=== PATIENT | female | born 1940 | race Caucasian/White ===

== ENCOUNTER 2017-02-07 03:47 | Inpatient (IN) ==
[2017-02-07] MEDS ORDERED: 0.9 % Sodium Chloride 500 ML IVC ONE ×2 (04:02→05:10)
--- NOTE | 2017-02-07 04:08 | Emergency Department Note ---
Disposition Clinical Impression: Paroxysmal atrial fibrillation with rapid ventricular response Disposition: Admitted As Inpatient Condition: Good Time of Disposition: 07:01 Arrhythmia/Palpitations HPI - General Chief Complaint: ED Arrhythmia/Palpitations Stated Complaint: Afib Time Seen by Provider: 02/07/17 03:52 Source: patient Mode of arrival: private vehicle Limitations: no limitations Nursing Notes Reviewed: Yes Vital Signs Reviewed: Yes - History of Present Illness HPI Narrative: 76-year-old female history of paroxysmal atrial fibrillation presents to the ED for rapid heart rate and atrial fibrillation. She is normally in normal sinus rhythm. States around 1230 she rolled in bed and she immediately felt her heart racing and she knew she was in atrial fibrillation. 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 She denies any shortness of breath or chest pain. She follows with Dr. Fay her administrative aide and had a recent ablation December 2015. She does take Pradaxa for anticoagulation. She used to be on beta paste as well. She denies any recent illness, fever, cough, nausea, vomiting or abdominal pain. She denies a history of congestive heart failure. Reports last time she had atrial fibrillation she was slightly hypotensive but they still gave her Cardizem and she was able to tolerate this well. Currently her blood pressure is 101/74. Give her a small fluid bolus of 500 mL normal saline and starter on a Cardizem 5 mL per hour drip without bolus. Patients in agreement with this plan. Pt Subjective Complaint: rapid heart beat, atrial fibrillation - Related Data Home Medications Medication Instructions Recorded Confirmed Dabigatran [Pradaxa] 75 mg PO BID 02/07/17 02/07/17 Metoprolol [Lopressor] 50 mg PO BID 02/07/17 02/07/17 Previous Rx's Medication Instructions Recorded Esomeprazole Magnesium [Nexium] 40 mg PO DAILY #0 06/17/15 Allergies Allergy/AdvReac Type Severity Reaction Status Date / Time No Known Allergies Allergy Verified 02/07/17 07:30 All systems ED: reviewed and negative except as stated. Review of Systems: As Per HPI Constitutional: Denies: fever, chills ENT ED: Denies: congestion, dysphagia Cardiovascular: Reports: palpitations. Denies: chest pain, dyspnea on exertion Respiratory: Denies: cough, dyspnea Gastrointestinal: Denies: abdominal pain, nausea, vomiting Genitourinary: Denies: urgency, dysuria Musculoskeletal: Reports: back pain. Denies: neck pain, arthralgia Integumentary: Denies: rash, abrasion Neurological: Denies: headache, weakness Psychiatric: Denies: anxiety, depression Past Medical History - Past Medical History Attestation: Yes The following information was validated with the patient. Source: patient Medical history: Reports: atrial fibrillation, GERD Surgical history: Reports: other ([facility] 2006--minimal CAD; mid LAD myocardial bridging. ) Psychiatric history: Reports: no psych history - Social History Smoking Status: Never smoker Smokeless Tobacco Status: No Alcohol use: Reports: none Drug use: Reports: none Physical Exam - General Limitations: no limitations General appearance: alert, in no apparent distress - Head Head exam: atraumatic, normocephalic, normal inspection - Eye Eye exam: Present: normal appearance, PERRL, EOMI - ENT ENT exam: normal exam, normal oropharynx, mucous membranes moist - Neck Neck exam: Present: normal inspection, full ROM, trachea midline. Absent: tenderness - Chest Chest inspection: Present: normal inspection, symmetric chest wall rise. Absent : tenderness - Respiratory Respiratory exam: Present: normal lung sounds bilaterally. Absent: respiratory distress, wheezes - Cardiovascular Cardiovascular exam: Present: tachycardia, irregular rhythm, normal heart sounds. Absent: systolic murmur, diastolic murmur - Abdominal Exam Abdominal exam: Present: soft, Non-Tender, normal bowel sounds. Absent: tenderness, distention, guarding, rebound, rigidity - Extremities Exam Extremities exam: Present: normal inspection, full ROM, normal capillary refill. Absent: tenderness, pedal edema, calf tenderness - Neurological Exam Neurological exam: Present: alert, oriented X3 - Skin Skin exam: Present: warm, dry, intact, normal color Course Course Narrative: [id number] female history of atrial fibrillation presents for atrial fibrillation with rapid ventricular response. She is normally in normal sinus rhythm after ablation over a year ago. She can tell the exact time she converted to atrial fibrillation at 1230a when she rolled in bed. EKG shows atrial fibrillation RVR 151 beats per minute. Her heart rate varies from 150 is as high as 200. She is awake alert and oriented. Mildly anxious otherwise in no acute distress. Heart irregularly irregular. Her initial blood pressure 101/74. States in the past she was able tolerate Cardizem without a bolus with no issues. Start her with 5mg per hour Cardizem as well as a 500 normal saline bolus. - Reevaluation(s) Reevaluation #1: Patient's artery is steadily at the 140's. States her blood pressure continues to drop as low as systolic 90. We have given or additional 500 mL normal saline bolus and has come back up to systolic 100-110s. She continues to be stable but does reports some feelings of lightheadedness. Offered the option of cardioversion and the patient is adamantly against it. She would prefer not to be cardioverted unless necessary. States last time she was in atrial fibrillation was 2 years ago and it took several hours until she converted. This was prior to her ablation. Will continue to slowly infuse Cardizem to appropriate rate control or pharmacological conversion. Review of the labs are unremarkable. Time: 05:54 - Consultations Consultation #1: Spoke with on-call admitting hospitalist, Dr. Clark, who came down to evaluate the patient personal and receive signout. Agrees that she will require admission for her paroxysmal atrial fibrillation c RVR. Again we offered cardioversion but patient prefers slow titration and rate control. Currently HR ranges 110-130s. She has remained stable the entire stay here in the emergency department and is stable for admission to the hospital floor for further management. No further orders at this time. Time: 07:14 Vital Signs Temperature 98.1 F 02/07/17 03:51 Pulse Rate 167 02/07/17 03:51 Respiratory Rate 20 02/07/17 03:51 Blood Pressure 86/60 02/07/17 03:51 O2 Sat by Pulse Oximetry 95 02/07/17 03:51 Temperature 98.7 F 02/07/17 14:58 Pulse Rate 72 02/07/17 14:58 Respiratory Rate 12 02/07/17 14:58 Blood Pressure 127/72 02/07/17 14:58 O2 Sat by Pulse Oximetry 93 02/07/17 14:58 Oxygen Delivery Oxygen Delivery Nasal Cannula Arrhythmia/Palpitations - Medical Records Medical records reviewed: Yes I reviewed the patient's medical records. - Lab Data Lab results reviewed: Yes I reviewed the patient's lab results. Result diagrams: 02/07/17 04:04 02/07/17 04:04 Lab Results 02/07/17 02/07/17 02/07/17 Range/Units 04:04 04:04 04:04 WBC 10.0 (4.3-11.1) K/mcL RBC 5.00 H (3.82-4.97) M/mcL Hgb 14.2 (11.5-15.4) g/dL Hct 43.3 (35.3-44.9) % MCV 86.6 (83.0-100.0) fL MCH 28.4 (28.0-33.3) pg MCHC 32.8 (31.6-35.5) g/dL RDW 13.2 (11.5-14.5) % Plt Count 250 (140-400) K/mcL MPV 9.9 (9.4-12.4) fL Immature Gran % 0.3 (0-4) % Seg Neutrophils % 71.7 % Lymphocytes % 21.7 % Monocytes % 5.1 % Eosinophils % 0.6 % Basophils % 0.6 % Neutrophils # 7.2 (1.6-8.9) K/mcL Lymphocytes # 2.2 (0.6-4.6) K/mcL Monocytes # 0.5 (0.0-1.3) K/mcL Eosinophils # 0.1 (0.0-0.6) K/mcL Basophils # 0.1 (0.0-0.2) K/mcL PT 13.6 H (9.4-12.1) Seconds INR 1.3 APTT 48.9 H (26.0-36.0) Seconds Sodium 135 L (136-145) mEq/L Potassium 4.7 H (3.5-4.5) mEq/L Chloride 104 (98-109) mEq/L Carbon Dioxide 19 (19-29) mEq/L BUN 17 (7-20) mg/dL Creatinine 0.85 (0.57-1.11) mg/dL Est GFR ( Amer) > 60 (> 60) Est GFR (Non-Af Amer) > 60 (> 60) BUN/Creatinine Ratio 20 (6-26) Glucose 200 H (70-99) mg/dL Calculated Osmolality 287 (280-300) Calcium 9.0 (8.6-10.8) mg/dL Troponin I (0-0.03) ng/mL TSH 3.384 (0.350-4.840) mcIU/mL 02/07/17 Range/Units 08:11 WBC (4.3-11.1) K/mcL RBC (3.82-4.97) M/mcL Hgb (11.5-15.4) g/dL Hct (35.3-44.9) % MCV (83.0-100.0) fL MCH (28.0-33.3) pg MCHC (31.6-35.5) g/dL RDW (11.5-14.5) % Plt Count (140-400) K/mcL MPV (9.4-12.4) fL Immature Gran % (0-4) % Seg Neutrophils % % Lymphocytes % % Monocytes % % Eosinophils % % Basophils % % Neutrophils # (1.6-8.9) K/mcL Lymphocytes # (0.6-4.6) K/mcL Monocytes # (0.0-1.3) K/mcL Eosinophils # (0.0-0.6) K/mcL Basophils # (0.0-0.2) K/mcL PT (9.4-12.1) Seconds INR APTT (26.0-36.0) Seconds Sodium (136-145) mEq/L Potassium (3.5-4.5) mEq/L Chloride (98-109) mEq/L Carbon Dioxide (19-29) mEq/L BUN (7-20) mg/dL Creatinine (0.57-1.11) mg/dL Est GFR ( Amer) (> 60) Est GFR (Non-Af Amer) (> 60) BUN/Creatinine Ratio (6-26) Glucose (70-99) mg/dL Calculated Osmolality (280-300) Calcium (8.6-10.8) mg/dL Troponin I 0.02 (0-0.03) ng/mL TSH (0.350-4.840) mcIU/mL - Radiology Data Radiology results reviewed: Yes I reviewed the patient's radiology results. Chest X-Ray 02/07/17 04:02 IMPRESSION: 1. No acute cardiopulmonary disease. D/ / Jassi Owusu MD / Jassi Owusu MD Interpreting Provider: Jassi Owusu MD - EKG Data EKG attestation: Yes I reviewed and interpreted this EKG. EKG results narrative: EKG performed 0351 atrial fibrillation with rapid ventricular response 1 51 bpm QRS 100, no ST elevations or depression, no T wave inversion. This is compared to old EKG performed 06/17/2015 shows normal sinus rhythm 69 bpm area no acute ischemic changes. Critical Care Time Critical Care Time: Yes Total Critical Care Time: 45 Attestation: Critical care performed: Time is exclusive of separately billable procedures. Time includes: direct patient care, patient reassessment, coordination of patient care, interpretation of data (laboratory data, radiology data, and respiratory data), review of patient's medical records, medical consultation and documentation of patient care. Procedures included in critical care time: Procedures excluded from critical care time: Attestation Statement - Attestation Attestation: I, Floyd Sotelo MD, personally evaluated this patient and discussed their management with the resident physician. I reviewed the resident's note and agree with the documented findings, medical decision making, and plan of care. 76-year-old female presents to the emergency department with a complaint of atrial fibrillation. Patient has a prior history of paroxysmal atrial fibrillation. She has had an ablation in the past. She states that she rolled over in bed at 12:30 AM and felt her heart go into atrial fibrillation. She denies any chest pain but states that she has a vague sensation in her chest that she always has when she is in atrial fibrillation and she knows immediately when the atrial fibrillation converts back to a sinus rhythm because that sensation in her chest goes away. No shortness of breath. No diaphoresis. She has felt mildly dizzy and lightheaded a few times. Patient reports that the last time she had an episode of atrial fibrillation her blood pressure was low so they had to keep her on a Cardizem drip at 5 mg per hour and could not give her a bolus. She states it took about 18 hours for her to convert back to a sinus rhythm. Patient states she does not want to be cardioverted unless she becomes significantly unstable. Her systolic blood pressure is been running mostly in the 90s. On examination patient is a well-developed well-nourished well-appearing elderly female in no acute distress. She is alert and oriented 3. There is no cyanosis or diaphoresis. Breath sounds are clear and equal bilaterally. Heart is tachycardic and irregularly irregular. Abdomen soft and nontender with normal bowel sounds. EKG shows atrial fibrillation with RVR. Chest x-ray negative. Labs reviewed. Patient placed on a Cardizem infusion at 5. She did receive a 500 mg bolus of normal saline which was then repeated. She did have slight improvement in her heart rate as when she arrived she was running anywhere from 160-190 and now on the cart exam she is running mostly in the 140s. Admission accepted by the hospitalist, Dr. Clark.
[2017-02-07 04:12] LABS: Basophils # 0.1 K/mcL (0.0-0.2); Basophils % 0.6 %; Eosinophils # 0.1 K/mcL (0.0-0.6); Eosinophils % 0.6 %; Hematocrit 43.3 % (35.3-44.9); Hemoglobin 14.2 g/dL (11.5-15.4); Immature Granulocytes % 0.3 % (0-4); Lymphocytes # 2.2 K/mcL (0.6-4.6); Lymphocytes % 21.7 %; Mean Corpuscular HGB Conc 32.8 g/dL (31.6-35.5); Mean Corpuscular Hemoglobin 28.4 pg (28.0-33.3); Mean Corpuscular Volume 86.6 fL (83.0-100.0); Mean Platelet Volume 9.9 fL (9.4-12.4); Monocytes # 0.5 K/mcL (0.0-1.3); Monocytes % 5.1 %; Neutrophils # 7.2 K/mcL (1.6-8.9); Platelet Count 250 K/mcL (140-400); Red Cell Distribution Width 13.2 % (11.5-14.5); Segmented Neutrophils % 71.7 %
[2017-02-07] MEDS ORDERED: dilTIAZem HCl 100 MG in D5% in Water 50 ML IVC SCH ×2 (04:15→09:19)
[2017-02-07 04:19] LABS: INR 1.3; Prothrombin Time 13.6 Seconds (9.4-12.1)
[2017-02-07 04:21] LABS: Activated Partial Thrombo Time 48.9 Seconds (26.0-36.0)
[2017-02-07 04:25] LABS: BUN/Creatinine Ratio 20 (6-26); Blood Urea Nitrogen 17 mg/dL (7-20); Carbon Dioxide 19 mEq/L (19-29); Chloride 104 mEq/L (98-109); Glucose 200 mg/dL (70-99); Osmolality,Calculated 287 (280-300); Sodium 135 mEq/L (136-145); eGFR For African Americans > 60 (> 60); eGFR For Non-African Americans > 60 (> 60)
[2017-02-07 04:27] LABS: Potassium 4.7 mEq/L (3.5-4.5)
[2017-02-07 04:45] LABS: Thyroid Stimulating Hormone 3.384 mcIU/mL (0.350-4.840)
[2017-02-07] MEDS ORDERED: 0.9 % Sodium Chloride 500 ML ONE (04:47)
--- NOTE | 2017-02-07 07:43 | Internal Med History&Physical ---
Date of Encounter: 02/07/17 Time of Encounter: 07:36 Assessment and Plan (1) Paroxysmal atrial fibrillation with rapid ventricular response Current visit: Yes Status: Acute 76/female Known to have atrial fibrillation. Ablation for atrial fibrillation in 2016. CHADS-VASc score is 4 [address] Fay from [facility]. Last echocardiogram: 05/2015: EF: 60%, asymmetric hypertrophy of a basal septum, no significant valvular dysfunction. Anticoagulation: Dabigatran Emi carl: Metoprolol 50 mg twice a day Present ventricular rate between 110 to 126/m Plan: -Admitted as inpatient: Need intravenous Cardizem for rate control. -Intravenous Cardizem to keep heart rate between 90 and 100 bpm. -Resume home medication. -Echocardiogram. -Cycle troponin. -Telemetry monitoring. -Cardiac diet. -If the heart rate is not controlled with this medication and if there is abnormality in the echocardiogram, we will get a cardiology evaluation. I examined this patient in the emergency room #9. Along with me emergency room resident Dr. Álvarez was present. Patient's family was at bedside. I have discussed above plan with the patient and her family. (2) Palpitations Current visit: No Status: Acute See above (3) Elevated blood sugar Current visit: Yes Status: Acute Noted that patient has a random blood sugar of 200. No previous history of diabetes. We will get hemoglobin A1c. (4) GERD (gastroesophageal reflux disease) Current visit: No Status: Chronic Resume home medication. Qualifiers: Esophagitis presence: without esophagitis Qualified Code(s): K21.9 - Gastro -esophageal reflux disease without esophagitis (5) DVT prophylaxis Current visit: Yes Status: Acute Dabigatran. Medical decision making: This patient has a moderate to severe risk of worsening in spite of being on appropriate medication to the underlying complex comorbid issues. Internal Medicine - H&P: HPI Chief complaint: Palpitations Admitted From: Emergency Dept Plans for Post Hospital Care: Home History of present illness: PCP: Nurse saray Booth. Usability Architect: Dr. Fay from [facility]. 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 This episode was lasted for more than 45 minutes. Patient feels little better after that but again she started having palpitations. In view of this ongoing palpitations she decided to come to the emergency room for further evaluation. Patient denies chest pain, shortness of breath, abdominal pain, nausea, vomiting, dizziness or diarrhea. Workup in the emergency room: Patient was evaluated in the emergency room. Basic labs were drawn. EKG was suggestive of atrial fibrillation with rapid ventricular rate. Patient was given option of electrical cardioversion. Patient refuses further electrical cardioversion and prefer hospitalization. She was started on Cardizem drip. Reason for hospitalization: Atrial fibrillation with a rapid ventricular rate. CHADS-VASc score is 4. Patient needs intravenous Cardizem to control her heart rate to begin with along with close monitoring. Family history: Nonsignificant Past Med Surg Social Fam HX - Past Medical History Medical history: atrial fibrillation, GERD Psychiatric history: no psych history - Past Surgical History Surgical History: other ([facility] 2005--minimal CAD; mid LAD myocardial bridging. ) - Social History Smoking Status: Never smoker Smokeless Tobacco Status: No Alcohol use: none Drug use: none - Family History Mother Living Status: Hx Family Cardiac Disorders: No Hx Family Respiratory Disorders: No Hx Family Cancer: No Internal Medicine - H&P: Meds Esomeprazole Magnesium [Nexium] 40 mg PO DAILY #0 06/17/15 [Rx] Dabigatran [Pradaxa] 75 mg PO BID 02/07/17 [History] Metoprolol [Lopressor] 50 mg PO BID 02/07/17 [History] 3 Allergy/AdvReac Type Severity Reaction Status Date / Time No Known Allergies Allergy Verified 02/07/17 07:30 All Systems PM: A 10-system review of systems was performed and is negative for pertinent findings except as documented above in the HPI. - Constitutional Constitutional: no chills, no fever(s), no night sweats - EENT Eyes: no change in vision, no discharge, no pain, no photophobia Ears: no ear discharge, no ear pain, no tinnitus Nose, mouth and throat: no dysphagia, no nasal discharge, no neck pain, no sore throat - Cardiovascular Cardiovascular ROS IM: dyspnea, lightheadedness, palpitations, no chest pain, no diaphoresis, no syncope - Respiratory Respiratory: no cough, no dyspnea, no wheezing, no excessive phlegm production - Gastrointestinal Gastrointestinal: no abdominal pain, no diarrhea, no hematemesis, no hematochezia, no melena, no nausea, no vomiting - Genitourinary Genitourinary: no change in urinary stream, no dysuria, no flank pain, no hematuria - Musculoskeletal Musculoskeletal ROS IM: no numbness, no tingling - Integumentary Integumentary IM: no rash, no unusual bruising - Neurological Neurological ROS: no confusion, no convulsions, no focal weakness, no numbness, no tingling, no tremor(s) - Hematologic/Lymphatic Hematologic/Lymphatic: no easy bruising - Constitutional Vitals: Temp Pulse Resp BP Pulse Ox 98.1 F 139 16 93/75 93 02/07/17 03:51 02/07/17 06:29 02/07/17 06:29 02/07/17 06:29 02/07/17 06:29 General appearance: Present: A&O X 3, pleasant, no acute distress, answers questions appropriately - Head Head exam: Present: atraumatic, normocephalic - Eye Eye exam: Present: PERRL, conjuntiva pink, sclera anicteric Pupils: Present: PERRL - Neck Neck exam general surgery: Present: supple, trachea midline. Absent: lymphadenopathy - Respiratory Respiratory exam: Present: CTAB. Absent: accessory muscle use, rales, rhonchi, wheezes - Cardiovascular Cardiovascular exam: Present: RRR, +S1, +S2. Absent: diastolic murmur, gallop, rubs, systolic murmur - GI/Abdominal GI/Abdominal exam: Present: normal bowel sounds, soft, no peritoneal signs. Absent: distended, tenderness - Extremities Exam Extremities exam: Present: warm, radial pulses palpable and symmetrical. Absent : calf tenderness, cyanotic, pedal edema - Neurological Exam Neurological exam: Present: CN II-XII intact, oriented X3, no focal deficits. Absent: pronater drift, facial droop, speech deficit - Skin Skin exam: Present: dry, intact Internal Med - H&P Results - Labs CBC & Chem 7: 02/07/17 04:04 02/07/17 04:04 Labs: Short CBC 02/07/17 Range/Units 04:04 WBC 10.0 (4.3-11.1) K/mcL Hgb 14.2 (11.5-15.4) g/dL Hct 43.3 (35.3-44.9) % Plt Count 250 (140-400) K/mcL Neutrophils # 7.2 (1.6-8.9) K/mcL BMP 02/07/17 04:04 Sodium 135 L Potassium 4.7 H Chloride 104 Carbon Dioxide 19 BUN 17 Creatinine 0.85 Glucose 200 H Calcium 9.0 I have discussed this case at length with the emergency room physician. - Impressions ITS Impressions Chest X-Ray 02/07/17 04:02 IMPRESSION: 1. No acute cardiopulmonary disease. D/ / Jassi Owusu MD / Jassi Owusu MD Interpreting Provider: Jassi Owusu MD
[2017-02-07] MEDS ORDERED: Naloxone 0.4 MG/ML INJ IVP PRN (07:47)
[2017-02-07] MEDS: *HR* Dabigatran 75 MG CAPSULE PO SCH ×2 (09:37→20:48)
[2017-02-07] MEDS ORDERED: 0.9 % Sodium Chloride 1,000 ML IVC SCH (09:45)
--- NOTE | 2017-02-07 20:16 | Electrocardiograph Report ---
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
--- NOTE | 2017-02-07 20:23 | Electrocardiograph Report ---
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
[2017-02-08 01:21] LABS: Basophils # 0.1 K/mcL (0.0-0.2); Basophils % 0.8 %; Eosinophils # 0.2 K/mcL (0.0-0.6); Eosinophils % 2.2 %; Hematocrit 38.1 % (35.3-44.9); Immature Granulocytes % 0.1 % (0-4); Lymphocytes # 2.5 K/mcL (0.6-4.6); Lymphocytes % 33.1 %; Mean Corpuscular HGB Conc 32.3 g/dL (31.6-35.5); Mean Corpuscular Hemoglobin 28.3 pg (28.0-33.3); Mean Corpuscular Volume 87.8 fL (83.0-100.0); Mean Platelet Volume 10.1 fL (9.4-12.4); Monocytes # 0.7 K/mcL (0.0-1.3); Monocytes % 8.7 %; Neutrophils # 4.1 K/mcL (1.6-8.9); Platelet Count 209 K/mcL (140-400); Red Blood Count 4.34 M/mcL (3.82-4.97); Red Cell Distribution Width 13.4 % (11.5-14.5); Segmented Neutrophils % 55.1 %
[2017-02-08 01:24] LABS: Hemoglobin 12.3 g/dL (11.5-15.4)
[2017-02-08 01:26] LABS: INR 1.2; Prothrombin Time 13.4 Seconds (9.4-12.1)
[2017-02-08 01:29] LABS: Activated Partial Thrombo Time 42.5 Seconds (26.0-36.0)
[2017-02-08 01:31] LABS: Hemoglobin A1C 5.8 %
[2017-02-08 01:36] LABS: Alanine Aminotransferase 43 Units/L (0-55); Albumin 3.2 g/dL (3.5-5.0); Albumin/Globulin Ratio 1.1 (1.1-2.2); Alkaline Phosphatase 68 Units/L (38-126); Aspartate Amino Transferase 25 Units/L (5-34); BUN/Creatinine Ratio 19 (6-26); Bilirubin,Total 0.6 mg/dL (0.2-1.2); Blood Urea Nitrogen 14 mg/dL (7-20); Calcium 8.7 mg/dL (8.6-10.8); Carbon Dioxide 26 mEq/L (19-29); Chloride 108 mEq/L (98-109); Chol/HDL Ratio 6.6 (0-4.9); Cholesterol 164 mg/dL (< 200); Glucose 105 mg/dL (70-99); HDL Cholesterol 25 mg/dL (40-59); LDL Cholesterol,Calculated 115 mg/dL (0-99); Magnesium 2.3 mg/dL (1.6-2.6); Osmolality,Calculated 291 (280-300); Phosphorous 3.2 mg/dL (2.3-4.7); Potassium 3.9 mEq/L (3.5-4.5); Sodium 140 mEq/L (136-145); Total Protein 6.2 g/dL (6.0-8.3); Triglycerides 118 mg/dL (< 150); eGFR For African Americans > 60 (> 60); eGFR For Non-African Americans > 60 (> 60)
[2017-02-08] MEDS: *HR* Dabigatran 75 MG CAPSULE PO SCH (08:11)
--- NOTE | 2017-02-08 15:13 | Discharge Summary ---
Date of Encounter: 02/08/17 Time of Encounter: 11:00 - Discharge Diagnosis (1) Paroxysmal atrial fibrillation with rapid ventricular response Priority: Primary Status: Acute - Discharge Medications Home Medications: Esomeprazole Magnesium [Nexium] 40 mg PO DAILY #0 06/17/15 [Rx] Dabigatran [Pradaxa] 150 mg PO BID 02/07/17 [History] Metoprolol [Lopressor] 50 mg PO BID 02/07/17 [History] Allergies/Adverse Reactions: 3 Allergy/AdvReac Type Severity Reaction Status Date / Time No Known Allergies Allergy Verified 02/07/17 07:30 Procedures/tests Complete & Pending: Procedures Performed prior 72 hours Category Date Time Status ECG 12 lead ECG [ECG] Routine Y 02/07/17 13:36 Completed Date of admission: 02/07/17 10:55 Primary care physician: Julee Booth CNP - Patient Status Disposition: Home, Self-Care Condition: Good - Discharge Instructions Follow Up With: Karel Fay DO [Non-Partnered Physician] - 02/19/17 (keep previously scheduled appointment w/your radiotelegraphist first week in February) Hospital course: Patient is a 77-year-old female with past medical history significant for atrial fibrillation with prior ablation, hyperlipidemia, coronary artery disease and GERD who presented to the ER on 02/07/17 with chest palpitations. Patient reported that approximately around midnight prior to her admission, she experienced palpitations and thought that she was back in atrial fibrillation with RVR and decided to come to the ER for evaluation. In the ER, patient was found to be in atrial fibrillation with RVR and was started on Cardizem drip and later cardio converted. Patient was admitted to the medical floor for further management and workup. During patients hospital stay, she remained in normal sinus rhythm and echocardiogram showed LVEF of 65-70% with normal left ventricular size/function in addition to normal right ventricular size/function with no valvular dysfunction or pulmonary hypertension identified. In addition, patient also was found to have elevated cardiac biomarkers which was thought to be due to demand ischemia secondary to atrial fibrillation with RVR. Patient will be discharged to follow up with her radiotelegraphist for continued medical management of a atrial fibrillation. - Time Spent with Patient Total time spent providing and/or coordinating discharge services: Less than 30 minutes - Constitutional Vitals: Temp Pulse Resp BP Pulse Ox 98 F 89 20 158/90 96 11/23/17 12:00 02/08/17 12:00 02/08/17 12:00 02/08/17 12:00 02/08/17 12:00 General appearance: Present: A&O X 3, pleasant, no acute distress, answers questions appropriately - Respiratory Respiratory exam: Present: CTAB. Absent: accessory muscle use, rales, rhonchi, wheezes - Cardiovascular Cardiovascular exam: Present: RRR, +S1, +S2. Absent: diastolic murmur, gallop, rubs, systolic murmur
[2017-02-08 17:09] VITALS: BP 131/91
[2017-02-08] MEDS ORDERED: *HR* Dabigatran 150 MG CAPSULE PO SCH (21:00)
== END 2017-02-08 16:05 | disposition home or self-care (01) | DRG 309 ==
LOC: EMEROO 03:47 → 2NENU 03:47
PROVIDERS: ADMIT Internal Medicine; ATTEND Internal Medicine

== ENCOUNTER 2017-08-22 21:05 | Inpatient (IN) ==
[2017-08-22 21:43] LABS: Basophils # 0.1 K/mcL (0.0-0.2); Basophils % 0.6 %; Eosinophils # 0.1 K/mcL (0.0-0.6); Eosinophils % 1.1 %; Hematocrit 40.7 % (35.3-44.9); Hemoglobin 13.6 g/dL (11.5-15.4); Immature Granulocytes % 0.2 % (0-4); Lymphocytes # 2.1 K/mcL (0.6-4.6); Lymphocytes % 21.2 %; Mean Corpuscular HGB Conc 33.4 g/dL (31.6-35.5); Mean Corpuscular Hemoglobin 28.8 pg (28.0-33.3); Mean Corpuscular Volume 86.2 fL (83.0-100.0); Mean Platelet Volume 9.9 fL (9.4-12.4); Monocytes # 0.8 K/mcL (0.0-1.3); Neutrophils # 6.9 K/mcL (1.6-8.9); Platelet Count 221 K/mcL (140-400); Red Blood Count 4.72 M/mcL (3.82-4.97); Red Cell Distribution Width 13.3 % (11.5-14.5); Segmented Neutrophils % 68.9 %
[2017-08-22] MEDS ORDERED: 0.9 % Sodium Chloride 1,000 ML ONE (21:45)
--- NOTE | 2017-08-22 21:48 | Emergency Department Note ---
Disposition Clinical Impression: Atrial fibrillation with rapid ventricular response Disposition: Admitted As Inpatient Condition: Fair Referrals: Julee Booth [facility] [Primary Care Provider] - Forms: ED Satisfaction Letter Time of Disposition: 23:08 Arrhythmia/Palpitations HPI - General Chief Complaint: ED Arrhythmia/Palpitations Stated Complaint: cp/sob Time Seen by Provider: 08/22/17 21:18 Source: patient Mode of arrival: ambulatory Limitations: no limitations Nursing Notes Reviewed: Yes Vital Signs Reviewed: Yes - History of Present Illness HPI Narrative: History of atrial fibrillation. Pt Subjective Complaint: rapid heart beat, "heart racing", palpitations, irregular heart beat, atrial fibrillation Onset (ago): hour(s) Duration: constant Context: occurred during rest Arrhythmia History: atrial fibrillation Associated symptoms: Reports: chest pain, other (Dyspnea) Treatments prior to arrival: beta-carl - Related Data Home Medications Medication Instructions Recorded Confirmed Dabigatran [Pradaxa] 150 mg PO BID 02/07/17 02/08/17 Metoprolol [Lopressor] 50 mg PO BID 02/07/17 02/07/17 Previous Rx's Medication Instructions Recorded Esomeprazole Magnesium [Nexium] 40 mg PO DAILY #0 06/17/15 Allergies Allergy/AdvReac Type Severity Reaction Status Date / Time No Known Allergies Allergy Verified 08/22/17 21:11 All systems ED: reviewed and negative except as stated. Constitutional: Reports: as per HPI Eyes: Reports: as per HPI ENT ED: Reports: as per HPI Cardiovascular: Reports: chest pain, palpitations Respiratory: Reports: dyspnea Gastrointestinal: Reports: as per HPI Genitourinary: Reports: as per HPI Musculoskeletal: Reports: as per HPI Integumentary: Reports: as per HPI Neurological: Reports: as per HPI Psychiatric: Reports: as per HPI Endocrine: Reports: as per HPI Hematological/Lymphatic: Reports: as per HPI Allergic/Immunologic: Reports: as per HPI Past Medical History - Past Medical History Source: patient Medical history: Reports: atrial fibrillation, GERD Surgical history: Reports: other ([facility] 2005--minimal CAD; mid LAD myocardial bridging. ) Psychiatric history: Reports: no psych history - Social History Smoking Status: Never smoker Smokeless Tobacco Status: No Alcohol use: Reports: none Drug use: Reports: none Physical Exam - General Limitations: no limitations General appearance: alert - Head Head exam: atraumatic - Eye Eye exam: Present: normal appearance - ENT ENT exam: normal exam - Neck Neck exam: Present: normal inspection, full ROM - Chest Chest inspection: Present: normal inspection, symmetric chest wall rise - Respiratory Respiratory exam: Present: normal lung sounds bilaterally, respiratory distress - Cardiovascular Cardiovascular exam: Present: tachycardia, irregular rhythm - Rectal Exam Rectal exam: Present: deferred - Extremities Exam Extremities exam: Present: normal inspection - Neurological Exam Neurological exam: Present: alert, oriented X3, CN II-XII intact - Psychiatric Psychiatric exam: Present: normal affect, normal mood - Skin Skin exam: Present: warm, dry, intact Course Course Narrative: Patient presents with palpitations. History of atrial fibrillation. She appears to be in atrial fibrillation with rapid ventricular response. Rate control agents initiated - Reevaluation(s) Reevaluation #1: Heart rate improved on Cardizem drip. Stable for admission. She is a rate controlled and anticoagulated Vital Signs Temperature 97.9 F 08/22/17 21:09 Pulse Rate 135 08/22/17 21:09 Respiratory Rate 18 08/22/17 21:09 Blood Pressure 115/79 08/22/17 21:09 O2 Sat by Pulse Oximetry 94 08/22/17 21:09 Temperature 97.9 F 08/22/17 21:35 Pulse Rate 99 08/22/17 22:48 Respiratory Rate 16 08/22/17 22:48 Blood Pressure 107/82 08/22/17 22:48 O2 Sat by Pulse Oximetry 96 08/22/17 22:48 Oxygen Delivery Oxygen Delivery Nasal Cannula Arrhythmia/Palpitations - Lab Data Lab results reviewed: Yes I reviewed the patient's lab results. Result diagrams: 08/22/17 21:12 08/22/17 21:12 Lab Results 08/22/17 08/22/17 Range/Units 21:12 21:12 WBC 10.0 (4.3-11.1) K/mcL RBC 4.72 (3.82-4.97) M/mcL Hgb 13.6 (11.5-15.4) g/dL Hct 40.7 (35.3-44.9) % MCV 86.2 (83.0-100.0) fL MCH 28.8 (28.0-33.3) pg MCHC 33.4 (31.6-35.5) g/dL RDW 13.3 (11.5-14.5) % Plt Count 221 (140-400) K/mcL MPV 9.9 (9.4-12.4) fL Immature Gran % 0.2 (0-4) % Seg Neutrophils % 68.9 % Lymphocytes % 21.2 % Monocytes % 8.0 % Eosinophils % 1.1 % Basophils % 0.6 % Neutrophils # 6.9 (1.6-8.9) K/mcL Lymphocytes # 2.1 (0.6-4.6) K/mcL Monocytes # 0.8 (0.0-1.3) K/mcL Eosinophils # 0.1 (0.0-0.6) K/mcL Basophils # 0.1 (0.0-0.2) K/mcL Sodium 134 L (136-145) mEq/L Potassium 3.8 (3.5-5.1) mEq/L Chloride 100 (98-107) mEq/L Carbon Dioxide 23 (23-29) mEq/L BUN 15 (8-23) mg/dL Creatinine 0.78 (0.60-1.20) mg/dL Est GFR ( Amer) > 60 (> 60) Est GFR (Non-Af Amer) > 60 (> 60) BUN/Creatinine Ratio 19 (6-26) Glucose 227 H (70-105) mg/dL Calculated Osmolality 286 (280-300) Calcium 9.5 (8.6-10.3) mg/dL Troponin I < 0.03 (< 0.04) ng/mL TSH 3.907 (0.340-5.600) mcIU/mL - Radiology Data Radiology results reviewed: Yes I reviewed the patient's radiology results. - EKG Data EKG attestation: Yes I reviewed and interpreted this EKG. EKG results narrative: Irregularly irregular rhythm at 162 bpm left axis deviation and QRS 95 QT/QTC 267/357. Study compared to previous dated 02/07/70 22:29: AP ECG at 22:27 shows irregularly irregular rhythm at a rate of 104 QRS 92 QT/QTC 340/401 Critical Care Time Critical Care Time: Yes Total Critical Care Time: 30 Attestation: The high probability of a clinically significant, sudden or life threatening deterioration of the [] system(s) required my full and direct attention, intervention and personal management. The aggregate critical care time was [] minutes. This time is in addition to time spent performing reported procedures but includes the following: [] Data Review and interpretation [] Patient assessment and monitoring of vital signs [] Documentation [] Medication orders and management
[2017-08-22 22:00] LABS: BUN/Creatinine Ratio 19 (6-26); Blood Urea Nitrogen 15 mg/dL (8-23); Calcium 9.5 mg/dL (8.6-10.3); Carbon Dioxide 23 mEq/L (23-29); Chloride 100 mEq/L (98-107); Glucose 227 mg/dL (70-105); Osmolality,Calculated 286 (280-300); Potassium 3.8 mEq/L (3.5-5.1); Sodium 134 mEq/L (136-145); Troponin I < 0.03 ng/mL (< 0.04); eGFR For African Americans > 60 (> 60); eGFR For Non-African Americans > 60 (> 60)
[2017-08-22 22:15] LABS: Thyroid Stimulating Hormone 3.907 mcIU/mL (0.340-5.600)
--- NOTE | 2017-08-22 23:34 | Internal Med History&Physical ---
Date of Encounter: 08/23/17 Time of Encounter: 23:34 Internal Medicine - H&P: HPI Chief complaint: Palpitations Admitted From: Emergency Dept Plans for Post Hospital Care: Home History of present illness: Ms. Doan is a 76 year old female with history of atrial fibrillation status post ablation on anticoagulation, GERD, hypertension who presents with feeling of palpitations that started earlier this evening. The patient had a busy day help and her daughter painting clean in her house and started suddenly feel weak, dizzy, short of breath, and felt palpitations. She notes she was in atrial fibrillation given her previous history. 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 She drove herself to the ED where she was found to be in A. fib with RVR with a rate into the 60s. The patient was given IV Cardizem 20 mg and put on a Cardizem drip. By the time I came down to evaluate the patient she was better rate controlled with a rate anywhere between the 90s to 120s but still in A. fib. The patient follows up with Dr. Fay in [facility]. Her last A. fib with RVR episode was around . At the time an echocardiogram was done with EF of 65-70% and no valvular dysfunction. The patient denies any headache, blurry vision, fever, chills, chest pain, abdominal pain, diarrhea, constipation, urinary symptoms, or neurological symptoms. In the ED a chest x- ray showed low lung volumes with left basilar opacity. The patient denies any pneumonia symptoms. Laboratory workup was unremarkable including electrolytes and TSH. Past Med Surg Social Fam HX - Past Medical History Medical history: atrial fibrillation, GERD Psychiatric history: no psych history - Past Surgical History Surgical History: other ([facility] 2005--minimal CAD; mid LAD myocardial bridging. ) Additional surgical history: sinus, inner ear - Social History Smoking Status: Never smoker Smokeless Tobacco Status: No Alcohol use: none Drug use: none - Family History Mother Living Status: Hx Family Cardiac Disorders: No Hx Family Respiratory Disorders: No Hx Family Cancer: No Internal Medicine - H&P: Meds Esomeprazole Magnesium [Nexium] 40 mg PO DAILY #0 06/17/15 [Rx] Dabigatran [Pradaxa] 150 mg PO BID 02/07/17 [History] Metoprolol [Lopressor] 100 mg PO BID 02/07/17 [History] 3 Allergy/AdvReac Type Severity Reaction Status Date / Time No Known Allergies Allergy Verified 08/22/17 21:11 All Systems PM: A 10-system review of systems was performed and is negative for pertinent findings except as documented above in the HPI. Review of systems: All systems reviewed are negative except for as mentioned above - Constitutional Vitals: Temp Pulse Resp BP Pulse Ox 97.9 F 107 16 113/72 96 08/22/17 21:35 08/22/17 23:30 08/22/17 23:30 08/22/17 23:30 08/22/17 23:30 Exam: GEN: NAD HEENT: AT, NC, No cyanosis, oral mucosa is moist, No JVD Lymphatics: No lymphadenoapthy Eyes: Extrocular muscles intact, anicteric CVS: Tachycardic and irregular. S1, S2, No m/r/g RESP: CTAB ABD: Soft, NT, ND, +BS EXT: No edema, No rashes, 2+ DP NEURO: Nonfocal, CN II-XII intact, No focal motor or sensory deficits Psych: Cooperative, Not anxious or depressed Internal Med - H&P Results - Labs CBC & Chem 7: 08/22/17 21:12 08/22/17 21:12 Labs: Short CBC 08/22/17 Range/Units 21:12 WBC 10.0 (4.3-11.1) K/mcL Hgb 13.6 (11.5-15.4) g/dL Hct 40.7 (35.3-44.9) % Plt Count 221 (140-400) K/mcL Neutrophils # 6.9 (1.6-8.9) K/mcL BMP 08/22/17 21:12 Sodium 134 L Potassium 3.8 Chloride 100 Carbon Dioxide 23 BUN 15 Creatinine 0.78 Glucose 227 H Calcium 9.5 Cardiac Enzymes 08/22/17 Range/Units 21:12 Troponin I < 0.03 (< 0.04) ng/mL - Impressions ITS Impressions Chest X-Ray 08/22/17 21:12 IMPRESSION: Low lung volume study with associated vascular crowding and scattered subsegmental atelectasis. Additional left basilar opacity may represent additional atelectasis and less likely infiltrate. Suggestion of mild vascular congestion. D/ / 08/22/2017 22:27:43 Les Lopez MD / lev Interpreting Provider: Les Lopez MD - Assessment and plan (1) Atrial fibrillation with rapid ventricular response Current Visit: Yes Status: Acute Assessment and plan: Admit the patient to telemetry. Electrolytes and TSH are unremarkable. We will keep on a Cardizem drip. I do not plan on getting cardiology involved. They can be consulted if she remains in afib by the morning. I think the patient can be resumed on her beta carl or have her beta carl increased if her blood pressure allows and can be discharged after that and follow-up with Dr. Fay at [facility]. No need to repeat an echo as it was done last January and was unremarkable. Continue anticoagulation with Pradaxa (2) HTN (hypertension) Current Visit: Yes Status: Acute Assessment and plan: Resume antihypertensives if blood pressure allows. Qualifiers: Hypertension type: essential hypertension Qualified Code(s): I10 - Essential (primary) hypertension (3) GERD (gastroesophageal reflux disease) Current Visit: No Status: Chronic Assessment and plan: Continue home PPI Qualifiers: Esophagitis presence: without esophagitis Qualified Code(s): K21.9 - Gastro -esophageal reflux disease without esophagitis (4) DVT prophylaxis Current Visit: No Status: Acute Assessment and plan: Patient is on Pradaxa - Time Spent With Patient Total time spent is greater than 50% in coordination of care (as documented) at patient's floor/unit and/or counseling patient:
[2017-08-23] MEDS ORDERED: Acetaminophen 325 MG TABLET PO PRN (00:06)
[2017-08-23] MEDS ORDERED: Naloxone 0.4 MG/ML INJ IVP PRN (00:06)
[2017-08-23] MEDS ORDERED: 0.9 % Sodium Chloride 250 ML IVC ONE (03:12)
[2017-08-23 04:19] LABS: Basophils # 0.1 K/mcL (0.0-0.2); Basophils % 0.7 %; Eosinophils # 0.1 K/mcL (0.0-0.6); Eosinophils % 1.7 %; Hematocrit 37.7 % (35.3-44.9); Hemoglobin 12.2 g/dL (11.5-15.4); Immature Granulocytes % 0.3 % (0-4); Lymphocytes # 2.6 K/mcL (0.6-4.6); Lymphocytes % 35.3 %; Mean Corpuscular HGB Conc 32.4 g/dL (31.6-35.5); Mean Corpuscular Hemoglobin 28.4 pg (28.0-33.3); Mean Corpuscular Volume 87.9 fL (83.0-100.0); Monocytes # 0.6 K/mcL (0.0-1.3); Monocytes % 8.7 %; Neutrophils # 3.9 K/mcL (1.6-8.9); Platelet Count 195 K/mcL (140-400); Red Blood Count 4.29 M/mcL (3.82-4.97); Red Cell Distribution Width 13.5 % (11.5-14.5); Segmented Neutrophils % 53.3 %
[2017-08-23] MEDS ORDERED: Ringers Solution, Lactated 1,000 ML IVC SCH (04:30)
[2017-08-23 04:40] LABS: BUN/Creatinine Ratio 18 (6-26); Blood Urea Nitrogen 12 mg/dL (8-23); Carbon Dioxide 28 mEq/L (23-29); Chloride 106 mEq/L (98-107); Glucose 124 mg/dL (70-105); Magnesium 2.2 mg/dL (1.6-2.6); Osmolality,Calculated 291 (280-300); Potassium 4.1 mEq/L (3.5-5.1); Sodium 140 mEq/L (136-145); eGFR For African Americans > 60 (> 60); eGFR For Non-African Americans > 60 (> 60)
[2017-08-23] MEDS ORDERED: *HR* Dabigatran 75 MG CAPSULE PO SCH (09:00)
[2017-08-23] MEDS ORDERED: Metoprolol 100 MG TABLET PO SCH (09:00)
[2017-08-23] MEDS ORDERED: Patient Taking Own Medication 1 EACH PO SCH (09:45)
--- NOTE | 2017-08-23 10:42 | Discharge Summary ---
<Romulo Morrison - Last Filed: 08/23/17 15:14> - NOTES TO OUTPATIENT PROVIDER Notes to Outpatient Provider: Discussed adjusting current medication dose, however Denise easily went back in NSR and remained in NSV during stay. She seemed very reliable for outpt cardiology f/u. Orders not resulted at time of discharge: Pending orders 08/23/17 09:38 EKG [ECG 12 lead ECG] [ECG] Routine Date of Encounter: 08/23/17 Time of Encounter: 09:05 - Discharge Diagnosis (1) Atrial fibrillation with rapid ventricular response Priority: Primary Status: Acute (2) HTN (hypertension) Priority: Secondary Status: Acute Qualifiers: Hypertension type: essential hypertension Qualified Code(s): I10 - Essential (primary) hypertension (3) GERD (gastroesophageal reflux disease) Priority: Secondary Status: Chronic Qualifiers: Esophagitis presence: without esophagitis Qualified Code(s): K21.9 - Gastro -esophageal reflux disease without esophagitis (4) DVT prophylaxis Priority: Secondary Status: Acute Hospital course: Ms. Doan is a 76 year old female with history of atrial fibrillation status post ablation approx 2 years ago, she is on anticoagulation (Pradaxa), GERD, and hypertension. She presented with feelings of heart palpitations. She noted suddenly feeling weak, dizzy, short of breath, and having palpitations. History of A fib, followed by Dr. Fay at [facility]. Notes last episode of A fib was Jan 2017. Patient was given IV Cardizem 20 mg in the ED and then placed on a Cardizem drip, this morning she was on 7.5 mg/hr cardizem with irregular rhythm on exam, however moments later she converted to NSR and has remained in NSR without additional complaints throughout the day. She was also given her home dose of lopressor (100mg BID) and continued on her anticoagulation of Pradaxa. Last Echocardiogram from Jan 2018 reviewed with EF of 65-70% and no valvular dysfunction. The patient denies any headache, blurry vision, fever, chills, chest pain, abdominal pain, diarrhea, constipation, urinary symptoms, or neurological symptoms. Laboratory workup was unremarkable including electrolytes and TSH. Patient feels comfortable returning home with plan for outpatient cardiology follow up. Discharge discussed with: patient, nurse - Time Spent with Patient Total time spent providing and/or coordinating discharge services: Less than 30 minutes - Discharge Medications Home Medications: Esomeprazole Magnesium [Nexium] 40 mg PO DAILY #0 06/17/15 [Rx] Dabigatran [Pradaxa] 150 mg PO BID 02/07/17 [History] Metoprolol [Lopressor] 100 mg PO BID 02/07/17 [History] Allergies/Adverse Reactions: 3 Allergy/AdvReac Type Severity Reaction Status Date / Time No Known Allergies Allergy Verified 08/22/17 21:11 Date of admission: 08/23/17 00:06 Primary care physician: Julee Booth CNP Discharging clinician: Sarah Dale Anticipated date of discharge: 08/23/17 - Constitutional Vitals: Temp Pulse Resp BP Pulse Ox 97.8 F 110 16 105/86 95 08/23/17 06:46 08/23/17 06:46 08/23/17 06:46 08/23/17 06:46 08/23/17 06:46 General appearance: Present: cooperative, A&O X 3, no acute distress, answers questions appropriately - Head Head exam: Present: atraumatic, normal inspection, normocephalic - Eye Eye exam: Present: EOMI, normal appearance, sclera anicteric - ENT ENT exam: Present: mucous membranes moist - Neck Neck exam general surgery: Present: full ROM, normal inspection - Respiratory Respiratory exam: Present: CTAB. Absent: respiratory distress, wheezes - Cardiovascular Cardiovascular exam: Present: tachycardia Additional comments: irregular rhythm on initial exam this AM, RRR on repeat exam. - GI/Abdominal GI/Abdominal exam: Present: normal bowel sounds, soft. Absent: distended, guarding, tenderness - Extremities Exam Extremities exam: Present: normal inspection. Absent: pedal edema, tenderness - Neurological Exam Neurological exam: Present: alert, oriented X3, no focal deficits. Absent: facial droop, speech deficit - Psychiatric Psychiatric exam: Present: normal affect, normal mood - Skin Skin exam: Present: intact, normal color, warm. Absent: cyanosis, rash - Patient Status Disposition: Home, Self-Care Condition: Good Functional capacity at discharge: independent ambulation Overall status at discharge: patient is back to baseline - Discharge Instructions Instructions: Atrial Fibrillation (DC), Chronic Hypertension (DC) Follow Up With: Julee Booth CNP [Primary Care Provider] - 08/31/17 1:00 pm Additional Instructions: Please call your cash management associate tomorrow to arrange follow up. Please return or seek medical care if you have new or worsening symptoms such has heart palpitations, chest pain, shortness of breath, dizziness. - Diet and Activity Activity: resume usual activities as tolerated Diet: advance to your usual diet <SuyapaSarah - Last Filed: 08/23/17 17:00> Orders not resulted at time of discharge: Pending orders 08/23/17 09:38 EKG [ECG 12 lead ECG] [ECG] Routine Date of Encounter: 08/23/17 Hospital course: Ms. Doan is a 76 year old female - Time Spent with Patient Total time spent providing and/or coordinating discharge services: Date of admission: 08/23/17 00:06 Primary care physician: Julee Booth CNP - Constitutional Vitals: Temp Pulse Resp BP Pulse Ox 97.9 F 74 16 106/64 95 08/23/17 10:57 08/23/17 10:57 08/23/17 10:57 08/23/17 10:57 08/23/17 11:00 - Attending Attestation I saw and examined this patient independently, and my medical decision making was reviewed with the Resident on 2017. I agree with the documented findings, assessment and treatment plan as described in the discharge summary.
[2017-08-23 11:02] VITALS: BP 106/64
--- NOTE | 2017-08-24 09:39 | Electrocardiograph Report ---
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
--- NOTE | 2017-08-24 09:40 | Electrocardiograph Report ---
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
--- NOTE | 2017-08-24 17:19 | Electrocardiograph Report ---
[address] [address] Test Date: 2017-08-23 Pat Name: Denise Doan Department: 111 Room: 2NE19 Gender: F [employer] Recovery Special Tactics: EDIN : 1940 Requested By: Romulo Morrison Order Number: [id number] Reading MD: Javier Jules Measurements Intervals [place] Rate: 83 P: 57 MA: 186 QRS: -19 QRSD: 92 T: 63 QT: 381 QTc: 421 Interpretive Statements SINUS RHYTHM Poor R wave progression Electronically Signed On 08-24-2017 17:17:23 EDT by Javier Jules
== END 2017-08-23 17:27 | disposition home or self-care (01) | DRG 310 ==
LOC: EMEROO 21:05 → 2NENU 08-23 00:06
PROVIDERS: ADMIT Internal Medicine; ATTEND Internal Medicine

== ENCOUNTER 2017-10-20 15:05 | Inpatient (IN) ==
[2017-10-20] MEDS ORDERED: Isovue-370 500 ML INFUS..BTL IV ONE (15:35)
--- NOTE | 2017-10-20 15:39 | Emergency Department Note ---
Disposition Clinical Impression: Acute appendicitis Qualifiers: Acute appendicitis type: with localized peritonitis Qualified Code(s): K35.3 - Acute appendicitis with localized peritonitis Disposition: Admitted As Inpatient Condition: Fair Forms: ED Satisfaction Letter, Work/School Release Time of Disposition: 17:41 Abdominal Pain HPI - General Chief Complaint: ED Abdominal Pain Stated Complaint: RLQ Pain Time Seen by Provider: 10/20/17 15:14 - History of Present Illness HPI Narrative: 76 yo female with a 2 day history of diffuse abdominal pain with nausea and vomiting. She was in [place] and just returned and came immediately to the ER. She was dry heaving on the plane. She had chills yesterday, but no fevers. Her pain is worst in the RLQ and is constant but wave-like in intensity, with sharp stabbing pain at times without provocative. She noticed blood in her urine on arrival to the ER. Pain Scale: 7 - Related Data Home Medications Medication Instructions Recorded Confirmed Dabigatran [Pradaxa] 150 mg PO BID 02/07/17 08/23/17 Metoprolol [Lopressor] 100 mg PO BID 02/07/17 08/23/17 Previous Rx's Medication Instructions Recorded Esomeprazole Magnesium [Nexium] 40 mg PO DAILY #0 06/17/15 Allergies Allergy/AdvReac Type Severity Reaction Status Date / Time No Known Allergies Allergy Verified 10/20/17 15:08 Constitutional: Reports: chills Eyes: Denies: eye pain, eye discharge, vision change ENT ED: Denies: ear pain, throat pain, dental pain, hearing loss, epistaxis, congestion, dysphagia Cardiovascular: Denies: chest pain, palpitations, dyspnea on exertion, edema, syncope Respiratory: Denies: cough, dyspnea, wheezes, hemoptysis, stridor Gastrointestinal: Reports: abdominal pain, nausea, vomiting, diarrhea (chronic s /p cholecystectomy) Genitourinary: Reports: hematuria. Denies: dysuria, frequency, discharge Musculoskeletal: Reports: back pain (chronic) Integumentary: Denies: rash, abrasion, lesions Neurological: Denies: headache, weakness, numbness, paresthesias, confusion, abnormal gait, vertigo Psychiatric: Denies: anxiety, depression, suicidal thoughts, homicidal thoughts , auditory hallucinations, visual hallucinations Endocrine: Denies: fatigue Hematological/Lymphatic: Denies: easy bleeding, easy bruising Abdominal Pain PMH - Past Medical History Medical history: Reports: atrial fibrillation, GERD Female Surgical History: Reports: non-contributory, other Psychiatric history: Reports: no psych history - Social History Smoking status: Never smoker Alcohol use: Reports: none Drug use: Reports: none Physical Exam - General Limitations: no limitations General appearance: alert, in no apparent distress - Head Head exam: atraumatic, normocephalic, normal inspection - Eye Eye exam: Present: normal appearance, PERRL, EOMI - ENT ENT exam: mucous membranes moist - Neck Neck exam: Present: normal inspection - Chest Chest inspection: Present: normal inspection, symmetric chest wall rise - Respiratory Respiratory exam: Present: normal lung sounds bilaterally - Cardiovascular Cardiovascular exam: Present: regular rate, normal rhythm, normal heart sounds - Abdominal Exam Abdominal exam: Present: soft, tenderness, normal bowel sounds, heel tap sign, Rovsing's sign, tenderness at McBurney's Point. Absent: distention, guarding, rigidity Abdominal tenderness: Present: RLQ (most severe pain) - Back Exam Back exam: Present: normal inspection - Neurological Exam Neurological exam: Present: alert, oriented X3 - Psychiatric Psychiatric exam: Present: normal affect, normal mood - Skin Skin exam: Present: warm, dry, intact, normal color Course Vital Signs Temperature 98.0 F 10/20/17 15:07 Pulse Rate 97 10/20/17 15:07 Respiratory Rate 18 10/20/17 15:07 Blood Pressure 117/67 10/20/17 15:07 O2 Sat by Pulse Oximetry 96 10/20/17 15:07 Temperature 98.0 F 10/20/17 15:07 Pulse Rate 93 10/20/17 16:28 Respiratory Rate 18 10/20/17 16:28 Blood Pressure 115/83 10/20/17 16:28 O2 Sat by Pulse Oximetry 93 10/20/17 16:28 Oxygen Delivery Oxygen Delivery Room Air Abdominal Pain - MDM Narrative Medical decision making narrative: 76 yo female with 2 day history of nausea and vomiting with diffuse abdominal pain localizing to the right lower quadrant. CT abdomen and pelvis shows acute appendicitis with localized perforation without abscess. Dr. Bolivar, surgery, we will admit the patient to his service. - Lab Data Result diagrams: 10/20/17 15:53 10/20/17 15:53 Lab Results 08/07/0410/20/17 10/20/17 Range/Units 15:44 15:53 15:53 WBC 24.1 H (4.3-11.1) K/mcL RBC 4.88 (3.82-4.97) M/mcL Hgb 14.3 (11.5-15.4) g/dL Hct 41.9 (35.3-44.9) % MCV 85.9 (83.0-100.0) fL MCH 29.3 (28.0-33.3) pg MCHC 34.1 (31.6-35.5) g/dL RDW 13.6 (11.5-14.5) % Plt Count 158 (140-400) K/mcL MPV 10.2 (9.4-12.4) fL Seg Neutrophils % 68.0 % Band Neutrophils % 22.0 H (0-4) % Lymphocytes % 6.0 % Metamyelocytes % 4.0 H (0) % Neutrophils # 21.7 H (1.6-8.9) K/mcL Lymphocytes # 1.5 (0.6-4.6) K/mcL Reactive Lymphocytes Present A (Not Present) Platelet Estimate Normal (Normal) Sodium 129 L (136-145) mEq/L Potassium 3.6 (3.5-5.1) mEq/L Chloride 95 L (98-107) mEq/L Carbon Dioxide 25 (23-29) mEq/L BUN 30 H (8-23) mg/dL Creatinine 1.07 (0.60-1.20) mg/dL Est GFR ( Amer) > 60 (> 60) Est GFR (Non-Af Amer) 50 L (> 60) BUN/Creatinine Ratio 28 H (6-26) Glucose 138 H (70-105) mg/dL Calculated Osmolality 276 L (280-300) Lactic Acid (0.5-2.2) mmol/L Calcium 9.3 (8.6-10.3) mg/dL Total Bilirubin 1.4 H (0.3-1.0) mg/dL Direct Bilirubin 0.3 H (0.0-0.2) mg/dL Indirect Bilirubin 1.1 (0.0-1.2) mg/dL AST 14 (13-39) Units/L ALT 19 (7-52) Units/L Alkaline Phosphatase 81 (34-104) Units/L Serum Total Protein 6.5 (6.4-8.9) g/dL Albumin 3.9 (3.5-5.7) g/dL Globulin 2.6 (2.4-3.5) g/dL Albumin/Globulin Ratio 1.5 (1.1-2.2) Lipase 9 L (11-82) Units/L Urine Color Dark Yellow (Yellow) Urine Clarity Cloudy A (Clear) Urine pH 5.5 (5.0-8.0) pH Units Ur Specific [place] 1.026 H (1.010-1.025) Urine Protein 30 H (Neg-Trace) mg/dL Urine Glucose (UA) Normal (Normal) mg/dL Urine Ketones Trace H (Negative) mg/dL Urine Blood Negative (Negative) Urine Nitrite Negative (Negative) Urine Bilirubin Small H (Negative) Urine Urobilinogen Normal (Normal) mg/dL Ur Leukocyte Esterase Negative (Negative) Urine Microscopic RBC 0-3 (0-3) per hpf Urine Microscopic WBC 5-15 H (0-3) per hpf Ur Squamous Epith Cells Many H (None-Few) per lpf Urine Bacteria None Seen (None-Few) per hpf Ur Culture Indicated? NO (NO) 10/20/17 Range/Units 15:53 WBC (4.3-11.1) K/mcL RBC (3.82-4.97) M/mcL Hgb (11.5-15.4) g/dL Hct (35.3-44.9) % MCV (83.0-100.0) fL MCH (28.0-33.3) pg MCHC (31.6-35.5) g/dL RDW (11.5-14.5) % Plt Count (140-400) K/mcL MPV (9.4-12.4) fL Seg Neutrophils % % Band Neutrophils % (0-4) % Lymphocytes % % Metamyelocytes % (0) % Neutrophils # (1.6-8.9) K/mcL Lymphocytes # (0.6-4.6) K/mcL Reactive Lymphocytes (Not Present) Platelet Estimate (Normal) Sodium (136-145) mEq/L Potassium (3.5-5.1) mEq/L Chloride (98-107) mEq/L Carbon Dioxide (23-29) mEq/L BUN (8-23) mg/dL Creatinine (0.60-1.20) mg/dL Est GFR ( Amer) (> 60) Est GFR (Non-Af Amer) (> 60) BUN/Creatinine Ratio (6-26) Glucose (70-105) mg/dL Calculated Osmolality (280-300) Lactic Acid 1.4 (0.5-2.2) mmol/L Calcium (8.6-10.3) mg/dL Total Bilirubin (0.3-1.0) mg/dL Direct Bilirubin (0.0-0.2) mg/dL Indirect Bilirubin (0.0-1.2) mg/dL AST (13-39) Units/L ALT (7-52) Units/L Alkaline Phosphatase (34-104) Units/L Serum Total Protein (6.4-8.9) g/dL Albumin (3.5-5.7) g/dL Globulin (2.4-3.5) g/dL Albumin/Globulin Ratio (1.1-2.2) Lipase (11-82) Units/L Urine Color (Yellow) Urine Clarity (Clear) Urine pH (5.0-8.0) pH Units Ur Specific [place] (1.010-1.025) Urine Protein (Neg-Trace) mg/dL Urine Glucose (UA) (Normal) mg/dL Urine Ketones (Negative) mg/dL Urine Blood (Negative) Urine Nitrite (Negative) Urine Bilirubin (Negative) Urine Urobilinogen (Normal) mg/dL Ur Leukocyte Esterase (Negative) Urine Microscopic RBC (0-3) per hpf Urine Microscopic WBC (0-3) per hpf Ur Squamous Epith Cells (None-Few) per lpf Urine Bacteria (None-Few) per hpf Ur Culture Indicated? (NO)
[2017-10-20 15:51] LABS: Bilirubin,Urine Small (Negative); Blood,Urine Negative (Negative); Clarity,Urine Cloudy (Clear); Color,Urine Dark Yellow (Yellow); Glucose,Urine (UA) Normal (Normal); Ketones,Urine Trace mg/dL (Negative); Leukocyte Esterase,Urine Negative (Negative); Nitrite,Urine Negative (Negative); PH,Urine 5.5 pH Units (5.0-8.0); Protein,Urine 30 mg/dL (Neg-Trace); Specific Gravity,Urine 1.026 (1.010-1.025); Urobilinogen,Urine Normal (Normal)
[2017-10-20 15:54] LABS: Bacteria,Urine None Seen per hpf (None-Few); Squamous Epithelial Cell,Urine Many per lpf (None-Few)
[2017-10-20 16:08] LABS: Hematocrit 41.9 % (35.3-44.9); Hemoglobin 14.3 g/dL (11.5-15.4); Mean Corpuscular HGB Conc 34.1 g/dL (31.6-35.5); Mean Corpuscular Hemoglobin 29.3 pg (28.0-33.3); Mean Corpuscular Volume 85.9 fL (83.0-100.0); Mean Platelet Volume 10.2 fL (9.4-12.4); Platelet Count 158 K/mcL (140-400); Red Blood Count 4.88 M/mcL (3.82-4.97); Red Cell Distribution Width 13.6 % (11.5-14.5)
[2017-10-20 16:18] LABS: RBC,Urine 0-3 per hpf (0-3)
[2017-10-20 16:24] LABS: Alanine Aminotransferase 19 Units/L (7-52); Albumin 3.9 g/dL (3.5-5.7); Albumin/Globulin Ratio 1.5 (1.1-2.2); Alkaline Phosphatase 81 Units/L (34-104); Aspartate Amino Transferase 14 Units/L (13-39); BUN/Creatinine Ratio 28 (6-26); Bilirubin,Direct 0.3 mg/dL (0.0-0.2); Bilirubin,Indirect 1.1 mg/dL (0.0-1.2); Bilirubin,Total 1.4 mg/dL (0.3-1.0); Blood Urea Nitrogen 30 mg/dL (8-23); Calcium 9.3 mg/dL (8.6-10.3); Carbon Dioxide 25 mEq/L (23-29); Chloride 95 mEq/L (98-107); Globulin 2.6 g/dL (2.4-3.5); Glucose 138 mg/dL (70-105); Lipase 9 Units/L (11-82); Osmolality,Calculated 276 (280-300); Potassium 3.6 mEq/L (3.5-5.1); Sodium 129 mEq/L (136-145); Total Protein 6.5 g/dL (6.4-8.9); eGFR For Non-African Americans 50 (> 60)
[2017-10-20 17:33] LABS: Lymphocytes # 1.5 K/mcL (0.6-4.6); Neutrophils # 21.7 K/mcL (1.6-8.9); Platelet Estimate Normal (Normal)
[2017-10-20 17:34] LABS: Reactive Lymphocytes Present (Not Present)
--- NOTE | 2017-10-20 17:59 | Emergency Department Note ---
Disposition Clinical Impression: Acute appendicitis Qualifiers: Acute appendicitis type: with localized peritonitis Qualified Code(s): K35.3 - Acute appendicitis with localized peritonitis Disposition: Admitted As Inpatient Condition: Fair Referrals: Julee Booth SAP BPC ARCHITECT [Advanced Practice Nurse] - Forms: ED Satisfaction Letter, Work/School Release Time of Disposition: 17:30 Abdominal Pain HPI - General Chief Complaint: ED Abdominal Pain Stated Complaint: RLQ Pain Time Seen by Provider: 10/20/17 15:14 Source: patient Mode of arrival: ambulatory Limitations: no limitations Nursing Notes Reviewed: Yes Vital Signs Reviewed: Yes - History of Present Illness Pain Scale: 7 - Related Data Home Medications Medication Instructions Recorded Confirmed Dabigatran [Pradaxa] 150 mg PO BID 02/07/17 08/23/17 Metoprolol [Lopressor] 100 mg PO BID 02/07/17 08/23/17 Previous Rx's Medication Instructions Recorded Esomeprazole Magnesium [Nexium] 40 mg PO DAILY #0 06/17/15 Allergies Allergy/AdvReac Type Severity Reaction Status Date / Time No Known Allergies Allergy Verified 10/20/17 15:08 Constitutional: Reports: chills Eyes: Denies: eye pain, eye discharge, vision change ENT ED: Denies: ear pain, throat pain, dental pain, hearing loss, epistaxis, congestion, dysphagia Cardiovascular: Denies: chest pain, palpitations, dyspnea on exertion, edema, syncope Respiratory: Denies: cough, dyspnea, wheezes, hemoptysis, stridor Gastrointestinal: Reports: abdominal pain, nausea, vomiting, diarrhea (chronic s /p cholecystectomy) Genitourinary: Reports: hematuria. Denies: dysuria, frequency, discharge Musculoskeletal: Reports: back pain (chronic) Integumentary: Denies: rash, abrasion, lesions Neurological: Denies: headache, weakness, numbness, paresthesias, confusion, abnormal gait, vertigo Psychiatric: Denies: anxiety, depression, suicidal thoughts, homicidal thoughts , auditory hallucinations, visual hallucinations Endocrine: Denies: fatigue Hematological/Lymphatic: Denies: easy bleeding, easy bruising Abdominal Pain PMH - Past Medical History Medical history: Reports: atrial fibrillation, GERD Female Surgical History: Reports: non-contributory, other Psychiatric history: Reports: no psych history - Social History Smoking status: Never smoker Alcohol use: Reports: none Drug use: Reports: none Physical Exam - General Limitations: no limitations General appearance: alert, in no apparent distress Course Vital Signs Temperature 98.0 F 10/20/17 15:07 Pulse Rate 97 10/20/17 15:07 Respiratory Rate 18 10/20/17 15:07 Blood Pressure 117/67 10/20/17 15:07 O2 Sat by Pulse Oximetry 96 10/20/17 15:07 Temperature 98.0 F 10/20/17 15:07 Pulse Rate 93 10/20/17 16:28 Respiratory Rate 18 10/20/17 16:28 Blood Pressure 115/83 10/20/17 16:28 O2 Sat by Pulse Oximetry 93 10/20/17 16:28 Oxygen Delivery Oxygen Delivery Room Air Abdominal Pain - Lab Data Result diagrams: 10/20/17 15:53 10/20/17 15:53 Lab Results 10/20/17 10/20/17 10/20/17 Range/Units 15:44 15:53 15:53 WBC 24.1 H (4.3-11.1) K/mcL RBC 4.88 (3.82-4.97) M/mcL Hgb 14.3 (11.5-15.4) g/dL Hct 41.9 (35.3-44.9) % MCV 85.9 (83.0-100.0) fL MCH 29.3 (28.0-33.3) pg MCHC 34.1 (31.6-35.5) g/dL RDW 13.6 (11.5-14.5) % Plt Count 158 (140-400) K/mcL MPV 10.2 (9.4-12.4) fL Seg Neutrophils % 68.0 % Band Neutrophils % 22.0 H (0-4) % Lymphocytes % 6.0 % Metamyelocytes % 4.0 H (0) % Neutrophils # 21.7 H (1.6-8.9) K/mcL Lymphocytes # 1.5 (0.6-4.6) K/mcL Reactive Lymphocytes Present A (Not Present) Platelet Estimate Normal (Normal) Sodium 129 L (136-145) mEq/L Potassium 3.6 (3.5-5.1) mEq/L Chloride 95 L (98-107) mEq/L Carbon Dioxide 25 (23-29) mEq/L BUN 30 H (8-23) mg/dL Creatinine 1.07 (0.60-1.20) mg/dL Est GFR ( Amer) > 60 (> 60) Est GFR (Non-Af Amer) 50 L (> 60) BUN/Creatinine Ratio 28 H (6-26) Glucose 138 H (70-105) mg/dL Calculated Osmolality 276 L (280-300) Lactic Acid (0.5-2.2) mmol/L Calcium 9.3 (8.6-10.3) mg/dL Total Bilirubin 1.4 H (0.3-1.0) mg/dL Direct Bilirubin 0.3 H (0.0-0.2) mg/dL Indirect Bilirubin 1.1 (0.0-1.2) mg/dL AST 14 (13-39) Units/L ALT 19 (7-52) Units/L Alkaline Phosphatase 81 (34-104) Units/L Serum Total Protein 6.5 (6.4-8.9) g/dL Albumin 3.9 (3.5-5.7) g/dL Globulin 2.6 (2.4-3.5) g/dL Albumin/Globulin Ratio 1.5 (1.1-2.2) Lipase 9 L (11-82) Units/L Urine Color Dark Yellow (Yellow) Urine Clarity Cloudy A (Clear) Urine pH 5.5 (5.0-8.0) pH Units Ur Specific [place] 1.026 H (1.010-1.025) Urine Protein 30 H (Neg-Trace) mg/dL Urine Glucose (UA) Normal (Normal) mg/dL Urine Ketones Trace H (Negative) mg/dL Urine Blood Negative (Negative) Urine Nitrite Negative (Negative) Urine Bilirubin Small H (Negative) Urine Urobilinogen Normal (Normal) mg/dL Ur Leukocyte Esterase Negative (Negative) Urine Microscopic RBC 0-3 (0-3) per hpf Urine Microscopic WBC 5-15 H (0-3) per hpf Ur Squamous Epith Cells Many H (None-Few) per lpf Urine Bacteria None Seen (None-Few) per hpf Ur Culture Indicated? NO (NO) 10/20/17 Range/Units 15:53 WBC (4.3-11.1) K/mcL RBC (3.82-4.97) M/mcL Hgb (11.5-15.4) g/dL Hct (35.3-44.9) % MCV (83.0-100.0) fL MCH (28.0-33.3) pg MCHC (31.6-35.5) g/dL RDW (11.5-14.5) % Plt Count (140-400) K/mcL MPV (9.4-12.4) fL Seg Neutrophils % % Band Neutrophils % (0-4) % Lymphocytes % % Metamyelocytes % (0) % Neutrophils # (1.6-8.9) K/mcL Lymphocytes # (0.6-4.6) K/mcL Reactive Lymphocytes (Not Present) Platelet Estimate (Normal) Sodium (136-145) mEq/L Potassium (3.5-5.1) mEq/L Chloride (98-107) mEq/L Carbon Dioxide (23-29) mEq/L BUN (8-23) mg/dL Creatinine (0.60-1.20) mg/dL Est GFR ( Amer) (> 60) Est GFR (Non-Af Amer) (> 60) BUN/Creatinine Ratio (6-26) Glucose (70-105) mg/dL Calculated Osmolality (280-300) Lactic Acid 1.4 (0.5-2.2) mmol/L Calcium (8.6-10.3) mg/dL Total Bilirubin (0.3-1.0) mg/dL Direct Bilirubin (0.0-0.2) mg/dL Indirect Bilirubin (0.0-1.2) mg/dL AST (13-39) Units/L ALT (7-52) Units/L Alkaline Phosphatase (34-104) Units/L Serum Total Protein (6.4-8.9) g/dL Albumin (3.5-5.7) g/dL Globulin (2.4-3.5) g/dL Albumin/Globulin Ratio (1.1-2.2) Lipase (11-82) Units/L Urine Color (Yellow) Urine Clarity (Clear) Urine pH (5.0-8.0) pH Units Ur Specific [place] (1.010-1.025) Urine Protein (Neg-Trace) mg/dL Urine Glucose (UA) (Normal) mg/dL Urine Ketones (Negative) mg/dL Urine Blood (Negative) Urine Nitrite (Negative) Urine Bilirubin (Negative) Urine Urobilinogen (Normal) mg/dL Ur Leukocyte Esterase (Negative) Urine Microscopic RBC (0-3) per hpf Urine Microscopic WBC (0-3) per hpf Ur Squamous Epith Cells (None-Few) per lpf Urine Bacteria (None-Few) per hpf Ur Culture Indicated? (NO) Attestation Statement - Attestation Attestation: I, Yousif Samuel, examined this patient and my medical decision-making was reviewed with the DICTATING MACHINE TYPIST/PA/Advanced Practice Nurse/Resident Physician. I agree with the documented findings, disposition and treatment plan as described except to the extent set forth below. 76-year-old female presents emergency Department with concerns of right lower quadrant abdominal pain. Patient states symptoms have been worsening over the past 2-3 days. Patient returned from her trip to [place] within the past few hours of landing, she came immediately to the hospital. Denied recent trauma or other injury. Denies fever, chills however she has had persistent nausea. Denies hematochezia or melena or hematuria. Does have a history of previous kidney stone the past. Urine looks darker than normal per the patient. Patient has appendicitis with perforation without evidence of abscess on the CT. Patient had a gallbladder taken out by Dr. Foley in the distant past however patient wished to see the pest control specialist surgeon today. Dr. Li spoke with Dr. Butcher the general surgeon, who agreed to take the patient to surgery. Patient is comfortable with this plan of action. She was offered pain medication and nausea medication during her evaluation and she declined at this time.
[2017-10-20] MEDS ORDERED: Ondansetron ODT 4 MG TAB.RAPDIS SL PRN (19:53)
--- NOTE | 2017-10-20 20:09 | General Surg History&Physical ---
Date of Encounter: 10/20/17 Time of Encounter: 20:03 Assessment and Plan (1) Perforated appendicitis Current Visit: Yes Status: Acute 76F with perforated appendicitis; septic with leukocytosis and bandemia, mildy tachycardic, but normotensive; NPO IVF abx activity as tolerated pain control serial abdominal exams AM labs no surgery at present, but, if she declines clinically or her labs suggest worsening sepsis, then will traveler changer accordingly The assessment and plan as outlined above was discussed with the patient and/or family members who expressed understanding and agreement. All questions were answered. History of Present Illness Chief complaint: abdominal pain HPI: Ms. Doan is a 76 year old female h/o atrial fibrillation s/p ablation taking lopressor and pradaxa who presents with perforated appendicitis as seen on CT scan. She has experienced right sided abdominal pain for the past two days with associated nausea, vomiting, and anorexia. She does not report a fever, but she does report two separate episodes of subjective chills. She arrived from out of town today and went directly to [facility] ED. A CT scan was obtained, which was reviewed and interpreted by me, which was consistent with perforation without gross free air nor abscess. She does have potentially pneumotosis intestinalis. This was discussed with radiology and it was determined not to be the case. Past Med Surg Social Fam HX - Past Medical History Medical history: atrial fibrillation, GERD Psychiatric history: no psych history - Past Surgical History Surgical History: other ([facility] 2005--minimal CAD; mid LAD myocardial bridging. ) Additional surgical history: sinus, inner ear - Social History Smoking Status: Never smoker Smokeless Tobacco Status: No Alcohol use: none Drug use: none - Family History Mother Living Status: Hx Family Cardiac Disorders: No Hx Family Respiratory Disorders: No Hx Family Cancer: No Medications and Allergies Esomeprazole Magnesium [Nexium] 40 mg PO DAILY #0 06/17/15 [Rx] Dabigatran [Pradaxa] 150 mg PO BID 02/07/17 [History] Metoprolol [Lopressor] 100 mg PO BID 02/07/17 [History] 3 Allergy/AdvReac Type Severity Reaction Status Date / Time No Known Allergies Allergy Verified 10/20/17 15:08 Review of Systems All systems PM: The remainder of the systems were reviewed and are negative General Surgery Exam Initial Vital Signs Temp Pulse Resp BP Pulse Ox 98.0 F 97 18 117/67 96 10/20/17 15:07 10/20/17 15:07 10/20/17 15:07 10/20/17 15:07 10/20/17 15:07 - General physical appearance no distress - Eyes normal ocular movement - ENT normocephalic - Neck no lymphadectomy - Respiratory normal expansion, normal respiratory effort - Cardiovascular Cardiovascular exam: Present: RRR - Abdomen Abdomen general surgery: Present: soft, tender, surgical scars Abdominal Tenderness: Present: RLQ ((+)rosving sign) - Integumentary Integumentary general surgery: Present: warm and dry - Neurologic Present: CN 2-12 grossly intact - Musculoskeletal Present: normal posture - Psychiatric Psychiatric general surgery: Present: A&Ox3 Results - Labs 10/20/17 15:53 10/20/17 15:53 Abnormal lab results WBC 24.1 K/mcL (4.3-11.1) H 10/20/17 15:53 Band Neutrophils % 22.0 % (0-4) H 10/20/17 15:53 Metamyelocytes % 4.0 % (0) H 10/20/17 15:53 Neutrophils # 21.7 K/mcL (1.6-8.9) H 10/20/17 15:53 Reactive Lymphocytes Present (Not Present) A 10/20/17 15:53 Sodium 129 mEq/L (136-145) L 10/20/17 15:53 Chloride 95 mEq/L (98-107) L 10/20/17 15:53 BUN 30 mg/dL (8-23) H 10/20/17 15:53 Est GFR (Non-Af Amer) 50 (> 60) L 10/20/17 15:53 BUN/Creatinine Ratio 28 (6-26) H 10/20/17 15:53 Glucose 138 mg/dL (70-105) H 10/20/17 15:53 Calculated Osmolality 276 (280-300) L 10/20/17 15:53 Total Bilirubin 1.4 mg/dL (0.3-1.0) H 10/20/17 15:53 Direct Bilirubin 0.3 mg/dL (0.0-0.2) H 10/20/17 15:53 Lipase 9 Units/L (11-82) L 10/20/17 15:53 Urine Clarity Cloudy (Clear) A 10/20/17 15:44 Ur Specific [place] 1.026 (1.010-1.025) H 10/20/17 15:44 Urine Protein 30 mg/dL (Neg-Trace) H 10/20/17 15:44 Urine Ketones Trace mg/dL (Negative) H 10/20/17 15:44 Urine Bilirubin Small (Negative) H 10/20/17 15:44 Urine Microscopic WBC 5-15 per hpf (0-3) H 10/20/17 15:44 Ur Squamous Epith Cells Many per lpf (None-Few) H 10/20/17 15:44 All other labs normal. - Imaging CT scan - abdomen: report reviewed, image reviewed CT scan - pelvis: report reviewed, image reviewed
[2017-10-20] MEDS: Piperacillin/Tazobactam 3.375 GM in 0.9 % Sodium Chloride Mini Bag 100 ML IVPB SCH (21:52)
[2017-10-20] MEDS: OXYCODONE Oral CONC 10 MG/0.5 ML ORAL.SYG SL PRN (21:53)
[2017-10-21 05:25] LABS: Basophils % 0.1 %; Eosinophils % 0.1 %; Hematocrit 40.9 % (35.3-44.9); Hemoglobin 14.2 g/dL (11.5-15.4); Immature Granulocytes % 1.3 % (0-4); Lymphocytes # 1.1 K/mcL (0.6-4.6); Mean Corpuscular HGB Conc 34.7 g/dL (31.6-35.5); Mean Corpuscular Hemoglobin 29.6 pg (28.0-33.3); Mean Corpuscular Volume 85.4 fL (83.0-100.0); Monocytes # 0.5 K/mcL (0.0-1.3); Neutrophils # 13.3 K/mcL (1.6-8.9); Platelet Count 161 K/mcL (140-400); Red Blood Count 4.79 M/mcL (3.82-4.97); Red Cell Distribution Width 13.5 % (11.5-14.5); Segmented Neutrophils % 88.5 %
[2017-10-21 05:43] LABS: BUN/Creatinine Ratio 30 (6-26); Blood Urea Nitrogen 26 mg/dL (8-23); Calcium 9.2 mg/dL (8.6-10.3); Carbon Dioxide 24 mEq/L (23-29); Chloride 97 mEq/L (98-107); Glucose 152 mg/dL (70-105); Osmolality,Calculated 278 (280-300); Potassium 3.3 mEq/L (3.5-5.1); Sodium 130 mEq/L (136-145); eGFR For Non-African Americans > 60 (> 60)
[2017-10-21 05:50] LABS: Platelet Estimate Normal (Normal); Reactive Lymphocytes Present (Not Present)
[2017-10-21] MEDS: Piperacillin/Tazobactam 3.375 GM in 0.9 % Sodium Chloride Mini Bag 100 ML IVPB SCH ×3 (05:57→21:58)
[2017-10-21] MEDS ORDERED: *HR* Enoxaparin 40 MG/0.4 ML SYRINGE SQ SCH (06:00)
[2017-10-21] MEDS: OXYCODONE Oral CONC 10 MG/0.5 ML ORAL.SYG SL PRN ×2 (07:32→11:42)
[2017-10-21] MEDS ORDERED: 0.9 % Sodium Chloride 1,000 ML IVC SCH ×5 (09:30→17:00)
--- NOTE | 2017-10-21 11:26 | General Surgery Progress Note ---
<Jessica Castillo E - Last Filed: 10/21/17 11:44> Date of Encounter: 10/21/17 Time of Encounter: 11:22 - Assessment and Plan (1) Perforated appendicitis Current Visit: Yes Status: Acute WBC count down to 15 from 24.1 on admission NPO IVF continue zosyn continue pain control will continue to do serial abdominal exams increased zofran to every 4 hours instead of every 8 hours sublingual as this was wearing off too quickly and she was having breakthrough nausea Will continue to monitor labs no surgery at this time, will continue to monitor for worsening sepsis or clinical decline Will consider follow up CT scan based on clinical features within the next few days Subjective Patient reports: still having pain (still having pain but is feeling soem better pain sanders), no flatus, no bowel movement Objective Vital Signs - Last 8 Hours Temp Pulse Resp BP Pulse Ox 10/21/17 10:34 98.9 F 92 14 129/96 91 10/21/17 06:54 99.0 F 92 15 102/58 92 10/21/17 04:41 99.2 F 81 14 100/67 92 Intake and Output 10/20/17 10/21/17 10/21/17 23:59 07:59 15:59 Intake Total 100 / 100 100 / 100 Output Total 0 / 0 Balance 100 / 100 100 / 100 Intake: IV Fluids 100 / 100 100 / 100 Zosyn 3.375 GM In 0.9 % Sodium 100 / 100 100 / 100 Chloride (Mini-Bag +) 100 ML @ 25 mls/hr IVPB Q8H [facility] Rx#: [id number] Oral 0 / 0 0 / 0 Output: Urine 0 / 0 Other: Meal NPO BREAKFAST # Voids 1 # Bowel Movements 0 Weight 73.4 kg 74 kg Blood Glucose* 142 154 Patient Weight 10/21/17 23:59 Weight 74 kg - General physical appearance well developed, well nourished, moderate distress - Respiratory normal expansion, normal respiratory effort, clear to auscultation - Cardiovascular Cardiovascular exam: Present: RRR, no murmurs/rubs/gallops - Abdomen Abdomen: Present: bowel sounds present, distended, tender (rovsing sign (+)) - Integumentary no rash, no growths, no abnormal pigmentation - Musculoskeletal normal posture - Psychiatric oriented to time, oriented to person, oriented to place - Labs 10/21/17 04:55 10/21/17 04:55 Diabetes panel 10/21/17 Range/Units 04:55 Sodium 130 L (136-145) mEq/L Potassium 3.3 L (3.5-5.1) mEq/L Chloride 97 L (98-107) mEq/L Carbon Dioxide 24 (23-29) mEq/L BUN 26 H (8-23) mg/dL Creatinine 0.86 (0.60-1.20) mg/dL Glucose 152 H (70-105) mg/dL Calcium 9.2 (8.6-10.3) mg/dL Calcium panel 10/21/17 Range/Units 04:55 Calcium 9.2 (8.6-10.3) mg/dL Pituitary panel 10/21/17 Range/Units 04:55 Sodium 130 L (136-145) mEq/L Potassium 3.3 L (3.5-5.1) mEq/L Chloride 97 L (98-107) mEq/L Carbon Dioxide 24 (23-29) mEq/L BUN 26 H (8-23) mg/dL Creatinine 0.86 (0.60-1.20) mg/dL Glucose 152 H (70-105) mg/dL Calcium 9.2 (8.6-10.3) mg/dL Adrenal panel 10/21/17 Range/Units 04:55 Sodium 130 L (136-145) mEq/L Potassium 3.3 L (3.5-5.1) mEq/L Chloride 97 L (98-107) mEq/L Carbon Dioxide 24 (23-29) mEq/L BUN 26 H (8-23) mg/dL Creatinine 0.86 (0.60-1.20) mg/dL Glucose 152 H (70-105) mg/dL Calcium 9.2 (8.6-10.3) mg/dL Consult Discharge Plan - Plan Referrals: Julee Booth, DIGITAL STRATEGIST SENIOR MANAGER [Primary Care Provider] - <Jonathan Butcher - Last Filed: 10/21/17 11:48> Date of Encounter: 10/21/17 - Assessment and Plan (1) Perforated appendicitis Current Visit: Yes Status: Acute Objective Vital Signs - Last 8 Hours Temp Pulse Resp BP Pulse Ox 10/21/17 10:34 98.9 F 92 14 129/96 91 10/21/17 06:54 99.0 F 92 15 102/58 92 10/21/17 04:41 99.2 F 81 14 100/67 92 Intake and Output 10/20/17 10/21/17 10/21/17 23:59 07:59 15:59 Intake Total 100 / 100 100 / 100 Output Total 0 / 0 Balance 100 / 100 100 / 100 Intake: IV Fluids 100 / 100 100 / 100 Zosyn 3.375 GM In 0.9 % Sodium 100 / 100 100 / 100 Chloride (Mini-Bag +) 100 ML @ 25 mls/hr IVPB Q8H [facility] Rx#: [id number] Oral 0 / 0 0 / 0 Output: Urine 0 / 0 Other: Meal NPO BREAKFAST # Voids 1 # Bowel Movements 0 Weight 73.4 kg 74 kg Blood Glucose* 142 154 Patient Weight 10/21/17 23:59 Weight 74 kg - Labs 10/21/17 04:55 10/21/17 04:55 Diabetes panel 10/21/17 Range/Units 04:55 Sodium 130 L (136-145) mEq/L Potassium 3.3 L (3.5-5.1) mEq/L Chloride 97 L (98-107) mEq/L Carbon Dioxide 24 (23-29) mEq/L BUN 26 H (8-23) mg/dL Creatinine 0.86 (0.60-1.20) mg/dL Glucose 152 H (70-105) mg/dL Calcium 9.2 (8.6-10.3) mg/dL Calcium panel 10/21/17 Range/Units 04:55 Calcium 9.2 (8.6-10.3) mg/dL Pituitary panel 10/21/17 Range/Units 04:55 Sodium 130 L (136-145) mEq/L Potassium 3.3 L (3.5-5.1) mEq/L Chloride 97 L (98-107) mEq/L Carbon Dioxide 24 (23-29) mEq/L BUN 26 H (8-23) mg/dL Creatinine 0.86 (0.60-1.20) mg/dL Glucose 152 H (70-105) mg/dL Calcium 9.2 (8.6-10.3) mg/dL Adrenal panel 10/21/17 Range/Units 04:55 Sodium 130 L (136-145) mEq/L Potassium 3.3 L (3.5-5.1) mEq/L Chloride 97 L (98-107) mEq/L Carbon Dioxide 24 (23-29) mEq/L BUN 26 H (8-23) mg/dL Creatinine 0.86 (0.60-1.20) mg/dL Glucose 152 H (70-105) mg/dL Calcium 9.2 (8.6-10.3) mg/dL - Attending Attestation patient seen and examined. i have reviewed all labs, imaging, and notes. i agree with the above assessment and plan.
[2017-10-21] MEDS ORDERED: Ondansetron ODT 4 MG TAB.RAPDIS SL PRN ×3 (11:40→20:14)
[2017-10-21] MEDS ORDERED: OXYCODONE Oral CONC 10 MG/0.5 ML ORAL.SYG SL PRN ×2 (15:21→20:14)
[2017-10-21] MEDS ORDERED: Isovue-370 500 ML INFUS..BTL IV ONE (15:21)
[2017-10-21 15:45] LABS: Hematocrit 38.9 % (35.3-44.9); Hemoglobin 13.5 g/dL (11.5-15.4); Mean Corpuscular HGB Conc 34.7 g/dL (31.6-35.5); Mean Corpuscular Hemoglobin 29.8 pg (28.0-33.3); Mean Corpuscular Volume 85.9 fL (83.0-100.0); Mean Platelet Volume 10.5 fL (9.4-12.4); Platelet Count 145 K/mcL (140-400); Red Blood Count 4.53 M/mcL (3.82-4.97); Red Cell Distribution Width 13.4 % (11.5-14.5)
[2017-10-21] MEDS: 0.9 % Sodium Chloride 1,000 ML IVC SCH ×6 (15:50→20:40)
[2017-10-21 16:05] LABS: BUN/Creatinine Ratio 39 (6-26); Blood Urea Nitrogen 28 mg/dL (8-23); Calcium 8.3 mg/dL (8.6-10.3); Carbon Dioxide 22 mEq/L (23-29); Chloride 104 mEq/L (98-107); Glucose 129 mg/dL (70-105); Osmolality,Calculated 275 (280-300); Potassium 3.3 mEq/L (3.5-5.1); Sodium 129 mEq/L (136-145); eGFR For Non-African Americans > 60 (> 60)
[2017-10-21 16:06] LABS: Lymphocytes # 1.2 K/mcL (0.6-4.6); Monocytes # 0.4 K/mcL (0.0-1.3); Neutrophils # 12.9 K/mcL (1.6-8.9)
[2017-10-21 16:07] LABS: Platelet Estimate Normal (Normal)
[2017-10-21] MEDS ORDERED: Potassium Chloride 40 MEQ, Lidocaine 1% 2 ML in D5% in Water 500 ML IVPB ONE (16:14)
[2017-10-21] MEDS ORDERED: Piperacillin/Tazobactam 3.375 GM in 0.9 % Sodium Chloride Mini Bag 100 ML IVPB SCH (22:00)
[2017-10-22 03:59] LABS: Hematocrit 37.5 % (35.3-44.9); Hemoglobin 12.4 g/dL (11.5-15.4); Mean Corpuscular HGB Conc 33.1 g/dL (31.6-35.5); Mean Corpuscular Hemoglobin 29.5 pg (28.0-33.3); Mean Corpuscular Volume 89.3 fL (83.0-100.0); Platelet Count 144 K/mcL (140-400); Red Cell Distribution Width 13.7 % (11.5-14.5)
[2017-10-22 04:23] LABS: BUN/Creatinine Ratio 30 (6-26); Blood Urea Nitrogen 19 mg/dL (8-23); Calcium 8.1 mg/dL (8.6-10.3); Carbon Dioxide 24 mEq/L (23-29); Chloride 106 mEq/L (98-107); Glucose 121 mg/dL (70-105); Osmolality,Calculated 284 (280-300); Phosphorous 2.1 mg/dL (2.7-4.5); Potassium 4.4 mEq/L (3.5-5.1); Sodium 135 mEq/L (136-145); eGFR For Non-African Americans > 60 (> 60)
[2017-10-22] MEDS: Piperacillin/Tazobactam 3.375 GM in 0.9 % Sodium Chloride Mini Bag 100 ML IVPB SCH ×3 (04:53→21:06)
[2017-10-22 05:02] LABS: Lymphocytes # 0.9 K/mcL (0.6-4.6); Monocytes # 0.3 K/mcL (0.0-1.3); Platelet Estimate Normal (Normal)
[2017-10-22] MEDS ORDERED: *HR* Enoxaparin 40 MG/0.4 ML SYRINGE SQ SCH ×2 (06:00)
[2017-10-22] MEDS: 0.9 % Sodium Chloride 1,000 ML IVC SCH ×2 (07:38→10:13)
--- NOTE | 2017-10-22 08:20 | General Surgery Progress Note ---
Date of Encounter: 10/22/17 Time of Encounter: 08:16 - Assessment and Plan (1) Perforated appendicitis Current Visit: Yes Status: Acute WBC count down to 13.2 from 24.1 on admission NPO IVF continue zosyn continue pain control will continue to do serial abdominal exams will continue anti-nausea medications Will continue to monitor labs no surgery at this time, will continue to monitor for worsening sepsis or clinical decline Consulting Cardiology for afib-RVR which was converted to normal sinus rhythm overnight with Cardizem drip. No PO medications until bowel function improves Decrease O2 by nasal cannula unless stats drop below 90% CT/CT abd pelvis w iv no oral IMPRESSION: 1. CT findings compatible with perforated appendicitis as previously described. No drainable abscess identified. Small amount of free fluid, inflammatory stranding, and extraluminal gas is again seen. 2. Secondary inflammatory changes of the distal and terminal ileum resulting in functional obstruction of the small bowel. 3. Slight interval worsening since 10/20/2017 of moderate intra and extrahepatic biliary dilatation. Status post cholecystectomy 4. Status post hysterectomy. Subjective Patient reports: still having pain, no bowel movement, other (Pt states she has less sharp pain but it still sore along the abdomen especially with palpation. She has not had any bowel movements or gas at this time. ) Objective Vital Signs - Last 8 Hours Temp Pulse Resp BP Pulse Ox 10/22/17 07:48 97.9 F 10/22/17 06:00 76 15 105/59 96 10/22/17 05:00 77 13 108/59 96 10/22/17 04:00 80 17 104/58 95 10/22/17 03:20 98.2 F 10/22/17 03:00 80 16 106/62 95 10/22/17 02:00 83 17 97/83 96 10/22/17 01:00 81 15 105/64 97 Intake and Output 10/21/17 10/22/17 10/22/17 23:59 07:59 15:59 Intake Total 4632 / 4632 1205 / 1205 Output Total 500 / 500 175 / 175 Balance 4132 / 4132 1030 / 1030 Intake: IV Fluids 4632 / 4632 1205 / 1205 0.9 % Sodium Chloride 1,000 ML 4000 / 4000 1000 / 1000 @ 150 mls/hr IVC .Q6H40M [facility] Rx #:[id number] Cardizem 50 MG In 0.9 % Sodium 10 / 10 105 / 105 Chloride 40 ML @ 5 MG/HR 5 mls/ hr IVC .Q10H [facility] Rx#:[id number] Zosyn 3.375 GM In 0.9 % Sodium 100 / 100 100 / 100 Chloride (Mini-Bag +) 100 ML @ 25 mls/hr IVPB Q8H [facility] Rx#: [id number] KCl 40 MEQ Xylocaine 2 ML In 522 / 522 Dextrose 5% 500 ML @ 130.5 mls/ hr IVPB ONCE ONE Rx#:[id number] Output: Urine 500 / 500 175 / 175 Other: Meal NPO Percent of Meal Consumed 0% Weight 77.8 kg Blood Glucose* 167 - General physical appearance well developed, well nourished, moderate distress - Respiratory normal expansion, normal respiratory effort, clear to auscultation - Cardiovascular Cardiovascular exam: Present: RRR, no murmurs/rubs/gallops - Abdomen Abdomen: Present: bowel sounds present, distended, tender (tender to palpation in the LLQ nad LRQ) - Integumentary no rash, no growths, no abnormal pigmentation - Musculoskeletal normal posture - Psychiatric oriented to time, oriented to person, oriented to place - Labs 10/22/17 03:22 10/22/17 03:22 Diabetes panel 10/21/17 10/22/17 Range/Units 15:29 03:22 Sodium 129 L 135 L (136-145) mEq/L Potassium 3.3 L 4.4 D (3.5-5.1) mEq/L Chloride 104 106 (98-107) mEq/L Carbon Dioxide 22 L 24 (23-29) mEq/L BUN 28 H 19 (8-23) mg/dL Creatinine 0.72 0.64 (0.60-1.20) mg/dL Glucose 129 H 121 H (70-105) mg/dL Calcium 8.3 L 8.1 L (8.6-10.3) mg/dL Calcium panel 10/21/17 10/22/17 Range/Units 15:29 03:22 Calcium 8.3 L 8.1 L (8.6-10.3) mg/dL Phosphorus 2.1 L (2.7-4.5) mg/dL Pituitary panel 10/21/17 10/22/17 Range/Units 15:29 03:22 Sodium 129 L 135 L (136-145) mEq/L Potassium 3.3 L 4.4 D (3.5-5.1) mEq/L Chloride 104 106 (98-107) mEq/L Carbon Dioxide 22 L 24 (23-29) mEq/L BUN 28 H 19 (8-23) mg/dL Creatinine 0.72 0.64 (0.60-1.20) mg/dL Glucose 129 H 121 H (70-105) mg/dL Calcium 8.3 L 8.1 L (8.6-10.3) mg/dL Adrenal panel 10/21/17 10/22/17 Range/Units 15:29 03:22 Sodium 129 L 135 L (136-145) mEq/L Potassium 3.3 L 4.4 D (3.5-5.1) mEq/L Chloride 104 106 (98-107) mEq/L Carbon Dioxide 22 L 24 (23-29) mEq/L BUN 28 H 19 (8-23) mg/dL Creatinine 0.72 0.64 (0.60-1.20) mg/dL Glucose 129 H 121 H (70-105) mg/dL Calcium 8.3 L 8.1 L (8.6-10.3) mg/dL - VTE Documentation of Mechanical Device: Intermittent pneumatic compression device Consult Discharge Plan - Plan Referrals: Julee Booth, TAVERN KEEPER [Primary Care Provider] -
[2017-10-22] MEDS ORDERED: Pantoprazole 40 MG VIAL IVP SCH (09:15)
--- NOTE | 2017-10-22 09:19 | Electrocardiograph Report ---
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
--- NOTE | 2017-10-22 09:36 | Electrocardiograph Report ---
[address] [address] Test Date: 2017-10-20 Pat Name: Denise Doan Department: 115 Room: [facility] Gender: F Sinker Winder: RYLAN : 1940 Requested By: Jonathan Butcher Order Number: [id number] Reading MD: Buck Miramontes Measurements Intervals [place] Rate: 100 P: 130 KS: 176 QRS: 212 QRSD: 103 T: 109 QT: 347 QTc: 404 Interpretive Statements SINUS TACHYCARDIA ARM LEADS REVERSED RECOMMEND REPEAT ECG Electronically Signed On 10-22-2017 9:34:54 EDT by Buck Miramontes
[2017-10-22] MEDS ORDERED: 0.9 % Sodium Chloride 1,000 ML IVC SCH (11:10)
[2017-10-22] MEDS ORDERED: Ondansetron ODT 4 MG TAB.RAPDIS SL PRN (15:05)
[2017-10-22] MEDS ORDERED: 0.9 % Sodium Chloride 1,000 ML ONE (21:14)
[2017-10-23 04:48] LABS: Basophils % 0.4 %; Eosinophils % 0.4 %; Hematocrit 38.1 % (35.3-44.9); Hemoglobin 12.6 g/dL (11.5-15.4); Immature Granulocytes % 0.5 % (0-4); Lymphocytes % 8.9 %; Mean Corpuscular HGB Conc 33.1 g/dL (31.6-35.5); Mean Corpuscular Hemoglobin 29.2 pg (28.0-33.3); Mean Corpuscular Volume 88.4 fL (83.0-100.0); Mean Platelet Volume 10.7 fL (9.4-12.4); Monocytes # 0.6 K/mcL (0.0-1.3); Monocytes % 5.5 %; Neutrophils # 9.3 K/mcL (1.6-8.9); Platelet Count 161 K/mcL (140-400); Red Blood Count 4.31 M/mcL (3.82-4.97); Red Cell Distribution Width 13.3 % (11.5-14.5); Segmented Neutrophils % 84.3 %
[2017-10-23 05:13] LABS: BUN/Creatinine Ratio 38 (6-26); Blood Urea Nitrogen 15 mg/dL (8-23); Calcium 8.2 mg/dL (8.6-10.3); Carbon Dioxide 22 mEq/L (23-29); Chloride 106 mEq/L (98-107); Glucose 101 mg/dL (70-105); Magnesium 2.1 mg/dL (1.6-2.6); Osmolality,Calculated 281 (280-300); Potassium 3.6 mEq/L (3.5-5.1); Sodium 135 mEq/L (136-145); eGFR For Non-African Americans > 60 (> 60)
[2017-10-23] MEDS: Piperacillin/Tazobactam 3.375 GM in 0.9 % Sodium Chloride Mini Bag 100 ML IVPB SCH ×3 (05:30→21:54)
[2017-10-23] MEDS ORDERED: *HR* Enoxaparin 40 MG/0.4 ML SYRINGE SQ SCH (06:00)
--- NOTE | 2017-10-23 07:22 | General Surgery Progress Note ---
<Jessica Castillo E - Last Filed: 10/23/17 07:59> Date of Encounter: 10/23/17 Time of Encounter: 07:20 - Assessment and Plan (1) Perforated appendicitis Current Visit: Yes Status: Acute WBC count down to 111 from 13.2 yesterday. Clears only sips 250q8, non-sweetened, no carbination IVF continue zosyn continue pain control will continue to do serial abdominal exams will continue anti-nausea medications Will continue to monitor labs Restarted Pradaxa, stop heparin no surgery at this time, will continue to monitor for worsening sepsis or clinical decline Statistical Geneticist declined until patient can take oral medications CT/CT abd pelvis w iv no oral IMPRESSION: 1. CT findings compatible with perforated appendicitis as previously described. No drainable abscess identified. Small amount of free fluid, inflammatory stranding, and extraluminal gas is again seen. 2. Secondary inflammatory changes of the distal and terminal ileum resulting in functional obstruction of the small bowel. 3. Slight interval worsening since 10/20/2017 of moderate intra and extrahepatic biliary dilatation. Status post cholecystectomy 4. Status post hysterectomy. Subjective Patient reports: other (Pt stats she passed a small amount of gas and had a very small bowel movment yesterday. She has a bit less pain and is just sore. ) Objective Vital Signs - Last 8 Hours Temp Pulse Resp BP Pulse Ox 10/23/17 05:16 98.5 F 106 18 156/82 92 Intake and Output 10/22/17 10/22/17 10/23/17 15:59 23:59 07:59 Intake Total 125 / 125 100 / 100 Balance 125 / 125 100 / 100 Intake: IV Fluids 125 / 125 100 / 100 Cardizem 50 MG In 0.9 % Sodium 25 / 25 Chloride 40 ML @ 5 MG/HR 5 mls/ hr IVC .Q10H [facility] Rx#:[id number] Zosyn 3.375 GM In 0.9 % Sodium 100 / 100 100 / 100 Chloride (Mini-Bag +) 100 ML @ 25 mls/hr IVPB Q8H [facility] Rx#: [id number] Oral 0 / 0 Other: Stool Size Small Stool Color Brown # Voids 1 1 # Bowel Movements 1 Blood Glucose* 88 - General physical appearance well developed, well nourished, moderate distress - Respiratory normal expansion, normal respiratory effort, clear to auscultation - Cardiovascular Cardiovascular exam: Present: RRR, no murmurs/rubs/gallops - Abdomen Abdomen: Present: bowel sounds present (small amount of bowel sounds heard), soft, non tender - Musculoskeletal normal posture - Psychiatric oriented to time, oriented to person, oriented to place - Labs 10/23/17 04:27 10/23/17 04:27 Diabetes panel 10/23/17 Range/Units 04:27 Sodium 135 L (136-145) mEq/L Potassium 3.6 (3.5-5.1) mEq/L Chloride 106 (98-107) mEq/L Carbon Dioxide 22 L (23-29) mEq/L BUN 15 (8-23) mg/dL Creatinine 0.40 L (0.60-1.20) mg/dL Glucose 101 (70-105) mg/dL Calcium 8.2 L (8.6-10.3) mg/dL Calcium panel 10/23/17 10/23/17 Range/Units 04:27 04:27 Calcium 8.2 L (8.6-10.3) mg/dL Phosphorus 1.6 L (2.7-4.5) mg/dL Pituitary panel 10/23/17 Range/Units 04:27 Sodium 135 L (136-145) mEq/L Potassium 3.6 (3.5-5.1) mEq/L Chloride 106 (98-107) mEq/L Carbon Dioxide 22 L (23-29) mEq/L BUN 15 (8-23) mg/dL Creatinine 0.40 L (0.60-1.20) mg/dL Glucose 101 (70-105) mg/dL Calcium 8.2 L (8.6-10.3) mg/dL Adrenal panel 10/23/17 Range/Units 04:27 Sodium 135 L (136-145) mEq/L Potassium 3.6 (3.5-5.1) mEq/L Chloride 106 (98-107) mEq/L Carbon Dioxide 22 L (23-29) mEq/L BUN 15 (8-23) mg/dL Creatinine 0.40 L (0.60-1.20) mg/dL Glucose 101 (70-105) mg/dL Calcium 8.2 L (8.6-10.3) mg/dL - VTE Documentation of Mechanical Device: Intermittent pneumatic compression device Consult Discharge Plan - Plan Referrals: Julee Booth, CENTER PUNCH OPERATOR [Primary Care Provider] - <Jonathan Butcher - Last Filed: 10/23/17 08:15> Date of Encounter: 10/23/17 - Assessment and Plan (1) Perforated appendicitis Current Visit: Yes Status: Acute Objective Vital Signs - Last 8 Hours Temp Pulse Resp BP Pulse Ox 10/23/17 05:16 98.5 F 106 18 156/82 92 Intake and Output 10/22/17 10/23/17 10/23/17 23:59 07:59 15:59 Intake Total 100 / 100 Balance 100 / 100 Intake: IV Fluids 100 / 100 Zosyn 3.375 GM In 0.9 % Sodium 100 / 100 Chloride (Mini-Bag +) 100 ML @ 25 mls/hr IVPB Q8H [facility] Rx#: [id number] Other: Stool Size Small Stool Color Brown # Voids 1 1 # Bowel Movements 1 Blood Glucose* 88 - Labs 10/23/17 04:27 10/23/17 04:27 Diabetes panel 10/23/17 Range/Units 04:27 Sodium 135 L (136-145) mEq/L Potassium 3.6 (3.5-5.1) mEq/L Chloride 106 (98-107) mEq/L Carbon Dioxide 22 L (23-29) mEq/L BUN 15 (8-23) mg/dL Creatinine 0.40 L (0.60-1.20) mg/dL Glucose 101 (70-105) mg/dL Calcium 8.2 L (8.6-10.3) mg/dL Calcium panel 10/23/17 10/23/17 Range/Units 04:27 04:27 Calcium 8.2 L (8.6-10.3) mg/dL Phosphorus 1.6 L (2.7-4.5) mg/dL Pituitary panel 10/23/17 Range/Units 04:27 Sodium 135 L (136-145) mEq/L Potassium 3.6 (3.5-5.1) mEq/L Chloride 106 (98-107) mEq/L Carbon Dioxide 22 L (23-29) mEq/L BUN 15 (8-23) mg/dL Creatinine 0.40 L (0.60-1.20) mg/dL Glucose 101 (70-105) mg/dL Calcium 8.2 L (8.6-10.3) mg/dL Adrenal panel 10/23/17 Range/Units 04:27 Sodium 135 L (136-145) mEq/L Potassium 3.6 (3.5-5.1) mEq/L Chloride 106 (98-107) mEq/L Carbon Dioxide 22 L (23-29) mEq/L BUN 15 (8-23) mg/dL Creatinine 0.40 L (0.60-1.20) mg/dL Glucose 101 (70-105) mg/dL Calcium 8.2 L (8.6-10.3) mg/dL - Attending Attestation patient seen and examined; i have reviewed all labs, imaging, and notes. i agree with the above assessment and plan and wish to add the following... afebrile; WBC wnl; having flatus; pain controlled, but still present; starts sips (250qshift, non carbonated/non sweetened) activity as tolerated cont pain regimen begin pradaxa today cont IV abx, IV protonix discussed with associate chemist; agreed it was MOST beneficial for their input once patient tolerating a full tray of clears
[2017-10-23] MEDS ORDERED: Artificial Tears SOLN 15 ML BOTTLE BOTH EYES PRN (07:38)
[2017-10-23] MEDS ORDERED: Potassium Chloride 40 MEQ, Lidocaine 1% 2 ML in D5% in Water 500 ML IVPB ONE (08:09)
[2017-10-23] MEDS ORDERED: Pantoprazole 40 MG VIAL IVP SCH (09:00)
[2017-10-23] MEDS: *HR* Dabigatran 150 MG CAPSULE PO SCH ×2 (09:32→20:30)
[2017-10-24] MEDS: 0.9 % Sodium Chloride 500 ML IVC SCH (00:45)
[2017-10-24 05:02] LABS: Basophils # 0.1 K/mcL (0.0-0.2); Basophils % 0.6 %; Eosinophils # 0.1 K/mcL (0.0-0.6); Eosinophils % 0.7 %; Hematocrit 37.2 % (35.3-44.9); Hemoglobin 12.7 g/dL (11.5-15.4); Immature Granulocytes % 1.4 % (0-4); Lymphocytes # 1.4 K/mcL (0.6-4.6); Lymphocytes % 14.4 %; Mean Corpuscular HGB Conc 34.1 g/dL (31.6-35.5); Mean Corpuscular Hemoglobin 28.8 pg (28.0-33.3); Mean Corpuscular Volume 84.4 fL (83.0-100.0); Mean Platelet Volume 9.8 fL (9.4-12.4); Monocytes # 0.6 K/mcL (0.0-1.3); Monocytes % 6.5 %; Neutrophils # 7.3 K/mcL (1.6-8.9); Platelet Count 197 K/mcL (140-400); Red Blood Count 4.41 M/mcL (3.82-4.97); Red Cell Distribution Width 13.4 % (11.5-14.5); Segmented Neutrophils % 76.4 %
[2017-10-24 05:23] LABS: BUN/Creatinine Ratio 18 (6-26); Blood Urea Nitrogen 8 mg/dL (8-23); Calcium 8.3 mg/dL (8.6-10.3); Carbon Dioxide 22 mEq/L (23-29); Chloride 102 mEq/L (98-107); Glucose 93 mg/dL (70-105); Osmolality,Calculated 276 (280-300); Sodium 134 mEq/L (136-145); eGFR For Non-African Americans > 60 (> 60)
[2017-10-24 05:33] LABS: Platelet Estimate Normal (Normal); Reactive Lymphocytes Present (Not Present)
[2017-10-24] MEDS: Piperacillin/Tazobactam 3.375 GM in 0.9 % Sodium Chloride Mini Bag 100 ML IVPB SCH ×3 (06:21→22:46)
[2017-10-24 07:37] LABS: Magnesium 1.9 mg/dL (1.6-2.6); Phosphorous 1.7 mg/dL (2.7-4.5)
--- NOTE | 2017-10-24 07:57 | General Surgery Progress Note ---
<Jessica Castillo E - Last Filed: 10/24/17 07:55> Date of Encounter: 10/24/17 Time of Encounter: 07:55 - Assessment and Plan (1) Perforated appendicitis Current Visit: Yes Status: Acute WBC count down to 9.6 from 11 yesterday. Clears only sips 250q8, non-sweetened, no carbination IVF reduced yesterday to 20mls/hr will consider discontinuing this once she is tolerating clears better. continue zosyn continue pain control will continue to do serial abdominal exams will continue anti-nausea medications Will continue to monitor labs Restarted Pradaxa, stop heparin Restarted Nexium PO as protonix was not working for her reflux Will consider lasix if her urine output is below 500 ml by noon. Will continue to wait to switch to oral antiarrythmic until patient is tolerating clears better. Patient should be up to walk 3 times a day, PT ordered to help with this. Bedside commode for ease of use due to physical deconditioning making it hard to get up on own to use the restroom no surgery at this time, will continue to monitor for worsening sepsis or clinical decline Manager Rn Case declined until patient can take oral medications CT/CT abd pelvis w iv no oral IMPRESSION: 1. CT findings compatible with perforated appendicitis as previously described. No drainable abscess identified. Small amount of free fluid, inflammatory stranding, and extraluminal gas is again seen. 2. Secondary inflammatory changes of the distal and terminal ileum resulting in functional obstruction of the small bowel. 3. Slight interval worsening since 10/20/2017 of moderate intra and extrahepatic biliary dilatation. Status post cholecystectomy 4. Status post hysterectomy. Subjective Patient reports: other (Patient states she passed a small amount of gas this mornign when she got up to use the restroom. HAs not ahd a bowel movment yet. She states she doesn't feel she is in pain but just feels miserable. She has been trying some clears and they have been settling so far. Notes her hands and feet have been swollen but seem a bit better today. ) Objective Vital Signs - Last 8 Hours Temp Pulse Resp BP Pulse Ox 10/24/17 07:23 97.5 F L 91 18 144/81 94 08/08/18 05:35 97.8 F 96 15 137/81 94 10/24/17 00:18 98.1 F 94 18 163/78 93 Intake and Output 10/23/17 10/23/17 10/24/17 15:59 23:59 07:59 Intake Total 962 / 962 220 / 220 1170 / 1170 Output Total 0 / 0 1100 / 1100 650 / 650 Balance 962 / 962 -880 / -880 520 / 520 Intake: IV Fluids 932 / 932 100 / 100 1050 / 1050 Cardizem 50 MG In 0.9 % Sodium 50 / 50 50 / 50 Chloride 40 ML @ 5 MG/HR 5 mls/ hr IVC .Q10H [facility] Rx#:[id number] Zosyn 3.375 GM In 0.9 % Sodium 100 / 100 100 / 100 100 / 100 Chloride (Mini-Bag +) 100 ML @ 25 mls/hr IVPB Q8H [facility] Rx#: [id number] KCl 40 MEQ Xylocaine 2 ML In 522 / 522 Dextrose 5% 500 ML @ 130.5 mls/ hr IVPB ONCE ONE Rx#:[id number] Sodium Phosphate 30 MMOL In 0.9 260 / 260 % Sodium Chloride 250 ML @ 42 mls/hr IVPB ONCE ONE Rx#: [id number] Oral 30 / 30 120 / 120 120 / 120 Output: Urine 0 / 0 1100 / 1100 650 / 650 Other: Meal Lunch Percent of Meal Consumed 0% # Voids 1 Blood Glucose* 147 90 85 - General physical appearance well developed, well nourished, moderate distress - Respiratory normal expansion, normal respiratory effort, clear to auscultation - Cardiovascular Cardiovascular exam: Present: RRR, no murmurs/rubs/gallops - Abdomen Abdomen: Present: bowel sounds present (but minimal throughout), soft, tender ( can palpate with a bit firmer than yesterday before tenderness is noted by patient) - Musculoskeletal normal posture - Psychiatric oriented to time, oriented to person, oriented to place - Labs 10/24/17 04:47 10/24/17 04:47 Diabetes panel 10/24/17 Range/Units 04:47 Sodium 134 L (136-145) mEq/L Potassium 3.0 L (3.5-5.1) mEq/L Chloride 102 (98-107) mEq/L Carbon Dioxide 22 L (23-29) mEq/L BUN 8 (8-23) mg/dL Creatinine 0.44 L (0.60-1.20) mg/dL Glucose 93 (70-105) mg/dL Calcium 8.3 L (8.6-10.3) mg/dL Calcium panel 10/24/17 Range/Units 04:47 Calcium 8.3 L (8.6-10.3) mg/dL Phosphorus 1.7 L (2.7-4.5) mg/dL Pituitary panel 10/24/17 Range/Units 04:47 Sodium 134 L (136-145) mEq/L Potassium 3.0 L (3.5-5.1) mEq/L Chloride 102 (98-107) mEq/L Carbon Dioxide 22 L (23-29) mEq/L BUN 8 (8-23) mg/dL Creatinine 0.44 L (0.60-1.20) mg/dL Glucose 93 (70-105) mg/dL Calcium 8.3 L (8.6-10.3) mg/dL Adrenal panel 10/24/17 Range/Units 04:47 Sodium 134 L (136-145) mEq/L Potassium 3.0 L (3.5-5.1) mEq/L Chloride 102 (98-107) mEq/L Carbon Dioxide 22 L (23-29) mEq/L BUN 8 (8-23) mg/dL Creatinine 0.44 L (0.60-1.20) mg/dL Glucose 93 (70-105) mg/dL Calcium 8.3 L (8.6-10.3) mg/dL - VTE Documentation of Mechanical Device: Intermittent pneumatic compression device Consult Discharge Plan - Plan Referrals: Julee Booth, ETHANOL QUALITY LEADER [Primary Care Provider] - <Jonathan Butcher - Last Filed: 10/24/17 12:14> Date of Encounter: 10/24/17 - Assessment and Plan (1) Perforated appendicitis Current Visit: Yes Status: Acute Objective Vital Signs - Last 8 Hours Temp Pulse Resp BP Pulse Ox 10/24/17 11:34 98.8 F 85 18 138/73 95 10/24/17 07:23 97.5 F L 91 18 144/81 94 10/24/17 05:35 97.8 F 96 15 137/81 94 Intake and Output 10/23/17 10/24/1710/24/18 23:59 07:59 15:59 Intake Total 220 / 220 1170 / 1170 511 / 511 Output Total 1100 / 1100 650 / 650 750 / 750 Balance -880 / -880 520 / 520 -239 / -239 Intake: IV Fluids 100 / 100 1050 / 1050 511 / 511 0.9 % Sodium Chloride 500 ML @ 361 / 361 20 mls/hr IVC .Q24H [facility] Rx#: [id number] Cardizem 50 MG In 0.9 % Sodium 50 / 50 50 / 50 Chloride 40 ML @ 5 MG/HR 5 mls/ hr IVC .Q10H [facility] Rx#:[id number] Zosyn 3.375 GM In 0.9 % Sodium 100 / 100 100 / 100 100 / 100 Chloride (Mini-Bag +) 100 ML @ 25 mls/hr IVPB Q8H [facility] Rx#: [id number] Oral 120 / 120 120 / 120 Output: Urine 1100 / 1100 650 / 650 750 / 750 Other: Blood Glucose* 90 85 103 - Labs 10/24/17 04:47 10/24/17 04:47 Diabetes panel 10/24/17 Range/Units 04:47 Sodium 134 L (136-145) mEq/L Potassium 3.0 L (3.5-5.1) mEq/L Chloride 102 (98-107) mEq/L Carbon Dioxide 22 L (23-29) mEq/L BUN 8 (8-23) mg/dL Creatinine 0.44 L (0.60-1.20) mg/dL Glucose 93 (70-105) mg/dL Calcium 8.3 L (8.6-10.3) mg/dL Calcium panel 10/24/17 Range/Units 04:47 Calcium 8.3 L (8.6-10.3) mg/dL Phosphorus 1.7 L (2.7-4.5) mg/dL Pituitary panel 10/24/17 Range/Units 04:47 Sodium 134 L (136-145) mEq/L Potassium 3.0 L (3.5-5.1) mEq/L Chloride 102 (98-107) mEq/L Carbon Dioxide 22 L (23-29) mEq/L BUN 8 (8-23) mg/dL Creatinine 0.44 L (0.60-1.20) mg/dL Glucose 93 (70-105) mg/dL Calcium 8.3 L (8.6-10.3) mg/dL Adrenal panel 10/24/17 Range/Units 04:47 Sodium 134 L (136-145) mEq/L Potassium 3.0 L (3.5-5.1) mEq/L Chloride 102 (98-107) mEq/L Carbon Dioxide 22 L (23-29) mEq/L BUN 8 (8-23) mg/dL Creatinine 0.44 L (0.60-1.20) mg/dL Glucose 93 (70-105) mg/dL Calcium 8.3 L (8.6-10.3) mg/dL - Attending Attestation I have personally seen and examined the patient. I have reviewed pertinent labs , imaging, progress notes, including this one. I agree with the above assessment and plan and wish to include the following... 76F with perforated appendicitis treated non operatively, had Afib with RVR now rate controlled with IV cardizem; still with distension; normal WBC, afebrile; improved tenderness; few episodes of flatus on 10/23; cont with sips of clears ambulate cont with PO pradaxa start PO nexium cont IV abx patient without appetite; cont to await return of robust bowel function;
[2017-10-24] MEDS ORDERED: Potassium Chloride 40 MEQ, Lidocaine 1% 2 ML in D5% in Water 500 ML IVPB ONE (08:33)
[2017-10-24] MEDS: *HR* Dabigatran 150 MG CAPSULE PO SCH ×2 (09:03→22:45)
[2017-10-25] MEDS: 0.9 % Sodium Chloride 500 ML IVC SCH (03:21)
[2017-10-25] MEDS: Piperacillin/Tazobactam 3.375 GM in 0.9 % Sodium Chloride Mini Bag 100 ML IVPB SCH (05:34)
[2017-10-25] MEDS: *HR* Dabigatran 150 MG CAPSULE PO SCH (10:02)
--- NOTE | 2017-10-25 12:16 | General Surgery Progress Note ---
Date of Encounter: 10/25/17 Time of Encounter: 12:16 - Assessment and Plan (1) Perforated appendicitis Current Visit: Yes Status: Acute Pt is on limited clears and has been restarted on Pradaxa for her a-fib. Reports abd distention and bloating with small amount of clears. Liquid stool this am that "smells foul." CT abd/pelvis 10/21 with iv contrast notes perforated appendicitis, no drainable abscess, secondary inflammation int he distal and terminal ileum, intra/extra hepatic biliary dilation (s/p cholecystectomy and hysterectomy). tachy today which could be related to uncontrolled a-fib or abdominal changes. will repeat labs and check AAS Plan: CBC, BMP, Mag, phos replete lytes AAS limited CLD; may take pradaxa only continue MIV as she is not consuming enough clears Change Zosyn (day 6) to cipro/flagyl as for d/c planning Would ideally prefer to repeat CT tomorrow vs today pending clinical course PRN antiemetics, GI prophylaxis, add simethicone, add protonix 40 mg BID, stop prevacid Pradaxa for DVT prophylaxis Ambulate TID serial abd exams Further recommendations pending (2) Paroxysmal atrial fibrillation with rapid ventricular response Current Visit: Yes Status: Acute Change diltiazem from 5 mg IV to titratable dosing add iv metoprolol as she was taking BBs at home and rates are not controlled continue pradaxa; if she needs to be changed back to NPO, will need heparin gtt continue telemetry; repeat EKG Consult to cardiology when indicated; per record reviewed, cardiology prefers waiting until po meds are resumed (3) GERD (gastroesophageal reflux disease) Current Visit: Yes Status: Chronic Small sliding type hiatal hernia noted on CT small bowel distended up to 3.5 cm (which could be contributing to her feelings of reflux) start Protonix 40 mg BID add simethicone PRN will consider carafate slurry or GI cocktail pending clinical course Qualifiers: Esophagitis presence: without esophagitis Qualified Code(s): K21.9 - Gastro -esophageal reflux disease without esophagitis (4) DVT prophylaxis Current Visit: Yes Status: Acute EPCDs while in bed Therapeutic pradaxa Amb TID (5) Tachycardia Current Visit: Yes Status: Acute As above Add 1L Ns bolus over 2 hours given decreased urine output today repeat EKG continue telemetry Check mag and phos replace potassium (6) Hypokalemia Current Visit: Yes Status: Acute as above Subjective Narrative: Denise paezts 3 liquid (green) stools this am. For lunch, she states she drank most of her broth and cranberry juice, ate a few bites of her icy and feels "full and bloated as can be." She reports feelings of burning in her throat and as though "things are coming up," but is not able to say whether it feels similar to her usual GERD symptoms because she feels so full. She states her abdomen is usually flat, but the distention has improved a little prior to lunch. She reports abdominal cramping that starts after eating liquids. She denies fevers or chills, but reports feelings of increased heartbeat today. Objective Vital Signs - Last 8 Hours Temp Pulse Resp BP Pulse Ox 10/25/17 11:52 98.0 F 108 19 138/83 96 10/25/17 07:41 98.0 F 109 20 136/73 96 10/25/17 04:18 98.0 F 106 18 135/80 95 Intake and Output 10/24/17 10/25/17 10/25/17 23:59 07:59 15:59 Intake Total 289 / 289 100 / 100 Output Total 300 / 300 Balance 289 / 289 -200 / -200 Intake: IV Fluids 289 / 289 100 / 100 0.9 % Sodium Chloride 500 ML @ 139 / 139 20 mls/hr IVC .Q24H [facility] Rx#: [id number] Cardizem 50 MG In 0.9 % Sodium 50 / 50 Chloride 40 ML @ 5 MG/HR 5 mls/ hr IVC .Q10H [facility] Rx#:[id number] Zosyn 3.375 GM In 0.9 % Sodium 100 / 100 100 / 100 Chloride (Mini-Bag +) 100 ML @ 25 mls/hr IVPB Q8H [facility] Rx#: [id number] Output: Urine 300 / 300 Other: # Voids 1 # Bowel Movements 1 Blood Glucose* 90 - General physical appearance no distress, moderate pain (mild-moderate cramping) - Eyes normal ocular movement - ENT normal mucosa, atraumatic, normocephalic - Neck Neck exam: trachea midline - Respiratory normal expansion, normal respiratory effort, clear to auscultation - Cardiovascular Cardiovascular exam: Present: tachycardia, regular rhythm - Abdomen Abdomen: Present: bowel sounds present (faint and hypoactive at best), soft, tympanic, distended Hernia: none - Integumentary no growths - Neurologic normal coordination, normal sensation - Musculoskeletal normal gait, normal posture - Psychiatric oriented to time, oriented to person, oriented to place, memory intact - Labs 10/24/17 04:47 10/24/17 04:47 - VTE Documentation of Mechanical Device: Intermittent pneumatic compression device Consult Discharge Plan - Plan Referrals: Julee Booth, [facility]IST[facility] [Primary Care Provider] -
[2017-10-25] MEDS ORDERED: Simethicone 80 MG TAB.CHEW PO PRN (12:44)
[2017-10-25 12:52] LABS: BUN/Creatinine Ratio 16 (6-26); Blood Urea Nitrogen 7 mg/dL (8-23); Calcium 8.7 mg/dL (8.6-10.3); Carbon Dioxide 21 mEq/L (23-29); Chloride 102 mEq/L (98-107); Glucose 106 mg/dL (70-105); Osmolality,Calculated 278 (280-300); Phosphorous 2.5 mg/dL (2.7-4.5); Potassium 3.1 mEq/L (3.5-5.1); Sodium 135 mEq/L (136-145); eGFR For Non-African Americans > 60 (> 60)
[2017-10-25 13:02] LABS: Basophils % 0.4 %; Eosinophils # 0.1 K/mcL (0.0-0.6); Eosinophils % 0.6 %; Hematocrit 40.9 % (35.3-44.9); Hemoglobin 13.9 g/dL (11.5-15.4); Immature Granulocytes % 3.1 % (0-4); Lymphocytes # 1.7 K/mcL (0.6-4.6); Lymphocytes % 17.2 %; Mean Corpuscular Hemoglobin 28.8 pg (28.0-33.3); Mean Corpuscular Volume 84.7 fL (83.0-100.0); Mean Platelet Volume 10.1 fL (9.4-12.4); Monocytes # 0.5 K/mcL (0.0-1.3); Monocytes % 5.2 %; Platelet Count 238 K/mcL (140-400); Red Blood Count 4.83 M/mcL (3.82-4.97); Red Cell Distribution Width 13.5 % (11.5-14.5); Segmented Neutrophils % 73.5 %
[2017-10-25 13:08] LABS: Neutrophils # 7.3 K/mcL (1.6-8.9)
[2017-10-25 13:09] LABS: Platelet Estimate Normal (Normal); Reactive Lymphocytes Present (Not Present)
[2017-10-25] MEDS ORDERED: Potassium Chloride 40 MEQ, Lidocaine 1% 2 ML in D5% in Water 500 ML IVPB ONE (13:11)
[2017-10-25] MEDS ORDERED: 0.9 % Sodium Chloride 1,000 ML IVC ONE (13:12)
[2017-10-25] MEDS: Pantoprazole 40 MG VIAL IVP SCH ×2 (14:13→18:02)
[2017-10-25] MEDS ORDERED: Lidocaine Jelly 6ml 1 APPL/6 ML JEL.PF.APP TP STA (14:25)
[2017-10-25] MEDS ORDERED: Saliva Stimulant 100ml BOTTLE PO PRN (14:25)
[2017-10-25] MEDS ORDERED: Chloraseptic Spray 177 ML BOTTLE MM PRN (14:25)
[2017-10-25] MEDS ORDERED: Lidocaine -MPF 1% 5 ML AMPUL INFILT ONE (14:26)
[2017-10-25] MEDS ORDERED: *HR* Heparin 5,000 UNIT/ML VIAL IVP PRN (14:29)
[2017-10-25] MEDS ORDERED: *HR* Heparin 5,000 UNIT/ML VIAL IVP ONE (14:29)
[2017-10-25 15:00] LABS: Heparin anti-factor XA UFH 0.02 IU/mL (0.30-0.70); INR 1.3; Prothrombin Time 14.5 Seconds (9.4-12.1)
[2017-10-25] MEDS ORDERED: MetroNIDAZOLE 500 MG/100 ML 500 MG/100 ML BAG IVPB SCH (15:00)
[2017-10-25 15:03] LABS: Activated Partial Thrombo Time 36.6 Seconds (26.0-36.0)
[2017-10-25] MEDS ORDERED: *HR* Promethazine 25 MG/ML VIAL IM ONE (16:15)
--- NOTE | 2017-10-25 16:17 | Electrocardiograph Report ---
[place] [id number] Test Date: 2017-10-25 Pat Name: Denise Doan Department: 112 Room: 2A38 Gender: F Head Grower: : 1940 Requested By: Sridevi Anaya Order Number: [id number] Reading MD: Gladis Wan Measurements Intervals [place] Rate: 96 P: 34 [place]: 161 QRS: -30 QRSD: 102 T: 72 QT: 368 QTc: 422 Interpretive Statements SINUS RHYTHM POSSIBLE ANTERIOR MYOCARDIAL INFARCTION, PROBABLY OLD POSSIBLE INFERIOR AK, OLD Electronically Signed On 10-25-2017 16:15:22 EDT by Gladis Wan
[2017-10-25] MEDS: Heparin 25,000 UNIT/500 ML D5W 25,000 UNIT/500 ML BAG IVC SCH (16:44)
[2017-10-25] MEDS ORDERED: *HR* Promethazine 25 MG/ML VIAL IVP PRN (16:52)
[2017-10-25] MEDS ORDERED: Naloxone 0.4 MG/ML INJ IVP PRN (16:55)
--- NOTE | 2017-10-25 17:06 | Internal Med History&Physical ---
Date of Encounter: 10/25/17 Time of Encounter: 16:30 Internal Medicine - H&P: HPI Chief complaint: Abdominal pain Admitted From: Emergency Dept Plans for Post Hospital Care: Home History of present illness: Ms. Doan is a 76 year old female Past Med Surg Social Fam HX - Past Medical History Medical history: atrial fibrillation, GERD Psychiatric history: no psych history - Past Surgical History Surgical History: other ([facility] 2005--minimal CAD; mid LAD myocardial bridging. ) Additional surgical history: sinus, inner ear - Social History Smoking Status: Never smoker Smokeless Tobacco Status: No Alcohol use: none Drug use: none - Family History Father Adopted: [place]: Bharathi العلي Age: 86 Family Member Ethnicity: Non- Living Status: Age at : 86 Cause of : unknown Hx Family Cardiac Disorders: Yes (strokes) Hx Family Respiratory Disorders: No Hx Family Cancer: No Hx Family GI Disorders: No Hx Family Genitourinary Disorders: No Hx Family Endocrine Disorder: No Hx Family Musculoskeletal Disorders: No Hx Family Neuromuscular Disorders: No Hx Family Neurologic Disorders: No Hx Family HEENT Disorders: No Hx Family Reproductive Disorders: No Hx Family Psychosocial Disorders: No Hx Family Medical Disorders: No Mother Name: Carey العلي Family Member Ethnicity: Non- Living Status: Age at : 66 Cause of : Blood clot Hx Family Cardiac Disorders: No Hx Family Respiratory Disorders: No Hx Family Cancer: No Hx Family GI Disorders: No Hx Family Genitourinary Disorders: No Hx Family Endocrine Disorder: No Hx Family Musculoskeletal Disorders: No Hx Family Neuromuscular Disorders: No Hx Family Neurologic Disorders: No Hx Family HEENT Disorders: No Hx Family Autoimmune Disorders: No Hx Family Reproductive Disorders: No Hx Family Psychosocial Disorders: No Hx Family Medical Disorders: No Internal Medicine - H&P: Meds Esomeprazole Magnesium [Nexium] 40 mg PO DAILY #0 06/17/15 [Rx] Dabigatran [Pradaxa] 150 mg PO BID 02/07/17 [History] Metoprolol [Lopressor] 100 mg PO BID 02/07/17 [History] Cyclosporine [Restasis Multidose] 1 drop BOTH EYES BID 10/21/17 [History] 3 Allergy/AdvReac Type Severity Reaction Status Date / Time No Known Allergies Allergy Verified 10/20/17 15:08 All Systems PM: A 10-system review of systems was performed and is negative for pertinent findings except as documented above in the HPI. - Constitutional Vitals: Temp Pulse Resp BP Pulse Ox 98.0 F 108 19 138/83 96 10/25/17 11:52 10/25/17 11:52 10/25/17 11:52 10/25/17 11:52 10/25/17 11:52 Internal Med - H&P Results - Labs CBC & Chem 7: 10/25/17 11:32 10/25/17 11:31 Labs: Short CBC 10/25/17 Range/Units 11:32 WBC 9.9 (4.3-11.1) K/mcL Hgb 13.9 (11.5-15.4) g/dL Hct 40.9 (35.3-44.9) % Plt Count 238 (140-400) K/mcL Neutrophils # 7.3 (1.6-8.9) K/mcL BMP 10/25/17 11:31 Sodium 135 L Potassium 3.1 L Chloride 102 Carbon Dioxide 21 L BUN 7 L Creatinine 0.44 L Glucose 106 H Calcium 8.7 - Impressions ITS Impressions Abdomen/Pelvis CT 10/21/17 15:21 IMPRESSION: 1. CT findings compatible with perforated appendicitis as previously described. No drainable abscess identified. Small amount of free fluid, inflammatory stranding, and extraluminal gas is again seen. 2. Secondary inflammatory changes of the distal and terminal ileum resulting in functional obstruction of the small bowel. 3. Slight interval worsening since 10/20/2017 of moderate intra and extrahepatic biliary dilatation. Status post cholecystectomy 4. Status post hysterectomy. D/ / 10/21/2017 17:13:15 Flora Hi MD / [facility] Interpreting Provider: Flora Hi MD Abdomen X-Ray 10/25/17 12:47 IMPRESSION: Ongoing distal small bowel obstruction D/ / Tyrese Bullock MD / Tyrese Bullock MD Interpreting Provider: Tyrese Bullock MD - VTE Documentation of Mechanical Device: Intermittent pneumatic compression device - Time Spent With Patient Total time spent is greater than 50% in coordination of care (as documented) at patient's floor/unit and/or counseling patient:
--- NOTE | 2017-10-25 17:09 | Internal Medicine Consult Note ---
<FrankiemanologenesisinderjitKarel Serrano - Last Filed: 10/25/17 17:39> Date of Encounter: 10/25/17 Time of Encounter: 16:30 - Assessment and plan (1) Acute appendicitis Current Visit: Yes Status: Acute Assessment and plan: Acute appendicitis. CT of the abdomen/pelvis on 85 shows findings compatible with perforated appendicitis as previously described. No drainable abscess identified. Small amount of free fluid, inflammatory stranding, and extraluminal gas is again seen. Secondary inflammatory changes of the distal and terminal ileum resulting in functional obstruction of small bowel. Slight interval worsening since 10/20/17 of moderate intra-and extrahepatic biliary dilatation. Status post cholecystectomy. Status post hysterectomy. NG tube placed. NPO status. IVPB ciprofloxacin and Flagyl ordered per Surgery. IV fluids. IVP Zofran and Phenergan ordered for nausea and vomiting. IVP Zofran 40 mg twice a day. Monitor I&O and daily weight. Patient to be monitored closely for sepsis criteria due to perforated appendicitis. Patient discussed with Dr. Olivera who agrees w/plan of care. Pt. is high risk for further morbidity and complications due to current perforated appendicitis requiring IV antibiotics, nausea and vomiting requiring NG tube placement, sepsis criteria monitoring, and other risk factors. Inpatient. Qualifiers: Acute appendicitis type: with localized peritonitis Qualified Code(s): K35.3 - Acute appendicitis with localized peritonitis (2) Nausea & vomiting Current Visit: Yes Status: Acute Assessment and plan: Acute N/V related to current appendicitis. IVP Zofran and Phenergan ordered. Monitor I&O and daily weight. IVP Protonix 40 mg BID ordered daily. Qualifiers: Vomiting type: cyclical vomiting Vomiting Intractability: non-intractable Qualified Code(s): G43.A0 - Cyclical vomiting, not intractable (3) Tachycardia Current Visit: Yes Status: Acute Assessment and plan: Acute tachycardia. Hx of atrial fibrillation. Pt. on heparin and cardizem drips per Surgery. Continuous cardiac telemetry. Pt. does not currently meet sepsis criteria. WBC WNL, RR 19, BP 138/83, temp 98.0F. HR 108. Pt. to be monitored closely for signs of increasing infection and/or sepsis. Lactic acid ordered. 0.9 NS @ 100 mL/HR running. (4) GERD (gastroesophageal reflux disease) Current Visit: Yes Status: Chronic Assessment and plan: Hx of chronic GERD. IVP Zofran and Phenergan ordered for N/V. IVP Protonix 40 mg every 12 hours. Qualifiers: Esophagitis presence: without esophagitis Qualified Code(s): K21.9 - Gastro -esophageal reflux disease without esophagitis (5) Atrial fibrillation Current Visit: Yes Status: Chronic Assessment and plan: Hx of chronic paroxysmal atrial fibrillation. Hold pts. Pradaxa and pt. placed on heparin drip per Surgery. Pt. also placed on Cardizem drip per Surgery. Continuous cardiac telemetry. Qualifiers: Atrial fibrillation type: paroxysmal Qualified Code(s): I48.0 - Paroxysmal atrial fibrillation (6) HTN (hypertension) Current Visit: Yes Status: Chronic Assessment and plan: Hx of chronic HTN. Monitor pt. and VS. IVP Metoprolol 5 mg Q6HR ordered by Surgery. Qualifiers: Hypertension type: essential hypertension Qualified Code(s): I10 - Essential (primary) hypertension (7) DVT prophylaxis Current Visit: Yes Status: Acute Assessment and plan: Pt. placed on heparin drip per Surgery. Monitor for signs of bleeding. - Time Spent With Patient Total time spent is greater than 50% in coordination of care (as documented) at patient's floor/unit and/or counseling patient: Greater than 35 minutes Internal Medicine - CN: HPI - Data of Consult Patient: new to practice Requesting Physician: Jonathan Butcher MD - Consult Narrative Reason for consult: Medical mgmt History of present illness: Ms. Doan is a 76 year old female w/PMH of atrial fibrillation and GERD presented from the ED with chief complaint of abdominal pain that began on 10/18 and lasted for 2 days prior to coming to ED. Patient states she was in [place] and flying home when she began to have worsening diffuse abdominal pain accompanied by nausea and vomiting. Also reported chills and fever. Described her pain as right lower quadrant wavelike in intensity with sharp and stabbing pain at times. Also reports hematuria and diarrhea. Patient denies recent illness, headache, changes in vision, chest pain, shortness of breath, cough, chest congestion, constipation, dizziness, lightheadedness, numbness, tingling, pre-syncope, or syncope. Past Med Surg Social Fam HX - Past Medical History Source: patient, old records reviewed, obtained from family Medical history: atrial fibrillation, GERD Psychiatric history: no psych history - Past Surgical History Surgical History: cataract (Bilateral), cholecystectomy, hysterectomy (Partial) , other ([facility] 2005--minimal CAD; mid LAD myocardial bridging. ) Additional surgical history: Sinus, inner ear of the right ear, tonsillectomy, A &P repair, thyroid surgery - Social History Smoking Status: Never smoker Smokeless Tobacco Status: No Alcohol use: none Drug use: none Current living situation: Home, With Family Activity Level: Independent ambulation, Very active Recent Out of Country Travel Within the Last 8 Weeks: No Exposure or Possible Exposure to Illness During Travel: No - Family History Father Adopted: [place]: Bharathi العلي Age: 86 Race: Family Member Ethnicity: Non- Living Status: Age at : 86 Cause of : Complications from DM Hx Family Cardiac Disorders: Yes (CVA, CAD) Hx Family Endocrine Disorder: Yes (DM) Hx Family Neurologic Disorders: Yes (CVA) Mother Name: Carey العلي Race: Family Member Ethnicity: Non- Living Status: Age at : 66 Cause of : Blood clot Hx Family Cardiac Disorders: Yes (DVT) Brother Race: Family Member Ethnicity: Non- Living Status: Still Living Hx Family Cancer: Yes (Throat) Sister Race: Family Member Ethnicity: Non- Living Status: Age at : 68 Cause of : Lung cancer Hx Family Cancer: Yes (Lung) - Constitutional Constitutional: as per HPI, chills, fever(s), weakness - EENT Eyes: as per HPI Ears: as per HPI Nose, mouth and throat: as per HPI - Breasts Breasts: as per HPI - Cardiovascular Cardiovascular ROS IM: as per HPI - Respiratory Respiratory: as per HPI - Gastrointestinal Gastrointestinal: as per HPI, abdominal pain, diarrhea, nausea, vomiting - Genitourinary Genitourinary: as per HPI, hematuria Menstruation: post hysterectomy (Partial) - Musculoskeletal Musculoskeletal ROS IM: as per HPI - Integumentary Integumentary IM: as per HPI - Neurological Neurological ROS: as per HPI - Psychiatric Psychiatric: as per HPI - Endocrine Endocrine IM: as per HPI - Hematologic/Lymphatic Hematologic/Lymphatic: as per HPI - Allergic/Immunologic Allergic/Immunologic: as per HPI Internal Medicine - CN: Meds Esomeprazole Magnesium [Nexium] 40 mg PO DAILY #0 06/17/15 [Rx] Dabigatran [Pradaxa] 150 mg PO BID 02/07/17 [History] Metoprolol [Lopressor] 100 mg PO BID 02/07/17 [History] Cyclosporine [Restasis Multidose] 1 drop BOTH EYES BID 10/21/17 [History] 3 Allergy/AdvReac Type Severity Reaction Status Date / Time No Known Allergies Allergy Verified 10/20/17 15:08 Internal Medicine - CN: Exam - Constitutional Vitals: Temp Pulse Resp BP Pulse Ox 98.0 F 108 19 138/83 96 10/25/17 11:52 10/25/17 11:52 10/25/17 11:52 10/25/17 11:52 10/25/17 11:52 General appearance IM: Present: cooperative, mild distress, A&O X 3, pleasant, obese, answers questions appropriately - Head Head exam: Present: atraumatic, normal inspection - Eye Eye exam: Present: normal appearance, PERRL, conjuntiva pink, sclera anicteric Pupils: Present: normal accommodation, PERRL - ENT ENT exam: Present: normal exam - Neck Neck exam general surgery: Present: normal inspection, supple, trachea midline - Respiratory Respiratory exam: Present: CTAB - Cardiovascular Cardiovascular exam IM: Present: +S1, +S2, tachycardia - GI/Abdominal GI/Abdominal exam IM: Present: guarding, hypoactive bowel sounds, soft, tenderness - Rectal Rectal exam: Present: deferred - Additional comments: exam deferred. - Extremities Exam Extremities exam IM: Present: warm, radial pulses palpable and symmetrical - Back Exam Back exam: Present: normal inspection - Neurological Exam Neurological exam: Present: alert, CN II-XII intact, oriented X3, no focal deficits, strengths equal and symetr throughout - Expanded Neurological Exam Patient oriented to: Present: person, place, time - Psychiatric Psychiatric exam: Present: normal affect, normal mood - Skin Skin exam IM: Present: dry, intact Internal Medicine - CN: Reslt - Labs CBC & Chem 7: 10/25/17 11:32 10/25/17 11:31 Labs: Short CBC 10/25/17 Range/Units 11:32 WBC 9.9 (4.3-11.1) K/mcL Hgb 13.9 (11.5-15.4) g/dL Hct 40.9 (35.3-44.9) % Plt Count 238 (140-400) K/mcL Neutrophils # 7.3 (1.6-8.9) K/mcL BMP 10/25/17 11:31 Sodium 135 L Potassium 3.1 L Chloride 102 Carbon Dioxide 21 L BUN 7 L Creatinine 0.44 L Glucose 106 H Calcium 8.7 - ABG Interpretation ABG results: PT/INR, D-dimer PT 14.5 Seconds (9.4-12.1) H 10/25/17 14:37 - EKG Data EKG shows normal: sinus rhythm - EKG Data Prior EKG available for review: no Interpretation IM: suggestive of ischemia EKG comments: 10/25/17 17:21 EKG dated 10/25/17 shows sinus rhythm with possible anterior myocardial infarction, probably old. - Impressions Impressions Abdomen X-Ray 10/25/17 12:47 IMPRESSION: Ongoing distal small bowel obstruction D/ / Tyrese Bullock MD / Tyrese Bullock MD Interpreting Provider: Tyrese Bullock MD - Diagnostic Studies Chest x-ray Additional comments: Impressions Chest X-Ray 10/25/17 16:35 IMPRESSION: No acute process. Right-sided PICC in satisfactory position terminating in the SVC NG tube coiled in the esophagus with tip in the proximal esophagus The findings were sent to the Radiology Results Communication Center at 5:12 pm on 10/25/2017to be communicated to a licensed caregiver. D/ / Santiago Muhammad MD / Santiago Muhammad MD Interpreting Provider: Santiago Muhammad MD Abdominal x-ray Additional comments: Impressions Abdomen X-Ray 10/25/17 12:47 IMPRESSION: Ongoing distal small bowel obstruction D/ / Tyrese Bullock MD / Tyrese Bullock MD Interpreting Provider: Tyrese Bullock MD Consult Discharge Plan - Plan Referrals: Julee Booth, [employer]'S OFFICER [Primary Care Provider] - <Ryan Olivera - Last Filed: 10/25/17 17:45> Date of Encounter: 10/25/17 - Time Spent With Patient Total time spent is greater than 50% in coordination of care (as documented) at patient's floor/unit and/or counseling patient: Internal Medicine - CN: HPI - Data of Consult Requesting Physician: Jonathan Butcher MD - Consult Narrative History of present illness: Ms. Doan is a 76 year old female Internal Medicine - CN: Exam - Constitutional Vitals: Temp Pulse Resp BP Pulse Ox 98.0 F 108 19 138/83 96 10/25/17 11:52 10/25/17 11:52 10/25/17 11:52 10/25/17 11:52 10/25/17 11:52 Internal Medicine - CN: Reslt - Labs CBC & Chem 7: 10/25/17 11:32 10/25/17 11:31 Labs: Short CBC 10/25/17 Range/Units 11:32 WBC 9.9 (4.3-11.1) K/mcL Hgb 13.9 (11.5-15.4) g/dL Hct 40.9 (35.3-44.9) % Plt Count 238 (140-400) K/mcL Neutrophils # 7.3 (1.6-8.9) K/mcL BMP 10/25/17 11:31 Sodium 135 L Potassium 3.1 L Chloride 102 Carbon Dioxide 21 L BUN 7 L Creatinine 0.44 L Glucose 106 H Calcium 8.7 - ABG Interpretation ABG results: PT/INR, D-dimer PT 14.5 Seconds (9.4-12.1) H 10/25/17 14:37 - Impressions Impressions Abdomen X-Ray 10/25/17 12:47 IMPRESSION: Ongoing distal small bowel obstruction D/ / Tyrese Bullock MD / Tyrese Bullock MD Interpreting Provider: Tyrese Bullock MD Chest X-Ray 10/25/17 16:35 IMPRESSION: No acute process. Right-sided PICC in satisfactory position terminating in the SVC NG tube coiled in the esophagus with tip in the proximal esophagus The findings were sent to the Radiology Results Communication Center at 5:12 pm on 10/25/2017to be communicated to a licensed caregiver. D/ / Santiago Muhammad MD / Santiago Muhammad MD Interpreting Provider: Santiago Muhammad MD - Attending Attestation I examined this patient and my medical decision-making was reviewed with the Nurse practitioner. I agree with the documented findings, disposition and treatment plan as described except to the extent set forth below.
[2017-10-25] MEDS: 0.9 % Sodium Chloride 1,000 ML IVC SCH (18:01)
[2017-10-25] MEDS: *HR* Metoprolol 5 MG/5 ML VIAL IVP SCH (18:01)
[2017-10-26] MEDS: MetroNIDAZOLE 500 MG/100 ML 500 MG/100 ML BAG IVPB SCH ×3 (00:41→16:05)
[2017-10-26] MEDS: *HR* Metoprolol 5 MG/5 ML VIAL IVP SCH ×4 (00:42→17:56)
[2017-10-26] MEDS: 0.9 % Sodium Chloride 1,000 ML IVC SCH (02:59)
[2017-10-26] MEDS: Pantoprazole 40 MG VIAL IVP SCH (07:03)
[2017-10-26 07:28] LABS: Hematocrit 35.2 % (35.3-44.9); Mean Corpuscular HGB Conc 33.5 g/dL (31.6-35.5); Mean Corpuscular Hemoglobin 28.5 pg (28.0-33.3); Mean Platelet Volume 9.7 fL (9.4-12.4); Platelet Count 255 K/mcL (140-400); Red Blood Count 4.14 M/mcL (3.82-4.97); Red Cell Distribution Width 13.6 % (11.5-14.5)
[2017-10-26] MEDS ORDERED: Potassium Phosphate 44 MEQ in 0.9 % Sodium Chloride 250 ML IVPB ONE (07:29)
[2017-10-26] MEDS ORDERED: D5% in 0.45% NACL w KCl 20 MEQ/1,000 ML MLS IVC SCH (07:30)
[2017-10-26 07:52] LABS: Albumin 2.7 g/dL (3.5-5.7); BUN/Creatinine Ratio 10 (6-26); Blood Urea Nitrogen 4 mg/dL (8-23); Calcium 8.1 mg/dL (8.6-10.3); Carbon Dioxide 26 mEq/L (23-29); Chloride 105 mEq/L (98-107); Glucose 126 mg/dL (70-105); Magnesium 1.9 mg/dL (1.6-2.6); Osmolality,Calculated 282 (280-300); Phosphorous 2.1 mg/dL (2.7-4.5); Potassium 2.9 mEq/L (3.5-5.1); Sodium 137 mEq/L (136-145); Triglycerides 164 mg/dL (< 150); eGFR For Non-African Americans > 60 (> 60)
[2017-10-26 08:10] LABS: Hemoglobin 11.8 g/dL (11.5-15.4)
[2017-10-26] MEDS ORDERED: D5% in Water 1,000 ML IVC PRN (08:18)
[2017-10-26] MEDS ORDERED: *HR* Dextrose 50 % in Water (Syg) 50 ML SYRINGE IVP PRN (08:18)
[2017-10-26] MEDS ORDERED: Dextrose Gel 15 GM/37.5 ML TUBE PO PRN ×2 (08:18)
[2017-10-26] MEDS: 0.9 % Sodium Chloride w KCl 20 MEQ/1,000 ML MLS IVC SCH (08:35)
[2017-10-26 08:51] LABS: Monocytes # 1.3 K/mcL (0.0-1.3)
[2017-10-26 08:52] LABS: Platelet Estimate Normal (Normal)
[2017-10-26 08:53] LABS: Reactive Lymphocytes Present (Not Present)
[2017-10-26] MEDS ORDERED: Isovue-370 500 ML INFUS..BTL IV ONE (08:56)
--- NOTE | 2017-10-26 08:59 | General Surgery Progress Note ---
<Grecia Seo Luis - Last Filed: 10/26/17 09:13> Date of Encounter: 10/26/17 Time of Encounter: 08:00 - Assessment and Plan (1) Perforated appendicitis Current Visit: Yes Status: Acute NPO NG placement unsuccessful- may leave out for now Serial abdominal exams IV fluids- changed to 0.9NS with 20meq KCL due to elevated blood sugars PICC line placement Grinder Tender consult for start and management of TPN (Total fluid rate 100ml/hour MIV + TPN) IV antibiotics- Cipro and Flagyl Ambulate hallways TID with assistance IS every 1 hour while awake Repeat am labs- CBC, BMP (2) Ileus Current Visit: Yes Status: Acute NPO NG placement unsuccessful- may leave out for now Serial abdominal exams IV fluids- changed to 0.9NS with 20meq KCL due to elevated blood sugars PICC line placement Grinder Tender consult for start and management of TPN (Total fluid rate 100ml/hour MIV + TPN) Start reglan 10mg IV every 6 hours for 48hours (3) Atrial fibrillation Current Visit: Yes Status: Chronic Patient on cardizem gtt for rate control Continue heparin gtt Consult to hospitalist for management Qualifiers: Atrial fibrillation type: paroxysmal Qualified Code(s): I48.0 - Paroxysmal atrial fibrillation (4) GERD (gastroesophageal reflux disease) Current Visit: Yes Status: Chronic PPI therapy daily Qualifiers: Esophagitis presence: without esophagitis Qualified Code(s): K21.9 - Gastro -esophageal reflux disease without esophagitis (5) Elevated blood sugar Current Visit: No Status: Acute Start SSI low scale coverage for management Will continue to monitor and adjust as necessary (6) Moderate protein-calorie malnutrition Current Visit: Yes Status: Acute Grinder Tender consult for start and management of TPN (7) Hypokalemia Current Visit: Yes Status: Acute Replace potassium Repeat am labs (8) DVT prophylaxis Current Visit: Yes Status: Acute Patient on heparin gtt for atrial fibrillation Ambulate hallways TID with assistance EPCDs to bilateral lower extremities Subjective Patient reports: no new complaints, feels better, still having pain, pain is less, voiding w/o difficulty, flatus (patient reports flatus this morning), no bowel movement, afebrile, other (NG removed due to being coiled in the esophagus and tip in the proximal esophagus; patient refused replacement; denies any nausea this morning) Objective Vital Signs - Last 8 Hours Temp Pulse Resp BP Pulse Ox 10/26/17 08:18 98.8 F 93 20 146/72 94 10/26/17 04:33 98.0 F 105 16 126/76 95 Intake and Output 10/25/17 10/26/17 10/26/17 23:59 07:59 15:59 Intake Total 50 / 50 1157 / 1157 Balance 50 / 50 1157 / 1157 Intake: IV Fluids 50 / 50 1157 / 1157 0.9 % Sodium Chloride 1,000 ML 1000 / 1000 @ 100 mls/hr IVC .Q10H [facility] Rx#: [id number] Cardizem 50 MG In 0.9 % Sodium 50 / 50 Chloride 40 ML @ 5 MG/HR 5 mls/ hr IVC .Q10H [facility] Rx#:[id number] Heparin 25,000 UNIT/500 ML D5W 157 / 157 25,000 unit In 500 ml @ 14 UNIT /KG/HR 21.784 mls/hr IVC . [id number] [facility] Rx#:[id number] Other: Weight 75.3 kg Blood Glucose* 141 100 Patient Weight 10/26/17 23:59 Weight 75.3 kg - General physical appearance well developed, no distress - Eyes normal ocular movement - ENT dry mucosa, atraumatic, normocephalic - Neck Neck exam: trachea midline - Respiratory normal respiratory effort, clear to auscultation - Cardiovascular Cardiovascular exam: Present: irregular rhythm - Abdomen Abdomen: Present: soft, tender (mild and improving) Abdominal Tenderness: RLQ - Neurologic CN 2-12 grossly intact - Psychiatric oriented to time, oriented to person, oriented to place, speech is normal, memory intact - Labs 10/26/17 07:06 10/26/17 07:06 Diabetes panel 10/25/17 10/25/17 10/26/17 Range/Units 11:31 23:20 07:06 Sodium 135 L 137 (136-145) mEq/L Potassium 3.1 L 3.1 L 2.9 L (3.5-5.1) mEq/L Chloride 102 105 (98-107) mEq/L Carbon Dioxide 21 L 26 (23-29) mEq/L BUN 7 L 4 L (8-23) mg/dL Creatinine 0.44 L 0.39 L (0.60-1.20) mg/dL Glucose 106 H 126 H (70-105) mg/dL Calcium 8.7 8.1 L (8.6-10.3) mg/dL Albumin 2.7 L (3.5-5.7) g/dL Triglycerides 164 H (< 150) mg/dL Calcium panel 10/25/17 10/26/17 Range/Units 11:31 07:06 Calcium 8.7 8.1 L (8.6-10.3) mg/dL Phosphorus 2.5 L 2.1 L (2.7-4.5) mg/dL Albumin 2.7 L (3.5-5.7) g/dL Pituitary panel 10/25/17 10/25/17 10/26/17 Range/Units 11:31 23:20 07:06 Sodium 135 L 137 (136-145) mEq/L Potassium 3.1 L 3.1 L 2.9 L (3.5-5.1) mEq/L Chloride 102 105 (98-107) mEq/L Carbon Dioxide 21 L 26 (23-29) mEq/L BUN 7 L 4 L (8-23) mg/dL Creatinine 0.44 L 0.39 L (0.60-1.20) mg/dL Glucose 106 H 126 H (70-105) mg/dL Calcium 8.7 8.1 L (8.6-10.3) mg/dL Adrenal panel 10/25/17 10/25/17 10/26/17 Range/Units 11:31 23:20 07:06 Sodium 135 L 137 (136-145) mEq/L Potassium 3.1 L 3.1 L 2.9 L (3.5-5.1) mEq/L Chloride 102 105 (98-107) mEq/L Carbon Dioxide 21 L 26 (23-29) mEq/L BUN 7 L 4 L (8-23) mg/dL Creatinine 0.44 L 0.39 L (0.60-1.20) mg/dL Glucose 106 H 126 H (70-105) mg/dL Calcium 8.7 8.1 L (8.6-10.3) mg/dL Albumin 2.7 L (3.5-5.7) g/dL - VTE Documentation of Mechanical Device: Intermittent pneumatic compression device Consult Discharge Plan - Plan Referrals: Julee Booth, ELECTRICAL ASSEMBLIES SUPERVISOR [Primary Care Provider] - - Attending Attestation For this encounter, I have reviewed the OFFSET PLATE PREPARATION SUPERVISOR or PA documentation, treatment plan, and medical decision making; and I have had face to face time with this patient. <Jonathan Butcher - Last Filed: 10/26/17 16:04> Date of Encounter: 10/26/17 - Assessment and Plan (1) Perforated appendicitis Current Visit: Yes Status: Acute Objective Vital Signs - Last 8 Hours Temp Pulse Resp BP Pulse Ox 10/26/17 11:58 98.2 F 96 18 149/81 94 10/26/17 08:18 98.8 F 93 20 146/72 94 Intake and Output 10/26/17 10/26/17 10/26/17 07:59 15:59 23:59 Intake Total 1457 / 1457 488 / 488 Balance 1457 / 1457 488 / 488 Intake: IV Fluids 1457 / 1457 488 / 488 0.9 % Sodium Chloride 1,000 ML 1000 / 1000 @ 100 mls/hr IVC .Q10H [facility] Rx#: [id number] Cardizem 50 MG In 0.9 % Sodium 45 / 45 Chloride 40 ML @ 5 MG/HR 5 mls/ hr IVC .Q10H [facility] Rx#:[id number] Heparin 25,000 UNIT/500 ML D5W 157 / 157 343 / 343 25,000 unit In 500 ml @ 14 UNIT /KG/HR 21.784 mls/hr IVC . [id number] [facility] Rx#:[id number] Cipro Premix 400 MG/200 ML 400 200 / 200 mg In 200 ml @ 200 mls/hr IVPB Q12H [facility] Rx#:[id number] Flagyl Premix 500 MG/100 ML 500 100 / 100 100 / 100 mg In 100 ml @ 100 mls/hr IVPB Q8H [facility] Rx#:[id number] Other: Weight 75.3 kg Blood Glucose* 141 104 Patient Weight 10/26/17 23:59 Weight 75.3 kg - Labs 10/26/17 07:06 10/26/17 07:06 Diabetes panel 10/25/17 10/26/17 10/26/17 Range/Units 23:20 07:06 07:06 Sodium 137 (136-145) mEq/L Potassium 3.1 L 2.9 L (3.5-5.1) mEq/L Chloride 105 (98-107) mEq/L Carbon Dioxide 26 (23-29) mEq/L BUN 4 L (8-23) mg/dL Creatinine 0.39 L (0.60-1.20) mg/dL Glucose 126 H (70-105) mg/dL Hemoglobin A1c 6.1 H ( - 5.6) % Calcium 8.1 L (8.6-10.3) mg/dL Albumin 2.7 L (3.5-5.7) g/dL Triglycerides 164 H (< 150) mg/dL Calcium panel 10/26/17 Range/Units 07:06 Calcium 8.1 L (8.6-10.3) mg/dL Phosphorus 2.1 L (2.7-4.5) mg/dL Albumin 2.7 L (3.5-5.7) g/dL Pituitary panel 10/25/17 10/26/17 Range/Units 23:20 07:06 Sodium 137 (136-145) mEq/L Potassium 3.1 L 2.9 L (3.5-5.1) mEq/L Chloride 105 (98-107) mEq/L Carbon Dioxide 26 (23-29) mEq/L BUN 4 L (8-23) mg/dL Creatinine 0.39 L (0.60-1.20) mg/dL Glucose 126 H (70-105) mg/dL Calcium 8.1 L (8.6-10.3) mg/dL Adrenal panel 10/25/17 10/26/17 Range/Units 23:20 07:06 Sodium 137 (136-145) mEq/L Potassium 3.1 L 2.9 L (3.5-5.1) mEq/L Chloride 105 (98-107) mEq/L Carbon Dioxide 26 (23-29) mEq/L BUN 4 L (8-23) mg/dL Creatinine 0.39 L (0.60-1.20) mg/dL Glucose 126 H (70-105) mg/dL Calcium 8.1 L (8.6-10.3) mg/dL Albumin 2.7 L (3.5-5.7) g/dL - Attending Attestation I have personally seen and examined the patient. I have reviewed pertinent labs , imaging, progress notes, including this one. I agree with the above assessment and plan and wish to include the following... Persistent ileus after perforated appendicitis; afebrile; wbc wnl; hypokalemia; little PO intake; CT scan demonstrates multiple fluid collections; discussed with radiology cont abx start TPN after discussion with rads, will cont to with abx replete bretttes
[2017-10-26 09:05] LABS: Estimated Average Glucose 128 mg/dl; Hemoglobin A1C 6.1 %
[2017-10-26] MEDS: Insulin LISPRO 300 UNITS/3 ML VIAL SQ SCH ×2 (11:27→18:10)
[2017-10-26] MEDS: Metoclopramide 10 MG/2 ML VIAL IVP SCH ×2 (11:36→17:56)
[2017-10-26] MEDS ORDERED: D10% in Water 500 ML IVC PRN (11:54)
[2017-10-26] MEDS: Heparin 25,000 UNIT/500 ML D5W 25,000 UNIT/500 ML BAG IVC SCH (12:46)
[2017-10-26 16:55] LABS: BUN/Creatinine Ratio 8 (6-26); Blood Urea Nitrogen 3 mg/dL (8-23); Calcium 8.1 mg/dL (8.6-10.3); Carbon Dioxide 23 mEq/L (23-29); Chloride 103 mEq/L (98-107); Glucose 120 mg/dL (70-105); Magnesium 1.9 mg/dL (1.6-2.6); Osmolality,Calculated 286 (280-300); Phosphorous 3.5 mg/dL (2.7-4.5); Potassium 3.1 mEq/L (3.5-5.1); Sodium 139 mEq/L (136-145); eGFR For Non-African Americans > 60 (> 60)
[2017-10-26] MEDS ORDERED: Clinimix E 5%-15% SOLUTION 2,000 ML with MVI, adult with vitamin K 10 ML IVC SCH (17:00)
[2017-10-27] MEDS: Metoclopramide 10 MG/2 ML VIAL IVP SCH ×5 (00:08→23:30)
[2017-10-27] MEDS: MetroNIDAZOLE 500 MG/100 ML 500 MG/100 ML BAG IVPB SCH ×4 (00:08→23:30)
[2017-10-27] MEDS: *HR* Metoprolol 5 MG/5 ML VIAL IVP SCH ×5 (00:20→23:30)
[2017-10-27] MEDS: Insulin LISPRO 300 UNITS/3 ML VIAL SQ SCH ×4 (00:36→17:59)
[2017-10-27 04:18] LABS: Basophils # 0.1 K/mcL (0.0-0.2); Basophils % 0.6 %; Eosinophils # 0.1 K/mcL (0.0-0.6); Eosinophils % 1.2 %; Hematocrit 35.2 % (35.3-44.9); Hemoglobin 12.2 g/dL (11.5-15.4); Immature Granulocytes % 2.1 % (0-4); Lymphocytes # 1.9 K/mcL (0.6-4.6); Lymphocytes % 17.9 %; Mean Corpuscular HGB Conc 34.7 g/dL (31.6-35.5); Mean Corpuscular Hemoglobin 29.6 pg (28.0-33.3); Mean Corpuscular Volume 85.4 fL (83.0-100.0); Mean Platelet Volume 9.2 fL (9.4-12.4); Monocytes # 0.6 K/mcL (0.0-1.3); Monocytes % 5.8 %; Neutrophils # 7.7 K/mcL (1.6-8.9); Platelet Count 276 K/mcL (140-400); Red Blood Count 4.12 M/mcL (3.82-4.97); Red Cell Distribution Width 13.5 % (11.5-14.5); Segmented Neutrophils % 72.4 %
[2017-10-27 04:36] LABS: BUN/Creatinine Ratio 8 (6-26); Blood Urea Nitrogen 3 mg/dL (8-23); Carbon Dioxide 24 mEq/L (23-29); Chloride 103 mEq/L (98-107); Glucose 171 mg/dL (70-105); Osmolality,Calculated 287 (280-300); Phosphorous 2.4 mg/dL (2.7-4.5); Potassium 2.9 mEq/L (3.5-5.1); Sodium 138 mEq/L (136-145); eGFR For Non-African Americans > 60 (> 60)
[2017-10-27 04:55] LABS: Platelet Estimate Normal (Normal); Reactive Lymphocytes Present (Not Present)
[2017-10-27] MEDS: Heparin 25,000 UNIT/500 ML D5W 25,000 UNIT/500 ML BAG IVC SCH ×2 (06:54→14:32)
[2017-10-27] MEDS: 0.9 % Sodium Chloride w KCl 20 MEQ/1,000 ML MLS IVC SCH ×3 (06:57→16:51)
--- NOTE | 2017-10-27 07:53 | General Surgery Progress Note ---
<Jessica Castillo E - Last Filed: 10/27/17 07:49> Date of Encounter: 10/27/17 Time of Encounter: 07:49 - Assessment and Plan (1) Perforated appendicitis Current Visit: Yes Status: Acute NPO Serial Abdominal Exams IV fluids - 0.9 NS with 20 meq KCL PICC line placement Clean Out Driller Helper consult for start and mgmt of TPN (total fluid rate 100ml/hour MIV + TPN) Continue Cipro and Flagyl Ambulate hallways TID with assistance IS every hour while awake Considering IR for drain placement (2) Ileus Current Visit: Yes Status: Acute NPO NG placement was unsuccessful- may leave out for now Reglan 10mg every 6 hours for 48 hours IV fluids as above TPN As above (3) Atrial fibrillation Current Visit: Yes Status: Chronic Patient on cardizem gtt for rate control Continue heparain gtt Hospitalist consulted for management Qualifiers: Atrial fibrillation type: paroxysmal Qualified Code(s): I48.0 - Paroxysmal atrial fibrillation (4) GERD (gastroesophageal reflux disease) Current Visit: Yes Status: Chronic PPI therapy Qualifiers: Esophagitis presence: without esophagitis Qualified Code(s): K21.9 - Gastro -esophageal reflux disease without esophagitis (5) Elevated blood sugar Current Visit: No Status: Acute SSI low scale coverage for mgmt will continue to monitor and adjust as necessary Subjective Patient reports: flatus, bowel movement, other (Patient is feeling quite a bit better today. She states she does still have some pain in her lower right quadrant. She has been able to pass sanjana and has had soem watery bowel moevments. ) Objective Vital Signs - Last 8 Hours Temp Pulse Resp BP Pulse Ox 10/27/17 07:13 99.1 F 81 16 122/70 92 10/27/17 04:10 98.7 F 92 16 142/82 94 10/27/17 00:17 98.0 F 102 18 146/77 98 Intake and Output 10/26/17 10/26/17 10/27/17 15:59 23:59 07:59 Intake Total 738 / 738 210 / 210 638 / 638 Balance 738 / 738 210 / 210 638 / 638 Intake: IV Fluids 738 / 738 210 / 210 638 / 638 Cardizem 50 MG In 0.9 % Sodium 95 / 95 75 / 75 Chloride 40 ML @ 5 MG/HR 5 mls/ hr IVC .Q10H COUNT INCLUDES THE [facility] Rx#:[id number] Heparin 25,000 UNIT/500 ML D5W 343 / 343 110 / 110 13 / 13 25,000 unit In 500 ml @ 14 UNIT /KG/HR 21.784 mls/hr IVC . [id number] [facility] Rx#:[id number] Cipro Premix 400 MG/200 ML 400 200 / 200 200 / 200 mg In 200 ml @ 200 mls/hr IVPB Q12H [facility] Rx#:[id number] Intralipid 20% 250 ML @ 21 mls/ 250 / 250 hr IVPB DAILY@1700 COUNT INCLUDES THE [facility] Rx#: [id number] Flagyl Premix 500 MG/100 ML 500 100 / 100 100 / 100 100 / 100 mg In 100 ml @ 100 mls/hr IVPB Q8H COUNT INCLUDES THE [facility] Rx#:[id number] Other: Weight 73.301 kg Blood Glucose* 104 153 Patient Weight 10/27/17 23:59 Weight 73.301 kg - General physical appearance well developed, well nourished, moderate distress - Respiratory normal expansion, normal respiratory effort, clear to percussion, clear to auscultation - Cardiovascular Cardiovascular exam: Present: RRR, no murmurs/rubs/gallops - Abdomen Abdomen: Present: bowel sounds present, distended, tender (in right lower quadrants to light palpation) - Integumentary no rash, no growths, no abnormal pigmentation - Musculoskeletal normal posture - Psychiatric oriented to time, oriented to person, oriented to place - Labs 10/27/17 04:03 10/27/17 04:03 Diabetes panel 10/26/17 10/26/17 10/26/17 Range/Units 07:06 07:06 15:30 Sodium 137 139 (136-145) mEq/L Potassium 2.9 L 3.1 L (3.5-5.1) mEq/L Chloride 105 103 (98-107) mEq/L Carbon Dioxide 26 23 (23-29) mEq/L BUN 4 L 3 L (8-23) mg/dL Creatinine 0.39 L 0.39 L (0.60-1.20) mg/dL Glucose 126 H 120 H (70-105) mg/dL Hemoglobin A1c 6.1 H ( - 5.6) % Calcium 8.1 L 8.1 L (8.6-10.3) mg/dL Albumin 2.7 L (3.5-5.7) g/dL Triglycerides 164 H (< 150) mg/dL 10/27/17 Range/Units 04:03 Sodium 138 (136-145) mEq/L Potassium 2.9 L (3.5-5.1) mEq/L Chloride 103 (98-107) mEq/L Carbon Dioxide 24 (23-29) mEq/L BUN 3 L (8-23) mg/dL Creatinine 0.37 L (0.60-1.20) mg/dL Glucose 171 H (70-105) mg/dL Hemoglobin A1c ( - 5.6) % Calcium 8.0 L (8.6-10.3) mg/dL Albumin (3.5-5.7) g/dL Triglycerides (< 150) mg/dL Calcium panel 10/26/17 10/26/17 10/27/17 Range/Units 07:06 15:30 04:03 Calcium 8.1 L 8.1 L 8.0 L (8.6-10.3) mg/dL Phosphorus 2.1 L 3.5 2.4 L (2.7-4.5) mg/dL Albumin 2.7 L (3.5-5.7) g/dL Pituitary panel 10/26/17 10/26/17 10/27/17 Range/Units 07:06 15:30 04:03 Sodium 137 139 138 (136-145) mEq/L Potassium 2.9 L 3.1 L 2.9 L (3.5-5.1) mEq/L Chloride 105 103 103 (98-107) mEq/L Carbon Dioxide 26 23 24 (23-29) mEq/L BUN 4 L 3 L 3 L (8-23) mg/dL Creatinine 0.39 L 0.39 L 0.37 L (0.60-1.20) mg/dL Glucose 126 H 120 H 171 H (70-105) mg/dL Calcium 8.1 L 8.1 L 8.0 L (8.6-10.3) mg/dL Adrenal panel 10/26/17 10/26/17 10/27/17 Range/Units 07:06 15:30 04:03 Sodium 137 139 138 (136-145) mEq/L Potassium 2.9 L 3.1 L 2.9 L (3.5-5.1) mEq/L Chloride 105 103 103 (98-107) mEq/L Carbon Dioxide 26 23 24 (23-29) mEq/L BUN 4 L 3 L 3 L (8-23) mg/dL Creatinine 0.39 L 0.39 L 0.37 L (0.60-1.20) mg/dL Glucose 126 H 120 H 171 H (70-105) mg/dL Calcium 8.1 L 8.1 L 8.0 L (8.6-10.3) mg/dL Albumin 2.7 L (3.5-5.7) g/dL - VTE Documentation of Mechanical Device: Intermittent pneumatic compression device Consult Discharge Plan - Plan Referrals: Julee Booth, BULK DELIVERY DRIVER [Primary Care Provider] - <Lucy Tarango - Last Filed: 10/28/17 14:46> Date of Encounter: 10/27/17 - Assessment and Plan (1) Intra-abdominal abscess Current Visit: Yes Status: Acute discussed with Dr Cummings he feels it is too great of a risk to try to aspirate or drain her pelvic abscesses, perhaps after ileus resolves and bowel loops are less distended and normal size he may have a window would just need to reimage and see currently IV antibiotics therapy discussed with patient that if we were to take her to OR even laparoscopically we would have to disrupt the abscesses with spillage of contents and irrigation may lead to further but smaller abscesses, even with drain placement. Will see if can treat with iv antibiotics, may need home antibiotic therapy. trend wbc (2) Ileus Current Visit: Yes Status: Acute patient with ileus due to perforated appendicitis and intraabdominal abscesses patient has passed some flatus today and has some faint bowel sounds continue conservative therapy (3) Moderate protein-calorie malnutrition Current Visit: Yes Status: Acute continue TPN (4) Perforated appendicitis Current Visit: Yes Status: Acute continue conservative therapy npo ivf hydration TPN, antibiotics OOB ambulate gi/dvt prophylaxis prn pain control will start toradol Subjective Patient reports: no new complaints, still having pain, flatus, afebrile Narrative: patient states has passed flatus a few times, still having discomfort in the pelvis region rare nausea passing some liquid stool/minimal still feels a little bloated Objective Vital Signs - Last 8 Hours Temp Pulse Resp BP Pulse Ox 10/28/17 11:56 98.5 F 100 16 142/84 97 10/28/17 07:34 98.5 F 92 16 137/78 95 Intake and Output 10/27/17 10/28/17 10/28/17 23:59 07:59 15:59 Intake Total 1440 / 1440 700 / 700 206 / 206 Balance 1440 / 1440 700 / 700 206 / 206 Intake: IV Fluids 1200 / 1200 700 / 700 206 / 206 KCl 20 mEq in 0.9% Sodium 1000 / 1000 Chloride 20 meq In 1,000 ml @ 100 mls/hr IVC .Q10H [facility] Rx#: [id number] Cardizem 50 MG In 0.9 % Sodium 50 / 50 Chloride 40 ML @ 5 MG/HR 5 mls/ hr IVC .Q10H [facility] Rx#:[id number] Heparin 25,000 UNIT/500 ML D5W 100 / 100 400 / 400 156 / 156 25,000 unit In 500 ml @ 14 UNIT /KG/HR 21.784 mls/hr IVC . [id number] [facility] Rx#:[id number] Cipro Premix 400 MG/200 ML 400 200 / 200 mg In 200 ml @ 200 mls/hr IVPB Q12H [facility] Rx#:[id number] Flagyl Premix 500 MG/100 ML 500 100 / 100 100 / 100 mg In 100 ml @ 100 mls/hr IVPB Q8H [facility] Rx#:[id number] Oral 240 / 240 0 / 0 Other: Meal Dinner NPO Percent of Meal Consumed 10% 0% # Voids 1 2 Weight 73.3 kg Blood Glucose* 132 142 152 Patient Weight 10/28/17 23:59 Weight 73.3 kg - General physical appearance well developed, well nourished, moderate distress - Eyes PERRL, normal ocular movement - ENT dry mucosa, normocephalic - Neck Neck exam: trachea midline - Respiratory normal expansion, clear to auscultation - Cardiovascular Cardiovascular exam: Present: RRR - Abdomen Abdomen: Present: bowel sounds present (faint), soft, distended (minimal), tender. Absent: guarding, rebound - Integumentary no rash, no growths - Neurologic CN 2-12 grossly intact - Musculoskeletal normal posture - Psychiatric oriented to time, oriented to person, oriented to place, speech is normal, memory intact - Labs 10/28/17 03:55 10/28/17 03:55 Diabetes panel 10/28/17 Range/Units 03:55 Sodium 140 (136-145) mEq/L Potassium 3.3 L (3.5-5.1) mEq/L Chloride 108 H (98-107) mEq/L Carbon Dioxide 25 (23-29) mEq/L BUN 5 L (8-23) mg/dL Creatinine 0.38 L (0.60-1.20) mg/dL Glucose 130 H (70-105) mg/dL Calcium 8.4 L (8.6-10.3) mg/dL Calcium panel 10/28/17 Range/Units 03:55 Calcium 8.4 L (8.6-10.3) mg/dL Phosphorus 3.3 (2.7-4.5) mg/dL Pituitary panel 10/28/17 Range/Units 03:55 Sodium 140 (136-145) mEq/L Potassium 3.3 L (3.5-5.1) mEq/L Chloride 108 H (98-107) mEq/L Carbon Dioxide 25 (23-29) mEq/L BUN 5 L (8-23) mg/dL Creatinine 0.38 L (0.60-1.20) mg/dL Glucose 130 H (70-105) mg/dL Calcium 8.4 L (8.6-10.3) mg/dL Adrenal panel 10/28/17 Range/Units 03:55 Sodium 140 (136-145) mEq/L Potassium 3.3 L (3.5-5.1) mEq/L Chloride 108 H (98-107) mEq/L Carbon Dioxide 25 (23-29) mEq/L BUN 5 L (8-23) mg/dL Creatinine 0.38 L (0.60-1.20) mg/dL Glucose 130 H (70-105) mg/dL Calcium 8.4 L (8.6-10.3) mg/dL - Imaging CT scan - abdomen: report reviewed, image reviewed CT scan - pelvis: report reviewed, image reviewed - Attending Attestation I examined this patient and my medical decision-making was reviewed with the Resident Physician. I agree with the documented findings, disposition and treatment plan as described except to the extent set forth below.
[2017-10-27] MEDS ORDERED: Potassium Chloride 40 MEQ, Lidocaine 1% 2 ML in D5% in Water 500 ML IVPB ONE (09:08)
[2017-10-27] MEDS: Pantoprazole 40 MG VIAL IVP SCH (09:12)
--- NOTE | 2017-10-27 10:08 | Cardiology Consult Note ---
Date of Encounter: 10/27/17 Time of Encounter: 10:00 Assessment and Plan (1) PAF (paroxysmal atrial fibrillation) Current Visit: Yes Status: Acute History of paroxysmal atrial fibrillation, currently in sinus rhythm. Patient follows with Dr. Fay at [facility]. Admitted and being treated for acute appendicitis and ileus. Continue Cardizem drip and heparin drip until able to take oral medications. Once able to take oral medications consistently, recommend resuming home metoprolol tartrate 100 mg twice daily and Pradaxa 150 mg twice daily. No further cardiology recommendations. Patient to follow-up with her primary advertising sales representative upon discharge. Please call with any further questions or concerns. Discussion w patient/family: The assessment and plan as outlined above was discussed with the patient and/or family members who expressed understanding and agreement. All questions were answered. Thank you for involving us in the care of your patient. Please call with any questions. History of Present Illness Consult date: 10/27/17 Requesting physician: Jonathan Butcher Consult reason: PAF Chief complaint: PAF management History of present illness: Ms. Doan is a 76 year old female admitted for perforated appendicitis, subsequent ileus. She has a history of paroxysmal atrial fibrillation and follows with Dr. Fay. Historically, she takes Lopressor and Pradaxa. Cardiac medications have been held due to nothing by mouth status before and after surgery. Consultation requested to readdress cardiac medications. Patient currently in sinus rhythm on the monitor. Per patient, oral status was advanced, but she did not tolerate. Past Med Surg Social Fam HX - Past Medical History Medical history: atrial fibrillation, GERD Psychiatric history: no psych history - Past Surgical History Surgical History: cataract (Bilateral), cholecystectomy, hysterectomy (Partial) , other ([facility] 2005--minimal CAD; mid LAD myocardial bridging. ) Additional surgical history: Sinus, inner ear of the right ear, tonsillectomy, A &P repair, thyroid surgery - Social History Smoking Status: Never smoker Smokeless Tobacco Status: No Alcohol use: none Drug use: none - Family History Father Adopted: [place]: Bharathi العلي Age: 86 Race: Family Member Ethnicity: Non- Living Status: Age at : 86 Cause of : Complications from DM Hx Family Cardiac Disorders: Yes (CVA, CAD) Hx Family Respiratory Disorders: No Hx Family Cancer: No Hx Family GI Disorders: No Hx Family Genitourinary Disorders: No Hx Family Endocrine Disorder: Yes (DM) Hx Family Musculoskeletal Disorders: No Hx Family Neuromuscular Disorders: No Hx Family Neurologic Disorders: Yes (CVA) Hx Family HEENT Disorders: No Hx Family Reproductive Disorders: No Hx Family Psychosocial Disorders: No Hx Family Medical Disorders: No Brother Race: Family Member Ethnicity: Non- Living Status: Still Living Hx Family Cancer: Yes (Throat) Sister Race: Family Member Ethnicity: Non- Living Status: Age at : 68 Cause of : Lung cancer Hx Family Cancer: Yes (Lung) Mother Name: Carey العلي Race: Family Member Ethnicity: Non- Living Status: Age at : 66 Cause of : Blood clot Hx Family Cardiac Disorders: Yes (DVT) Hx Family Respiratory Disorders: No Hx Family Cancer: No Hx Family GI Disorders: No Hx Family Genitourinary Disorders: No Hx Family Endocrine Disorder: No Hx Family Musculoskeletal Disorders: No Hx Family Neuromuscular Disorders: No Hx Family Neurologic Disorders: No Hx Family HEENT Disorders: No Hx Family Autoimmune Disorders: No Hx Family Reproductive Disorders: No Hx Family Psychosocial Disorders: No Hx Family Medical Disorders: No Medications and Allergies Esomeprazole Magnesium [Nexium] 40 mg PO DAILY #0 06/17/15 [Rx] Dabigatran [Pradaxa] 150 mg PO BID 02/07/17 [History] Metoprolol [Lopressor] 100 mg PO BID 02/07/17 [History] Cyclosporine [Restasis Multidose] 1 drop BOTH EYES BID 10/21/17 [History] 3 Allergy/AdvReac Type Severity Reaction Status Date / Time No Known Allergies Allergy Verified 10/20/17 15:08 All Systems Review: The remainder of the systems were reviewed and are negative - Cardiovascular Cardiovascular: as per HPI, other (No palpitations, lightheadedness, near- syncope, or syncope reported.) Physical Examination Vital Signs, Last 4 Hours Temp Pulse Resp BP Pulse Ox 10/27/17 07:13 99.1 F 81 16 122/70 92 General: Conversant, No Apparent Distress HEENT: Atraumatic, Normocephaly, Mucus Membranes Moist Neck: No JVD, Normal carotid pulses Cardiac: Reg Rate and Rhythm, Normal S1 and S2, No Murmur Lungs: Normal Breath Sounds, No Wheeze, Rales, Rhonchi Neuro: Alert and responsive, No focal deficits noted Abdomen: Soft Skin: No rashes noted on visualized skin Musculoskeletal: No Chest Wall Tenderness Extremities: No Clubbing, No Cyanosis, No Edema Results 10/27/17 04:03 10/27/17 04:03 Lab Results 10/26/17 10/27/17 10/27/17 15:30 04:03 04:03 WBC 10.6 Hgb 12.2 Hct 35.2 L Plt Count 276 Sodium 139 138 Potassium 3.1 L 2.9 L Chloride 103 103 Carbon Dioxide 23 24 BUN 3 L 3 L Creatinine 0.39 L 0.37 L Glucose 120 H 171 H Calcium 8.1 L 8.0 L Magnesium 1.9 2.0 - Imaging and Cardiology Echo: report reviewed - EKG Interpretation EKG results cardiology: personally reviewed Consult Discharge Plan - Plan Referrals: Julee Booth, ALTO SINGER [Primary Care Provider] -
[2017-10-27] MEDS ORDERED: Potassium Phosphate 44 MEQ in 0.9 % Sodium Chloride 250 ML IVPB ONE (13:00)
[2017-10-27] MEDS: Ketorolac 30 MG/ML VIAL IVP SCH ×2 (17:38→23:30)
[2017-10-27] MEDS: Clinimix E 5%-15% SOLUTION 2,000 ML with MVI, adult with vitamin K 10 ML IVC SCH (18:05)
[2017-10-28] MEDS: *HR* Heparin 5,000 UNIT/ML VIAL IVP PRN (02:49)
[2017-10-28] MEDS: Insulin LISPRO 300 UNITS/3 ML VIAL SQ SCH ×5 (03:12→23:47)
[2017-10-28] MEDS: Heparin 25,000 UNIT/500 ML D5W 25,000 UNIT/500 ML BAG IVC SCH ×2 (04:00→22:26)
[2017-10-28 04:13] LABS: Basophils % 0.4 %; Eosinophils # 0.2 K/mcL (0.0-0.6); Eosinophils % 1.6 %; Hematocrit 35.7 % (35.3-44.9); Hemoglobin 11.9 g/dL (11.5-15.4); Immature Granulocytes % 1.7 % (0-4); Lymphocytes # 2.1 K/mcL (0.6-4.6); Lymphocytes % 18.7 %; Mean Corpuscular HGB Conc 33.3 g/dL (31.6-35.5); Mean Corpuscular Hemoglobin 28.7 pg (28.0-33.3); Mean Platelet Volume 9.4 fL (9.4-12.4); Monocytes # 0.8 K/mcL (0.0-1.3); Monocytes % 7.2 %; Neutrophils # 7.9 K/mcL (1.6-8.9); Platelet Count 302 K/mcL (140-400); Red Blood Count 4.15 M/mcL (3.82-4.97); Segmented Neutrophils % 70.4 %
[2017-10-28 04:32] LABS: Platelet Estimate Normal (Normal)
[2017-10-28 04:33] LABS: BUN/Creatinine Ratio 13 (6-26); Blood Urea Nitrogen 5 mg/dL (8-23); Calcium 8.4 mg/dL (8.6-10.3); Carbon Dioxide 25 mEq/L (23-29); Chloride 108 mEq/L (98-107); Glucose 130 mg/dL (70-105); Magnesium 2.1 mg/dL (1.6-2.6); Osmolality,Calculated 289 (280-300); Phosphorous 3.3 mg/dL (2.7-4.5); Potassium 3.3 mEq/L (3.5-5.1); Reactive Lymphocytes Present (Not Present); Sodium 140 mEq/L (136-145); eGFR For Non-African Americans > 60 (> 60)
[2017-10-28] MEDS: 0.9 % Sodium Chloride w KCl 20 MEQ/1,000 ML MLS IVC SCH ×3 (05:29→15:28)
[2017-10-28] MEDS: Metoclopramide 10 MG/2 ML VIAL IVP SCH ×2 (05:30→12:03)
[2017-10-28] MEDS: *HR* Metoprolol 5 MG/5 ML VIAL IVP SCH ×4 (05:30→23:37)
[2017-10-28] MEDS: Ketorolac 30 MG/ML VIAL IVP SCH ×4 (05:30→23:36)
[2017-10-28] MEDS: Pantoprazole 40 MG VIAL IVP SCH (09:20)
[2017-10-28] MEDS: MetroNIDAZOLE 500 MG/100 ML 500 MG/100 ML BAG IVPB SCH ×3 (09:20→23:37)
--- NOTE | 2017-10-28 09:29 | General Surgery Progress Note ---
<Jessica Castillo E - Last Filed: 10/28/17 09:24> Date of Encounter: 10/28/17 Time of Encounter: 09:24 - Assessment and Plan (1) Perforated appendicitis Current Visit: Yes Status: Acute NPO Serial Abdominal Exams IV fluids - 0.9 NS with 20 meq KCL Continue TPN Continue Cipro and Flagyl Ambulate hallways TID with assistance IS every hour while awake Possible repeat abdominal scans within the next few days to reevaluate for possible drainage of abscesses (2) Ileus Current Visit: Yes Status: Acute NPO IV fluids as above TPN As above supportive care (3) Atrial fibrillation Current Visit: Yes Status: Chronic Patient on cardizem gtt for rate control Continue heparain gtt Hospitalist consulted for management Qualifiers: Atrial fibrillation type: paroxysmal Qualified Code(s): I48.0 - Paroxysmal atrial fibrillation (4) GERD (gastroesophageal reflux disease) Current Visit: Yes Status: Chronic PPI therapy Qualifiers: Esophagitis presence: without esophagitis Qualified Code(s): K21.9 - Gastro -esophageal reflux disease without esophagitis (5) Elevated blood sugar Current Visit: No Status: Acute SSI low scale coverage for mgmt will continue to monitor and adjust as necessary Subjective Patient reports: feels better, flatus, bowel movement, other (Patient states she was able to pass a large amount of gas this morning and has continued to have a few small watery stools. She says the pain medications has been helping a lot with her pain. ) Objective Vital Signs - Last 8 Hours Temp Pulse Resp BP Pulse Ox 10/28/17 07:34 98.5 F 92 16 137/78 95 10/28/17 05:30 98.6 F 89 16 136/87 95 Intake and Output 10/27/17 10/28/17 10/28/17 23:59 07:59 15:59 Intake Total 1440 / 1440 400 / 400 0 / 0 Balance 1440 / 1440 400 / 400 0 / 0 Intake: IV Fluids 1200 / 1200 400 / 400 KCl 20 mEq in 0.9% Sodium 1000 / 1000 Chloride 20 meq In 1,000 ml @ 100 mls/hr IVC .Q10H [facility] Rx#: [id number] Heparin 25,000 UNIT/500 ML D5W 100 / 100 400 / 400 25,000 unit In 500 ml @ 14 UNIT /KG/HR 21.784 mls/hr IVC . [id number] [facility] Rx#:[id number] Flagyl Premix 500 MG/100 ML 500 100 / 100 mg In 100 ml @ 100 mls/hr IVPB Q8H [facility] Rx#:[id number] Oral 240 / 240 0 / 0 Other: Meal Dinner NPO Percent of Meal Consumed 10% 0% # Voids 1 Weight 73.3 kg Blood Glucose* 132 142 Patient Weight 10/28/17 23:59 Weight 73.3 kg - General physical appearance well developed, chronically ill - Respiratory normal expansion, normal respiratory effort, clear to auscultation - Cardiovascular Cardiovascular exam: Present: RRR, no murmurs/rubs/gallops - Abdomen Abdomen: Present: bowel sounds present, distended, tender Abdominal Tenderness: RLQ (to deep palpation) - Musculoskeletal normal posture - Psychiatric oriented to time, oriented to person, oriented to place - Labs 10/28/17 03:55 10/28/17 03:55 Diabetes panel 10/28/17 Range/Units 03:55 Sodium 140 (136-145) mEq/L Potassium 3.3 L (3.5-5.1) mEq/L Chloride 108 H (98-107) mEq/L Carbon Dioxide 25 (23-29) mEq/L BUN 5 L (8-23) mg/dL Creatinine 0.38 L (0.60-1.20) mg/dL Glucose 130 H (70-105) mg/dL Calcium 8.4 L (8.6-10.3) mg/dL Calcium panel 10/28/17 Range/Units 03:55 Calcium 8.4 L (8.6-10.3) mg/dL Phosphorus 3.3 (2.7-4.5) mg/dL Pituitary panel 10/28/17 Range/Units 03:55 Sodium 140 (136-145) mEq/L Potassium 3.3 L (3.5-5.1) mEq/L Chloride 108 H (98-107) mEq/L Carbon Dioxide 25 (23-29) mEq/L BUN 5 L (8-23) mg/dL Creatinine 0.38 L (0.60-1.20) mg/dL Glucose 130 H (70-105) mg/dL Calcium 8.4 L (8.6-10.3) mg/dL Adrenal panel 10/28/17 Range/Units 03:55 Sodium 140 (136-145) mEq/L Potassium 3.3 L (3.5-5.1) mEq/L Chloride 108 H (98-107) mEq/L Carbon Dioxide 25 (23-29) mEq/L BUN 5 L (8-23) mg/dL Creatinine 0.38 L (0.60-1.20) mg/dL Glucose 130 H (70-105) mg/dL Calcium 8.4 L (8.6-10.3) mg/dL - VTE Documentation of Mechanical Device: Intermittent pneumatic compression device Consult Discharge Plan - Plan Referrals: Julee Booth, INFORMATION ASSURANCE OFFICER [Primary Care Provider] - <Lucy Tarango - Last Filed: 10/28/17 14:51> Date of Encounter: 10/28/17 - Assessment and Plan (1) Intra-abdominal abscess Current Visit: Yes Status: Acute continue antibiotics wbc increased today, monitor pain gone with toradol and flatus passing more flatus and has better bowel sounds today ok sips ice (patient refused to start clears or sip water) continue conservative therapy (2) Ileus Current Visit: Yes Status: Acute resolving passing flatus ok ice chips (3) Moderate protein-calorie malnutrition Current Visit: Yes Status: Acute continue TPN (4) Perforated appendicitis Current Visit: Yes Status: Acute conservative, antibiotics therapy pain resolving Subjective Patient reports: feels better, flatus, bowel movement, afebrile, other (Patient states she was able to pass a large amount of gas this morning and has continued to have a few small watery stools. She says the toradol has been helping a lot with her pain. ) Objective Vital Signs - Last 8 Hours Temp Pulse Resp BP Pulse Ox 10/28/17 11:56 98.5 F 100 16 142/84 97 10/28/17 07:34 98.5 F 92 16 137/78 95 Intake and Output 10/27/17 10/28/17 10/28/17 23:59 07:59 15:59 Intake Total 1440 / 1440 700 / 700 / Balance 1440 / 1440 700 / 700 Intake: IV Fluids 1200 / 1200 700 / 700 / KCl 20 mEq in 0.9% Sodium 1000 / 1000 Chloride 20 meq In 1,000 ml @ 100 mls/hr IVC .Q10H [facility] Rx#: [id number] Cardizem 50 MG In 0.9 % Sodium 50 / 50 Chloride 40 ML @ 5 MG/HR 5 mls/ hr IVC .Q10H [facility] Rx#:[id number] Heparin 25,000 UNIT/500 ML D5W 100 / 100 400 / 400 156 / 156 25,000 unit In 500 ml @ 14 UNIT /KG/HR 21.784 mls/hr IVC . [id number] [facility] Rx#:[id number] Cipro Premix 400 MG/200 ML 400 200 / 200 mg In 200 ml @ 200 mls/hr IVPB Q12H [facility] Rx#:[id number] Flagyl Premix 500 MG/100 ML 500 100 / 100 100 / 100 mg In 100 ml @ 100 mls/hr IVPB Q8H [facility] Rx#:[id number] Oral 240 / 240 0 / 0 Other: Meal Dinner NPO Percent of Meal Consumed 10% 0% # Voids 1 2 Weight 73.3 kg Blood Glucose* 132 142 152 Patient Weight 10/28/17 23:59 Weight 73.3 kg - General physical appearance no distress, no pain - Eyes PERRL, normal ocular movement - ENT normal mucosa, normocephalic - Neck Neck exam: trachea midline - Respiratory normal expansion, clear to auscultation - Cardiovascular Cardiovascular exam: Present: RRR - Abdomen Abdomen: Present: bowel sounds present, soft, distended, tender (minimal) Abdominal Tenderness: RLQ - Integumentary no rash, no growths - Neurologic CN 2-12 grossly intact - Musculoskeletal normal posture - Psychiatric oriented to time, oriented to person, oriented to place, speech is normal, memory intact - Labs 10/28/17 03:55 10/28/17 03:55 Diabetes panel 10/28/17 Range/Units 03:55 Sodium 140 (136-145) mEq/L Potassium 3.3 L (3.5-5.1) mEq/L Chloride 108 H (98-107) mEq/L Carbon Dioxide 25 (23-29) mEq/L BUN 5 L (8-23) mg/dL Creatinine 0.38 L (0.60-1.20) mg/dL Glucose 130 H (70-105) mg/dL Calcium 8.4 L (8.6-10.3) mg/dL Calcium panel 10/28/17 Range/Units 03:55 Calcium 8.4 L (8.6-10.3) mg/dL Phosphorus 3.3 (2.7-4.5) mg/dL Pituitary panel 10/28/17 Range/Units 03:55 Sodium 140 (136-145) mEq/L Potassium 3.3 L (3.5-5.1) mEq/L Chloride 108 H (98-107) mEq/L Carbon Dioxide 25 (23-29) mEq/L BUN 5 L (8-23) mg/dL Creatinine 0.38 L (0.60-1.20) mg/dL Glucose 130 H (70-105) mg/dL Calcium 8.4 L (8.6-10.3) mg/dL Adrenal panel 10/28/17 Range/Units 03:55 Sodium 140 (136-145) mEq/L Potassium 3.3 L (3.5-5.1) mEq/L Chloride 108 H (98-107) mEq/L Carbon Dioxide 25 (23-29) mEq/L BUN 5 L (8-23) mg/dL Creatinine 0.38 L (0.60-1.20) mg/dL Glucose 130 H (70-105) mg/dL Calcium 8.4 L (8.6-10.3) mg/dL - Attending Attestation I examined this patient and my medical decision-making was reviewed with the Resident Physician. I agree with the documented findings, disposition and treatment plan as described except to the extent set forth below.
[2017-10-28] MEDS ORDERED: Potassium Chloride 40 MEQ, Lidocaine 1% 2 ML in D5% in Water 500 ML IVPB ONE (14:53)
[2017-10-28] MEDS: Clinimix E 5%-15% SOLUTION 2,000 ML with MVI, adult with vitamin K 10 ML IVC SCH ×2 (17:14→17:41)
[2017-10-29 04:27] LABS: Basophils # 0.1 K/mcL (0.0-0.2); Basophils % 0.6 %; Eosinophils # 0.2 K/mcL (0.0-0.6); Eosinophils % 1.6 %; Hematocrit 36.8 % (35.3-44.9); Hemoglobin 12.2 g/dL (11.5-15.4); Immature Granulocytes % 1.2 % (0-4); Lymphocytes # 1.4 K/mcL (0.6-4.6); Lymphocytes % 11.5 %; Mean Corpuscular HGB Conc 33.2 g/dL (31.6-35.5); Mean Corpuscular Hemoglobin 28.6 pg (28.0-33.3); Mean Corpuscular Volume 86.4 fL (83.0-100.0); Mean Platelet Volume 9.5 fL (9.4-12.4); Monocytes # 0.8 K/mcL (0.0-1.3); Monocytes % 6.2 %; Neutrophils # 9.8 K/mcL (1.6-8.9); Platelet Count 316 K/mcL (140-400); Red Blood Count 4.26 M/mcL (3.82-4.97); Red Cell Distribution Width 13.9 % (11.5-14.5); Segmented Neutrophils % 78.9 %
[2017-10-29 04:49] LABS: BUN/Creatinine Ratio 24 (6-26); Blood Urea Nitrogen 9 mg/dL (8-23); Calcium 8.8 mg/dL (8.6-10.3); Carbon Dioxide 24 mEq/L (23-29); Chloride 107 mEq/L (98-107); Glucose 160 mg/dL (70-105); Magnesium 2.1 mg/dL (1.6-2.6); Osmolality,Calculated 286 (280-300); Phosphorous 2.9 mg/dL (2.7-4.5); Potassium 3.9 mEq/L (3.5-5.1); Sodium 137 mEq/L (136-145); eGFR For Non-African Americans > 60 (> 60)
[2017-10-29] MEDS: Ketorolac 30 MG/ML VIAL IVP SCH ×3 (05:56→17:46)
[2017-10-29] MEDS: *HR* Metoprolol 5 MG/5 ML VIAL IVP SCH ×3 (05:56→17:46)
[2017-10-29] MEDS: Insulin LISPRO 300 UNITS/3 ML VIAL SQ SCH ×3 (05:56→18:11)
[2017-10-29] MEDS: Pantoprazole 40 MG VIAL IVP SCH (08:02)
[2017-10-29] MEDS: MetroNIDAZOLE 500 MG/100 ML 500 MG/100 ML BAG IVPB SCH ×2 (08:03→16:34)
--- NOTE | 2017-10-29 08:14 | General Surgery Progress Note ---
<Jessica Castillo E - Last Filed: 10/29/17 08:11> Date of Encounter: 10/29/17 Time of Encounter: 08:11 - Assessment and Plan (1) Perforated appendicitis Current Visit: Yes Status: Acute Sips of clear fluids Serial Abdominal Exams IV fluids - 0.9 NS with 20 meq KCL Continue TPN Continue Cipro and Flagyl Ambulate hallways TID with assistance IS every hour while awake Possible repeat abdominal scans within the next few days to reevaluate for possible drainage of abscesses (2) Ileus Current Visit: Yes Status: Acute Sips of clear fluids ok IV fluids as above TPN As above supportive care (3) Atrial fibrillation Current Visit: Yes Status: Chronic Patient on cardizem gtt for rate control Continue heparain gtt Hospitalist consulted for management Qualifiers: Atrial fibrillation type: paroxysmal Qualified Code(s): I48.0 - Paroxysmal atrial fibrillation (4) GERD (gastroesophageal reflux disease) Current Visit: Yes Status: Chronic PPI therapy Qualifiers: Esophagitis presence: without esophagitis Qualified Code(s): K21.9 - Gastro -esophageal reflux disease without esophagitis (5) Elevated blood sugar Current Visit: No Status: Acute SSI low scale coverage for mgmt will continue to monitor and adjust as necessary Subjective Patient reports: still having pain, flatus, bowel movement, other (She states she is still having some watery bowel movements and soem gas, but still feels bloated. Not in pain but just feels miserable still. ) Objective Vital Signs - Last 8 Hours Temp Pulse Resp BP Pulse Ox 10/29/17 07:29 97.7 F 98 16 142/82 95 10/29/17 05:26 98.3 F 97 15 139/82 96 Intake and Output 10/28/17 10/29/17 10/29/17 23:59 07:59 15:59 Intake Total 860 / 860 300 / 300 Output Total 450 / 450 500 / 500 Balance 410 / 410 -200 / -200 Intake: IV Fluids 860 / 860 300 / 300 Cardizem 50 MG In 0.9 % Sodium 50 / 50 Chloride 40 ML @ 5 MG/HR 5 mls/ hr IVC .Q10H [facility] Rx#:[id number] Heparin 25,000 UNIT/500 ML D5W 188 / 188 25,000 unit In 500 ml @ 14 UNIT /KG/HR 21.784 mls/hr IVC . [id number] [facility] Rx#:[id number] Cipro Premix 400 MG/200 ML 400 200 / 200 mg In 200 ml @ 200 mls/hr IVPB Q12H [facility] Rx#:[id number] Flagyl Premix 500 MG/100 ML 500 100 / 100 100 / 100 mg In 100 ml @ 100 mls/hr IVPB Q8H [facility] Rx#:[id number] KCl 40 MEQ Xylocaine 2 ML In 522 / 522 Dextrose 5% 500 ML @ 130.5 mls/ hr IVPB ONCE ONE Rx#:[id number] Output: Urine 450 / 450 500 / 500 Other: Stool Size Smear # Voids 1 1 # Bowel Movement Diapers 1 Weight 71.577 kg Blood Glucose* 147 147 Patient Weight 10/29/17 23:59 Weight 71.577 kg - General physical appearance well developed, moderate distress, chronically ill - Respiratory normal expansion, normal respiratory effort, clear to auscultation - Cardiovascular Cardiovascular exam: Present: RRR, no murmurs/rubs/gallops - Abdomen Abdomen: Present: bowel sounds present, distended, tender Abdominal Tenderness: RLQ - Musculoskeletal normal posture - Psychiatric oriented to time, oriented to person, oriented to place - Labs 10/29/17 04:04 10/29/17 04:04 Diabetes panel 10/29/17 Range/Units 04:04 Sodium 137 (136-145) mEq/L Potassium 3.9 (3.5-5.1) mEq/L Chloride 107 (98-107) mEq/L Carbon Dioxide 24 (23-29) mEq/L BUN 9 (8-23) mg/dL Creatinine 0.38 L (0.60-1.20) mg/dL Glucose 160 H (70-105) mg/dL Calcium 8.8 (8.6-10.3) mg/dL Calcium panel 10/29/17 Range/Units 04:04 Calcium 8.8 (8.6-10.3) mg/dL Phosphorus 2.9 (2.7-4.5) mg/dL Pituitary panel 10/29/17 Range/Units 04:04 Sodium 137 (136-145) mEq/L Potassium 3.9 (3.5-5.1) mEq/L Chloride 107 (98-107) mEq/L Carbon Dioxide 24 (23-29) mEq/L BUN 9 (8-23) mg/dL Creatinine 0.38 L (0.60-1.20) mg/dL Glucose 160 H (70-105) mg/dL Calcium 8.8 (8.6-10.3) mg/dL Adrenal panel 10/29/17 Range/Units 04:04 Sodium 137 (136-145) mEq/L Potassium 3.9 (3.5-5.1) mEq/L Chloride 107 (98-107) mEq/L Carbon Dioxide 24 (23-29) mEq/L BUN 9 (8-23) mg/dL Creatinine 0.38 L (0.60-1.20) mg/dL Glucose 160 H (70-105) mg/dL Calcium 8.8 (8.6-10.3) mg/dL - VTE Documentation of Mechanical Device: Intermittent pneumatic compression device Consult Discharge Plan - Plan Referrals: Julee Booth, PLANNED GIVING OFFICER [Primary Care Provider] - <Jonathan Butcher - Last Filed: 10/30/17 07:58> Date of Encounter: 10/30/17 - Assessment and Plan (1) Perforated appendicitis Current Visit: Yes Status: Acute Objective Vital Signs - Last 8 Hours Temp Pulse Resp BP Pulse Ox 10/30/17 07:36 98.0 F 87 16 130/86 97 10/30/17 04:09 98.5 F 95 18 132/81 99 10/30/17 00:48 98.0 F 94 12 161/94 98 Intake and Output 10/29/17 10/29/17 10/30/17 15:59 23:59 07:59 Intake Total 350 / 350 2260 / 2260 904 / 904 Balance 350 / 350 2260 / 2260 904 / 904 Intake: IV Fluids 350 / 350 2260 / 2260 904 / 904 Cardizem 50 MG In 0.9 % Sodium 50 / 50 50 / 50 Chloride 40 ML @ 5 MG/HR 5 mls/ hr IVC .Q10H [facility] Rx#:[id number] Heparin 25,000 UNIT/500 ML D5W 500 / 500 354 / 354 25,000 unit In 500 ml @ 14 UNIT /KG/HR 21.784 mls/hr IVC . [id number] [facility] Rx#:[id number] Clinimix E 5%-15% SOLUTION 2, 1610 / 1610 000 ML @ 65 mls/hr IVC .Q24H [facility] with M.v.i. Adult 10 ml Rx# :[id number] Cipro Premix 400 MG/200 ML 400 200 / 200 200 / 200 mg In 200 ml @ 200 mls/hr IVPB Q12H [facility] Rx#:[id number] Intralipid 20% 250 ML @ 21 mls/ 250 / 250 hr IVPB DAILY@1700 [facility] Rx#: [id number] Flagyl Premix 500 MG/100 ML 500 100 / 100 100 / 100 100 / 100 mg In 100 ml @ 100 mls/hr IVPB Q8H [facility] Rx#:[id number] Oral 0 / 0 Other: Meal NPO Percent of Meal Consumed 0% # Voids 1 Weight 72.575 kg Blood Glucose* 169 132 161 Patient Weight 10/30/17 23:59 Weight 72.575 kg - Labs 10/30/17 03:50 10/30/17 04:00 Diabetes panel 10/30/17 Range/Units 04:00 Sodium 136 (136-145) mEq/L Potassium 3.6 (3.5-5.1) mEq/L Chloride 106 (98-107) mEq/L Carbon Dioxide 24 (23-29) mEq/L BUN 14 (8-23) mg/dL Creatinine 0.43 L (0.60-1.20) mg/dL Glucose 189 H (70-105) mg/dL Calcium 8.6 (8.6-10.3) mg/dL Calcium panel 10/30/17 10/30/17 Range/Units 04:00 04:00 Calcium 8.6 (8.6-10.3) mg/dL Phosphorus 3.1 (2.7-4.5) mg/dL Pituitary panel 10/30/17 Range/Units 04:00 Sodium 136 (136-145) mEq/L Potassium 3.6 (3.5-5.1) mEq/L Chloride 106 (98-107) mEq/L Carbon Dioxide 24 (23-29) mEq/L BUN 14 (8-23) mg/dL Creatinine 0.43 L (0.60-1.20) mg/dL Glucose 189 H (70-105) mg/dL Calcium 8.6 (8.6-10.3) mg/dL Adrenal panel 10/30/17 Range/Units 04:00 Sodium 136 (136-145) mEq/L Potassium 3.6 (3.5-5.1) mEq/L Chloride 106 (98-107) mEq/L Carbon Dioxide 24 (23-29) mEq/L BUN 14 (8-23) mg/dL Creatinine 0.43 L (0.60-1.20) mg/dL Glucose 189 H (70-105) mg/dL Calcium 8.6 (8.6-10.3) mg/dL - Attending Attestation patient seen and examined. i have reviewed all labs, imaging, and notes including this this one. i agree with the above assessment and plan.
--- NOTE | 2017-10-29 13:48 | Internal Med Progress Note ---
Hospitalist Progress Note - Encounter Date of Encounter: 10/29/17 Time of Encounter: 13:42 - Subjective Interval History: Ms. Doan is a 76 year old female w/PMH of paroxysmal atrial fibrillation on Paradaxa for anti coagulation and GERD presented from the ED with chief complaint of abdominal pain that began on 10/18 and lasted for 2 days prior to coming to ED. CT of the abdomen/pelvis showed findings compatible with perforated appendicitis. Pt was admitted in the hospital under surgery service and started on empirical abx Cipro and Flagyl. Pt was placed on NPO initially. Now she is on sips of water. She is placed on Cardizem gtt and Heparin gtt. She is alert, awake and O x 3. Passing flatus ok. Had BM too. - Exam Vitals: Temp Pulse Resp BP Pulse Ox 98.1 F 106 16 145/87 97 10/29/17 11:30 10/29/17 11:30 10/29/17 11:30 10/29/17 11:30 10/29/17 11:30 Exam: Gen: Alert, awake, Oriented to time,place and person Chest: Diminished breath sounds B/L, No wheezing, No crackles, No rales Heart: S1S2+ Afib, No murmurs Abd: Soft, mild discomfort,, BS +, No organomegaly Ext: No edema, pulses are palpable, No calf tenderness Neuro : Benign findings Skin: No rash. - Assessment and Plan (1) Sepsis Current Visit: Yes Status: Acute Assessment and Plan: Does meet sepsis criteria with elevated white count, tachycardia and source of infection as perforated appendicitis white count seems to be trending up.. Today @ 12.4 continue empirical antibiotic Cipro and flagyl check with the surgery about follow-up CT scan of the abdomen (2) Acute appendicitis Current Visit: Yes Status: Acute Assessment and Plan: Acute perforated appendicitis Seriabl abdominal examination as per primary team cont empirical abx Cipro and Flagyl Blood cx no growth started on sips of water today cont symptomatic and supportive care continue TPN also (3) Nausea & vomiting Current Visit: Yes Status: Acute Assessment and Plan: Improved continue symptomatic and supportive care (4) Atrial fibrillation Current Visit: Yes Status: Chronic Assessment and Plan: Chronic A fib Rate controlled with Cardizem gtt When pt toelrates PO intake ok to switch to PO Metoprolol ( home dose ) Cont IV Heparin gtt for anti coag for now (5) GERD (gastroesophageal reflux disease) Current Visit: Yes Status: Chronic Assessment and Plan: on Nexium PO (6) DVT prophylaxis Current Visit: Yes Status: Acute Assessment and Plan: on Heparin gtt (7) HTN (hypertension) Current Visit: Yes Status: Chronic Assessment and Plan: Stable BP with current regimen - Time Spent with Patient Total time spent is greater than 50% in coordination of care (as documented) at patient's floor/unit and/or counseling patient: Internal Medicine: Result - Labs CBC & Chem 7: 10/29/17 04:04 10/29/17 04:04 Labs: Short CBC 10/29/17 Range/Units 04:04 WBC 12.4 H (4.3-11.1) K/mcL Hgb 12.2 (11.5-15.4) g/dL Hct 36.8 (35.3-44.9) % Plt Count 316 (140-400) K/mcL Neutrophils # 9.8 H (1.6-8.9) K/mcL BMP 10/29/17 04:04 Sodium 137 Potassium 3.9 Chloride 107 Carbon Dioxide 24 BUN 9 Creatinine 0.38 L Glucose 160 H Calcium 8.8 - ABG Interpretation ABG results: PT/INR, D-dimer PT 14.5 Seconds (9.4-12.1) H 10/25/17 14:37 - VTE Documentation of Mechanical Device: Intermittent pneumatic compression device Consult Discharge Plan - Plan Referrals: Julee Booth, STRIP TANK TENDER [Primary Care Provider] - (2) Acute appendicitis Qualifiers: Acute appendicitis type: with localized peritonitis Qualified Code(s): K35.3 - Acute appendicitis with localized peritonitis (3) Nausea & vomiting Qualifiers: Vomiting type: cyclical vomiting Vomiting Intractability: non-intractable Qualified Code(s): G43.A0 - Cyclical vomiting, not intractable (4) Atrial fibrillation Qualifiers: Atrial fibrillation type: paroxysmal Qualified Code(s): I48.0 - Paroxysmal atrial fibrillation (5) GERD (gastroesophageal reflux disease) Qualifiers: Esophagitis presence: without esophagitis Qualified Code(s): K21.9 - Gastro- esophageal reflux disease without esophagitis (7) HTN (hypertension) Qualifiers: Hypertension type: essential hypertension Qualified Code(s): I10 - Essential (primary) hypertension
[2017-10-29] MEDS ORDERED: Clinimix E 5%-15% SOLUTION 2,000 ML with MVI, adult with vitamin K 10 ML IVC SCH (17:00)
[2017-10-29] MEDS: *HR* Heparin 5,000 UNIT/ML VIAL IVP PRN (18:07)
[2017-10-29] MEDS: Heparin 25,000 UNIT/500 ML D5W 25,000 UNIT/500 ML BAG IVC SCH (18:09)
[2017-10-29] MEDS: Clinimix E 5%-15% SOLUTION 2,000 ML with MVI, adult with vitamin K 10 ML IVC SCH (18:22)
[2017-10-29] MEDS ORDERED: NEXIUM 40MG PO SCH (21:45)
[2017-10-30] MEDS: Ketorolac 30 MG/ML VIAL IVP SCH ×4 (00:21→18:42)
[2017-10-30] MEDS: Insulin LISPRO 300 UNITS/3 ML VIAL SQ SCH ×4 (00:22→18:43)
[2017-10-30] MEDS: *HR* Metoprolol 5 MG/5 ML VIAL IVP SCH ×3 (00:22→11:59)
[2017-10-30] MEDS: MetroNIDAZOLE 500 MG/100 ML 500 MG/100 ML BAG IVPB SCH ×3 (00:23→15:59)
[2017-10-30 04:12] LABS: Basophils % 0.3 %; Eosinophils # 0.2 K/mcL (0.0-0.6); Eosinophils % 1.6 %; Hematocrit 35.7 % (35.3-44.9); Hemoglobin 11.7 g/dL (11.5-15.4); Immature Granulocytes % 1.1 % (0-4); Lymphocytes # 1.6 K/mcL (0.6-4.6); Lymphocytes % 12.6 %; Mean Corpuscular HGB Conc 32.8 g/dL (31.6-35.5); Mean Corpuscular Hemoglobin 29.2 pg (28.0-33.3); Mean Platelet Volume 9.6 fL (9.4-12.4); Monocytes # 0.9 K/mcL (0.0-1.3); Monocytes % 7.3 %; Neutrophils # 9.8 K/mcL (1.6-8.9); Platelet Count 311 K/mcL (140-400); Red Blood Count 4.01 M/mcL (3.82-4.97); Red Cell Distribution Width 13.9 % (11.5-14.5); Segmented Neutrophils % 77.1 %
[2017-10-30 04:30] LABS: Magnesium 2.1 mg/dL (1.6-2.6); Phosphorous 3.1 mg/dL (2.7-4.5)
[2017-10-30 04:32] LABS: BUN/Creatinine Ratio 33 (6-26); Blood Urea Nitrogen 14 mg/dL (8-23); Calcium 8.6 mg/dL (8.6-10.3); Carbon Dioxide 24 mEq/L (23-29); Chloride 106 mEq/L (98-107); Glucose 189 mg/dL (70-105); Osmolality,Calculated 288 (280-300); Potassium 3.6 mEq/L (3.5-5.1); Sodium 136 mEq/L (136-145); eGFR For Non-African Americans > 60 (> 60)
--- NOTE | 2017-10-30 07:39 | General Surgery Progress Note ---
<Jessica Castillo E - Last Filed: 10/30/17 07:37> Date of Encounter: 10/30/17 Time of Encounter: 07:37 - Assessment and Plan (1) Perforated appendicitis Current Visit: Yes Status: Acute White blood cell count yesterday of 12.4 today is 12.8. Sips of clear fluids Serial Abdominal Exams IV fluids - 0.9 NS with 20 meq KCL Continue TPN Continue Cipro and Flagyl Ambulate hallways TID with assistance IS every hour while awake Possible repeat abdominal scans within the next few days to reevaluate for possible drainage of abscesses (2) Ileus Current Visit: Yes Status: Acute Sips of clear fluids ok IV fluids as above TPN As above supportive care (3) Atrial fibrillation Current Visit: Yes Status: Chronic Patient on cardizem gtt for rate control Continue heparain gtt Hospitalist consulted for management Qualifiers: Atrial fibrillation type: paroxysmal Qualified Code(s): I48.0 - Paroxysmal atrial fibrillation (4) GERD (gastroesophageal reflux disease) Current Visit: Yes Status: Chronic PPI therapy Patient had family members bring in her Nexium from home. Qualifiers: Esophagitis presence: without esophagitis Qualified Code(s): K21.9 - Gastro -esophageal reflux disease without esophagitis (5) Elevated blood sugar Current Visit: No Status: Acute SSI low scale coverage for mgmt will continue to monitor and adjust as necessary Subjective Patient reports: pain is less, flatus, bowel movement, other (Patient says she feels a little less bloated today. Was able to have some ice chips yesterday. Feels that she could tolerate a little bit more clears today. Still able to pass gas, bowel movements are starting to be a little bit more formed. Reflux symptoms are better since she was able to take her Nexium last night.) Objective Vital Signs - Last 8 Hours Temp Pulse Resp BP Pulse Ox 10/30/17 04:09 98.5 F 95 18 132/81 99 10/30/17 00:48 98.0 F 94 12 161/94 98 Intake and Output 10/29/17 10/29/17 10/30/17 15:59 23:59 07:59 Intake Total 350 / 350 2260 / 2260 354 / 354 Balance 350 / 350 2260 / 2260 354 / 354 Intake: IV Fluids 350 / 350 2260 / 2260 354 / 354 Cardizem 50 MG In 0.9 % Sodium 50 / 50 50 / 50 Chloride 40 ML @ 5 MG/HR 5 mls/ hr IVC .Q10H [facility] Rx#:[id number] Heparin 25,000 UNIT/500 ML D5W 500 / 500 354 / 354 25,000 unit In 500 ml @ 14 UNIT /KG/HR 21.784 mls/hr IVC . [id number] [facility] Rx#:[id number] Clinimix E 5%-15% SOLUTION 2, 1610 / 1610 000 ML @ 65 mls/hr IVC .Q24H [facility] with M.v.i. Adult 10 ml Rx# :[id number] Cipro Premix 400 MG/200 ML 400 200 / 200 mg In 200 ml @ 200 mls/hr IVPB Q12H [facility] Rx#:[id number] Flagyl Premix 500 MG/100 ML 500 100 / 100 100 / 100 mg In 100 ml @ 100 mls/hr IVPB Q8H [facility] Rx#:[id number] Oral 0 / 0 Other: Meal NPO Percent of Meal Consumed 0% # Voids 1 Weight 72.575 kg Blood Glucose* 169 132 161 Patient Weight 10/30/17 23:59 Weight 72.575 kg - General physical appearance well developed, well nourished, moderate distress - Respiratory normal expansion, normal respiratory effort, clear to auscultation - Cardiovascular Cardiovascular exam: Present: RRR, no murmurs/rubs/gallops - Abdomen Abdomen: Present: bowel sounds present, soft, non tender, distended (Minimal distention) - Musculoskeletal normal posture - Psychiatric oriented to time, oriented to person, oriented to place - Labs 10/30/17 03:50 10/30/17 04:00 Diabetes panel 10/30/17 Range/Units 04:00 Sodium 136 (136-145) mEq/L Potassium 3.6 (3.5-5.1) mEq/L Chloride 106 (98-107) mEq/L Carbon Dioxide 24 (23-29) mEq/L BUN 14 (8-23) mg/dL Creatinine 0.43 L (0.60-1.20) mg/dL Glucose 189 H (70-105) mg/dL Calcium 8.6 (8.6-10.3) mg/dL Calcium panel 10/30/17 10/30/17 Range/Units 04:00 04:00 Calcium 8.6 (8.6-10.3) mg/dL Phosphorus 3.1 (2.7-4.5) mg/dL Pituitary panel 10/30/17 Range/Units 04:00 Sodium 136 (136-145) mEq/L Potassium 3.6 (3.5-5.1) mEq/L Chloride 106 (98-107) mEq/L Carbon Dioxide 24 (23-29) mEq/L BUN 14 (8-23) mg/dL Creatinine 0.43 L (0.60-1.20) mg/dL Glucose 189 H (70-105) mg/dL Calcium 8.6 (8.6-10.3) mg/dL Adrenal panel 10/30/17 Range/Units 04:00 Sodium 136 (136-145) mEq/L Potassium 3.6 (3.5-5.1) mEq/L Chloride 106 (98-107) mEq/L Carbon Dioxide 24 (23-29) mEq/L BUN 14 (8-23) mg/dL Creatinine 0.43 L (0.60-1.20) mg/dL Glucose 189 H (70-105) mg/dL Calcium 8.6 (8.6-10.3) mg/dL - VTE Documentation of Mechanical Device: Intermittent pneumatic compression device Consult Discharge Plan - Plan Referrals: Julee Booth, LINDA [Primary Care Provider] - <Jonathan Butcher - Last Filed: 10/30/17 08:02> Date of Encounter: 10/30/17 - Assessment and Plan (1) Perforated appendicitis Current Visit: Yes Status: Acute Objective Vital Signs - Last 8 Hours Temp Pulse Resp BP Pulse Ox 10/30/17 07:36 98.0 F 87 16 130/86 97 10/30/17 04:09 98.5 F 95 18 132/81 99 10/30/17 00:48 98.0 F 94 12 161/94 98 Intake and Output 10/29/17 10/29/17 10/30/17 15:59 23:59 07:59 Intake Total 350 / 350 2260 / 2260 904 / 904 Balance 350 / 350 2260 / 2260 904 / 904 Intake: IV Fluids 350 / 350 2260 / 2260 904 / 904 Cardizem 50 MG In 0.9 % Sodium 50 / 50 50 / 50 Chloride 40 ML @ 5 MG/HR 5 mls/ hr IVC .Q10H [facility] Rx#:[id number] Heparin 25,000 UNIT/500 ML D5W 500 / 500 354 / 354 25,000 unit In 500 ml @ 14 UNIT /KG/HR 21.784 mls/hr IVC . [id number] [facility] Rx#:[id number] Clinimix E 5%-15% SOLUTION 2, 1610 / 1610 000 ML @ 65 mls/hr IVC .Q24H [facility] with M.v.i. Adult 10 ml Rx# :[id number] Cipro Premix 400 MG/200 ML 400 200 / 200 200 / 200 mg In 200 ml @ 200 mls/hr IVPB Q12H [facility] Rx#:[id number] Intralipid 20% 250 ML @ 21 mls/ 250 / 250 hr IVPB DAILY@1700 [facility] Rx#: [id number] Flagyl Premix 500 MG/100 ML 500 100 / 100 100 / 100 100 / 100 mg In 100 ml @ 100 mls/hr IVPB Q8H [facility] Rx#:[id number] Oral 0 / 0 Other: Meal NPO Percent of Meal Consumed 0% # Voids 1 Weight 72.575 kg Blood Glucose* 169 132 161 Patient Weight 10/30/17 23:59 Weight 72.575 kg - Labs 10/30/17 03:50 10/30/17 04:00 Diabetes panel 10/30/17 Range/Units 04:00 Sodium 136 (136-145) mEq/L Potassium 3.6 (3.5-5.1) mEq/L Chloride 106 (98-107) mEq/L Carbon Dioxide 24 (23-29) mEq/L BUN 14 (8-23) mg/dL Creatinine 0.43 L (0.60-1.20) mg/dL Glucose 189 H (70-105) mg/dL Calcium 8.6 (8.6-10.3) mg/dL Calcium panel 10/30/17 10/30/17 Range/Units 04:00 04:00 Calcium 8.6 (8.6-10.3) mg/dL Phosphorus 3.1 (2.7-4.5) mg/dL Pituitary panel 10/30/17 Range/Units 04:00 Sodium 136 (136-145) mEq/L Potassium 3.6 (3.5-5.1) mEq/L Chloride 106 (98-107) mEq/L Carbon Dioxide 24 (23-29) mEq/L BUN 14 (8-23) mg/dL Creatinine 0.43 L (0.60-1.20) mg/dL Glucose 189 H (70-105) mg/dL Calcium 8.6 (8.6-10.3) mg/dL Adrenal panel 10/30/17 Range/Units 04:00 Sodium 136 (136-145) mEq/L Potassium 3.6 (3.5-5.1) mEq/L Chloride 106 (98-107) mEq/L Carbon Dioxide 24 (23-29) mEq/L BUN 14 (8-23) mg/dL Creatinine 0.43 L (0.60-1.20) mg/dL Glucose 189 H (70-105) mg/dL Calcium 8.6 (8.6-10.3) mg/dL - Attending Attestation patient seen and examined. I have reviewed all labs, imaging, and notes, including this one. I agree with the above assessment and plan and wish to add the following... Afebrile. VSS; abd soft, no pain patient having bowel function; WBC slightly elevated, but patient is clinically improved; cont with current pain regimen IS usage encouraged cont current management of afib encouraged PO intake - patient feeling more return of appetite; cont with sips and will advance as tolerated will hold on CT at this point
[2017-10-30] MEDS: Heparin 25,000 UNIT/500 ML D5W 25,000 UNIT/500 ML BAG IVC SCH (11:57)
--- NOTE | 2017-10-30 13:26 | Internal Med Progress Note ---
Hospitalist Progress Note - Encounter Date of Encounter: 10/30/17 Time of Encounter: 13:00 - Exam Vitals: Temp Pulse Resp BP Pulse Ox 97.5 F L 101 18 154/92 99 10/30/17 11:37 10/30/17 11:37 10/30/17 11:37 10/30/17 11:37 10/30/17 11:37 Exam: Gen: Alert, awake, Oriented to time,place and person Chest: Diminished breath sounds B/L, No wheezing, No crackles, No rales Heart: S1S2+ Afib, No murmurs Abd: Soft, mild discomfort,, BS +, No organomegaly Ext: No edema, pulses are palpable, No calf tenderness Neuro : Benign findings Skin: No rash. - Assessment and Plan (1) Sepsis Current Visit: Yes Status: Acute Assessment and Plan: Does meet sepsis criteria with elevated white count, tachycardia and source of infection as perforated appendicitis white count seems to be trending up.. Today @ 12.8 continue empirical antibiotic Cipro and flagyl Further management per surgery for possible evaluation of abscesses with repeat imaging (2) Atrial fibrillation Current Visit: Yes Status: Chronic Assessment and Plan: Chronic A fib Rate controlled with Cardizem gtt When pt toelrates PO intake ok to switch to PO Metoprolol ( home dose ) Cont IV Heparin gtt for anti coag for now 10/30. Will plan to wean off cardizem drip and start po metoprolol today (3) Acute appendicitis Current Visit: Yes Status: Acute Assessment and Plan: Acute perforated appendicitis Serial abdominal examination as per primary team cont empirical abx Cipro and Flagyl Blood cx no growth started on sips of water today cont symptomatic and supportive care continue TPN also (4) GERD (gastroesophageal reflux disease) Current Visit: Yes Status: Chronic Assessment and Plan: on Nexium PO (5) HTN (hypertension) Current Visit: Yes Status: Chronic Assessment and Plan: Stable BP with current regimen (6) Nausea & vomiting Current Visit: Yes Status: Acute Assessment and Plan: Improved continue symptomatic and supportive care (7) DVT prophylaxis Current Visit: Yes Status: Acute Assessment and Plan: on Heparin gtt - Time Spent with Patient Total time spent is greater than 50% in coordination of care (as documented) at patient's floor/unit and/or counseling patient: Internal Medicine: Result - Labs CBC & Chem 7: 10/30/17 03:50 10/30/17 04:00 Labs: Short CBC 10/30/17 Range/Units 03:50 WBC 12.8 H (4.3-11.1) K/mcL Hgb 11.7 (11.5-15.4) g/dL Hct 35.7 (35.3-44.9) % Plt Count 311 (140-400) K/mcL Neutrophils # 9.8 H (1.6-8.9) K/mcL BMP 10/30/17 04:00 Sodium 136 Potassium 3.6 Chloride 106 Carbon Dioxide 24 BUN 14 Creatinine 0.43 L Glucose 189 H Calcium 8.6 - ABG Interpretation ABG results: PT/INR, D-dimer PT 14.5 Seconds (9.4-12.1) H 10/25/17 14:37 - VTE Documentation of Mechanical Device: Intermittent pneumatic compression device Consult Discharge Plan - Plan Referrals: Julee Booth, CHILD WELFARE SPECIALIST [Primary Care Provider] - (2) Atrial fibrillation Qualifiers: Atrial fibrillation type: paroxysmal Qualified Code(s): I48.0 - Paroxysmal atrial fibrillation (3) Acute appendicitis Qualifiers: Acute appendicitis type: with localized peritonitis Qualified Code(s): K35.3 - Acute appendicitis with localized peritonitis (4) GERD (gastroesophageal reflux disease) Qualifiers: Esophagitis presence: without esophagitis Qualified Code(s): K21.9 - Gastro- esophageal reflux disease without esophagitis (5) HTN (hypertension) Qualifiers: Hypertension type: essential hypertension Qualified Code(s): I10 - Essential (primary) hypertension (6) Nausea & vomiting Qualifiers: Vomiting type: cyclical vomiting Vomiting Intractability: non-intractable Qualified Code(s): G43.A0 - Cyclical vomiting, not intractable
[2017-10-30] MEDS: Metoprolol 100 MG TABLET PO SCH ×2 (14:39→22:04)
[2017-10-30] MEDS ORDERED: Clinimix E 5%-15% SOLUTION 2,000 ML with MVI, adult with vitamin K 10 ML IVC SCH (17:00)
[2017-10-30] MEDS: 0.9 % Sodium Chloride w KCl 20 MEQ/1,000 ML MLS IVC SCH ×2 (17:03→17:07)
[2017-10-31] MEDS: Insulin LISPRO 300 UNITS/3 ML VIAL SQ SCH ×4 (00:13→18:02)
[2017-10-31] MEDS: Ketorolac 30 MG/ML VIAL IVP SCH ×2 (00:19→06:10)
[2017-10-31] MEDS: MetroNIDAZOLE 500 MG/100 ML 500 MG/100 ML BAG IVPB SCH ×3 (00:20→16:12)
[2017-10-31] MEDS: Heparin 25,000 UNIT/500 ML D5W 25,000 UNIT/500 ML BAG IVC SCH ×2 (05:28→23:27)
[2017-10-31 06:17] LABS: Basophils # 0.1 K/mcL (0.0-0.2); Basophils % 0.5 %; Eosinophils # 0.2 K/mcL (0.0-0.6); Eosinophils % 1.5 %; Hematocrit 33.5 % (35.3-44.9); Immature Granulocytes % 1.2 % (0-4); Lymphocytes # 1.3 K/mcL (0.6-4.6); Lymphocytes % 11.8 %; Mean Corpuscular HGB Conc 32.8 g/dL (31.6-35.5); Mean Corpuscular Hemoglobin 28.4 pg (28.0-33.3); Mean Corpuscular Volume 86.6 fL (83.0-100.0); Mean Platelet Volume 9.5 fL (9.4-12.4); Monocytes % 9.2 %; Neutrophils # 8.2 K/mcL (1.6-8.9); Platelet Count 289 K/mcL (140-400); Red Blood Count 3.87 M/mcL (3.82-4.97); Red Cell Distribution Width 14.3 % (11.5-14.5); Segmented Neutrophils % 75.8 %
[2017-10-31 06:38] LABS: BUN/Creatinine Ratio 33 (6-26); Blood Urea Nitrogen 13 mg/dL (8-23); Calcium 8.2 mg/dL (8.6-10.3); Carbon Dioxide 25 mEq/L (23-29); Chloride 108 mEq/L (98-107); Glucose 187 mg/dL (70-105); Osmolality,Calculated 289 (280-300); Sodium 137 mEq/L (136-145); eGFR For Non-African Americans > 60 (> 60)
[2017-10-31 07:38] LABS: Magnesium 2.1 mg/dL (1.6-2.6); Phosphorous 2.7 mg/dL (2.7-4.5)
[2017-10-31] MEDS: Metoprolol 100 MG TABLET PO SCH ×2 (08:03→20:47)
--- NOTE | 2017-10-31 09:15 | General Surgery Progress Note ---
<Jessica Castillo E - Last Filed: 10/31/17 09:13> Date of Encounter: 10/31/17 Time of Encounter: 09:13 - Assessment and Plan (1) Perforated appendicitis Current Visit: Yes Status: Acute White blood cell count yesterday of 12.4 today is 12.8. Clear fluid diet Serial Abdominal Exams IV fluids - 0.9 NS with 20 meq KCL Start weaning TPN, this can be discontinued tomorrow if oral input continue as well Continue Cipro and Flagyl Ambulate hallways TID with assistance IS every hour while awake Possible repeat abdominal scans within the next few days to reevaluate for possible drainage of abscesses (2) Ileus Current Visit: Yes Status: Acute Clear fluid diet IV fluids as above TPN As above supportive care (3) Atrial fibrillation Current Visit: Yes Status: Chronic Patient on cardizem gtt for rate control Continue heparain gtt Hospitalist consulted for management Qualifiers: Atrial fibrillation type: paroxysmal Qualified Code(s): I48.0 - Paroxysmal atrial fibrillation (4) GERD (gastroesophageal reflux disease) Current Visit: Yes Status: Chronic PPI therapy Patient had family members bring in her Nexium from home. Qualifiers: Esophagitis presence: without esophagitis Qualified Code(s): K21.9 - Gastro -esophageal reflux disease without esophagitis (5) Elevated blood sugar Current Visit: No Status: Acute SSI low scale coverage for mgmt will continue to monitor and adjust as necessary Subjective Patient reports: feels better, flatus, bowel movement, other (Patient states she is feeling better today, she is able to tolerate some of her clears last night, her GERD is well controlled with her home Nexium.) Objective Vital Signs - Last 8 Hours Temp Pulse Resp BP Pulse Ox 10/31/17 07:31 98.2 F 84 18 151/73 97 10/31/17 04:45 97.6 F 81 16 152/82 96 Intake and Output 10/30/17 10/31/17 10/31/17 23:59 07:59 15:59 Intake Total 1220 / 1220 632 / 632 Balance 1220 / 1220 632 / 632 Intake: IV Fluids 1100 / 1100 632 / 632 KCl 20 mEq in 0.9% Sodium 1000 / 1000 Chloride 20 meq In 1,000 ml @ 20 mls/hr IVC .Q24H [facility] Rx#: [id number] Heparin 25,000 UNIT/500 ML D5W 532 / 532 25,000 unit In 500 ml @ 14 UNIT /KG/HR 21.784 mls/hr IVC . [id number] [facility] Rx#:[id number] Flagyl Premix 500 MG/100 ML 500 100 / 100 100 / 100 mg In 100 ml @ 100 mls/hr IVPB Q8H [facility] Rx#:[id number] Oral 120 / 120 Other: Meal Dinner Percent of Meal Consumed 100% Stool Size Moderate Stool Consistency loose liquid Stool Color Green # Voids 1 Weight 77.8 kg Blood Glucose* 145 161 - General physical appearance well developed, well nourished, no distress - Respiratory normal expansion, normal respiratory effort, clear to auscultation - Cardiovascular Cardiovascular exam: Present: RRR, no murmurs/rubs/gallops - Abdomen Abdomen: Present: bowel sounds present, soft, tender Abdominal Tenderness: RLQ (Less tender than yesterday) - Integumentary no rash, no growths, no abnormal pigmentation - Musculoskeletal normal posture - Psychiatric oriented to time, oriented to person, oriented to place - Labs 10/31/17 04:00 10/31/17 04:00 Diabetes panel 10/31/17 Range/Units 04:00 Sodium 137 (136-145) mEq/L Potassium 4.0 (3.5-5.1) mEq/L Chloride 108 H (98-107) mEq/L Carbon Dioxide 25 (23-29) mEq/L BUN 13 (8-23) mg/dL Creatinine 0.39 L (0.60-1.20) mg/dL Glucose 187 H (70-105) mg/dL Calcium 8.2 L (8.6-10.3) mg/dL Calcium panel 10/31/17 Range/Units 04:00 Calcium 8.2 L (8.6-10.3) mg/dL Phosphorus 2.7 (2.7-4.5) mg/dL Pituitary panel 10/31/17 Range/Units 04:00 Sodium 137 (136-145) mEq/L Potassium 4.0 (3.5-5.1) mEq/L Chloride 108 H (98-107) mEq/L Carbon Dioxide 25 (23-29) mEq/L BUN 13 (8-23) mg/dL Creatinine 0.39 L (0.60-1.20) mg/dL Glucose 187 H (70-105) mg/dL Calcium 8.2 L (8.6-10.3) mg/dL Adrenal panel 10/31/17 Range/Units 04:00 Sodium 137 (136-145) mEq/L Potassium 4.0 (3.5-5.1) mEq/L Chloride 108 H (98-107) mEq/L Carbon Dioxide 25 (23-29) mEq/L BUN 13 (8-23) mg/dL Creatinine 0.39 L (0.60-1.20) mg/dL Glucose 187 H (70-105) mg/dL Calcium 8.2 L (8.6-10.3) mg/dL - VTE Documentation of Mechanical Device: Intermittent pneumatic compression device Consult Discharge Plan - Plan Referrals: Julee Booth, SPOT BILLING CLERK [Primary Care Provider] - <Jonathan Butcher - Last Filed: 10/31/17 10:56> Date of Encounter: 10/31/17 - Assessment and Plan (1) Perforated appendicitis Current Visit: Yes Status: Acute Objective Vital Signs - Last 8 Hours Temp Pulse Resp BP Pulse Ox 10/31/17 07:31 98.2 F 84 18 151/73 97 10/31/17 04:45 97.6 F 81 16 152/82 96 Intake and Output 10/30/17 10/31/17 10/31/17 23:59 07:59 15:59 Intake Total 1220 / 1220 632 / 632 Balance 1220 / 1220 632 / 632 Intake: IV Fluids 1100 / 1100 632 / 632 KCl 20 mEq in 0.9% Sodium 1000 / 1000 Chloride 20 meq In 1,000 ml @ 20 mls/hr IVC .Q24H [facility] Rx#: [id number] Heparin 25,000 UNIT/500 ML D5W 532 / 532 25,000 unit In 500 ml @ 14 UNIT /KG/HR 21.784 mls/hr IVC . [id number] [facility] Rx#:[id number] Flagyl Premix 500 MG/100 ML 500 100 / 100 100 / 100 mg In 100 ml @ 100 mls/hr IVPB Q8H [facility] Rx#:[id number] Oral 120 / 120 Other: Meal Dinner Percent of Meal Consumed 100% Stool Size Moderate Stool Consistency loose liquid Stool Color Green # Voids 1 Weight 77.8 kg Blood Glucose* 145 161 - Labs 10/31/17 04:00 10/31/17 04:00 Diabetes panel 10/31/17 Range/Units 04:00 Sodium 137 (136-145) mEq/L Potassium 4.0 (3.5-5.1) mEq/L Chloride 108 H (98-107) mEq/L Carbon Dioxide 25 (23-29) mEq/L BUN 13 (8-23) mg/dL Creatinine 0.39 L (0.60-1.20) mg/dL Glucose 187 H (70-105) mg/dL Calcium 8.2 L (8.6-10.3) mg/dL Calcium panel 10/31/17 Range/Units 04:00 Calcium 8.2 L (8.6-10.3) mg/dL Phosphorus 2.7 (2.7-4.5) mg/dL Pituitary panel 10/31/17 Range/Units 04:00 Sodium 137 (136-145) mEq/L Potassium 4.0 (3.5-5.1) mEq/L Chloride 108 H (98-107) mEq/L Carbon Dioxide 25 (23-29) mEq/L BUN 13 (8-23) mg/dL Creatinine 0.39 L (0.60-1.20) mg/dL Glucose 187 H (70-105) mg/dL Calcium 8.2 L (8.6-10.3) mg/dL Adrenal panel 10/31/17 Range/Units 04:00 Sodium 137 (136-145) mEq/L Potassium 4.0 (3.5-5.1) mEq/L Chloride 108 H (98-107) mEq/L Carbon Dioxide 25 (23-29) mEq/L BUN 13 (8-23) mg/dL Creatinine 0.39 L (0.60-1.20) mg/dL Glucose 187 H (70-105) mg/dL Calcium 8.2 L (8.6-10.3) mg/dL - Attending Attestation I have personally seen and examined the patient. I have reviewed pertinent labs , imaging, progress notes, including this one. I agree with the above assessment and plan and wish to include the following... afebrile, normal wbc; good UOP; abd soft, significantly less distended; needs improved PO intake encourage PO intake once taking appropriate PO intake, then can plan to stop IVF and IV meds do not check CBC in AM
--- NOTE | 2017-10-31 10:24 | Internal Med Progress Note ---
Hospitalist Progress Note - Encounter Date of Encounter: 10/31/17 Time of Encounter: 10:20 - Exam Vitals: Temp Pulse Resp BP Pulse Ox 98.2 F 84 18 151/73 97 10/31/17 07:31 10/31/17 07:31 10/31/17 07:31 10/31/17 07:31 10/31/17 07:31 Exam: Gen: Alert, awake, Oriented to time,place and person Chest: Diminished breath sounds B/L, No wheezing, No crackles, No rales Heart: S1S2+ Afib, No murmurs Abd: Soft, mild discomfort,, BS +, No organomegaly Ext: No edema, pulses are palpable, No calf tenderness Neuro : Benign findings Skin: No rash. - Assessment and Plan (1) Sepsis Current Visit: Yes Status: Acute Assessment and Plan: Met sepsis criteria with elevated white count, tachycardia and source of infection as perforated appendicitis WBC count trending down continue empirical antibiotic Cipro and flagyl Further management per surgery for possible evaluation of abscesses with repeat imaging (2) Atrial fibrillation Current Visit: Yes Status: Chronic Assessment and Plan: Chronic A fib Rate controlled with Cardizem gtt When pt tolerates PO intake ok to switch to PO Metoprolol ( home dose ) Cont IV Heparin gtt for anti coag for now 10/31. Weaned off cardizem drip and started on po metoprolol (3) Acute appendicitis Current Visit: Yes Status: Acute Assessment and Plan: Acute perforated appendicitis Serial abdominal examination as per primary team cont empirical abx Cipro and Flagyl Blood cx no growth started on sips of water today cont symptomatic and supportive care continue TPN also (4) GERD (gastroesophageal reflux disease) Current Visit: Yes Status: Chronic Assessment and Plan: on Nexium PO (5) HTN (hypertension) Current Visit: Yes Status: Chronic Assessment and Plan: Stable BP with current regimen (6) Nausea & vomiting Current Visit: Yes Status: Acute Assessment and Plan: Improved continue symptomatic and supportive care (7) DVT prophylaxis Current Visit: Yes Status: Acute Assessment and Plan: on Heparin gtt - Time Spent with Patient Total time spent is greater than 50% in coordination of care (as documented) at patient's floor/unit and/or counseling patient: Internal Medicine: Result - Labs CBC & Chem 7: 10/31/17 04:00 10/31/17 04:00 Labs: Short CBC 10/31/17 Range/Units 04:00 WBC 10.8 (4.3-11.1) K/mcL Hgb 11.0 L (11.5-15.4) g/dL Hct 33.5 L (35.3-44.9) % Plt Count 289 (140-400) K/mcL Neutrophils # 8.2 (1.6-8.9) K/mcL BMP 10/31/17 04:00 Sodium 137 Potassium 4.0 Chloride 108 H Carbon Dioxide 25 BUN 13 Creatinine 0.39 L Glucose 187 H Calcium 8.2 L - ABG Interpretation ABG results: PT/INR, D-dimer PT 14.5 Seconds (9.4-12.1) H 10/25/17 14:37 - VTE Documentation of Mechanical Device: Intermittent pneumatic compression device Consult Discharge Plan - Plan Referrals: Julee Booth, ART DEALER [Primary Care Provider] - (2) Atrial fibrillation Qualifiers: Atrial fibrillation type: paroxysmal Qualified Code(s): I48.0 - Paroxysmal atrial fibrillation (3) Acute appendicitis Qualifiers: Acute appendicitis type: with localized peritonitis Qualified Code(s): K35.3 - Acute appendicitis with localized peritonitis (4) GERD (gastroesophageal reflux disease) Qualifiers: Esophagitis presence: without esophagitis Qualified Code(s): K21.9 - Gastro- esophageal reflux disease without esophagitis (5) HTN (hypertension) Qualifiers: Hypertension type: essential hypertension Qualified Code(s): I10 - Essential (primary) hypertension (6) Nausea & vomiting Qualifiers: Vomiting type: cyclical vomiting Vomiting Intractability: non-intractable Qualified Code(s): G43.A0 - Cyclical vomiting, not intractable
[2017-10-31] MEDS: 0.9 % Sodium Chloride w KCl 20 MEQ/1,000 ML MLS IVC SCH (16:16)
[2017-11-01] MEDS: Insulin LISPRO 300 UNITS/3 ML VIAL SQ SCH ×4 (01:34→17:38)
[2017-11-01] MEDS: MetroNIDAZOLE 500 MG/100 ML 500 MG/100 ML BAG IVPB SCH ×3 (01:36→15:16)
[2017-11-01] MEDS: OXYCODONE Oral CONC 10 MG/0.5 ML ORAL.SYG SL PRN ×2 (02:08→20:10)
[2017-11-01] MEDS: Metoprolol 100 MG TABLET PO SCH ×2 (07:51→19:44)
[2017-11-01] MEDS ORDERED: Isovue-370 500 ML INFUS..BTL IV ONE (07:56)
--- NOTE | 2017-11-01 08:31 | General Surgery Progress Note ---
Addendum entered and electronically signed by Sridevi Anaya CNP 11/01/17 13: 35: Reviewed Ct results of increased abscess sizes and inability to reach the larger abscess per radiology notes, with Dr. Butcher, who will reach out to IR if intervention is indicated. Noted pt is on a hep gtt for AC related to a-fib. Further recommendations per Dr. Butcher attestation. Original Note: <Sridevi Anaya - Last Filed: 11/01/17 08:21> Date of Encounter: 11/01/17 Time of Encounter: 07:30 - Assessment and Plan (1) Perforated appendicitis Current Visit: Yes Status: Acute -CT abd/pelvis 10/21 with iv contrast notes perforated appendicitis, no drainable abscess, secondary inflammation int he distal and terminal ileum, intra/extra hepatic biliary dilation (s/p cholecystectomy and hysterectomy). -CT abd/pelvis 10/26 noted increased loss of integrity of the wall distal to the appendix, associated 2.9 x 5.7 x 3.3 cm abscess within the meso appendix, adjacent area of fluid now appeared locked related measuring 1.1 x 3.1 x 1.4 cm and 2.9 x 4.1 x 6.1 cm. Interventional radiology was consult it for consideration of drain and they did not feel it was amenable to draining and also noted that one collection was near a vessel. TPN stopped. Poor po remains d/t lack of appetite. Low grade temp; wbc for today pending Plan: Repeat am labs replete lytes Ct abd/pelvis with IV and po contrast continue hep gtt, consider switching to pradaxa pending ct above continue MIV as she is not consuming enough clears continue cipro/flagyl (day 7) PRN antiemetics, GI prophylaxis, add simethicone, add protonix 40 mg BID, stop prevacid therapeutic heparin DVT prophylaxis Ambulate TID; Patient MAY shower serial abd exams Further recommendations pending (2) Paroxysmal atrial fibrillation with rapid ventricular response Current Visit: Yes Status: Acute Management per primary team/cardiology (3) GERD (gastroesophageal reflux disease) Current Visit: Yes Status: Chronic Small sliding type hiatal hernia noted on CT start Protonix 40 mg BID add simethicone PRN will consider carafate slurry or GI cocktail pending clinical course Qualifiers: Esophagitis presence: without esophagitis Qualified Code(s): K21.9 - Gastro -esophageal reflux disease without esophagitis (4) DVT prophylaxis Current Visit: Yes Status: Acute EPCDs while in bed Therapeutic hep gtt Amb TID (5) Tachycardia Current Visit: Yes Status: Acute resolved (6) Hypokalemia Current Visit: Yes Status: Acute as above Subjective Patient reports: still having pain, voiding w/o difficulty, flatus, bowel movement, afebrile Narrative: Reports increased RLQ pain, decreased thirst or appetite. Reports abdominal pain overnight. Objective Vital Signs - Last 8 Hours Temp Pulse Resp BP Pulse Ox 11/01/17 07:21 99.0 F 95 16 127/78 94 11/01/17 05:22 98.9 F 83 16 143/79 95 11/01/17 01:36 99.3 F 98 17 142/81 94 Intake and Output 10/31/17 11/01/17 11/01/17 23:59 07:59 15:59 Intake Total 1169 / 1169 100 / 100 Output Total 700 / 700 350 / 350 Balance 469 / 469 -250 / -250 Intake: IV Fluids 809 / 809 100 / 100 Heparin 25,000 UNIT/500 ML D5W 468 / 468 25,000 unit In 500 ml @ 14 UNIT /KG/HR 21.784 mls/hr IVC . [id number] [facility] Rx#:[id number] Clinimix E 5%-15% SOLUTION 2, 241 / 241 000 ML @ 83.3 mls/hr IVC .Q24H [facility] with M.v.i. Adult 10 ml Rx# :[id number] Flagyl Premix 500 MG/100 ML 500 100 / 100 100 / 100 mg In 100 ml @ 100 mls/hr IVPB Q8H [facility] Rx#:[id number] Oral 360 / 360 Output: Urine 700 / 700 350 / 350 Other: Meal Dinner # Voids 1 Blood Glucose* 112 101 - General physical appearance no distress, other (sitting upright in chair) - ENT normal nares, normal mucosa - Respiratory normal expansion, normal respiratory effort, clear to auscultation - Cardiovascular Cardiovascular exam: Present: distant heart sounds - Abdomen Abdomen: Present: bowel sounds present (faint and hypoactive), soft, distended, tender Abdominal Tenderness: RLQ - Integumentary no rash - Neurologic normal coordination, normal sensation - Musculoskeletal normal gait, normal posture - Psychiatric oriented to time, oriented to person, oriented to place, speech is normal, memory intact - Labs 10/31/17 04:00 10/31/17 04:00 - VTE Documentation of Mechanical Device: Intermittent pneumatic compression device Consult Discharge Plan - Plan Referrals: Julee Booth, OUTREACH EDUCATOR [Primary Care Provider] - <Jonathan Butcher - Last Filed: 11/02/17 06:53> Date of Encounter: 11/02/17 - Assessment and Plan (1) Perforated appendicitis Current Visit: Yes Status: Acute Objective Vital Signs - Last 8 Hours Temp Pulse Resp BP Pulse Ox 11/02/17 05:26 97.6 F 114 15 140/85 96 11/02/17 00:31 99.3 F 95 14 139/66 95 Intake and Output 11/01/17 11/01/17 11/02/17 15:59 23:59 07:59 Intake Total 100 / 100 1450 / 1450 600 / 600 Output Total 600 / 600 Balance 100 / 100 1450 / 1450 0 / 0 Intake: IV Fluids 100 / 100 1450 / 1450 600 / 600 KCl 20 mEq in 0.9% Sodium 950 / 950 Chloride 20 meq In 1,000 ml @ 20 mls/hr IVC .Q24H [facility] Rx#: [id number] Heparin 25,000 UNIT/500 ML D5W 500 / 500 25,000 unit In 500 ml @ 14 UNIT /KG/HR 21.784 mls/hr IVC . [id number] [facility] Rx#:[id number] Cipro Premix 400 MG/200 ML 400 400 / 400 mg In 200 ml @ 200 mls/hr IVPB Q12H [facility] Rx#:[id number] Flagyl Premix 500 MG/100 ML 500 100 / 100 200 / 200 mg In 100 ml @ 100 mls/hr IVPB Q8H [facility] Rx#:[id number] Output: Urine 600 / 600 Other: Stool Size Large Stool Consistency loose Stool Color Brown # Bowel Movements 1 Weight 72.575 kg Blood Glucose* 117 144 129 Patient Weight 11/02/17 23:59 Weight 72.575 kg - Labs 11/02/17 03:10 11/02/17 03:10 Diabetes panel 11/01/17 11/02/17 Range/Units 16:00 03:10 Sodium 130 L 132 L (136-145) mEq/L Potassium 3.7 3.6 (3.5-5.1) mEq/L Chloride 97 L 101 (98-107) mEq/L Carbon Dioxide 26 27 (23-29) mEq/L BUN 8 9 (8-23) mg/dL Creatinine 0.48 L 0.47 L (0.60-1.20) mg/dL Glucose 284 H 131 H (70-105) mg/dL Calcium 8.5 L 8.6 (8.6-10.3) mg/dL Calcium panel 11/01/17 11/02/17 Range/Units 16:00 03:10 Calcium 8.5 L 8.6 (8.6-10.3) mg/dL Pituitary panel 11/01/17 11/02/17 Range/Units 16:00 03:10 Sodium 130 L 132 L (136-145) mEq/L Potassium 3.7 3.6 (3.5-5.1) mEq/L Chloride 97 L 101 (98-107) mEq/L Carbon Dioxide 26 27 (23-29) mEq/L BUN 8 9 (8-23) mg/dL Creatinine 0.48 L 0.47 L (0.60-1.20) mg/dL Glucose 284 H 131 H (70-105) mg/dL Calcium 8.5 L 8.6 (8.6-10.3) mg/dL Adrenal panel 11/01/17 11/02/17 Range/Units 16:00 03:10 Sodium 130 L 132 L (136-145) mEq/L Potassium 3.7 3.6 (3.5-5.1) mEq/L Chloride 97 L 101 (98-107) mEq/L Carbon Dioxide 26 27 (23-29) mEq/L BUN 8 9 (8-23) mg/dL Creatinine 0.48 L 0.47 L (0.60-1.20) mg/dL Glucose 284 H 131 H (70-105) mg/dL Calcium 8.5 L 8.6 (8.6-10.3) mg/dL - Attending Attestation I have personally seen and examined the patient. I have reviewed pertinent labs , imaging, progress notes, including this one. I agree with the above assessment and plan and wish to include the following... CT scan reviewed; possible intervention vs continued monitoring;
--- NOTE | 2017-11-01 09:12 | Internal Med Progress Note ---
Hospitalist Progress Note - Encounter Date of Encounter: 11/01/17 Time of Encounter: 09:00 - Subjective Interval History: No acute events overnight - Exam Vitals: Temp Pulse Resp BP Pulse Ox 99.0 F 95 16 127/78 94 11/01/17 07:21 11/01/17 07:21 11/01/17 07:21 11/01/17 07:21 11/01/17 07:21 Exam: Gen: Alert, awake, Oriented to time,place and person Chest: Diminished breath sounds B/L, No wheezing, No crackles, No rales Heart: S1S2+ Afib, No murmurs Abd: Soft, mild discomfort,, BS +, No organomegaly Ext: No edema, pulses are palpable, No calf tenderness Neuro : Benign findings Skin: No rash. - Assessment and Plan (1) Acute appendicitis Current Visit: Yes Status: Acute Assessment and Plan: Acute perforated appendicitis Serial abdominal examination as per primary team cont empirical abx Cipro and Flagyl Blood cx no growth started on sips of water today cont symptomatic and supportive care continue TPN also 11/01. Plan for repeat CT/abdomen pelvs today. further management per surgery (2) Sepsis Current Visit: Yes Status: Acute Assessment and Plan: Met sepsis criteria with elevated white count, tachycardia and source of infection as perforated appendicitis WBC count trending down continue empirical antibiotic Cipro and flagyl 11/01 Further management per surgery for possible evaluation of abscesses with repeat CT abdomen today (3) Atrial fibrillation Current Visit: Yes Status: Chronic Assessment and Plan: Chronic A fib Rate controlled with Cardizem gtt When pt tolerates PO intake ok to switch to PO Metoprolol ( home dose ) Cont IV Heparin gtt for anti coag for now 11/01. Weaned off cardizem drip and started on po metoprolol. Plan to transition off heparin drip and start on pradaxa if CT abdomen is WNL/ and no surgery planned (4) GERD (gastroesophageal reflux disease) Current Visit: Yes Status: Chronic Assessment and Plan: on Nexium PO (5) HTN (hypertension) Current Visit: Yes Status: Chronic Assessment and Plan: Stable BP with current regimen (6) Nausea & vomiting Current Visit: Yes Status: Acute Assessment and Plan: Improved continue symptomatic and supportive care (7) DVT prophylaxis Current Visit: Yes Status: Acute Assessment and Plan: on Heparin gtt - Time Spent with Patient Total time spent is greater than 50% in coordination of care (as documented) at patient's floor/unit and/or counseling patient: Internal Medicine: Result - Labs CBC & Chem 7: 10/31/17 04:00 10/31/17 04:00 - ABG Interpretation ABG results: PT/INR, D-dimer PT 14.5 Seconds (9.4-12.1) H 10/25/17 14:37 - VTE Documentation of Mechanical Device: Intermittent pneumatic compression device Consult Discharge Plan - Plan Referrals: Julee Booth, PARBOILER [Primary Care Provider] - (1) Acute appendicitis Qualifiers: Acute appendicitis type: with localized peritonitis Qualified Code(s): K35.3 - Acute appendicitis with localized peritonitis (3) Atrial fibrillation Qualifiers: Atrial fibrillation type: paroxysmal Qualified Code(s): I48.0 - Paroxysmal atrial fibrillation (4) GERD (gastroesophageal reflux disease) Qualifiers: Esophagitis presence: without esophagitis Qualified Code(s): K21.9 - Gastro- esophageal reflux disease without esophagitis (5) HTN (hypertension) Qualifiers: Hypertension type: essential hypertension Qualified Code(s): I10 - Essential (primary) hypertension (6) Nausea & vomiting Qualifiers: Vomiting type: cyclical vomiting Vomiting Intractability: non-intractable Qualified Code(s): G43.A0 - Cyclical vomiting, not intractable
[2017-11-01] MEDS: 0.9 % Sodium Chloride w KCl 20 MEQ/1,000 ML MLS IVC SCH ×2 (15:20→19:44)
[2017-11-01] MEDS: Heparin 25,000 UNIT/500 ML D5W 25,000 UNIT/500 ML BAG IVC SCH (16:02)
[2017-11-01 16:43] LABS: BUN/Creatinine Ratio 17 (6-26); Blood Urea Nitrogen 8 mg/dL (8-23); Calcium 8.5 mg/dL (8.6-10.3); Carbon Dioxide 26 mEq/L (23-29); Chloride 97 mEq/L (98-107); Glucose 284 mg/dL (70-105); Osmolality,Calculated 279 (280-300); Potassium 3.7 mEq/L (3.5-5.1); Sodium 130 mEq/L (136-145); eGFR For Non-African Americans > 60 (> 60)
[2017-11-01 20:19] LABS: Basophils % 0.4 %; Eosinophils # 0.1 K/mcL (0.0-0.6); Eosinophils % 0.6 %; Hemoglobin 11.8 g/dL (11.5-15.4); Immature Granulocytes % 0.6 % (0-4); Lymphocytes # 1.6 K/mcL (0.6-4.6); Lymphocytes % 14.3 %; Mean Corpuscular HGB Conc 32.8 g/dL (31.6-35.5); Mean Corpuscular Hemoglobin 28.9 pg (28.0-33.3); Mean Corpuscular Volume 88.2 fL (83.0-100.0); Mean Platelet Volume 9.8 fL (9.4-12.4); Monocytes % 9.5 %; Neutrophils # 8.1 K/mcL (1.6-8.9); Platelet Count 322 K/mcL (140-400); Red Blood Count 4.08 M/mcL (3.82-4.97); Segmented Neutrophils % 74.6 %
[2017-11-02] MEDS: MetroNIDAZOLE 500 MG/100 ML 500 MG/100 ML BAG IVPB SCH ×3 (00:37→16:13)
[2017-11-02] MEDS: Insulin LISPRO 300 UNITS/3 ML VIAL SQ SCH ×4 (02:39→18:38)
[2017-11-02 03:35] LABS: Basophils % 0.4 %; Eosinophils # 0.1 K/mcL (0.0-0.6); Eosinophils % 0.5 %; Hemoglobin 10.5 g/dL (11.5-15.4); Immature Granulocytes % 0.5 % (0-4); Lymphocytes # 1.4 K/mcL (0.6-4.6); Lymphocytes % 12.8 %; Mean Corpuscular HGB Conc 31.8 g/dL (31.6-35.5); Mean Platelet Volume 9.9 fL (9.4-12.4); Monocytes % 9.3 %; Neutrophils # 8.1 K/mcL (1.6-8.9); Platelet Count 326 K/mcL (140-400); Red Blood Count 3.75 M/mcL (3.82-4.97); Red Cell Distribution Width 14.1 % (11.5-14.5); Segmented Neutrophils % 76.5 %
[2017-11-02 03:45] LABS: BUN/Creatinine Ratio 19 (6-26); Blood Urea Nitrogen 9 mg/dL (8-23); Calcium 8.6 mg/dL (8.6-10.3); Carbon Dioxide 27 mEq/L (23-29); Chloride 101 mEq/L (98-107); Glucose 131 mg/dL (70-105); Osmolality,Calculated 274 (280-300); Potassium 3.6 mEq/L (3.5-5.1); Sodium 132 mEq/L (136-145); eGFR For Non-African Americans > 60 (> 60)
[2017-11-02] MEDS: Metoprolol 100 MG TABLET PO SCH (09:04)
--- NOTE | 2017-11-02 09:12 | Internal Med Progress Note ---
Hospitalist Progress Note - Encounter Date of Encounter: 11/02/17 Time of Encounter: 09:00 - Subjective Interval History: No acute events overnight - Exam Vitals: Temp Pulse Resp BP Pulse Ox 99.9 F H 91 19 119/69 91 11/02/17 07:10 11/02/17 07:10 11/02/17 07:10 11/02/17 07:10 11/02/17 07:10 Exam: Gen: Alert, awake, Oriented to time,place and person Chest: Diminished breath sounds B/L, No wheezing, No crackles, No rales Heart: S1S2+ Afib, No murmurs Abd: Soft, mild discomfort,, BS +, No organomegaly Ext: No edema, pulses are palpable, No calf tenderness Neuro : Benign findings Skin: No rash. - Assessment and Plan (1) Acute appendicitis Current Visit: Yes Status: Acute Assessment and Plan: Acute perforated appendicitis Serial abdominal examination as per primary team cont empirical abx Cipro and Flagyl Blood cx no growth started on sips of water today cont symptomatic and supportive care continue TPN also 11/02. Repeat CT/abdomen pelvis done in last 24 hrs showed progression in size of pelvic abscesses. NPO per surgery for possible ex lap . Further management per surgery (2) Sepsis Current Visit: Yes Status: Acute Assessment and Plan: Met sepsis criteria with elevated white count, tachycardia and source of infection as perforated appendicitis WBC count trending down continue empirical antibiotic Cipro and flagyl 11/02 Continue cipro and flagyl (3) Atrial fibrillation Current Visit: Yes Status: Chronic Assessment and Plan: Chronic A fib Rate controlled with Cardizem gtt When pt tolerates PO intake ok to switch to PO Metoprolol ( home dose ) Cont IV Heparin gtt for anti coag for now 11/02. Weaned off cardizem drip and started on po metoprolol. Continue heparin drip pending possible surgery. Will plan to switch to pradaxa once clear from a surgical standpoint (4) GERD (gastroesophageal reflux disease) Current Visit: Yes Status: Chronic Assessment and Plan: on Nexium PO (5) HTN (hypertension) Current Visit: Yes Status: Chronic Assessment and Plan: Stable BP with current regimen (6) Nausea & vomiting Current Visit: Yes Status: Acute Assessment and Plan: Improved continue symptomatic and supportive care (7) DVT prophylaxis Current Visit: Yes Status: Acute Assessment and Plan: on Heparin gtt - Time Spent with Patient Total time spent is greater than 50% in coordination of care (as documented) at patient's floor/unit and/or counseling patient: Internal Medicine: Result - Labs CBC & Chem 7: 11/02/17 03:10 11/02/17 03:10 Labs: Short CBC 11/01/17 11/02/17 Range/Units 08:25 03:10 WBC 10.9 10.6 (4.3-11.1) K/mcL Hgb 11.8 10.5 L (11.5-15.4) g/dL Hct 36.0 33.0 L (35.3-44.9) % Plt Count 322 326 (140-400) K/mcL Neutrophils # 8.1 8.1 (1.6-8.9) K/mcL BMP 11/01/17 11/02/17 16:00 03:10 Sodium 130 L 132 L Potassium 3.7 3.6 Chloride 97 L 101 Carbon Dioxide 26 27 BUN 8 9 Creatinine 0.48 L 0.47 L Glucose 284 H 131 H Calcium 8.5 L 8.6 - ABG Interpretation ABG results: PT/INR, D-dimer PT 14.5 Seconds (9.4-12.1) H 10/25/17 14:37 - Impressions Impressions Abdomen/Pelvis CT 11/01/17 11:00 IMPRESSION: 1. Previously seen pelvic abscesses demonstrate some progression in size when compared with the previous evaluation from 10/26/2017. These may be related as previously mentioned from ruptured acute appendicitis versus cecal tumor. 2. Secondary peritonitis in the region of the pelvis. Secondary ileus. 3. Although the most posterior collection can be accessed through the transgluteal approach for drainage, the more anterior loculation cannot be safely accessed percutaneously due to the presence of multiple overlapping bowel loops. D/ / 11/01/2017 12:50:36 Anahy Cummings MD / antoni Interpreting Provider: Anahy Cummings MD - VTE Documentation of Mechanical Device: Intermittent pneumatic compression device Consult Discharge Plan - Plan Referrals: Julee Booth, SOLUTIONS OPERATOR [Primary Care Provider] - (1) Acute appendicitis Qualifiers: Acute appendicitis type: with localized peritonitis Qualified Code(s): K35.3 - Acute appendicitis with localized peritonitis (3) Atrial fibrillation Qualifiers: Atrial fibrillation type: paroxysmal Qualified Code(s): I48.0 - Paroxysmal atrial fibrillation (4) GERD (gastroesophageal reflux disease) Qualifiers: Esophagitis presence: without esophagitis Qualified Code(s): K21.9 - Gastro- esophageal reflux disease without esophagitis (5) HTN (hypertension) Qualifiers: Hypertension type: essential hypertension Qualified Code(s): I10 - Essential (primary) hypertension (6) Nausea & vomiting Qualifiers: Vomiting type: cyclical vomiting Vomiting Intractability: non-intractable Qualified Code(s): G43.A0 - Cyclical vomiting, not intractable
[2017-11-02] MEDS: *HR* Heparin 5,000 UNIT/ML VIAL IVP PRN (10:45)
[2017-11-02] MEDS: Heparin 25,000 UNIT/500 ML D5W 25,000 UNIT/500 ML BAG IVC SCH (11:17)
--- NOTE | 2017-11-02 17:46 | Anesthesia Evaluation PreOp ---
Date of Encounter: 11/02/17 Time of Encounter: 17:44 - Past History Planned Operation: Diagnostic Laparoscopy Cardiac History: HTN, Arrhythmia (paroxysmal A-Fib) Pulmonary History: Denies Any Significant HX TRAVEL RN OR History: Denies Any Significant HX Other Medical History: GERD Anesthesia History: No Prior Anesthetic Complications, Past Anesthesia Alcohol Use: none Drug use: none Medications and Allergies Esomeprazole Magnesium [Nexium] 40 mg PO DAILY #0 06/17/15 [Rx] Dabigatran [Pradaxa] 150 mg PO BID 02/07/17 [History] Metoprolol [Lopressor] 100 mg PO BID 02/07/17 [History] Cyclosporine [Restasis Multidose] 1 drop BOTH EYES BID 10/21/17 [History] 3 Allergy/AdvReac Type Severity Reaction Status Date / Time No Known Allergies Allergy Verified 10/20/17 15:08 - Meds/Allergy Pre-op Review Medications Reviewed: Yes Allergies Reviewed: Yes Beta Blockers on Current Med List: Yes If Beta Blockers taken, Date/Time (Last Dose taken): 11/02/2017 at 0904 Anesthesia Results - Labs 11/02/17 03:10 11/02/17 03:10 - Imaging EKG: report reviewed (10/25/2017 SINUS RHYTHM POSSIBLE ANTERIOR MYOCARDIAL INFARCTION, PROBABLY OLD POSSIBLE INFERIOR SD, OLD) Additional studies: 01/18/2017 Echo Impressions: LVEF 65-70%. Normal LV chamber size, wall thickness and function. Indeterminate diastolic function. Normal right ventricular structure and function. No evidence of pulmonary hypertension. No significant valvular dysfunction. Anesthesia Exam Vital Signs/O2 Sat/Glucose, Most Recent Temp Pulse Resp BP Pulse Ox 99.0 F 90 18 137/77 95 11/02/17 15:55 11/02/17 15:55 11/02/17 15:55 11/02/17 15:55 11/02/17 15:55 Blood Glucose* 119 Height: 5'5''/1.65m Weight: 160 lbs/72.58 kg NPO (# of Hours): 8 Pain Scale: 4 Pain Scale Used: Numeric (1 - 10) - HEENT Pupil (Motor): EOMI Mallampati: II Teeth: Normal Oral Opening: Greater than 3 - TRAVEL RN OR LOC: Oriented TRAVEL RN OR Motor: Normal RUE, Normal LUE, Normal RLE, Normal LLE, Normal Face TRAVEL RN OR Sensory: Normal: RUE, LUE, RLE, LLE, Face - Cardiac Rhythm: Regular Murmur: None - Pulmonary Breath Sounds: bilateral Clear Respiratory Effort: Symmetrical Anesthesia Assess/Plan ASA Score: 2 Modified Charleston Scale for Level of Consciousness: Cooperative, oriented, and tranquil Anesthetic Plan: General Monitoring Plan: Standard Monitors Recovery Plan: PACU
[2017-11-02] MEDS ORDERED: *HR* FentaNYL (PF) 100 MCG/2 ML VIAL ONE (19:15)
[2017-11-02] MEDS ORDERED: *HR* Propofol 200 MG/20 ML VIAL IVP ONE (19:15)
[2017-11-02] MEDS ORDERED: *HR* Midazolam HCl 2 MG/2 ML VIAL ONE (19:15)
[2017-11-02] MEDS ORDERED: CefOXitin 1,000 MG VIAL ONE ×2 (20:23→21:22)
[2017-11-02] MEDS ORDERED: *HR* FentaNYL (PF) 100 MCG/2 ML VIAL IVP PRN (20:34)
[2017-11-02] MEDS ORDERED: Acetaminophen IV 1,000 MG/100 ML INFUS..BTL IVPB ONE ×2 (20:34→23:01)
[2017-11-02] MEDS ORDERED: *HR* Promethazine 25 MG/ML VIAL IVP PRN ×2 (20:34→23:01)
[2017-11-02] MEDS ORDERED: *HR* Labetalol 100 MG/20 ML MDV IVP PRN (20:34)
[2017-11-02] MEDS ORDERED: Ondansetron 4 MG/2 ML VIAL IVP ONE (20:34)
[2017-11-02] MEDS ORDERED: *HR* Succinylcholine 200 MG/10 ML VIAL IVP ONE (21:39)
[2017-11-02] MEDS ORDERED: *HR* Rocuronium Bromide 50 MG/5 ML VIAL ONE (21:39)
[2017-11-02] MEDS ORDERED: Lidocaine -MPF 2% 2 ML VIAL ONE (21:39)
[2017-11-02] MEDS ORDERED: Ondansetron 4 MG/2 ML VIAL ONE (21:39)
[2017-11-02] MEDS ORDERED: Dexamethasone 4 MG/ML VIAL ONE (21:39)
[2017-11-02] MEDS ORDERED: *HR* PHENYLEPHRINE 1,000 MCG/10 ML SYRINGE IVP ONE (21:40)
--- NOTE | 2017-11-02 22:01 | Operative Note ---
Date of procedure: 11/02/17 Pre-op diagnosis: perforated appendix with pelvic abscess Post-op diagnosis: same Procedure: diagnostic laparoscopy lysis of adhesions drainage of intraabdominal abscess Implants: 2 19fr loretta drains Complications: none Anesthesia: GETA Local Anesthetics: 0.5% Sensorcaine HCL SubQ (cc) Surgeon: Jonathan Butcher Was there an assistant store leader present: Yes [employer] Business Intelligence Developer: Junior Chan Estimated blood loss (cc): 10 Specimen: none Condition: stable Disposition: PACU Procedure in Detail: The patient was brought into the operating room suite. The patient was placed in the supine position. Mechanical DVT prophylaxis was initiated. The patient underwent smooth induction of general endotracheal anesthesia. The patient was prepped and draped in the usual fashion. Preoperative antibiotics were given. A timeout was held identifying the correct patient, pathology, and procedure. Everyone was in agreement and we began a procedure. Incision to Mesenteric Window I started bycreating a supraumbilical incision and via open Mendieta technique entered into the abdomen. I then used a Vicryl suture on a UR 6 needle in a [id number] fashion to reapproximate but not close the fascia. I then inserted the 10 trocar followed by the camera to visualize the intraabdominal cavity. I then created a 5 mm incision suprapubically and inserted the 5 mm trocar under direct visualization. Roughly 1 handbreadth lateral to the umbilical incision I created another 5 mm incision and inserted another 5 mm trocar under direct visualization. I then inserted the nontraumatic instruments into the 5 mm ports and began the procedure. immediately along the right abdominal wall was bowel and omentum adhesed to it. i was able to create a plane and enter into the abscess cavity. immediately purulent drainage came from it. I then evaluated the pelvis and found that there was no fluid to be drained. After further evaluation of the CT, I followed from the pelvis along the right abdominal side wall and, on the backside of the abscess that was drained was an inflammed rind of tissue, likely reactive to the perforation. I then dissected into the abdominal wall and, in doing so, exposed the abscess cavity and was able to trace it into the abdominal wall. After laying it open completely, all purulent drainage was found to be adequately drained. I then irrigated with 3L of Mefoxin impregnated saline and placed two 19fr loretta drains (secured them with 2-0 prolenes,, one in the pelvis, the other through the abscess cavity. Closure I then concluded the procedure, turned off the insufflation, removed the trochars under direct visualization, and then closed the umbilical fascia using the Vicryl suture that was placed at the beginning. I then closed all incisions with interrupted 4-0 Monocryl. And then sealed with Dermabon. It should be stated that I did use 0.5% Marcaine as a local anesthetic. The patient tolerated the procedure well and did go back to PACU in stable condition.
--- NOTE | 2017-11-02 22:10 | General Surgery Progress Note ---
Date of Encounter: 11/02/17 Time of Encounter: 22:11 - Assessment and Plan (1) Perforated appendicitis Current Visit: Yes Status: Acute 76F with perforated appendix with pelvic abscess; not amendable to IR drainage; slow progress in regard to appetite and over all energy, despite being afebrile with normal wbc; s/p diagnostic lap and drainage of abscesses ice chips tonight; okay for clear liquids in AM if appropriate restart heparin at 0400 IV abx labs in AM Subjective Patient reports: no new complaints Objective Vital Signs - Last 8 Hours Temp Pulse Resp BP Pulse Ox 11/02/17 15:55 99.0 F 90 18 137/77 95 Intake and Output 11/02/17 11/02/17 11/02/17 07:59 15:59 23:59 Intake Total 600 / 600 860 / 860 100 / 100 Output Total 600 / 600 10 / 10 Balance 0 / 0 860 / 860 90 / 90 Intake: IV Fluids 600 / 600 800 / 800 100 / 100 Heparin 25,000 UNIT/500 ML D5W 500 / 500 25,000 unit In 500 ml @ 14 UNIT /KG/HR 21.784 mls/hr IVC . [id number] [facility] Rx#:[id number] Cipro Premix 400 MG/200 ML 400 400 / 400 200 / 200 mg In 200 ml @ 200 mls/hr IVPB Q12H [facility] Rx#:[id number] Flagyl Premix 500 MG/100 ML 500 200 / 200 100 / 100 100 / 100 mg In 100 ml @ 100 mls/hr IVPB Q8H [facility] Rx#:[id number] Oral 60 / 60 Output: Urine 600 / 600 Estimated Blood Loss 10 Other: Meal Breakfast Stool Size Small Stool Consistency loose Stool Color Green # Voids 1 Weight 72.575 kg Blood Glucose* 129 119 Patient Weight 11/02/17 23:59 Weight 72.575 kg - General physical appearance no distress - Respiratory normal expansion, normal respiratory effort - Cardiovascular Cardiovascular exam: Present: RRR - Abdomen Abdomen: Present: soft, distended, tender Abdominal Tenderness: RLQ - Neurologic CN 2-12 grossly intact - Musculoskeletal normal gait - Psychiatric oriented to time, oriented to person, oriented to place - Labs 11/02/17 03:10 11/02/17 03:10 Diabetes panel 11/02/17 Range/Units 03:10 Sodium 132 L (136-145) mEq/L Potassium 3.6 (3.5-5.1) mEq/L Chloride 101 (98-107) mEq/L Carbon Dioxide 27 (23-29) mEq/L BUN 9 (8-23) mg/dL Creatinine 0.47 L (0.60-1.20) mg/dL Glucose 131 H (70-105) mg/dL Calcium 8.6 (8.6-10.3) mg/dL Calcium panel 11/02/17 Range/Units 03:10 Calcium 8.6 (8.6-10.3) mg/dL Pituitary panel 11/02/17 Range/Units 03:10 Sodium 132 L (136-145) mEq/L Potassium 3.6 (3.5-5.1) mEq/L Chloride 101 (98-107) mEq/L Carbon Dioxide 27 (23-29) mEq/L BUN 9 (8-23) mg/dL Creatinine 0.47 L (0.60-1.20) mg/dL Glucose 131 H (70-105) mg/dL Calcium 8.6 (8.6-10.3) mg/dL Adrenal panel 11/02/17 Range/Units 03:10 Sodium 132 L (136-145) mEq/L Potassium 3.6 (3.5-5.1) mEq/L Chloride 101 (98-107) mEq/L Carbon Dioxide 27 (23-29) mEq/L BUN 9 (8-23) mg/dL Creatinine 0.47 L (0.60-1.20) mg/dL Glucose 131 H (70-105) mg/dL Calcium 8.6 (8.6-10.3) mg/dL - VTE Documentation of Mechanical Device: Intermittent pneumatic compression device Consult Discharge Plan - Plan Referrals: Julee Booth, [employer]W [Primary Care Provider] -
[2017-11-02] MEDS: OXYCODONE Oral CONC 10 MG/0.5 ML ORAL.SYG SL PRN (22:37)
--- NOTE | 2017-11-02 22:50 | Anesthesia Evaluation Post Op ---
Date of Encounter: 11/02/17 Time of Encounter: 22:49 - Vital Signs Vital Signs: Vital Signs/O2 Sat, Most Current Temp Pulse Resp BP Pulse Ox 97.4 F L 87 16 132/70 94 11/02/17 22:11 11/02/17 22:31 11/02/17 22:31 11/02/17 22:31 11/02/17 22:31 - Lungs Lungs: Clear Ascult./Percussion - Airway Airway: Non-obstructed - Cardiovascular Regular Rate - Mental Status Mental Status: Alert & Oriented, Answers Appropriately - Pain Pain Scale: 0 Pain Scale used: Numeric (1 - 10) - Nausea Vomiting Nausea Vomiting: Not Present - Hydration Hydration: Ice chips, Has not voided - Discharge PostOp Status: Transfer Patient to floor
[2017-11-02] MEDS ORDERED: Dextrose Gel 15 GM/37.5 ML TUBE PO PRN ×2 (23:01)
[2017-11-02] MEDS ORDERED: Saliva Stimulant 100ml BOTTLE PO PRN (23:01)
[2017-11-02] MEDS ORDERED: Artificial Tears SOLN 15 ML BOTTLE BOTH EYES PRN (23:01)
[2017-11-02] MEDS ORDERED: Naloxone 0.4 MG/ML INJ IVP PRN (23:01)
[2017-11-02] MEDS ORDERED: *HR* Dextrose 50 % in Water (Syg) 50 ML SYRINGE IVP PRN (23:01)
[2017-11-02] MEDS ORDERED: D5% in Water 1,000 ML IVC PRN (23:01)
[2017-11-02] MEDS ORDERED: Chloraseptic Spray 177 ML BOTTLE MM PRN (23:01)
[2017-11-02] MEDS ORDERED: D10% in Water 500 ML IVC PRN (23:01)
[2017-11-02] MEDS ORDERED: 0.9 % Sodium Chloride w KCl 20 MEQ/1,000 ML MLS IVC SCH (23:01)
[2017-11-02] MEDS ORDERED: Simethicone 80 MG TAB.CHEW PO PRN (23:01)
[2017-11-02] MEDS ORDERED: Ondansetron ODT 4 MG TAB.RAPDIS SL PRN (23:01)
[2017-11-03] MEDS: Insulin LISPRO 300 UNITS/3 ML VIAL SQ SCH ×4 (00:06→20:33)
[2017-11-03] MEDS: Heparin 25,000 UNIT/500 ML D5W 25,000 UNIT/500 ML BAG IVC SCH ×2 (00:10→21:04)
[2017-11-03] MEDS: Piperacillin/Tazobactam 3.375 GM in 0.9 % Sodium Chloride Mini Bag 100 ML IVPB SCH ×3 (00:12→16:22)
[2017-11-03] MEDS: OXYCODONE Oral CONC 10 MG/0.5 ML ORAL.SYG SL PRN ×3 (02:33→13:43)
[2017-11-03 02:38] LABS: Basophils % 0.1 %; Hematocrit 34.4 % (35.3-44.9); Hemoglobin 11.1 g/dL (11.5-15.4); Immature Granulocytes % 0.4 % (0-4); Lymphocytes # 0.5 K/mcL (0.6-4.6); Lymphocytes % 3.4 %; Mean Corpuscular HGB Conc 32.3 g/dL (31.6-35.5); Mean Corpuscular Hemoglobin 28.5 pg (28.0-33.3); Mean Corpuscular Volume 88.2 fL (83.0-100.0); Mean Platelet Volume 9.7 fL (9.4-12.4); Monocytes # 0.8 K/mcL (0.0-1.3); Monocytes % 5.4 %; Platelet Count 324 K/mcL (140-400); Red Cell Distribution Width 14.2 % (11.5-14.5); Segmented Neutrophils % 90.7 %
[2017-11-03 02:55] LABS: Magnesium 1.7 mg/dL (1.6-2.6); Phosphorous 3.3 mg/dL (2.7-4.5)
[2017-11-03 02:56] LABS: BUN/Creatinine Ratio 16 (6-26); Blood Urea Nitrogen 8 mg/dL (8-23); Calcium 8.3 mg/dL (8.6-10.3); Carbon Dioxide 25 mEq/L (23-29); Chloride 102 mEq/L (98-107); Glucose 156 mg/dL (70-105); Osmolality,Calculated 278 (280-300); Potassium 3.7 mEq/L (3.5-5.1); Sodium 133 mEq/L (136-145); eGFR For Non-African Americans > 60 (> 60)
[2017-11-03] MEDS: Metoprolol 100 MG TABLET PO SCH ×3 (03:17→21:13)
[2017-11-03] MEDS: *HR* Heparin 5,000 UNIT/ML VIAL IVP PRN ×2 (08:00→12:46)
--- NOTE | 2017-11-03 08:55 | Internal Med Progress Note ---
Hospitalist Progress Note - Encounter Date of Encounter: 11/03/17 Time of Encounter: 08:50 - Subjective Interval History: No acute events overnight - Exam Vitals: Temp Pulse Resp BP Pulse Ox 99.8 F H 109 17 125/69 95 11/03/17 07:43 11/03/17 07:43 11/03/17 07:43 11/03/17 07:43 11/03/17 07:43 Exam: Gen: Alert, awake, Oriented to time,place and person Chest: Diminished breath sounds B/L, No wheezing, No crackles, No rales Heart: S1S2+ Afib, No murmurs Abd: Soft, mild discomfort,, BS +, No organomegaly Ext: No edema, pulses are palpable, No calf tenderness Neuro : Benign findings Skin: No rash. - Assessment and Plan (1) Acute appendicitis Current Visit: Yes Status: Acute Assessment and Plan: Acute perforated appendicitis Serial abdominal examination as per primary team cont empirical abx Cipro and Flagyl Blood cx no growth started on sips of water today cont symptomatic and supportive care continue TPN also 11/03. Repeat CT/abdomen pelvis done on 11/01 showed progression in size of pelvic abscesses. Patient underwent diagnostic laparoscopy for abscess drainage on 11/02. Further management per surgery (2) Sepsis Current Visit: Yes Status: Acute Assessment and Plan: Met sepsis criteria with elevated white count, tachycardia and source of infection as perforated appendicitis WBC count trending down continue empirical antibiotic Cipro and flagyl 11/03 Continue cipro and flagyl (3) Atrial fibrillation Current Visit: Yes Status: Chronic Assessment and Plan: Chronic A fib Rate controlled with Cardizem gtt When pt tolerates PO intake ok to switch to PO Metoprolol ( home dose ) Cont IV Heparin gtt for anti coag for now 11/03. Weaned off cardizem drip and started on po metoprolol. s/p surgery for abscess drainage. restart heparin drip and plan to switch to pradaxa if clear from surgery (4) GERD (gastroesophageal reflux disease) Current Visit: Yes Status: Chronic Assessment and Plan: on Nexium PO (5) HTN (hypertension) Current Visit: Yes Status: Chronic Assessment and Plan: Stable BP with current regimen (6) Nausea & vomiting Current Visit: Yes Status: Acute Assessment and Plan: Improved continue symptomatic and supportive care (7) DVT prophylaxis Current Visit: Yes Status: Acute Assessment and Plan: on Heparin gtt - Time Spent with Patient Total time spent is greater than 50% in coordination of care (as documented) at patient's floor/unit and/or counseling patient: Internal Medicine: Result - Labs CBC & Chem 7: 11/03/17 02:20 11/03/17 02:20 Labs: Short CBC 11/03/17 Range/Units 02:20 WBC 15.4 H (4.3-11.1) K/mcL Hgb 11.1 L (11.5-15.4) g/dL Hct 34.4 L (35.3-44.9) % Plt Count 324 (140-400) K/mcL Neutrophils # 14.0 H (1.6-8.9) K/mcL BMP 11/03/17 02:20 Sodium 133 L Potassium 3.7 Chloride 102 Carbon Dioxide 25 BUN 8 Creatinine 0.49 L Glucose 156 H Calcium 8.3 L - ABG Interpretation ABG results: PT/INR, D-dimer PT 14.5 Seconds (9.4-12.1) H 10/25/17 14:37 - VTE Documentation of Mechanical Device: Intermittent pneumatic compression device Consult Discharge Plan - Plan Referrals: Julee Booth, [employer] [Primary Care Provider] - (1) Acute appendicitis Qualifiers: Acute appendicitis type: with localized peritonitis Qualified Code(s): K35.3 - Acute appendicitis with localized peritonitis (3) Atrial fibrillation Qualifiers: Atrial fibrillation type: paroxysmal Qualified Code(s): I48.0 - Paroxysmal atrial fibrillation (4) GERD (gastroesophageal reflux disease) Qualifiers: Esophagitis presence: without esophagitis Qualified Code(s): K21.9 - Gastro- esophageal reflux disease without esophagitis (5) HTN (hypertension) Qualifiers: Hypertension type: essential hypertension Qualified Code(s): I10 - Essential (primary) hypertension (6) Nausea & vomiting Qualifiers: Vomiting type: cyclical vomiting Vomiting Intractability: non-intractable Qualified Code(s): G43.A0 - Cyclical vomiting, not intractable
--- NOTE | 2017-11-03 13:31 | General Surgery Progress Note ---
<Jessica Castillo E - Last Filed: 11/03/17 13:29> Date of Encounter: 11/03/17 Time of Encounter: 13:29 - Assessment and Plan (1) Perforated appendicitis Current Visit: Yes Status: Acute Date of procedure: 11/02/17 Pre-op diagnosis: perforated appendix with pelvic abscess Post-op diagnosis: same Procedure: diagnostic laparoscopy lysis of adhesions drainage of intraabdominal abscess Implants: 2 19fr loretta drains Complications: none Anesthesia: GETA Local Anesthetics: 0.5% Sensorcaine HCL SubQ (cc) Surgeon: Jonathan Butcher Postop day #1 diagnostic last scoping, lysis of adhesions, drainage of intra- abdominal abscess. ASHA drain in pubic area draining dark black/green bilious looking drainage totaling 90 mL so far today. Right abdominal ASHA drain draining sanguinous drainage today totaling 70 mL so far today. Serial abdominal exams Add fentanyl patch 25 mg to the chest every 72 hours At 15 mg Toradol every 6 for 2 days Restart TPN nutrition has been consult at. Nothing by mouth Continue IV antibiotics Check labs in the morning (2) Ileus Current Visit: Yes Status: Acute See above (3) Atrial fibrillation Current Visit: Yes Status: Chronic Patient on cardizem gtt for rate control Continue heparain gtt Hospitalist consulted for management Qualifiers: Atrial fibrillation type: paroxysmal Qualified Code(s): I48.0 - Paroxysmal atrial fibrillation (4) GERD (gastroesophageal reflux disease) Current Visit: Yes Status: Chronic No medications by mouth (Protonix 40 mg every 12 hours Qualifiers: Esophagitis presence: without esophagitis Qualified Code(s): K21.9 - Gastro -esophageal reflux disease without esophagitis (5) Elevated blood sugar Current Visit: No Status: Acute SSI low scale coverage for mgmt will continue to monitor and adjust as necessary Subjective Patient reports: still having pain, no flatus, no bowel movement, other ( Patient states that she is having some pain from having surgery yesterday, but believes that this is slightly better than yesterday. Denies bowel movement or flatus.) Objective Vital Signs - Last 8 Hours Temp Pulse Resp BP Pulse Ox 11/03/17 11:33 99.4 F 82 19 104/65 95 11/03/17 07:43 99.8 F H 109 17 125/69 95 Intake and Output 08/11/03/17 11/03/17 23:59 07:59 15:59 Intake Total 100 / 100 200 / 200 275 / 275 Output Total 245 / 245 460 / 460 50 / 50 Balance -145 / -145 -260 / -260 225 / 225 Intake: IV Fluids 100 / 100 200 / 200 275 / 275 Heparin 25,000 UNIT/500 ML D5W 275 / 275 25,000 unit In 500 ml @ 14 UNIT /KG/HR 21.784 mls/hr IVC . [id number] [facility] Rx#:[id number] Ofirmev 1,000 mg/100 ml 1,000 100 / 100 mg In 100 ml @ 400 mls/hr IVPB ONCE ONE Rx#:[id number] Flagyl Premix 500 MG/100 ML 500 100 / 100 mg In 100 ml @ 100 mls/hr IVPB Q8H [facility] Rx#:[id number] Zosyn 3.375 GM In 0.9 % Sodium 100 / 100 Chloride (Mini-Bag +) 100 ML @ 25 mls/hr IVPB Q8HR [facility] Rx#: [id number] Output: Urine 350 / 350 Estimated Blood Loss Wound Drainage 235 / 235 110 / 110 50 / 50 Left Pubis 70 / 70 20 / 20 Right Lower Abdomen 40 / 40 30 / 30 Other: # Voids 1 Weight 73.7 kg Blood Glucose* 127 118 Patient Weight 11/03/17 23:59 Weight 73.7 kg - General physical appearance well developed, well nourished, moderate distress - Respiratory normal expansion, normal respiratory effort, clear to auscultation - Cardiovascular Cardiovascular exam: Present: RRR, no murmurs/rubs/gallops - Abdomen Abdomen: Present: bowel sounds present (Small amount), tender Abdominal Tenderness: diffusely Additional Comments: ASHA drain #1 at left pubis draining dark blackish cream ileus looking fluid total so far today of 90 mL, ASHA drain #2 right lower abdomen serosanguineous 70 mL so far today. - Musculoskeletal normal posture - Psychiatric oriented to time, oriented to person, oriented to place - Labs 11/03/17 02:20 11/03/17 02:20 Diabetes panel 11/03/17 Range/Units 02:20 Sodium 133 L (136-145) mEq/L Potassium 3.7 (3.5-5.1) mEq/L Chloride 102 (98-107) mEq/L Carbon Dioxide 25 (23-29) mEq/L BUN 8 (8-23) mg/dL Creatinine 0.49 L (0.60-1.20) mg/dL Glucose 156 H (70-105) mg/dL Calcium 8.3 L (8.6-10.3) mg/dL Calcium panel 11/03/17 11/03/17 Range/Units 02:20 02:20 Calcium 8.3 L (8.6-10.3) mg/dL Phosphorus 3.3 (2.7-4.5) mg/dL Pituitary panel 11/03/17 Range/Units 02:20 Sodium 133 L (136-145) mEq/L Potassium 3.7 (3.5-5.1) mEq/L Chloride 102 (98-107) mEq/L Carbon Dioxide 25 (23-29) mEq/L BUN 8 (8-23) mg/dL Creatinine 0.49 L (0.60-1.20) mg/dL Glucose 156 H (70-105) mg/dL Calcium 8.3 L (8.6-10.3) mg/dL Adrenal panel 11/03/17 Range/Units 02:20 Sodium 133 L (136-145) mEq/L Potassium 3.7 (3.5-5.1) mEq/L Chloride 102 (98-107) mEq/L Carbon Dioxide 25 (23-29) mEq/L BUN 8 (8-23) mg/dL Creatinine 0.49 L (0.60-1.20) mg/dL Glucose 156 H (70-105) mg/dL Calcium 8.3 L (8.6-10.3) mg/dL - VTE Documentation of Mechanical Device: Intermittent pneumatic compression device Consult Discharge Plan - Plan Referrals: Julee Booth, N[employer] SPECIALIST [Primary Care Provider] - <Junior Chan - Last Filed: 11/03/17 15:24> Date of Encounter: 11/03/17 Objective Vital Signs - Last 8 Hours Temp Pulse Resp BP Pulse Ox 11/03/17 11:33 99.4 F 82 19 104/65 95 11/03/17 07:43 99.8 F H 109 17 125/69 95 Intake and Output 11/02/17 11/03/17 11/03/17 23:59 07:59 15:59 Intake Total 100 / 100 200 / 200 275 / 275 Output Total 245 / 245 460 / 460 50 / 50 Balance -145 / -145 -260 / -260 225 / 225 Intake: IV Fluids 100 / 100 200 / 200 275 / 275 Heparin 25,000 UNIT/500 ML D5W 275 / 275 25,000 unit In 500 ml @ 14 UNIT /KG/HR 21.784 mls/hr IVC . [id number] [facility] Rx#:[id number] Ofirmev 1,000 mg/100 ml 1,000 100 / 100 mg In 100 ml @ 400 mls/hr IVPB ONCE ONE Rx#:[id number] Flagyl Premix 500 MG/100 ML 500 100 / 100 mg In 100 ml @ 100 mls/hr IVPB Q8H [facility] Rx#:[id number] Zosyn 3.375 GM In 0.9 % Sodium 100 / 100 Chloride (Mini-Bag +) 100 ML @ 25 mls/hr IVPB Q8HR [facility] Rx#: [id number] Output: Urine 350 / 350 Estimated Blood Loss Wound Drainage 235 / 235 110 / 110 50 / 50 Left Pubis 70 / 70 20 / 20 Right Lower Abdomen 40 / 40 30 / 30 Other: # Voids 1 Weight 73.7 kg Blood Glucose* 127 118 Patient Weight 11/03/17 23:59 Weight 73.7 kg - Labs 11/03/17 02:20 11/03/17 02:20 Diabetes panel 11/03/17 Range/Units 02:20 Sodium 133 L (136-145) mEq/L Potassium 3.7 (3.5-5.1) mEq/L Chloride 102 (98-107) mEq/L Carbon Dioxide 25 (23-29) mEq/L BUN 8 (8-23) mg/dL Creatinine 0.49 L (0.60-1.20) mg/dL Glucose 156 H (70-105) mg/dL Calcium 8.3 L (8.6-10.3) mg/dL Calcium panel 11/03/17 11/03/17 Range/Units 02:20 02:20 Calcium 8.3 L (8.6-10.3) mg/dL Phosphorus 3.3 (2.7-4.5) mg/dL Pituitary panel 11/03/17 Range/Units 02:20 Sodium 133 L (136-145) mEq/L Potassium 3.7 (3.5-5.1) mEq/L Chloride 102 (98-107) mEq/L Carbon Dioxide 25 (23-29) mEq/L BUN 8 (8-23) mg/dL Creatinine 0.49 L (0.60-1.20) mg/dL Glucose 156 H (70-105) mg/dL Calcium 8.3 L (8.6-10.3) mg/dL Adrenal panel 11/03/17 Range/Units 02:20 Sodium 133 L (136-145) mEq/L Potassium 3.7 (3.5-5.1) mEq/L Chloride 102 (98-107) mEq/L Carbon Dioxide 25 (23-29) mEq/L BUN 8 (8-23) mg/dL Creatinine 0.49 L (0.60-1.20) mg/dL Glucose 156 H (70-105) mg/dL Calcium 8.3 L (8.6-10.3) mg/dL - Attending Attestation I examined this patient and my medical decision-making was reviewed with the Resident Physician. I agree with the documented findings, disposition and treatment plan as described except to the extent set forth below. I reviewed the above assessment and evaluation and agree with the above- mentioned plan. Patient has some mild continued abdominal pain. No nausea. No flatus. Positive bowel sounds. There is some greenish drainage from the right lower quadrant drain which may represent a mild injury to the bowel (a somewhat unexpected event given the degree of the inflammation from her ruptured appendicitis and phlegmon) that will observe closely. The amount so far is less than 100 mL we will continue to observe over the next 24 hours. Continue with IV antibiotics and will follow CBC and BMP.
[2017-11-03] MEDS: *HR* FentaNYL PATCH 25 MCG PATCH TD SCH (14:43)
[2017-11-03] MEDS ORDERED: Clinimix E 5%-15% SOLUTION 2,000 ML with MVI, adult with vitamin K 10 ML IVC SCH (17:00)
[2017-11-03] MEDS: 0.9 % Sodium Chloride 1,000 ML IVC SCH (17:44)
[2017-11-03] MEDS: Pantoprazole 40 MG VIAL IVP SCH (17:44)
[2017-11-03] MEDS: Ketorolac 15 MG/ML VIAL IVP SCH (18:32)
[2017-11-03] MEDS ORDERED: NEXIUM 40 MG PO SCH (21:00)
[2017-11-04] MEDS: Insulin LISPRO 300 UNITS/3 ML VIAL SQ SCH ×5 (00:17→23:40)
[2017-11-04] MEDS: Piperacillin/Tazobactam 3.375 GM in 0.9 % Sodium Chloride Mini Bag 100 ML IVPB SCH ×3 (00:29→18:05)
[2017-11-04] MEDS: Ketorolac 15 MG/ML VIAL IVP SCH ×5 (00:29→23:32)
[2017-11-04] MEDS: *HR* Heparin 5,000 UNIT/ML VIAL IVP PRN ×2 (01:36→18:46)
[2017-11-04 05:38] LABS: Basophils % 0.3 %; Eosinophils # 0.1 K/mcL (0.0-0.6); Eosinophils % 0.8 %; Hematocrit 32.4 % (35.3-44.9); Hemoglobin 10.6 g/dL (11.5-15.4); Immature Granulocytes % 0.6 % (0-4); Immature Platelets 3.1 % (1.1-6.1); Lymphocytes # 1.2 K/mcL (0.6-4.6); Lymphocytes % 13.5 %; Mean Corpuscular HGB Conc 32.7 g/dL (31.6-35.5); Mean Corpuscular Hemoglobin 29.4 pg (28.0-33.3); Mean Corpuscular Volume 89.8 fL (83.0-100.0); Mean Platelet Volume 10.2 fL (9.4-12.4); Monocytes # 0.9 K/mcL (0.0-1.3); Monocytes % 9.6 %; Neutrophils # 6.6 K/mcL (1.6-8.9); Platelet Count 310 K/mcL (140-400); Red Blood Count 3.61 M/mcL (3.82-4.97); Segmented Neutrophils % 75.2 %
[2017-11-04 06:01] LABS: BUN/Creatinine Ratio 22 (6-26); Blood Urea Nitrogen 11 mg/dL (8-23); Carbon Dioxide 29 mEq/L (23-29); Chloride 102 mEq/L (98-107); Glucose 154 mg/dL (70-105); Osmolality,Calculated 278 (280-300); Potassium 3.5 mEq/L (3.5-5.1); Sodium 133 mEq/L (136-145); eGFR For Non-African Americans > 60 (> 60)
[2017-11-04 06:01] LABS: Phosphorous 2.3 mg/dL (2.7-4.5)
[2017-11-04] MEDS: Pantoprazole 40 MG VIAL IVP SCH ×2 (06:06→18:05)
--- NOTE | 2017-11-04 09:29 | Internal Med Progress Note ---
Hospitalist Progress Note - Encounter Date of Encounter: 11/04/17 Time of Encounter: 09:20 - Subjective Interval History: No acute events overnight - Exam Vitals: Temp Pulse Resp BP Pulse Ox 98.5 F 85 19 103/62 93 11/04/17 07:15 11/04/17 07:15 11/04/17 07:15 11/04/17 07:15 11/04/17 07:15 Exam: Gen: Alert, awake, Oriented to time,place and person Chest: Diminished breath sounds B/L, No wheezing, No crackles, No rales Heart: S1S2+ Afib, No murmurs Abd: Soft, mild discomfort,, BS +, No organomegaly Ext: No edema, pulses are palpable, No calf tenderness Neuro : Benign findings Skin: No rash. - Assessment and Plan (1) Acute appendicitis Current Visit: Yes Status: Acute Assessment and Plan: Acute perforated appendicitis Serial abdominal examination as per primary team cont empirical abx Cipro and Flagyl Blood cx no growth started on sips of water today cont symptomatic and supportive care continue TPN also 11/04. Repeat CT/abdomen pelvis done on 11/01 showed progression in size of pelvic abscesses. Patient underwent diagnostic laparoscopy for abscess drainage on 11/02. Further management per surgery (2) Sepsis Current Visit: Yes Status: Acute Assessment and Plan: Met sepsis criteria with elevated white count, tachycardia and source of infection as perforated appendicitis WBC count trending down continue empirical antibiotic Cipro and flagyl 11/04 Continue cipro and flagyl (3) Atrial fibrillation Current Visit: Yes Status: Chronic Assessment and Plan: Chronic A fib Rate controlled with Cardizem gtt When pt tolerates PO intake ok to switch to PO Metoprolol ( home dose ) Cont IV Heparin gtt for anti coag for now 11/04. Weaned off cardizem drip and started on po metoprolol. s/p surgery for abscess drainage. restart heparin drip and plan to switch to pradaxa if clear from surgery (4) GERD (gastroesophageal reflux disease) Current Visit: Yes Status: Chronic Assessment and Plan: on Nexium PO (5) HTN (hypertension) Current Visit: Yes Status: Chronic Assessment and Plan: Stable BP with current regimen (6) Nausea & vomiting Current Visit: Yes Status: Acute Assessment and Plan: Improved continue symptomatic and supportive care (7) DVT prophylaxis Current Visit: Yes Status: Acute Assessment and Plan: on Heparin gtt - Time Spent with Patient Total time spent is greater than 50% in coordination of care (as documented) at patient's floor/unit and/or counseling patient: Internal Medicine: Result - Labs CBC & Chem 7: 11/04/17 04:00 11/04/17 04:52 Labs: Short CBC 11/04/17 Range/Units 04:00 WBC 8.8 (4.3-11.1) K/mcL Hgb 10.6 L (11.5-15.4) g/dL Hct 32.4 L (35.3-44.9) % Plt Count 310 (140-400) K/mcL Neutrophils # 6.6 (1.6-8.9) K/mcL BMP 11/04/17 04:52 Sodium 133 L Potassium 3.5 Chloride 102 Carbon Dioxide 29 BUN 11 Creatinine 0.51 L Glucose 154 H Calcium 8.0 L - ABG Interpretation ABG results: PT/INR, D-dimer PT 14.5 Seconds (9.4-12.1) H 10/25/17 14:37 - VTE Documentation of Mechanical Device: Intermittent pneumatic compression device Consult Discharge Plan - Plan Referrals: Julee Booth, CARDIAC REHAB NURSE [Primary Care Provider] - (1) Acute appendicitis Qualifiers: Acute appendicitis type: with localized peritonitis Qualified Code(s): K35.3 - Acute appendicitis with localized peritonitis (3) Atrial fibrillation Qualifiers: Atrial fibrillation type: paroxysmal Qualified Code(s): I48.0 - Paroxysmal atrial fibrillation (4) GERD (gastroesophageal reflux disease) Qualifiers: Esophagitis presence: without esophagitis Qualified Code(s): K21.9 - Gastro- esophageal reflux disease without esophagitis (5) HTN (hypertension) Qualifiers: Hypertension type: essential hypertension Qualified Code(s): I10 - Essential (primary) hypertension (6) Nausea & vomiting Qualifiers: Vomiting type: cyclical vomiting Vomiting Intractability: non-intractable Qualified Code(s): G43.A0 - Cyclical vomiting, not intractable
--- NOTE | 2017-11-04 10:05 | General Surgery Progress Note ---
<Jessica Castillo E - Last Filed: 11/04/17 12:56> Date of Encounter: 11/04/17 Time of Encounter: 10:03 - Assessment and Plan (1) Perforated appendicitis Current Visit: Yes Status: Acute Date of procedure: 11/02/17 Pre-op diagnosis: perforated appendix with pelvic abscess Post-op diagnosis: same Procedure: diagnostic laparoscopy lysis of adhesions drainage of intraabdominal abscess Implants: 2 19fr loretta drains Complications: none Anesthesia: GETA Local Anesthetics: 0.5% Sensorcaine HCL SubQ (cc) Surgeon: Jonathan Butcher Postop day #2 diagnostic last scoping, lysis of adhesions, drainage of intra- abdominal abscess. 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 Right abdominal ASHA drain draining sanguinous drainage today totaling 50 mL so far today. Serial abdominal exams Patient's pain is well controlled on current medications Continue TPN Nothing by mouth Continue IV antibiotics Supportive care (2) Ileus Current Visit: Yes Status: Acute See above (3) Atrial fibrillation Current Visit: Yes Status: Chronic Patient on cardizem gtt for rate control Continue heparain gtt Hospitalist consulted for management Qualifiers: Atrial fibrillation type: paroxysmal Qualified Code(s): I48.0 - Paroxysmal atrial fibrillation (4) GERD (gastroesophageal reflux disease) Current Visit: Yes Status: Chronic No medications by mouth (Protonix 40 mg every 12 hours Qualifiers: Esophagitis presence: without esophagitis Qualified Code(s): K21.9 - Gastro -esophageal reflux disease without esophagitis (5) Elevated blood sugar Current Visit: No Status: Acute SSI low scale coverage for mgmt will continue to monitor and adjust as necessary Subjective Patient reports: still having pain, pain is less, no flatus, no bowel movement, other (Patient states that she is feeling slightly better today, was able to rest last night. She has been able to get up to use the restroom, but she has not had a bowel movement or gas yet since surgery.) Objective Vital Signs - Last 8 Hours Temp Pulse Resp BP Pulse Ox 11/04/17 07:15 98.5 F 85 19 103/62 93 11/04/17 04:03 98.7 F 93 18 118/67 92 Intake and Output 11/03/17 11/04/17 11/04/17 23:59 07:59 15:59 Intake Total 325 / 325 / 202 Output Total 435 / 435 80 / 80 Balance -110 / -110 122 / 122 Intake: IV Fluids 325 / 325 / 202 Heparin 25,000 UNIT/500 ML D5W 225 / 225 102 / 102 25,000 unit In 500 ml @ 14 UNIT /KG/HR 21.784 mls/hr IVC . [id number] [facility] Rx#:[id number] Zosyn 3.375 GM In 0.9 % Sodium 100 / 100 100 / 100 Chloride (Mini-Bag +) 100 ML @ 25 mls/hr IVPB Q8HR [facility] Rx#: [id number] Output: Urine 400 / 400 Wound Drainage 35 / 35 80 / 80 Left Pubis 10 30 / 30 Right Lower Abdomen 25 / 25 50 / 50 Other: Weight 76 kg Blood Glucose* 171 149 Patient Weight 11/04/17 23:59 Weight 76 kg - General physical appearance well developed, well nourished, moderate distress - Respiratory normal expansion, normal respiratory effort, clear to auscultation - Cardiovascular Cardiovascular exam: Present: RRR, no murmurs/rubs/gallops - Abdomen Abdomen: Present: bowel sounds present (Short, quiet, bowel sounds heard in the lower left quadrant), distended, tender Abdominal Tenderness: diffusely Additional Comments: ASHA drain from pelvis still green brown but 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 - Incision Incision: Present: clean and dry, intact - Musculoskeletal normal posture - Psychiatric oriented to time, oriented to person, oriented to place - Labs 11/04/17 04:00 11/04/17 04:52 Diabetes panel 11/04/17 11/04/17 Range/Units 04:00 04:52 Sodium 133 L (136-145) mEq/L Potassium 3.5 (3.5-5.1) mEq/L Chloride 102 (98-107) mEq/L Carbon Dioxide 29 (23-29) mEq/L BUN 11 (8-23) mg/dL Creatinine 0.51 L (0.60-1.20) mg/dL Glucose 154 H (70-105) mg/dL Calcium 8.0 L (8.6-10.3) mg/dL Triglycerides 87 (< 150) mg/dL Calcium panel 11/04/17 11/04/17 Range/Units 04:00 04:52 Calcium 8.0 L (8.6-10.3) mg/dL Phosphorus 2.3 L (2.7-4.5) mg/dL Pituitary panel 11/04/17 Range/Units 04:52 Sodium 133 L (136-145) mEq/L Potassium 3.5 (3.5-5.1) mEq/L Chloride 102 (98-107) mEq/L Carbon Dioxide 29 (23-29) mEq/L BUN 11 (8-23) mg/dL Creatinine 0.51 L (0.60-1.20) mg/dL Glucose 154 H (70-105) mg/dL Calcium 8.0 L (8.6-10.3) mg/dL Adrenal panel 11/04/17 Range/Units 04:52 Sodium 133 L (136-145) mEq/L Potassium 3.5 (3.5-5.1) mEq/L Chloride 102 (98-107) mEq/L Carbon Dioxide 29 (23-29) mEq/L BUN 11 (8-23) mg/dL Creatinine 0.51 L (0.60-1.20) mg/dL Glucose 154 H (70-105) mg/dL Calcium 8.0 L (8.6-10.3) mg/dL - VTE Documentation of Mechanical Device: Intermittent pneumatic compression device Consult Discharge Plan - Plan Referrals: Julee Booth, [employer]EDER [Primary Care Provider] - <Junior Chan - Last Filed: 11/04/17 15:33> Date of Encounter: 11/04/17 Objective Vital Signs - Last 8 Hours Temp Pulse Resp BP Pulse Ox 11/04/17 11:15 99.4 F 18 18 121/68 92 Intake and Output 11/03/17 11/04/17 11/04/17 23:59 07:59 15:59 Intake Total 325 / 325 / 1098 / 1098 Output Total 435 / 435 80 / 80 400 / 400 Balance -110 / -110 122 / 122 698 / 698 Intake: IV Fluids 325 / 325 / 1098 / 1098 0.9 % Sodium Chloride 1,000 ML 1000 / 1000 @ 54 mls/hr IVC .[id number] [facility] Rx #:[id number] Heparin 25,000 UNIT/500 ML D5W 225 / 225 102 / 102 98 / 98 25,000 unit In 500 ml @ 14 UNIT /KG/HR 21.784 mls/hr IVC . [id number] [facility] Rx#:[id number] Zosyn 3.375 GM In 0.9 % Sodium 100 / 100 100 / 100 Chloride (Mini-Bag +) 100 ML @ 25 mls/hr IVPB Q8HR [facility] Rx#: [id number] Output: Urine 400 / 400 400 / 400 Wound Drainage 80 / 80 Left Pubis 30 Right Lower Abdomen 50 / 50 Other: Weight 76 kg Blood Glucose* 171 149 144 Patient Weight 11/04/17 23:59 Weight 76 kg - Labs 11/04/17 04:00 11/04/17 04:52 Diabetes panel 11/04/17 11/04/17 Range/Units 04:00 04:52 Sodium 133 L (136-145) mEq/L Potassium 3.5 (3.5-5.1) mEq/L Chloride 102 (98-107) mEq/L Carbon Dioxide 29 (23-29) mEq/L BUN 11 (8-23) mg/dL Creatinine 0.51 L (0.60-1.20) mg/dL Glucose 154 H (70-105) mg/dL Calcium 8.0 L (8.6-10.3) mg/dL Triglycerides 87 (< 150) mg/dL Calcium panel 11/04/17 11/04/17 Range/Units 04:00 04:52 Calcium 8.0 L (8.6-10.3) mg/dL Phosphorus 2.3 L (2.7-4.5) mg/dL Pituitary panel 11/04/17 Range/Units 04:52 Sodium 133 L (136-145) mEq/L Potassium 3.5 (3.5-5.1) mEq/L Chloride 102 (98-107) mEq/L Carbon Dioxide 29 (23-29) mEq/L BUN 11 (8-23) mg/dL Creatinine 0.51 L (0.60-1.20) mg/dL Glucose 154 H (70-105) mg/dL Calcium 8.0 L (8.6-10.3) mg/dL Adrenal panel 11/04/17 Range/Units 04:52 Sodium 133 L (136-145) mEq/L Potassium 3.5 (3.5-5.1) mEq/L Chloride 102 (98-107) mEq/L Carbon Dioxide 29 (23-29) mEq/L BUN 11 (8-23) mg/dL Creatinine 0.51 L (0.60-1.20) mg/dL Glucose 154 H (70-105) mg/dL Calcium 8.0 L (8.6-10.3) mg/dL - Attending Attestation I examined this patient and my medical decision-making was reviewed with the Resident Physician. I agree with the documented findings, disposition and treatment plan as described except to the extent set forth below. Review the above assessment and evaluation and agree with the above plan. Noted low output from the right lower quadrant drain which is still bilious in nature. Approximately less than 150 mL in the past 24 hours. Pain is better controlled the patient denies any nausea. Bowel sounds are noted on examination and the incisions are clean dry and intact. On TPN. Continue to monitor BMP. Continue to follow drain output and serial abdominal exams.
[2017-11-04] MEDS: Metoprolol 100 MG TABLET PO SCH ×2 (10:59→21:07)
[2017-11-04] MEDS: 0.9 % Sodium Chloride 1,000 ML IVC SCH (12:04)
[2017-11-04] MEDS: Heparin 25,000 UNIT/500 ML D5W 25,000 UNIT/500 ML BAG IVC SCH (18:08)
[2017-11-04] MEDS: Clinimix E 5%-15% SOLUTION 2,000 ML with MVI, adult with vitamin K 10 ML IVC SCH (18:15)
[2017-11-05] MEDS: Piperacillin/Tazobactam 3.375 GM in 0.9 % Sodium Chloride Mini Bag 100 ML IVPB SCH ×3 (00:53→15:47)
[2017-11-05 01:30] LABS: BUN/Creatinine Ratio 25 (6-26); Blood Urea Nitrogen 12 mg/dL (8-23); Calcium 8.3 mg/dL (8.6-10.3); Carbon Dioxide 26 mEq/L (23-29); Chloride 101 mEq/L (98-107); Glucose 132 mg/dL (70-105); Osmolality,Calculated 278 (280-300); Potassium 3.4 mEq/L (3.5-5.1); Sodium 133 mEq/L (136-145); eGFR For Non-African Americans > 60 (> 60)
[2017-11-05] MEDS: *HR* Heparin 5,000 UNIT/ML VIAL IVP PRN ×2 (01:38→17:32)
[2017-11-05] MEDS: Pantoprazole 40 MG VIAL IVP SCH (05:13)
[2017-11-05] MEDS: Ketorolac 15 MG/ML VIAL IVP SCH ×3 (05:13→17:01)
[2017-11-05] MEDS: Insulin LISPRO 300 UNITS/3 ML VIAL SQ SCH ×3 (06:04→17:52)
[2017-11-05] MEDS: Heparin 25,000 UNIT/500 ML D5W 25,000 UNIT/500 ML BAG IVC SCH ×2 (06:42→22:07)
[2017-11-05] MEDS: 0.9 % Sodium Chloride 1,000 ML IVC SCH (06:43)
[2017-11-05] MEDS: Metoprolol 100 MG TABLET PO SCH (08:40)
[2017-11-05] MEDS: OXYCODONE Oral CONC 10 MG/0.5 ML ORAL.SYG SL PRN (08:41)
--- NOTE | 2017-11-05 09:49 | Internal Med Progress Note ---
Hospitalist Progress Note - Encounter Date of Encounter: 11/05/17 Time of Encounter: 09:40 - Subjective Interval History: No acute events overnight - Exam Vitals: Temp Pulse Resp BP Pulse Ox 99.0 F 104 18 112/69 91 11/05/17 08:03 11/05/17 08:03 11/05/17 08:03 11/05/17 08:03 11/05/17 08:03 Exam: Gen: Alert, awake, Oriented to time,place and person Chest: Diminished breath sounds B/L, No wheezing, No crackles, No rales Heart: S1S2+ Afib, No murmurs Abd: Soft, mild discomfort,, BS +, No organomegaly Ext: No edema, pulses are palpable, No calf tenderness Neuro : Benign findings Skin: No rash. - Assessment and Plan (1) Acute appendicitis Current Visit: Yes Status: Acute Assessment and Plan: Acute perforated appendicitis Serial abdominal examination per sugery cont empirical abx Cipro and Flagyl Blood cx no growth cont symptomatic and supportive care continue TPN also 11/05. Repeat CT/abdomen pelvis done on 11/01 showed progression in size of pelvic abscesses. Patient underwent diagnostic laparoscopy for abscess drainage on 11/02. Further management per surgery. Currently NPO (2) Sepsis Current Visit: Yes Status: Acute Assessment and Plan: Met sepsis criteria with elevated white count, tachycardia and source of infection as perforated appendicitis WBC count trending down continue empirical antibiotic Cipro and flagyl 11/05 Continue cipro and flagyl (3) Atrial fibrillation Current Visit: Yes Status: Chronic Assessment and Plan: Chronic A fib Rate controlled with Cardizem gtt When pt tolerates PO intake ok to switch to PO Metoprolol ( home dose ) Cont IV Heparin gtt for anti coag for now 11/05. Weaned off cardizem drip and had been started on po metoprolol. However is NPO s/p surgery for abscess drainage and will switch metoprolol to scheduled IV. restart heparin drip and plan to switch to pradaxa once clear from surgery (4) GERD (gastroesophageal reflux disease) Current Visit: Yes Status: Chronic Assessment and Plan: on Nexium PO (5) HTN (hypertension) Current Visit: Yes Status: Chronic Assessment and Plan: Stable BP with current regimen (6) Nausea & vomiting Current Visit: Yes Status: Acute Assessment and Plan: Improved continue symptomatic and supportive care (7) DVT prophylaxis Current Visit: Yes Status: Acute Assessment and Plan: on Heparin gtt - Time Spent with Patient Total time spent is greater than 50% in coordination of care (as documented) at patient's floor/unit and/or counseling patient: Internal Medicine: Result - Labs CBC & Chem 7: 11/04/17 04:00 11/05/17 00:47 Labs: BMP 11/05/17 00:47 Sodium 133 L Potassium 3.4 L Chloride 101 Carbon Dioxide 26 BUN 12 Creatinine 0.48 L Glucose 132 H Calcium 8.3 L - ABG Interpretation ABG results: PT/INR, D-dimer PT 14.5 Seconds (9.4-12.1) H 10/25/17 14:37 - VTE Documentation of Mechanical Device: Intermittent pneumatic compression device Consult Discharge Plan - Plan Referrals: Julee Booth, CAR PARKER [Primary Care Provider] - (1) Acute appendicitis Qualifiers: Acute appendicitis type: with localized peritonitis Qualified Code(s): K35.3 - Acute appendicitis with localized peritonitis (3) Atrial fibrillation Qualifiers: Atrial fibrillation type: paroxysmal Qualified Code(s): I48.0 - Paroxysmal atrial fibrillation (4) GERD (gastroesophageal reflux disease) Qualifiers: Esophagitis presence: without esophagitis Qualified Code(s): K21.9 - Gastro- esophageal reflux disease without esophagitis (5) HTN (hypertension) Qualifiers: Hypertension type: essential hypertension Qualified Code(s): I10 - Essential (primary) hypertension (6) Nausea & vomiting Qualifiers: Vomiting type: cyclical vomiting Vomiting Intractability: non-intractable Qualified Code(s): G43.A0 - Cyclical vomiting, not intractable
[2017-11-05 10:38] LABS: Phosphorous 2.7 mg/dL (2.7-4.5)
--- NOTE | 2017-11-05 10:47 | General Surgery Progress Note ---
<Grecia Richards - Last Filed: 11/05/17 13:44> Date of Encounter: 11/05/17 Time of Encounter: 10:15 - Assessment and Plan (1) Perforated appendicitis Current Visit: Yes Status: Acute POD #3 Dx laparoscopy, BOSSMAN, intra-abdominal washout and placement of drains X [address] Butcher NPO while awaiting return of bowel function Serial abdominal exams Supportive care and pain control- scheduled ofirmev, toradol and fentanyl patch ; prn fentanyl added due to side effects of oxycodone. Continue TPN therapy for nutritional support PICC line placement IV antibiotics- Zosyn Ambulate hallways TID with assistance IS every 1 hour while awake Repeat am labs- CBC, BMP Consider repeat CT scan of abdomen/pelvis in the am with PO contrast (2) Ileus Current Visit: Yes Status: Acute NPO while awaiting return of bowel function Serial abdominal exams TPN therapy for nutritional support PICC line placement (3) Atrial fibrillation Current Visit: Yes Status: Chronic Continue heparin gtt Consult to hospitalist for management Qualifiers: Atrial fibrillation type: paroxysmal Qualified Code(s): I48.0 - Paroxysmal atrial fibrillation (4) GERD (gastroesophageal reflux disease) Current Visit: Yes Status: Chronic PPI therapy daily Qualifiers: Esophagitis presence: without esophagitis Qualified Code(s): K21.9 - Gastro -esophageal reflux disease without esophagitis (5) Elevated blood sugar Current Visit: No Status: Acute Will continue to monitor and adjust as necessary (6) Moderate protein-calorie malnutrition Current Visit: Yes Status: Acute Continue TPN for nutritional support Management per arnp (7) Hypokalemia Current Visit: Yes Status: Acute Replace potassium Repeat am labs (8) DVT prophylaxis Current Visit: Yes Status: Acute Patient on heparin gtt for atrial fibrillation Ambulate hallways TID with assistance EPCDs to bilateral lower extremities Subjective Patient reports: still having pain (unchanged), voiding w/o difficulty, no flatus, no bowel movement, fever (Tmax 100.2; Tcurrent 99), other (Patient sitting in the chair. Admits to belching but denies any current nausea/ vomiting. Admits to bloating and no appetite. Patient states that oxycodone SL is giving her terrible heartburn.) Objective Vital Signs - Last 8 Hours Temp Pulse Resp BP Pulse Ox 11/05/17 08:03 99.0 F 104 18 112/69 91 11/05/17 04:43 98.3 F 98 18 134/70 91 Intake and Output 11/04/17 11/05/17 11/05/17 23:59 07:59 15:59 Intake Total 300 / 300 1600 / 1600 200 / 200 Output Total / 25 390 / 390 250 / 250 Balance 275 / 275 1210 / 1210 -50 / -50 Intake: IV Fluids 300 / 300 1600 / 1600 200 / 200 0.9 % Sodium Chloride 1,000 ML 1000 / 1000 @ 54 mls/hr IVC .[id number] [facility] Rx #:[id number] Heparin 25,000 UNIT/500 ML D5W 300 / 300 500 / 500 200 / 200 25,000 unit In 500 ml @ 14 UNIT /KG/HR 21.784 mls/hr IVC . [id number] [facility] Rx#:[id number] Zosyn 3.375 GM In 0.9 % Sodium 100 / 100 Chloride (Mini-Bag +) 100 ML @ 25 mls/hr IVPB Q8HR [facility] Rx#: [id number] Output: Urine 350 / 350 250 / 250 Wound Drainage 40 / 40 Right Lower Abdomen 40 / 40 Other: Weight 77.2 kg Blood Glucose* 139 187 - General physical appearance well developed, moderate distress, moderate pain - Eyes normal ocular movement - ENT dry mucosa, atraumatic, normocephalic - Neck Neck exam: trachea midline - Respiratory normal respiratory effort, clear to auscultation, other (Diminished bibasilar bases) - Cardiovascular Cardiovascular exam: Present: irregular rhythm - Abdomen Abdomen: Present: bowel sounds present (minimal, tympanic), soft, tender, wound (Drain #1 with bilious output noted; Drain #2 with serous drainage noted.) Abdominal Tenderness: diffusely - Incision Incision: Present: clean and dry, intact - Neurologic CN 2-12 grossly intact - Psychiatric oriented to time, oriented to person, oriented to place, speech is normal, memory intact - Labs 11/04/17 04:00 11/05/17 00:47 Diabetes panel 11/05/17 Range/Units 00:47 Sodium 133 L (136-145) mEq/L Potassium 3.4 L (3.5-5.1) mEq/L Chloride 101 (98-107) mEq/L Carbon Dioxide 26 (23-29) mEq/L BUN 12 (8-23) mg/dL Creatinine 0.48 L (0.60-1.20) mg/dL Glucose 132 H (70-105) mg/dL Calcium 8.3 L (8.6-10.3) mg/dL Calcium panel 11/05/17 Range/Units 00:47 Calcium 8.3 L (8.6-10.3) mg/dL Phosphorus 2.7 (2.7-4.5) mg/dL Pituitary panel 11/05/17 Range/Units 00:47 Sodium 133 L (136-145) mEq/L Potassium 3.4 L (3.5-5.1) mEq/L Chloride 101 (98-107) mEq/L Carbon Dioxide 26 (23-29) mEq/L BUN 12 (8-23) mg/dL Creatinine 0.48 L (0.60-1.20) mg/dL Glucose 132 H (70-105) mg/dL Calcium 8.3 L (8.6-10.3) mg/dL Adrenal panel 11/05/17 Range/Units 00:47 Sodium 133 L (136-145) mEq/L Potassium 3.4 L (3.5-5.1) mEq/L Chloride 101 (98-107) mEq/L Carbon Dioxide 26 (23-29) mEq/L BUN 12 (8-23) mg/dL Creatinine 0.48 L (0.60-1.20) mg/dL Glucose 132 H (70-105) mg/dL Calcium 8.3 L (8.6-10.3) mg/dL - VTE Documentation of Mechanical Device: Intermittent pneumatic compression device Consult Discharge Plan - Plan Referrals: Julee Booth, T[employer]ING WHEEL OPERATOR [Primary Care Provider] - - Attending Attestation For this encounter, I have reviewed the QU[employer] PRINT OPERATOR or PA documentation, treatment plan, and medical decision making; and I have had face to face time with this patient. <Jonathan Butcher - Last Filed: 11/05/17 22:46> Date of Encounter: 11/05/17 - Assessment and Plan (1) Perforated appendicitis Current Visit: Yes Status: Acute Objective Vital Signs - Last 8 Hours Temp Pulse Resp BP Pulse Ox 11/05/17 19:25 98.2 F 85 15 110/67 93 08/20/18 15:40 98.5 F 91 19 109/65 92 Intake and Output 11/05/17 11/05/17 11/05/17 07:59 15:59 23:59 Intake Total 1850 / 1850 500 / 500 115 / 115 Output Total 390 / 390 1213 / 1213 Balance 1460 / 1460 -713 / -713 115 / 115 Intake: IV Fluids 1850 / 1850 500 / 500 115 / 115 0.9 % Sodium Chloride 1,000 ML 1000 / 1000 @ 54 mls/hr IVC .[id number] [facility] Rx #:[id number] Heparin 25,000 UNIT/500 ML D5W 500 / 500 200 / 200 115 / 115 25,000 unit In 500 ml @ 14 UNIT /KG/HR 21.784 mls/hr IVC . [id number] [facility] Rx#:[id number] Ofirmev 1,000 mg/100 ml 1,000 100 / 100 mg In 100 ml @ 400 mls/hr IVPB Q6HR [facility] Rx#:[id number] Intralipid 20% 250 ML @ 21 mls/ 250 / 250 hr IVPB DAILY@1700 [facility] Rx#: [id number] Zosyn 3.375 GM In 0.9 % Sodium 100 / 100 100 / 100 Chloride (Mini-Bag +) 100 ML @ 25 mls/hr IVPB Q8HR [facility] Rx#: [id number] Potassium Chloride 10 mEq/100mL 100 / 100 10 meq In 100 ml @ 100 mls/hr IVPB Q1H [facility] Rx#:[id number] Output: Urine 350 / 350 1100 / 1100 Wound Drainage 40 / 40 113 / 113 Left Pubis 3 / 3 Right Lower Abdomen 40 / 40 110 / 110 Other: Blood Glucose* 187 203 174 - Labs 11/04/17 04:00 11/05/17 00:47 Diabetes panel 11/05/17 Range/Units 00:47 Sodium 133 L (136-145) mEq/L Potassium 3.4 L (3.5-5.1) mEq/L Chloride 101 (98-107) mEq/L Carbon Dioxide 26 (23-29) mEq/L BUN 12 (8-23) mg/dL Creatinine 0.48 L (0.60-1.20) mg/dL Glucose 132 H (70-105) mg/dL Calcium 8.3 L (8.6-10.3) mg/dL Calcium panel 11/05/17 Range/Units 00:47 Calcium 8.3 L (8.6-10.3) mg/dL Phosphorus 2.7 (2.7-4.5) mg/dL Pituitary panel 11/05/17 Range/Units 00:47 Sodium 133 L (136-145) mEq/L Potassium 3.4 L (3.5-5.1) mEq/L Chloride 101 (98-107) mEq/L Carbon Dioxide 26 (23-29) mEq/L BUN 12 (8-23) mg/dL Creatinine 0.48 L (0.60-1.20) mg/dL Glucose 132 H (70-105) mg/dL Calcium 8.3 L (8.6-10.3) mg/dL Adrenal panel 11/05/17 Range/Units 00:47 Sodium 133 L (136-145) mEq/L Potassium 3.4 L (3.5-5.1) mEq/L Chloride 101 (98-107) mEq/L Carbon Dioxide 26 (23-29) mEq/L BUN 12 (8-23) mg/dL Creatinine 0.48 L (0.60-1.20) mg/dL Glucose 132 H (70-105) mg/dL Calcium 8.3 L (8.6-10.3) mg/dL - Attending Attestation patient seen and examined. i have reviewed all labs, imaging, and notes. I agree with the above assessment and plan and wish to add the following... AF, VSS; abd distended, non peritoneal; minimal bilious drainage from suprapubic drain; cont NPO, TPN activity as tolerated; plan for CT scan in 24-48hrs; will likely need NG tube
[2017-11-05] MEDS: *HR* Metoprolol 5 MG/5 ML VIAL IVP SCH ×2 (11:37→17:02)
[2017-11-05] MEDS: Acetaminophen IV 1,000 MG/100 ML INFUS..BTL IVPB SCH ×2 (13:00→17:16)
[2017-11-05] MEDS ORDERED: Clinimix E 5%-15% SOLUTION 2,000 ML with MVI, adult with vitamin K 10 ML IVC SCH (17:00)
[2017-11-05] MEDS: Clinimix E 5%-15% SOLUTION 2,000 ML with MVI, adult with vitamin K 10 ML IVC SCH (17:19)
[2017-11-05] MEDS ORDERED: Pantoprazole 40 MG VIAL IVP ONE (23:39)
[2017-11-05] MEDS ORDERED: Metoclopramide 10 MG/2 ML VIAL IVP PRN (23:51)
[2017-11-05] MEDS ORDERED: Acetaminophen 650 MG RECTAL SUPP RC PRN (23:59)
[2017-11-06] MEDS: *HR* Metoprolol 5 MG/5 ML VIAL IVP SCH ×4 (00:06→18:44)
[2017-11-06] MEDS: Acetaminophen IV 1,000 MG/100 ML INFUS..BTL IVPB SCH ×5 (00:30→18:38)
[2017-11-06] MEDS: Piperacillin/Tazobactam 3.375 GM in 0.9 % Sodium Chloride Mini Bag 100 ML IVPB SCH ×3 (00:31→18:32)
[2017-11-06] MEDS: 0.9 % Sodium Chloride 1,000 ML IVC SCH (00:37)
[2017-11-06] MEDS: Insulin LISPRO 300 UNITS/3 ML VIAL SQ SCH ×4 (00:37→18:57)
[2017-11-06] MEDS: Heparin 25,000 UNIT/500 ML D5W 25,000 UNIT/500 ML BAG IVC SCH ×3 (00:53→19:34)
[2017-11-06] MEDS: Pantoprazole 40 MG VIAL IVP SCH (06:09)
[2017-11-06 06:28] LABS: Basophils % 0.3 %; Eosinophils % 0.4 %; Hematocrit 33.2 % (35.3-44.9); Hemoglobin 10.7 g/dL (11.5-15.4); Immature Granulocytes % 0.8 % (0-4); Lymphocytes # 0.7 K/mcL (0.6-4.6); Lymphocytes % 6.7 %; Mean Corpuscular HGB Conc 32.2 g/dL (31.6-35.5); Mean Corpuscular Hemoglobin 28.3 pg (28.0-33.3); Mean Corpuscular Volume 87.8 fL (83.0-100.0); Mean Platelet Volume 9.9 fL (9.4-12.4); Monocytes # 0.4 K/mcL (0.0-1.3); Monocytes % 4.1 %; Neutrophils # 9.5 K/mcL (1.6-8.9); Platelet Count 376 K/mcL (140-400); Red Blood Count 3.78 M/mcL (3.82-4.97); Segmented Neutrophils % 87.7 %
[2017-11-06 06:45] LABS: Phosphorous 2.6 mg/dL (2.7-4.5)
[2017-11-06 06:46] LABS: BUN/Creatinine Ratio 36 (6-26); Blood Urea Nitrogen 17 mg/dL (8-23); Carbon Dioxide 24 mEq/L (23-29); Chloride 101 mEq/L (98-107); Glucose 220 mg/dL (70-105); Osmolality,Calculated 282 (280-300); Potassium 3.4 mEq/L (3.5-5.1); Sodium 132 mEq/L (136-145); eGFR For Non-African Americans > 60 (> 60)
[2017-11-06] MEDS ORDERED: Isovue-370 500 ML INFUS..BTL IV ONE (07:15)
[2017-11-06] MEDS ORDERED: Chloraseptic Spray 177 ML BOTTLE MM PRN (07:39)
[2017-11-06] MEDS ORDERED: Lidocaine Viscous Oral Soln 15 ML SOLUTION MM ONE (07:40)
[2017-11-06] MEDS ORDERED: Lidocaine Jelly 11 ml Syringe MM ONE (09:33)
[2017-11-06] MEDS ORDERED: Potassium Phosphate 44 MEQ in 0.9 % Sodium Chloride 250 ML IVPB ONE (09:39)
--- NOTE | 2017-11-06 09:43 | General Surgery Progress Note ---
<Jessica Castillo E - Last Filed: 11/06/17 09:40> Date of Encounter: 11/06/17 Time of Encounter: 09:40 - Assessment and Plan (1) Perforated appendicitis Current Visit: Yes Status: Acute Date of procedure: 11/02/17 Pre-op diagnosis: perforated appendix with pelvic abscess Post-op diagnosis: same Procedure: diagnostic laparoscopy lysis of adhesions drainage of intraabdominal abscess Implants: 2 19fr loretta drains Complications: none Anesthesia: GETA Local Anesthetics: 0.5% Sensorcaine HCL SubQ (cc) Surgeon: Jonathan Butcher Postop day 4# diagnostic last scoping, lysis of adhesions, drainage of intra- abdominal abscess. ASHA drain in pubic area draining black/green bilious looking drainage scant amount. Right abdominal ASHA drain draining sanguinous drainage. Serial abdominal exams Patient's pain is controlled on current medications CT scan chest, abdomen, pelvis with oral and IV contrast Start NG tube - Flouro will assist as there was quite a bit of resistance to NG on insertion into both nares Continue TPN Nothing by mouth Continue IV antibiotics Supportive care (2) Ileus Current Visit: Yes Status: Acute See above (3) Atrial fibrillation Current Visit: Yes Status: Chronic Patient on cardizem gtt for rate control Continue heparain gtt Hospitalist consulted for management Qualifiers: Atrial fibrillation type: paroxysmal Qualified Code(s): I48.0 - Paroxysmal atrial fibrillation (4) GERD (gastroesophageal reflux disease) Current Visit: Yes Status: Chronic No medications by mouth (Protonix 40 mg every 12 hours Qualifiers: Esophagitis presence: without esophagitis Qualified Code(s): K21.9 - Gastro -esophageal reflux disease without esophagitis (5) Elevated blood sugar Current Visit: No Status: Acute SSI low scale coverage for mgmt will continue to monitor and adjust as necessary Subjective Patient reports: still having pain, no flatus, bowel movement, other (Patient states she has had more bloating and had vomiting last night. She had a small semi formed bowel movment this morning) Objective Vital Signs - Last 8 Hours Temp Pulse Resp BP Pulse Ox 11/06/17 08:39 98.2 F 105 18 120/78 94 11/06/17 03:58 99 F 115 17 137/78 93 Intake and Output 11/05/17 11/06/17 11/06/17 23:59 07:59 15:59 Intake Total 500 / 500 200 / 200 250 / 250 Output Total 690 / 690 Balance 500 / 500 200 / 200 -440 / -440 Intake: IV Fluids 500 / 500 200 / 200 250 / 250 Heparin 25,000 UNIT/500 ML D5W 300 / 300 250 / 250 25,000 unit In 500 ml @ 14 UNIT /KG/HR 21.784 mls/hr IVC . [id number] [facility] Rx#:[id number] Ofirmev 1,000 mg/100 ml 1,000 100 / 100 100 / 100 mg In 100 ml @ 400 mls/hr IVPB Q6HR [facility] Rx#:[id number] Zosyn 3.375 GM In 0.9 % Sodium 100 / 100 100 / 100 Chloride (Mini-Bag +) 100 ML @ 25 mls/hr IVPB Q8HR [facility] Rx#: [id number] Output: Urine 600 / 600 Wound Drainage 90 / 90 Left Pubis 10 / 10 Right Lower Abdomen 80 / 80 Other: Blood Glucose* 174 188 - General physical appearance well developed, well nourished, moderate distress - Respiratory normal expansion, normal respiratory effort, clear to auscultation - Cardiovascular Cardiovascular exam: Present: RRR, no murmurs/rubs/gallops - Abdomen Abdomen: Present: bowel sounds present (faint over LLQ), distended, tender Abdominal Tenderness: diffusely Additional Comments: ASHA drain pubis scant light green, brown fluid, ASHA drain abdomen large amount of serosanguinous fluid - Incision Incision: Present: clean and dry, intact - Integumentary no rash, no growths, no abnormal pigmentation - Psychiatric oriented to time, oriented to person, oriented to place - Labs 11/06/17 05:54 11/06/17 05:54 Diabetes panel 11/05/17 11/06/17 Range/Units 00:47 05:54 Sodium 133 L 132 L (136-145) mEq/L Potassium 3.4 L 3.4 L (3.5-5.1) mEq/L Chloride 101 101 (98-107) mEq/L Carbon Dioxide 26 24 (23-29) mEq/L BUN 12 17 (8-23) mg/dL Creatinine 0.48 L 0.47 L (0.60-1.20) mg/dL Glucose 132 H 220 H (70-105) mg/dL Calcium 8.3 L 8.0 L (8.6-10.3) mg/dL Calcium panel 11/05/17 11/06/17 11/06/17 Range/Units 00:47 05:54 05:54 Calcium 8.3 L 8.0 L (8.6-10.3) mg/dL Phosphorus 2.7 2.6 L (2.7-4.5) mg/dL Pituitary panel 11/05/17 11/06/17 Range/Units 00:47 05:54 Sodium 133 L 132 L (136-145) mEq/L Potassium 3.4 L 3.4 L (3.5-5.1) mEq/L Chloride 101 101 (98-107) mEq/L Carbon Dioxide 26 24 (23-29) mEq/L BUN 12 17 (8-23) mg/dL Creatinine 0.48 L 0.47 L (0.60-1.20) mg/dL Glucose 132 H 220 H (70-105) mg/dL Calcium 8.3 L 8.0 L (8.6-10.3) mg/dL Adrenal panel 11/05/17 11/06/17 Range/Units 00:47 05:54 Sodium 133 L 132 L (136-145) mEq/L Potassium 3.4 L 3.4 L (3.5-5.1) mEq/L Chloride 101 101 (98-107) mEq/L Carbon Dioxide 26 24 (23-29) mEq/L BUN 12 17 (8-23) mg/dL Creatinine 0.48 L 0.47 L (0.60-1.20) mg/dL Glucose 132 H 220 H (70-105) mg/dL Calcium 8.3 L 8.0 L (8.6-10.3) mg/dL - VTE Documentation of Mechanical Device: Intermittent pneumatic compression device Consult Discharge Plan - Plan Referrals: Julee Booth, C[facility]O.D. [facility]ILL[facility] [Primary Care Provider] - <Jonathan Butcher - Last Filed: 11/06/17 14:15> Date of Encounter: 11/06/17 - Assessment and Plan (1) Perforated appendicitis Current Visit: Yes Status: Acute Objective Vital Signs - Last 8 Hours Temp Pulse Resp BP Pulse Ox 11/06/17 12:26 98.1 F 103 18 138/76 95 11/06/17 08:39 98.2 F 105 18 120/78 94 Intake and Output 11/05/17 11/06/17 11/06/17 23:59 07:59 15:59 Intake Total 500 / 500 200 / 200 350 / 350 Output Total 690 / 690 Balance 500 / 500 200 / 200 -340 / -340 Intake: IV Fluids 500 / 500 200 / 200 350 / 350 Heparin 25,000 UNIT/500 ML D5W 300 / 300 250 / 250 25,000 unit In 500 ml @ 14 UNIT /KG/HR 21.784 mls/hr IVC . [id number] [facility] Rx#:[id number] Ofirmev 1,000 mg/100 ml 1,000 100 / 100 100 / 100 100 / 100 mg In 100 ml @ 400 mls/hr IVPB Q6HR [facility] Rx#:[id number] Zosyn 3.375 GM In 0.9 % Sodium 100 / 100 100 / 100 Chloride (Mini-Bag +) 100 ML @ 25 mls/hr IVPB Q8HR [facility] Rx#: [id number] Output: Urine 600 / 600 Wound Drainage 90 / 90 Left Pubis 10 / 10 Right Lower Abdomen 80 / 80 Other: Blood Glucose* 174 188 228 - Labs 11/06/17 05:54 11/06/17 05:54 Diabetes panel 11/06/17 Range/Units 05:54 Sodium 132 L (136-145) mEq/L Potassium 3.4 L (3.5-5.1) mEq/L Chloride 101 (98-107) mEq/L Carbon Dioxide 24 (23-29) mEq/L BUN 17 (8-23) mg/dL Creatinine 0.47 L (0.60-1.20) mg/dL Glucose 220 H (70-105) mg/dL Calcium 8.0 L (8.6-10.3) mg/dL Calcium panel 11/06/17 11/06/17 Range/Units 05:54 05:54 Calcium 8.0 L (8.6-10.3) mg/dL Phosphorus 2.6 L (2.7-4.5) mg/dL Pituitary panel 11/06/17 Range/Units 05:54 Sodium 132 L (136-145) mEq/L Potassium 3.4 L (3.5-5.1) mEq/L Chloride 101 (98-107) mEq/L Carbon Dioxide 24 (23-29) mEq/L BUN 17 (8-23) mg/dL Creatinine 0.47 L (0.60-1.20) mg/dL Glucose 220 H (70-105) mg/dL Calcium 8.0 L (8.6-10.3) mg/dL Adrenal panel 11/06/17 Range/Units 05:54 Sodium 132 L (136-145) mEq/L Potassium 3.4 L (3.5-5.1) mEq/L Chloride 101 (98-107) mEq/L Carbon Dioxide 24 (23-29) mEq/L BUN 17 (8-23) mg/dL Creatinine 0.47 L (0.60-1.20) mg/dL Glucose 220 H (70-105) mg/dL Calcium 8.0 L (8.6-10.3) mg/dL - Attending Attestation patient seen and examined. i have reviewed all labs, imaging, and notes. i agree with the above assessment and plan and wish to add the following... 76F with perforated appendicitis complicated by abscess POD #4 s/p diagnostic laparoscopy with drainage of pelvic abscess and placement of loretta drains now with bilious drainage from one drain; febrile overnight; wbc wnl; attempted NG placement at bedside and under fluoroscopy; patient did have bowel movement today NPO plan for placement of NG tube with endoscopy CT scan after NG tube placement to assess for fever and possible undrained collection cont hep gtt cont to monitor
[2017-11-06] MEDS: *HR* FentaNYL PATCH 25 MCG PATCH TD SCH (12:42)
--- NOTE | 2017-11-06 16:15 | Internal Med Progress Note ---
Hospitalist Progress Note - Encounter Date of Encounter: 11/06/17 Time of Encounter: 10:00 - Subjective Interval History: Patient is noted to be very tired. Reports nausea and vomiting along with lower abdominal pain. Noted to have fever spikes overnight up to 102.5 degrees Fahrenheit. Reports having flatus and small bowel movements this morning. - Exam Vitals: Temp Pulse Resp BP Pulse Ox 98.5 F 94 16 154/72 95 11/06/17 15:33 11/06/17 15:33 11/06/17 15:33 11/06/17 15:33 11/06/17 15:33 Exam: General: Well-developed female lying comfortably in bed in mild distress Chest: Normal thoracic expansion. Normal breath sounds. Clear to auscultation anterolaterlly. Heart: Normal S1 & S2; rhythmic. No rubs or murmurs. Abdomen: Slightly distended with tympanic note, tenderness in lower abdomen; 2 ASHA drains in central and left lower abdomen; BS decreased; Extremities: trace dependent pedal edema. No calf tenderness. Normal distal pulses. Neurological: Awake, alert and oriented to person, place and time. No focal deficits. - Assessment and Plan (1) Sepsis Current Visit: Yes Status: Acute Assessment and Plan: Patient has leukocytosis, fever and tachycardia due to ruptured appendix and intra-abdominal abscess. Continue IV antibiotics, remaining plan as below. Monitor vital signs closely. (2) Acute appendicitis Current Visit: Yes Status: Acute Assessment and Plan: Surgery service is the primary team. Patient underwent diagnostic laparoscopy, lysis of adhesions and drainage of intra-abdominal abscess- POD 4; Postoperative and local wound care per surgery. Patient is currently on TPN, bowel rest. Blood cultures remain negative. No intraoperative cultures are not available. Continue IV Zosyn-total day 18 of antibiotics. Continue pain control with when necessary IV Tylenol and fentanyl, fentanyl transdermal patch ; continue when necessary antiemetics. Plan for placement of nasogastric tube under fluoroscopy guidance today. (3) Atrial fibrillation Current Visit: Yes Status: Chronic Assessment and Plan: Rate controlled. Continue telemetry monitoring, scheduled IV metoprolol. Continue anticoagulation with IV heparin drip. Oral anticoagulation with Pradaxa has been on hold. (4) GERD (gastroesophageal reflux disease) Current Visit: Yes Status: Chronic (5) DVT prophylaxis Current Visit: Yes Status: Acute (6) HTN (hypertension) Current Visit: Yes Status: Chronic (7) Intra-abdominal abscess Current Visit: Yes Status: Acute Assessment and Plan: Plan as above. (8) Hypophosphatemia Current Visit: Yes Status: Acute Assessment and Plan: Supplement with IV potassium phosphate. Monitor closely. (9) Hypokalemia Current Visit: Yes Status: Acute Assessment and Plan: Supplement with IV potassium chloride. Monitor and replete electrolytes while on TPN. DVT Prophylaxis: On IV heparin drip. - Time Spent with Patient Total time spent is greater than 50% in coordination of care (as documented) at patient's floor/unit and/or counseling patient: Plan of Care Discussed with: patient Internal Medicine: Result - Labs CBC & Chem 7: 11/06/17 05:54 11/06/17 05:54 Labs: Short CBC 11/06/17 Range/Units 05:54 WBC 10.8 (4.3-11.1) K/mcL Hgb 10.7 L (11.5-15.4) g/dL Hct 33.2 L (35.3-44.9) % Plt Count 376 (140-400) K/mcL Neutrophils # 9.5 H (1.6-8.9) K/mcL BMP 11/06/17 05:54 Sodium 132 L Potassium 3.4 L Chloride 101 Carbon Dioxide 24 BUN 17 Creatinine 0.47 L Glucose 220 H Calcium 8.0 L - ABG Interpretation ABG results: PT/INR, D-dimer PT 14.5 Seconds (9.4-12.1) H 10/25/17 14:37 - Impressions Impressions Fluoroscopy 11/06/17 08:43 IMPRESSION: NG tube place in the proximal stomach, though the tube was removed due to nausea. D/ / Efrain España MD / Efrain España MD Interpreting Provider: Efrain España MD - VTE Documentation of Mechanical Device: Intermittent pneumatic compression device Consult Discharge Plan - Plan Referrals: Julee Booth, [facility] [Primary Care Provider] - (1) Sepsis Qualifiers: Sepsis type: sepsis due to unspecified organism Qualified Code(s): A41.9 - Sepsis, unspecified organism (2) Acute appendicitis Qualifiers: Acute appendicitis type: with localized peritonitis Qualified Code(s): K35.3 - Acute appendicitis with localized peritonitis (3) Atrial fibrillation Qualifiers: Atrial fibrillation type: paroxysmal Qualified Code(s): I48.0 - Paroxysmal atrial fibrillation (4) GERD (gastroesophageal reflux disease) Qualifiers: Esophagitis presence: without esophagitis Qualified Code(s): K21.9 - Gastro- esophageal reflux disease without esophagitis (6) HTN (hypertension) Qualifiers: Hypertension type: essential hypertension Qualified Code(s): I10 - Essential (primary) hypertension
[2017-11-06] MEDS ORDERED: Clinimix E 5%-15% SOLUTION 2,000 ML with MVI, adult with vitamin K 10 ML IVC SCH (17:00)
--- NOTE | 2017-11-06 17:01 | Pre-Sedation Evaluation ---
Pre-sedation evaluation - Pre-sedation checklist Date of procedure: 11/02/17 Procedure: EGD Recent Vitals: Last Vital Signs Temp 98.5 F 11/06/17 15:33 Pulse 94 11/06/17 15:33 Resp 16 11/06/17 15:33 BP 154/72 11/06/17 15:33 Pulse Ox 95 11/06/17 15:33 H&P (including ROS) documented in medical record: Yes Dietary Status: NPO after Midnight ASA Classification *see protocol: CLASS II-Mild systemic disease Cardiac Registry (Cardio Only) - Functional Capacity - Clincal Frailty Scale
[2017-11-06] MEDS ORDERED: *HR* FentaNYL (PF) 100 MCG/2 ML VIAL ONE (17:04)
[2017-11-06] MEDS ORDERED: *HR* Midazolam HCl 5 MG/5 ML VIAL IVP ONE (17:04)
[2017-11-06] MEDS: *HR* Midazolam HCl 5 MG/5 ML VIAL IVP ONE ×5 (17:15→17:39)
[2017-11-06] MEDS ORDERED: Tetracaine/Benzocaine/Butamben 200MG/SPRAY (100SPY/BOT) MM ONE (17:17)
[2017-11-06] MEDS ORDERED: *HR* FentaNYL (PF) 100 MCG/2 ML VIAL IVP ONE (17:17)
[2017-11-06] MEDS ORDERED: Simethicone 40 MG/0.6 ML MLS IR ONE (17:17)
[2017-11-06] MEDS ORDERED: 0.9 % Sodium Chloride 1,000 ML IVC SCH (17:30)
[2017-11-06 23:14] LABS: Bilirubin,Urine Negative (Negative); Blood,Urine Negative (Negative); Clarity,Urine Clear (Clear); Color,Urine Yellow (Yellow); Glucose,Urine (UA) Normal (Normal); Ketones,Urine Negative (Negative); Leukocyte Esterase,Urine Negative (Negative); Nitrite,Urine Negative (Negative); Protein,Urine Negative (Neg-Trace); Specific Gravity,Urine 1.027 (1.010-1.025); Urobilinogen,Urine Normal (Normal)
[2017-11-07] MEDS: *HR* Metoprolol 5 MG/5 ML VIAL IVP SCH ×6 (00:26→23:43)
[2017-11-07] MEDS: Acetaminophen IV 1,000 MG/100 ML INFUS..BTL IVPB SCH ×5 (00:26→23:45)
[2017-11-07] MEDS ORDERED: *HR* Alteplase (Cathflo) 2 MG VIAL IVP ONE (00:27)
[2017-11-07] MEDS: Insulin LISPRO 300 UNITS/3 ML VIAL SQ SCH ×5 (00:39→23:59)
[2017-11-07] MEDS: Piperacillin/Tazobactam 3.375 GM in 0.9 % Sodium Chloride Mini Bag 100 ML IVPB SCH ×4 (00:57→23:45)
[2017-11-07 02:36] LABS: Basophils % 0.4 %; Eosinophils # 0.2 K/mcL (0.0-0.6); Eosinophils % 1.7 %; Hematocrit 31.5 % (35.3-44.9); Hemoglobin 10.3 g/dL (11.5-15.4); Immature Granulocytes % 1.2 % (0-4); Lymphocytes # 1.2 K/mcL (0.6-4.6); Lymphocytes % 13.1 %; Mean Corpuscular HGB Conc 32.7 g/dL (31.6-35.5); Mean Corpuscular Hemoglobin 28.8 pg (28.0-33.3); Mean Platelet Volume 9.5 fL (9.4-12.4); Monocytes # 0.7 K/mcL (0.0-1.3); Neutrophils # 6.7 K/mcL (1.6-8.9); Platelet Count 355 K/mcL (140-400); Red Blood Count 3.58 M/mcL (3.82-4.97); Red Cell Distribution Width 14.1 % (11.5-14.5); Segmented Neutrophils % 75.6 %
[2017-11-07 03:00] LABS: BUN/Creatinine Ratio 26 (6-26); Blood Urea Nitrogen 10 mg/dL (8-23); Calcium 8.3 mg/dL (8.6-10.3); Carbon Dioxide 27 mEq/L (23-29); Chloride 102 mEq/L (98-107); Glucose 108 mg/dL (70-105); Osmolality,Calculated 282 (280-300); Phosphorous 3.6 mg/dL (2.7-4.5); Potassium 3.3 mEq/L (3.5-5.1); Sodium 136 mEq/L (136-145); eGFR For Non-African Americans > 60 (> 60)
[2017-11-07] MEDS: Pantoprazole 40 MG VIAL IVP SCH (05:38)
[2017-11-07] MEDS ORDERED: Potassium Chloride 40 MEQ, Lidocaine 1% 2 ML in D5% in Water 500 ML IVPB ONE (07:11)
--- NOTE | 2017-11-07 08:34 | General Surgery Progress Note ---
<Jessica Castillo E - Last Filed: 11/07/17 08:32> Date of Encounter: 11/07/17 Time of Encounter: 08:32 - Assessment and Plan (1) Perforated appendicitis Current Visit: Yes Status: Acute Date of procedure: 11/02/17 Pre-op diagnosis: perforated appendix with pelvic abscess Post-op diagnosis: same Procedure: diagnostic laparoscopy lysis of adhesions drainage of intraabdominal abscess Implants: 2 19fr loretta drains Complications: none Anesthesia: GETA Local Anesthetics: 0.5% Sensorcaine HCL SubQ (cc) Surgeon: Jonathan Butcher Postop day 4# diagnostic latroscopy, lysis of adhesions, drainage of intra- abdominal abscess. ASHA drain in pubic area draining black/green bilious looking drainage scant amount. Right abdominal ASHA drain draining sanguinous drainage. Serial abdominal exams NG to intermediate wall suction Patient's pain is controlled on current medications Continue TPN Nothing by mouth Continue IV antibiotics Supportive care CT/CT chest w con IMPRESSION: Small bilateral pleural effusions and mild volume loss in the lower lobes. Partial consolidation in the lower lobes, slightly worse on the right. Atelectasis versus developing infection. 3 fluid collections again noted in the right pelvis. These are stable to slightly decreased. Small collection within the right pericolic gutter measuring up to 5.2 x 1.4 cm, increased. Slight worsening of small bowel ileus. Wall thickening and inflammation of the cecum, slightly increased. 2 new drains within the pelvis. These both terminate in the anterior lower pelvis and not centered within the fluid collections. D/ / Yaneth Kaplan MD / Yaneth Kaplan MD (2) Ileus Current Visit: Yes Status: Acute See above (3) Atrial fibrillation Current Visit: Yes Status: Chronic Patient on cardizem gtt for rate control Continue heparain gtt Hospitalist consulted for management Qualifiers: Atrial fibrillation type: paroxysmal Qualified Code(s): I48.0 - Paroxysmal atrial fibrillation (4) GERD (gastroesophageal reflux disease) Current Visit: Yes Status: Chronic No medications by mouth (Protonix 40 mg every 12 hours Qualifiers: Esophagitis presence: without esophagitis Qualified Code(s): K21.9 - Gastro -esophageal reflux disease without esophagitis (5) Elevated blood sugar Current Visit: No Status: Acute SSI low scale coverage for mgmt will continue to monitor and adjust as necessary Subjective Patient reports: still having pain, flatus, no bowel movement, other (Patient states she has been feeling bloated but pain is controlled) Objective Vital Signs - Last 8 Hours Temp Pulse Resp BP Pulse Ox 11/07/17 07:40 98.8 F 95 16 136/72 92 11/07/17 05:16 99.4 F 102 16 131/73 93 Intake and Output 11/06/17 11/07/17 11/07/17 23:59 07:59 15:59 Intake Total 1032 / 1032 300 / 300 Output Total 888 / 888 1210 / 1210 Balance 144 / 144 -910 / -910 Intake: IV Fluids 1032 / 1032 300 / 300 Heparin 25,000 UNIT/500 ML D5W 268 / 268 25,000 unit In 500 ml @ 14 UNIT /KG/HR 21.784 mls/hr IVC . [id number] [facility] [place] Rx#:[id number] Clinimix E 5%-15% SOLUTION 2, 464 / 464 0 / 0 000 ML @ 83.3 mls/hr IVC .Q24H [facility] with M.v.i. Adult 10 ml Rx# :[id number] Ofirmev 1,000 mg/100 ml 1,000 100 / 100 200 / 200 mg In 100 ml @ 400 mls/hr IVPB Q6HR [facility] [place] Rx#:[id number] Intralipid 20% 250 ML @ 21 mls/ 100 / 100 0 / 0 hr IVPB DAILY@1700 [facility] [place] Rx#: [id number] Zosyn 3.375 GM In 0.9 % Sodium 100 / 100 100 / 100 Chloride (Mini-Bag +) 100 ML @ 25 mls/hr IVPB Q8HR [facility] [place] Rx#: [id number] Output: Urine 800 / 800 1100 / 1100 Wound Drainage 88 / 88 110 / 110 Left Pubis 55 / 55 60 / 60 Right Lower Abdomen 33 / 33 50 / 50 Other: Blood Glucose* 151 226 - General physical appearance well developed, well nourished, moderate distress - Respiratory normal expansion, normal respiratory effort, clear to auscultation - Cardiovascular Cardiovascular exam: Present: RRR, no murmurs/rubs/gallops - Abdomen Abdomen: Present: distended, tender. Absent: bowel sounds present Abdominal Tenderness: diffusely Additional Comments: ASHA drain pubic area: draining small amount of green/brown fluid, ASHA drain abdoen drainaing serosanguinous fluid - Incision Incision: Present: clean and dry, intact - Integumentary no rash, no growths, no abnormal pigmentation - Musculoskeletal normal posture - Psychiatric oriented to time, oriented to person, oriented to place - Labs 11/07/17 02:20 11/07/17 02:20 Diabetes panel 11/07/17 Range/Units 02:20 Sodium 136 (136-145) mEq/L Potassium 3.3 L (3.5-5.1) mEq/L Chloride 102 (98-107) mEq/L Carbon Dioxide 27 (23-29) mEq/L BUN 10 (8-23) mg/dL Creatinine 0.39 L (0.60-1.20) mg/dL Glucose 108 H (70-105) mg/dL Calcium 8.3 L (8.6-10.3) mg/dL Calcium panel 11/07/17 Range/Units 02:20 Calcium 8.3 L (8.6-10.3) mg/dL Phosphorus 3.6 (2.7-4.5) mg/dL Pituitary panel 11/07/17 Range/Units 02:20 Sodium 136 (136-145) mEq/L Potassium 3.3 L (3.5-5.1) mEq/L Chloride 102 (98-107) mEq/L Carbon Dioxide 27 (23-29) mEq/L BUN 10 (8-23) mg/dL Creatinine 0.39 L (0.60-1.20) mg/dL Glucose 108 H (70-105) mg/dL Calcium 8.3 L (8.6-10.3) mg/dL Adrenal panel 11/07/17 Range/Units 02:20 Sodium 136 (136-145) mEq/L Potassium 3.3 L (3.5-5.1) mEq/L Chloride 102 (98-107) mEq/L Carbon Dioxide 27 (23-29) mEq/L BUN 10 (8-23) mg/dL Creatinine 0.39 L (0.60-1.20) mg/dL Glucose 108 H (70-105) mg/dL Calcium 8.3 L (8.6-10.3) mg/dL - VTE Documentation of Mechanical Device: Intermittent pneumatic compression device Consult Discharge Plan - Plan Referrals: Julee Booth, [employer] [Primary Care Provider] - <Jonathan Butcher - Last Filed: 11/08/17 06:54> Date of Encounter: 11/08/17 - Assessment and Plan (1) Perforated appendicitis Current Visit: Yes Status: Acute Objective Vital Signs - Last 8 Hours Temp Pulse Resp BP Pulse Ox 11/08/17 04:23 99.1 F 96 16 127/74 95 11/07/17 23:55 99.3 F 107 18 157/77 96 Intake and Output 11/07/17 11/07/17 11/08/17 15:59 23:59 07:59 Intake Total 732 / 732 500 / 500 1096.3 / 1096.3 Output Total 1950 / 1950 2990 / 2990 1460 / 1460 Balance -1218 / -1218 -2490 / -2490 -363.7 / -363.7 Intake: IV Fluids 732 / 732 500 / 500 1066.3 / 1066.3 Heparin 25,000 UNIT/500 ML D5W 382 / 382 516.3 / 516.3 25,000 unit In 500 ml @ 14 UNIT /KG/HR 21.784 mls/hr IVC . [id number] [facility] Rx#:[id number] Ofirmev 1,000 mg/100 ml 1,000 100 / 100 100 / 100 200 / 200 mg In 100 ml @ 400 mls/hr IVPB Q6HR [facility] Rx#:[id number] Intralipid 20% 250 ML @ 21 mls/ 150 / 150 250 / 250 hr IVPB DAILY@1700 [facility] Rx#: [id number] Zosyn 3.375 GM In 0.9 % Sodium 100 / 100 100 / 100 100 / 100 Chloride (Mini-Bag +) 100 ML @ 25 mls/hr IVPB Q8HR [facility] Rx#: [id number] Potassium Chloride 10 mEq/100mL 300 / 300 10 meq In 100 ml @ 100 mls/hr IVPB Q1H [facility] Rx#:[id number] Oral 0 / 0 0 / 0 30 / 30 Output: Urine 1750 / 1750 1600 / 1600 800 / 800 Urine/Stool Mix 100 / 100 Gastric Tube Lavage Amount 950 / 950 Left Nare 950 / 950 Gastric Drainage 200 / 200 650 / 650 Wound Drainage 200 / 200 140 / 140 10 / 10 Left Pubis 20 / 20 0 / 0 Right Lower Abdomen 200 / 200 120 / 120 10 / 10 Other: Percent of Meal Consumed 0% Stool Size Moderate Small Stool Consistency liquid liquid Stool Color Brown Black Green # Voids 1 # Bowel Movements 1 1 Blood Glucose* 191 191 192 - Labs 11/07/17 02:20 11/08/17 03:50 Diabetes panel 11/08/17 Range/Units 03:50 Sodium 134 L (136-145) mEq/L Potassium 3.7 (3.5-5.1) mEq/L Chloride 102 (98-107) mEq/L Carbon Dioxide 27 (23-29) mEq/L BUN 10 (8-23) mg/dL Creatinine 0.38 L (0.60-1.20) mg/dL Glucose 143 H (70-105) mg/dL Calcium 8.4 L (8.6-10.3) mg/dL Calcium panel 11/08/17 Range/Units 03:50 Calcium 8.4 L (8.6-10.3) mg/dL Phosphorus 3.2 (2.7-4.5) mg/dL Pituitary panel 11/08/17 Range/Units 03:50 Sodium 134 L (136-145) mEq/L Potassium 3.7 (3.5-5.1) mEq/L Chloride 102 (98-107) mEq/L Carbon Dioxide 27 (23-29) mEq/L BUN 10 (8-23) mg/dL Creatinine 0.38 L (0.60-1.20) mg/dL Glucose 143 H (70-105) mg/dL Calcium 8.4 L (8.6-10.3) mg/dL Adrenal panel 11/08/17 Range/Units 03:50 Sodium 134 L (136-145) mEq/L Potassium 3.7 (3.5-5.1) mEq/L Chloride 102 (98-107) mEq/L Carbon Dioxide 27 (23-29) mEq/L BUN 10 (8-23) mg/dL Creatinine 0.38 L (0.60-1.20) mg/dL Glucose 143 H (70-105) mg/dL Calcium 8.4 L (8.6-10.3) mg/dL - Attending Attestation patient seen and examined. I have seen all labs, imaging, and notes. I agree with the above assessment and plan and wish to add the following... NG tube to suction OOBTC activity as tolerated replete tim
[2017-11-07] MEDS: Heparin 25,000 UNIT/500 ML D5W 25,000 UNIT/500 ML BAG IVC SCH (11:32)
--- NOTE | 2017-11-07 15:57 | Internal Med Progress Note ---
Hospitalist Progress Note - Encounter Date of Encounter: 11/07/17 Time of Encounter: 09:50 - Subjective Interval History: Patient reports being "wiped out". improved nausea; received NG tube yesterday; continues to have lower abdominal pain around the drain sites; no fever spikes overnight; - Exam Vitals: Temp Pulse Resp BP Pulse Ox 98.2 F 102 16 156/77 97 11/07/17 14:56 11/07/17 14:56 11/07/17 14:56 11/07/17 14:56 11/07/17 14:56 Exam: General: Well-developed female lying comfortably in bed in mild distress Chest: Normal thoracic expansion. Normal breath sounds. Clear to auscultation anterolaterlly. Heart: Normal S1 & S2; rhythmic. No rubs or murmurs. Abdomen: Slightly distended with tympanic note, tenderness in lower abdomen; 2 ASHA drains in central and left lower abdomen; central drain with dark greenish fluid and left-sided drain with cloudy bloody drainage; BS decreased; Extremities: 1+ pitting dependent pedal edema. No calf tenderness. Normal distal pulses. Neurological: Awake, alert and oriented to person, place and time. No focal deficits. - Assessment and Plan (1) Sepsis Current Visit: Yes Status: Acute Assessment and Plan: Patient has leukocytosis, fever and tachycardia due to ruptured appendix and intra-abdominal abscess. Continue IV antibiotics, remaining plan as below. Monitor vital signs closely. (2) Acute appendicitis Current Visit: Yes Status: Acute Assessment and Plan: Surgery service is the primary team. Patient underwent diagnostic laparoscopy, lysis of adhesions and drainage of intra-abdominal abscess- POD 5; Postoperative and local wound care per surgery. Patient is currently on TPN, bowel rest, NG tube to suction. Initial Blood cultures are negative. To repeat blood cultures if patient has fever spikes again; No intraoperative cultures are available. Continue IV Zosyn-total day 19 of antibiotics. Continue pain control with when necessary IV Tylenol and fentanyl, fentanyl transdermal patch ; continue when necessary antiemetics. monitor and replete electrolytes while on TPN; (3) Atrial fibrillation Current Visit: Yes Status: Chronic Assessment and Plan: Rate controlled. Continue telemetry monitoring, scheduled IV metoprolol. Continue anticoagulation with IV heparin drip. Oral anticoagulation with Pradaxa has been on hold. (4) GERD (gastroesophageal reflux disease) Current Visit: Yes Status: Chronic (5) DVT prophylaxis Current Visit: Yes Status: Acute (6) HTN (hypertension) Current Visit: Yes Status: Chronic (7) Intra-abdominal abscess Current Visit: Yes Status: Acute (8) Hypophosphatemia Current Visit: Yes Status: Resolved (9) Hypokalemia Current Visit: Yes Status: Acute Assessment and Plan: Supplement with IV potassium chloride. Monitor and replete electrolytes while on TPN. - Time Spent with Patient Total time spent is greater than 50% in coordination of care (as documented) at patient's floor/unit and/or counseling patient: Plan of Care Discussed with: patient Internal Medicine: Result - Labs CBC & Chem 7: 11/07/17 02:20 11/08/17 03:50 Labs: Short CBC 11/07/17 Range/Units 02:20 WBC 8.9 (4.3-11.1) K/mcL Hgb 10.3 L (11.5-15.4) g/dL Hct 31.5 L (35.3-44.9) % Plt Count 355 (140-400) K/mcL Neutrophils # 6.7 (1.6-8.9) K/mcL BMP 11/07/17 02:20 Sodium 136 Potassium 3.3 L Chloride 102 Carbon Dioxide 27 BUN 10 Creatinine 0.39 L Glucose 108 H Calcium 8.3 L Urine 11/06/17 Range/Units 23:00 Urine Color Yellow (Yellow) Urine Clarity Clear (Clear) Urine pH 7.0 (5.0-8.0) pH Units Ur Specific [place] 1.027 H (1.010-1.025) Urine Protein Negative (Neg-Trace) mg/dL Urine Glucose (UA) Normal (Normal) mg/dL - ABG Interpretation ABG results: PT/INR, D-dimer PT 14.5 Seconds (9.4-12.1) H 10/25/17 14:37 - Impressions Impressions Abdomen/Pelvis CT 11/06/17 21:00 IMPRESSION: Small bilateral pleural effusions and mild volume loss in the lower lobes. Partial consolidation in the lower lobes, slightly worse on the right. Atelectasis versus developing infection. 3 fluid collections again noted in the right pelvis. These are stable to slightly decreased. Small collection within the right pericolic gutter measuring up to 5.2 x 1.4 cm, increased. Slight worsening of small bowel ileus. Wall thickening and inflammation of the cecum, slightly increased. 2 new drains within the pelvis. These both terminate in the anterior lower pelvis and not centered within the fluid collections. D/ / Yaneth Kaplan MD / Yaneth Kaplan MD Interpreting Provider: Yaneth Kaplan MD Chest CT 11/06/17 21:00 IMPRESSION: Small bilateral pleural effusions and mild volume loss in the lower lobes. Partial consolidation in the lower lobes, slightly worse on the right. Atelectasis versus developing infection. 3 fluid collections again noted in the right pelvis. These are stable to slightly decreased. Small collection within the right pericolic gutter measuring up to 5.2 x 1.4 cm, increased. Slight worsening of small bowel ileus. Wall thickening and inflammation of the cecum, slightly increased. 2 new drains within the pelvis. These both terminate in the anterior lower pelvis and not centered within the fluid collections. D/ / Yaneth Kaplan MD / Yaneth Kaplan MD Interpreting Provider: Yaneth Kaplan MD - VTE Documentation of Mechanical Device: Intermittent pneumatic compression device Consult Discharge Plan - Plan Referrals: Julee Booth, ENVIRONMENTAL RESEARCH SCIENTIST [Primary Care Provider] - (1) Sepsis Qualifiers: Sepsis type: sepsis due to unspecified organism Qualified Code(s): A41.9 - Sepsis, unspecified organism (2) Acute appendicitis Qualifiers: Acute appendicitis type: with localized peritonitis Qualified Code(s): K35.3 - Acute appendicitis with localized peritonitis (3) Atrial fibrillation Qualifiers: Atrial fibrillation type: paroxysmal Qualified Code(s): I48.0 - Paroxysmal atrial fibrillation (4) GERD (gastroesophageal reflux disease) Qualifiers: Esophagitis presence: without esophagitis Qualified Code(s): K21.9 - Gastro- esophageal reflux disease without esophagitis (6) HTN (hypertension) Qualifiers: Hypertension type: essential hypertension Qualified Code(s): I10 - Essential (primary) hypertension
[2017-11-07] MEDS ORDERED: Clinimix E 5%-15% SOLUTION 2,000 ML with MVI, adult with vitamin K 10 ML IVC SCH (17:00)
[2017-11-07] MEDS: *HR* FentaNYL (PF) 100 MCG/2 ML VIAL IVP PRN (22:12)
[2017-11-08] MEDS: Heparin 25,000 UNIT/500 ML D5W 25,000 UNIT/500 ML BAG IVC SCH ×2 (02:33→17:12)
[2017-11-08] MEDS: *HR* FentaNYL (PF) 100 MCG/2 ML VIAL IVP PRN (03:57)
[2017-11-08 04:41] LABS: BUN/Creatinine Ratio 26 (6-26); Blood Urea Nitrogen 10 mg/dL (8-23); Calcium 8.4 mg/dL (8.6-10.3); Carbon Dioxide 27 mEq/L (23-29); Chloride 102 mEq/L (98-107); Glucose 143 mg/dL (70-105); Magnesium 2.1 mg/dL (1.6-2.6); Osmolality,Calculated 280 (280-300); Phosphorous 3.2 mg/dL (2.7-4.5); Potassium 3.7 mEq/L (3.5-5.1); Sodium 134 mEq/L (136-145); eGFR For Non-African Americans > 60 (> 60)
[2017-11-08] MEDS: *HR* Metoprolol 5 MG/5 ML VIAL IVP SCH ×3 (05:51→17:10)
[2017-11-08] MEDS: Pantoprazole 40 MG VIAL IVP SCH (05:52)
[2017-11-08] MEDS: Acetaminophen IV 1,000 MG/100 ML INFUS..BTL IVPB SCH ×3 (05:53→18:19)
[2017-11-08] MEDS: Insulin LISPRO 300 UNITS/3 ML VIAL SQ SCH ×3 (05:53→18:19)
--- NOTE | 2017-11-08 07:39 | General Surgery Progress Note ---
<Jessica Castillo E - Last Filed: 11/08/17 07:35> Date of Encounter: 11/08/17 Time of Encounter: 07:39 - Assessment and Plan (1) Perforated appendicitis Current Visit: Yes Status: Acute Date of procedure: 11/02/17 Pre-op diagnosis: perforated appendix with pelvic abscess Post-op diagnosis: same Procedure: diagnostic laparoscopy lysis of adhesions drainage of intraabdominal abscess Implants: 2 19fr loretta drains Complications: none Anesthesia: GETA Local Anesthetics: 0.5% Sensorcaine HCL SubQ (cc) Surgeon: Jonathan Butcher Postop day 6# diagnostic laproscopy, lysis of adhesions, drainage of intra- abdominal abscess. ASHA drain in pubic area draining black/green bilious looking drainage scant amount. Right abdominal ASHA drain draining sanguinous drainage. Serial abdominal exams NG to intermediate wall suction Patient's pain is controlled on current medications Continue TPN Nothing by mouth ice chips ok Continue IV antibiotics Supportive care CT/CT chest w con IMPRESSION: Small bilateral pleural effusions and mild volume loss in the lower lobes. Partial consolidation in the lower lobes, slightly worse on the right. Atelectasis versus developing infection. 3 fluid collections again noted in the right pelvis. These are stable to slightly decreased. Small collection within the right pericolic gutter measuring up to 5.2 x 1.4 cm, increased. Slight worsening of small bowel ileus. Wall thickening and inflammation of the cecum, slightly increased. 2 new drains within the pelvis. These both terminate in the anterior lower pelvis and not centered within the fluid collections. D/ / Yaneth Kaplan MD / Yaneth Kaplan MD (2) Ileus Current Visit: Yes Status: Acute See above (3) Atrial fibrillation Current Visit: Yes Status: Chronic Patient on cardizem gtt for rate control Continue heparain gtt Hospitalist consulted for management Qualifiers: Atrial fibrillation type: paroxysmal Qualified Code(s): I48.0 - Paroxysmal atrial fibrillation (4) GERD (gastroesophageal reflux disease) Current Visit: Yes Status: Chronic No medications by mouth (Protonix 40 mg every 12 hours Qualifiers: Esophagitis presence: without esophagitis Qualified Code(s): K21.9 - Gastro -esophageal reflux disease without esophagitis (5) Elevated blood sugar Current Visit: No Status: Acute SSI low scale coverage for mgmt will continue to monitor and adjust as necessary Subjective Patient reports: still having pain, pain is less, flatus, bowel movement, other (She states she feels less bloated and a bit better than yesterday. She was able ot have a small bowel movement yesterday and has passed a bit of gas. ) Objective Vital Signs - Last 8 Hours Temp Pulse Resp BP Pulse Ox 11/08/17 04:23 99.1 F 96 16 127/74 95 11/07/17 23:55 99.3 F 107 18 157/77 96 Intake and Output 11/07/17 11/07/17 11/08/17 15:59 23:59 07:59 Intake Total 732 / 732 500 / 500 1096.3 / 1096.3 Output Total 1950 / 1950 2990 / 2990 1460 / 1460 Balance -1218 / -1218 -2490 / -2490 -363.7 / -363.7 Intake: IV Fluids 732 / 732 500 / 500 1066.3 / 1066.3 Heparin 25,000 UNIT/500 ML D5W 382 / 382 516.3 / 516.3 25,000 unit In 500 ml @ 14 UNIT /KG/HR 21.784 mls/hr IVC . [id number] [facility] Rx#:[id number] Ofirmev 1,000 mg/100 ml 1,000 100 / 100 100 / 100 200 / 200 mg In 100 ml @ 400 mls/hr IVPB Q6HR [facility] Rx#:[id number] Intralipid 20% 250 ML @ 21 mls/ 150 / 150 250 / 250 hr IVPB DAILY@1700 [facility] Rx#: [id number] Zosyn 3.375 GM In 0.9 % Sodium 100 / 100 100 / 100 100 / 100 Chloride (Mini-Bag +) 100 ML @ 25 mls/hr IVPB Q8HR [facility] Rx#: [id number] Potassium Chloride 10 mEq/100mL 300 / 300 10 meq In 100 ml @ 100 mls/hr IVPB Q1H [facility] Rx#:[id number] Oral 0 / 0 0 / 0 30 / 30 Output: Urine 1750 / 1750 1600 / 1600 800 / 800 Urine/Stool Mix 100 / 100 Gastric Tube Lavage Amount 950 / 950 Left Nare 950 / 950 Gastric Drainage 200 / 200 650 / 650 Wound Drainage 200 / 200 140 / 140 10 / 10 Left Pubis 20 / 20 0 / 0 Right Lower Abdomen 200 / 200 120 / 120 10 / 10 Other: Percent of Meal Consumed 0% Stool Size Moderate Small Stool Consistency liquid liquid Stool Color Brown Black Green # Voids 1 # Bowel Movements 1 1 Blood Glucose* 191 191 192 - General physical appearance well developed, well nourished, moderate distress - Respiratory normal expansion, normal respiratory effort, clear to auscultation - Cardiovascular Cardiovascular exam: Present: RRR, no murmurs/rubs/gallops - Abdomen Abdomen: Present: bowel sounds present, distended (less so than yesterday), tender Abdominal Tenderness: diffusely Additional Comments: ASHA drain pubic area: draining a small amount of dark gree fluid, ASHA drain Abdomen draining serosanguinous fluid - Incision Incision: Present: clean and dry, intact - Integumentary no rash, no growths, no abnormal pigmentation - Musculoskeletal normal posture - Psychiatric oriented to time, oriented to person, oriented to place - Labs 11/07/17 02:20 11/08/17 03:50 Diabetes panel 11/08/17 Range/Units 03:50 Sodium 134 L (136-145) mEq/L Potassium 3.7 (3.5-5.1) mEq/L Chloride 102 (98-107) mEq/L Carbon Dioxide 27 (23-29) mEq/L BUN 10 (8-23) mg/dL Creatinine 0.38 L (0.60-1.20) mg/dL Glucose 143 H (70-105) mg/dL Calcium 8.4 L (8.6-10.3) mg/dL Calcium panel 11/08/17 Range/Units 03:50 Calcium 8.4 L (8.6-10.3) mg/dL Phosphorus 3.2 (2.7-4.5) mg/dL Pituitary panel 11/08/17 Range/Units 03:50 Sodium 134 L (136-145) mEq/L Potassium 3.7 (3.5-5.1) mEq/L Chloride 102 (98-107) mEq/L Carbon Dioxide 27 (23-29) mEq/L BUN 10 (8-23) mg/dL Creatinine 0.38 L (0.60-1.20) mg/dL Glucose 143 H (70-105) mg/dL Calcium 8.4 L (8.6-10.3) mg/dL Adrenal panel 11/08/17 Range/Units 03:50 Sodium 134 L (136-145) mEq/L Potassium 3.7 (3.5-5.1) mEq/L Chloride 102 (98-107) mEq/L Carbon Dioxide 27 (23-29) mEq/L BUN 10 (8-23) mg/dL Creatinine 0.38 L (0.60-1.20) mg/dL Glucose 143 H (70-105) mg/dL Calcium 8.4 L (8.6-10.3) mg/dL - VTE Documentation of Mechanical Device: Intermittent pneumatic compression device Consult Discharge Plan - Plan Referrals: Julee Booth, TECTONOPHYSICIST [Primary Care Provider] - <Jonathan Butcher - Last Filed: 11/08/17 23:57> Date of Encounter: 11/08/17 - Assessment and Plan (1) Perforated appendicitis Current Visit: Yes Status: Acute Objective Vital Signs - Last 8 Hours Temp Pulse Resp BP Pulse Ox 11/08/17 20:27 98.3 F 97 16 148/86 96 11/08/17 16:28 98.0 F 100 16 139/89 96 Intake and Output 11/08/17 11/08/17 11/08/17 07:59 15:59 23:59 Intake Total 1096.3 / 1096.3 100 / 100 483.7 / 483.7 Output Total 1460 / 1460 1950 / 1950 1370 / 1370 Balance -363.7 / -363.7 -1850 / -1850 -886.3 / -886.3 Intake: IV Fluids 1066.3 / 1066.3 100 / 100 483.7 / 483.7 Heparin 25,000 UNIT/500 ML D5W 516.3 / 516.3 483.7 / 483.7 25,000 unit In 500 ml @ 14 UNIT /KG/HR 21.784 mls/hr IVC . [id number] [facility] Rx#:[id number] Ofirmev 1,000 mg/100 ml 1,000 200 / 200 mg In 100 ml @ 400 mls/hr IVPB Q6HR [facility] Rx#:[id number] Intralipid 20% 250 ML @ 21 mls/ 250 / 250 hr IVPB DAILY@1700 [facility] Rx#: [id number] Zosyn 3.375 GM In 0.9 % Sodium 100 / 100 100 / 100 Chloride (Mini-Bag +) 100 ML @ 25 mls/hr IVPB Q8HR [facility] Rx#: [id number] Oral 30 / 30 0 / 0 Output: Urine 800 / 800 1850 / 1850 1250 / 1250 Stool 100 / 100 Gastric Tube Lavage Amount 60 / 60 Left Nare 60 / 60 Gastric Drainage 650 / 650 Wound Drainage 60 60 Left Pubis 0 / 0 Right Lower Abdomen 60 60 Other: Meal NPO Percent of Meal Consumed 0% Blood Glucose* 192 213 184 - Labs 11/07/17 02:20 11/08/17 03:50 Diabetes panel 11/08/17 Range/Units 03:50 Sodium 134 L (136-145) mEq/L Potassium 3.7 (3.5-5.1) mEq/L Chloride 102 (98-107) mEq/L Carbon Dioxide 27 (23-29) mEq/L BUN 10 (8-23) mg/dL Creatinine 0.38 L (0.60-1.20) mg/dL Glucose 143 H (70-105) mg/dL Calcium 8.4 L (8.6-10.3) mg/dL Calcium panel 11/08/17 Range/Units 03:50 Calcium 8.4 L (8.6-10.3) mg/dL Phosphorus 3.2 (2.7-4.5) mg/dL Pituitary panel 11/08/17 Range/Units 03:50 Sodium 134 L (136-145) mEq/L Potassium 3.7 (3.5-5.1) mEq/L Chloride 102 (98-107) mEq/L Carbon Dioxide 27 (23-29) mEq/L BUN 10 (8-23) mg/dL Creatinine 0.38 L (0.60-1.20) mg/dL Glucose 143 H (70-105) mg/dL Calcium 8.4 L (8.6-10.3) mg/dL Adrenal panel 11/08/17 Range/Units 03:50 Sodium 134 L (136-145) mEq/L Potassium 3.7 (3.5-5.1) mEq/L Chloride 102 (98-107) mEq/L Carbon Dioxide 27 (23-29) mEq/L BUN 10 (8-23) mg/dL Creatinine 0.38 L (0.60-1.20) mg/dL Glucose 143 H (70-105) mg/dL Calcium 8.4 L (8.6-10.3) mg/dL - Attending Attestation Patient seen and examined; I have reviewed all labs, imaging, and notes. I agree with the above assessment and plan and wish to add the following... POD #6 s/p diagnostic laparoscopy, abdominal washout; still awaiting return of bowel function; decreased distension, but patient still feels bloated; WBC wnl, BP wnl; small episodes of flatus; cont with TPN, abx, hep gtt, ng tube PT/OT, OOBTC, ambulate as tolerated although there are undrained abscesses, she is still stable; no acute surgery
[2017-11-08] MEDS: Piperacillin/Tazobactam 3.375 GM in 0.9 % Sodium Chloride Mini Bag 100 ML IVPB SCH ×2 (07:54→17:09)
[2017-11-08] MEDS ORDERED: D5% in Water 1,000 ML IVC PRN (08:01)
[2017-11-08] MEDS ORDERED: *HR* Dextrose 50 % in Water (Syg) 50 ML SYRINGE IVP PRN (08:01)
[2017-11-08] MEDS ORDERED: Dextrose Gel 15 GM/37.5 ML TUBE PO PRN ×2 (08:01)
--- NOTE | 2017-11-08 10:42 | Internal Med Progress Note ---
<Danisha Lilly - Last Filed: 11/08/17 18:37> Hospitalist Progress Note - Encounter Date of Encounter: 11/08/17 Time of Encounter: 15:56 - Subjective Interval History: 76 y/o female with history of a fib with recent perforated appendicitis; POD6 for laparoscopic adhesion lysis and draining of abscess . She slept better overnight with pain medications. Continues to complain of abdominal fullness that is limiting her deep breaths - but pain has improved and is diffuse not sharp. She has two BM yesterday that were runny with out pain. No fever overnight. She is on TPN and it has been 3 weeks since she has had a full meal by month. Denies fever, chills, nausea, shortness of breath, and chest pain - Exam Vitals: Temp Pulse Resp BP Pulse Ox 98.6 F 98 17 151/84 96 11/08/17 08:20 11/08/17 08:20 11/08/17 08:20 11/08/17 08:20 11/08/17 08:20 Exam: General : pleasant, weak in no acute distress, A&Ox3 Cardiac: RRR no murmurs or gallop Respiratory: CTAB no wheeze or rales Abdomen: distended, diffuse tenderness, Rovsing sign with contralateral pain with palpation Extremities: no pedal edema, pulses intact - Assessment and Plan (1) Acute appendicitis Current Visit: Yes Status: Acute Assessment and Plan: Surgery is primary team - per surgery keep NPO and continue TPN, NG to suction - blood cultures negative (2) Sepsis Current Visit: Yes Status: Acute Assessment and Plan: improved WBC yesterday at 8.9, remains mildly tachycardic in 90-100s - continue IV zosyn day 6 of 14 - replete electorlytes as necessary with nutrition advise - pain treated with IV fentanyl and Tylenol , fentanyl patch - zofran IV prn (3) Atrial fibrillation Current Visit: Yes Status: Chronic Assessment and Plan: rate controlled with IV metoprolol - continue heparin drip DVT Prophylaxis: heparin drip - Time Spent with Patient Total time spent is greater than 50% in coordination of care (as documented) at patient's floor/unit and/or counseling patient: 25 - 35 minutes Plan of Care Discussed with: patient Internal Medicine: Result - Labs CBC & Chem 7: 11/07/17 02:20 11/08/17 03:50 Labs: BMP 11/08/17 03:50 Sodium 134 L Potassium 3.7 Chloride 102 Carbon Dioxide 27 BUN 10 Creatinine 0.38 L Glucose 143 H Calcium 8.4 L - ABG Interpretation ABG results: PT/INR, D-dimer PT 14.5 Seconds (9.4-12.1) H 10/25/17 14:37 - VTE Documentation of Mechanical Device: Intermittent pneumatic compression device Consult Discharge Plan - Plan Referrals: Julee Booth, SOFTWARE CONFIGURATION MANAGER [Primary Care Provider] - <Laura Young - Last Filed: 11/09/17 08:43> Hospitalist Progress Note - Encounter Date of Encounter: 11/08/17 - Exam Vitals: Temp Pulse Resp BP Pulse Ox 98.3 F 89 19 149/76 96 11/09/17 07:14 11/09/17 07:14 11/09/17 07:14 11/09/17 07:14 11/09/17 07:14 - Assessment and Plan (1) Atrial fibrillation Current Visit: Yes Status: Chronic (2) GERD (gastroesophageal reflux disease) Current Visit: Yes Status: Chronic (3) DVT prophylaxis Current Visit: Yes Status: Acute (4) HTN (hypertension) Current Visit: Yes Status: Chronic (5) Acute appendicitis Current Visit: Yes Status: Acute (6) Hypokalemia Current Visit: Yes Status: Acute (7) Intra-abdominal abscess Current Visit: Yes Status: Acute (8) Sepsis Current Visit: Yes Status: Acute (9) Hypophosphatemia Current Visit: Yes Status: Resolved - Time Spent with Patient Total time spent is greater than 50% in coordination of care (as documented) at patient's floor/unit and/or counseling patient: Internal Medicine: Result - Labs CBC & Chem 7: 11/09/17 03:09 11/09/17 03:09 Labs: Short CBC 11/09/17 Range/Units 03:09 WBC 8.1 (4.3-11.1) K/mcL Hgb 11.3 L (11.5-15.4) g/dL Hct 34.2 L (35.3-44.9) % Plt Count 402 H (140-400) K/mcL Neutrophils # 5.8 (1.6-8.9) K/mcL BMP 11/09/17 03:09 Sodium 135 L Potassium 3.6 Chloride 103 Carbon Dioxide 26 BUN 12 Creatinine 0.43 L Glucose 158 H Calcium 8.5 L - ABG Interpretation ABG results: PT/INR, D-dimer PT 14.5 Seconds (9.4-12.1) H 10/25/17 14:37 - Attending Attestation I examined this patient and my medical decision-making was reviewed with the Resident Physician Dr. Lilly. I agree with the documented findings, disposition and treatment plan as described except to the extent set forth below. Ms. Doan is a 76 year old female w/PMH of paroxysmal atrial fibrillation on Paradaxa for anti coagulation and GERD presented from the ED with chief complaint of abdominal pain that began on 10/18 and lasted for 2 days prior to coming to ED. CT of the abdomen/pelvis showed findings compatible with perforated appendicitis. Pt was admitted in the hospital under surgery service and started on empirical abx Cipro and Flagyl. Later she went for diagnostic laparoscopy lysis of adhesions and drainage of intraabdominal abscess on 11/02/[address] Butcher. Pt is currently on broad spec abx Zosyn. she still has NG with very minimal secretions. Gen: A, A, O x 3 Chest: Diminished BS b/l, No crackles Abd: Soft, Discomfort. Dressing + ASHA drainage tube++ Heart; Afib a/p 1. Perforated appendicitis 2. s/p diagnostic laparoscopy with lysis of adhesions and drainage of intraabdominal abscess cont empirical abx Zosyn tolerating Ice chips well diet as per surgery recommendations only on TPN for now 3. Chronic A fib rate controlled with Metoprolol IV on Heparin gtt for anti coag <Danisha Lilly M - Last Filed: 11/08/17 18:37> (1) Acute appendicitis Qualifiers: Acute appendicitis type: with localized peritonitis Qualified Code(s): K35.3 - Acute appendicitis with localized peritonitis (2) Sepsis Qualifiers: Sepsis type: sepsis due to unspecified organism Qualified Code(s): A41.9 - Sepsis, unspecified organism (3) Atrial fibrillation Qualifiers: Atrial fibrillation type: paroxysmal Qualified Code(s): I48.0 - Paroxysmal atrial fibrillation <Laura Young - Last Filed: 11/09/17 08:43> (1) Atrial fibrillation Qualifiers: Atrial fibrillation type: paroxysmal Qualified Code(s): I48.0 - Paroxysmal atrial fibrillation (2) GERD (gastroesophageal reflux disease) Qualifiers: Esophagitis presence: without esophagitis Qualified Code(s): K21.9 - Gastro- esophageal reflux disease without esophagitis (4) HTN (hypertension) Qualifiers: Hypertension type: essential hypertension Qualified Code(s): I10 - Essential (primary) hypertension (5) Acute appendicitis Qualifiers: Acute appendicitis type: with localized peritonitis Qualified Code(s): K35.3 - Acute appendicitis with localized peritonitis (8) Sepsis Qualifiers: Sepsis type: sepsis due to unspecified organism Qualified Code(s): A41.9 - Sepsis, unspecified organism
[2017-11-08] MEDS ORDERED: Clinimix E 5%-15% SOLUTION 2,000 ML with MVI, adult with vitamin K 10 ML IVC SCH (17:00)
[2017-11-09] MEDS: *HR* FentaNYL (PF) 100 MCG/2 ML VIAL IVP PRN (00:05)
[2017-11-09] MEDS: Acetaminophen IV 1,000 MG/100 ML INFUS..BTL IVPB SCH ×5 (00:12→23:36)
[2017-11-09] MEDS: *HR* Metoprolol 5 MG/5 ML VIAL IVP SCH ×5 (00:16→23:58)
[2017-11-09] MEDS: Piperacillin/Tazobactam 3.375 GM in 0.9 % Sodium Chloride Mini Bag 100 ML IVPB SCH ×3 (00:47→14:49)
[2017-11-09] MEDS: Insulin LISPRO 300 UNITS/3 ML VIAL SQ SCH ×4 (01:27→17:54)
[2017-11-09 03:29] LABS: Basophils # 0.1 K/mcL (0.0-0.2); Basophils % 0.7 %; Eosinophils # 0.2 K/mcL (0.0-0.6); Eosinophils % 2.1 %; Hematocrit 34.2 % (35.3-44.9); Hemoglobin 11.3 g/dL (11.5-15.4); Immature Granulocytes % 4.3 % (0-4); Lymphocytes # 1.2 K/mcL (0.6-4.6); Lymphocytes % 14.9 %; Mean Corpuscular Hemoglobin 29.2 pg (28.0-33.3); Mean Corpuscular Volume 88.4 fL (83.0-100.0); Mean Platelet Volume 9.3 fL (9.4-12.4); Monocytes # 0.5 K/mcL (0.0-1.3); Monocytes % 6.3 %; Neutrophils # 5.8 K/mcL (1.6-8.9); Platelet Count 402 K/mcL (140-400); Red Blood Count 3.87 M/mcL (3.82-4.97); Red Cell Distribution Width 14.3 % (11.5-14.5); Segmented Neutrophils % 71.7 %
[2017-11-09 03:40] LABS: BUN/Creatinine Ratio 28 (6-26); Blood Urea Nitrogen 12 mg/dL (8-23); Calcium 8.5 mg/dL (8.6-10.3); Carbon Dioxide 26 mEq/L (23-29); Chloride 103 mEq/L (98-107); Glucose 158 mg/dL (70-105); Osmolality,Calculated 283 (280-300); Phosphorous 3.7 mg/dL (2.7-4.5); Potassium 3.6 mEq/L (3.5-5.1); Sodium 135 mEq/L (136-145); eGFR For Non-African Americans > 60 (> 60)
[2017-11-09] MEDS: Pantoprazole 40 MG VIAL IVP SCH (05:55)
[2017-11-09] MEDS: Heparin 25,000 UNIT/500 ML D5W 25,000 UNIT/500 ML BAG IVC SCH ×2 (08:11→23:55)
--- NOTE | 2017-11-09 09:32 | Internal Med Progress Note ---
<Danisha Lilly M - Last Filed: 11/09/17 14:48> Hospitalist Progress Note - Encounter Date of Encounter: 11/09/17 Time of Encounter: 09:28 - Subjective Interval History: 76 y/o female with history of a fib with recent perforated appendicitis; POD7 for laparoscopic adhesion lysis and draining of abscess . She reports flatulence that decreased abdominal fullness and diffuse abdominal pain continues to improve. She was able to get up from bed twice this morning. Her it data architect is here to visit today. Denies fever, chills, and nausea. She was tachycardic 90s-113 yesterday but continues to deny palpatations, shortness of breath, and chest pain - Exam Vitals: Temp Pulse Resp BP Pulse Ox 98.3 F 89 19 149/76 96 11/09/17 07:14 11/09/17 07:14 11/09/17 07:14 11/09/17 07:14 11/09/17 07:14 Exam: General : pleasant, weak in no acute distress, A&Ox3 Cardiac: RRR no murmurs or gallop Respiratory: CTAB no wheeze or rales Abdomen: distended but decrease fullness, diffuse tenderness, Rovsing sign with contralateral pain with palpation Extremities: no pedal edema, pulses intact - Assessment and Plan (1) Acute appendicitis Current Visit: Yes Status: Acute Assessment and Plan: Per surgery is primary team - NPO and continue TPN, NG to suction - blood cultures negative (2) Sepsis Current Visit: Yes Status: Acute Assessment and Plan: Tachycardiac 90s-113 with likely source appendicitis: WBC 8.1 - continue IV zosyn day 7 of 14 - replete electorlytes as necessary with nutrition advise - pain treated with IV fentanyl and Tylenol , fentanyl patch - zofran IV prn - IVF bolus 250 and then 40ml/hr (3) Atrial fibrillation Current Visit: Yes Status: Chronic Assessment and Plan: rate controlled with IV metoprolol - continue heparin drip as remains NPO DVT Prophylaxis: heparin drip - Time Spent with Patient Total time spent is greater than 50% in coordination of care (as documented) at patient's floor/unit and/or counseling patient: Greater than 35 minutes Plan of Care Discussed with: patient Internal Medicine: Result - Labs CBC & Chem 7: 11/09/17 03:09 11/09/17 03:09 Labs: Short CBC 11/09/17 Range/Units 03:09 WBC 8.1 (4.3-11.1) K/mcL Hgb 11.3 L (11.5-15.4) g/dL Hct 34.2 L (35.3-44.9) % Plt Count 402 H (140-400) K/mcL Neutrophils # 5.8 (1.6-8.9) K/mcL BMP 11/09/17 03:09 Sodium 135 L Potassium 3.6 Chloride 103 Carbon Dioxide 26 BUN 12 Creatinine 0.43 L Glucose 158 H Calcium 8.5 L - ABG Interpretation ABG results: PT/INR, D-dimer PT 14.5 Seconds (9.4-12.1) H 10/25/17 14:37 - VTE Documentation of Mechanical Device: Intermittent pneumatic compression device Consult Discharge Plan - Plan Referrals: Julee Booht, [employer]ER [Primary Care Provider] - <Laura Young - Last Filed: 11/09/17 17:30> Hospitalist Progress Note - Encounter Date of Encounter: 11/09/17 - Exam Vitals: Temp Pulse Resp BP Pulse Ox 98.3 F 98 18 145/74 95 11/09/17 11:25 11/09/17 11:25 11/09/17 11:25 11/09/17 11:25 11/09/17 11:25 - Assessment and Plan (1) Atrial fibrillation Current Visit: Yes Status: Chronic (2) GERD (gastroesophageal reflux disease) Current Visit: Yes Status: Chronic (3) DVT prophylaxis Current Visit: Yes Status: Acute (4) HTN (hypertension) Current Visit: Yes Status: Chronic (5) Acute appendicitis Current Visit: Yes Status: Acute (6) Hypokalemia Current Visit: Yes Status: Acute (7) Intra-abdominal abscess Current Visit: Yes Status: Acute (8) Sepsis Current Visit: Yes Status: Acute (9) Hypophosphatemia Current Visit: Yes Status: Resolved - Time Spent with Patient Total time spent is greater than 50% in coordination of care (as documented) at patient's floor/unit and/or counseling patient: Internal Medicine: Result - Labs CBC & Chem 7: 11/09/17 03:09 11/09/17 03:09 Labs: Short CBC 11/09/17 Range/Units 03:09 WBC 8.1 (4.3-11.1) K/mcL Hgb 11.3 L (11.5-15.4) g/dL Hct 34.2 L (35.3-44.9) % Plt Count 402 H (140-400) K/mcL Neutrophils # 5.8 (1.6-8.9) K/mcL BMP 11/09/17 03:09 Sodium 135 L Potassium 3.6 Chloride 103 Carbon Dioxide 26 BUN 12 Creatinine 0.43 L Glucose 158 H Calcium 8.5 L - ABG Interpretation ABG results: PT/INR, D-dimer PT 14.5 Seconds (9.4-12.1) H 10/25/17 14:37 - Attending Attestation I examined this patient and my medical decision-making was reviewed with the Resident Physician Dr. Lilly. I agree with the documented findings, disposition and treatment plan as described except to the extent set forth below. Ms. Doan is a 76 year old female w/PMH of paroxysmal atrial fibrillation on Paradaxa for anti coagulation and GERD presented from the ED with chief complaint of abdominal pain that began on 10/18 and lasted for 2 days prior to coming to ED. CT of the abdomen/pelvis showed findings compatible with perforated appendicitis. Pt was admitted in the hospital under surgery service and started on empirical abx Cipro and Flagyl. Later she went for diagnostic laparoscopy lysis of adhesions and drainage of intraabdominal abscess on 11/02/[address] Butcher. Pt is currently on broad spec abx Zosyn. she still has NG and her NG tube secretions seems to be worsening today Gen: A, A, O x 3 Chest: Diminished BS b/l, No crackles Abd: Soft, Discomfort. Dressing + ASHA drainage tube++ Heart; Afib, tachy, S1S2+ a/p 1. Perforated appendicitis 2. s/p diagnostic laparoscopy with lysis of adhesions and drainage of intraabdominal abscess cont empirical abx Zosyn tolerating Ice chips well diet as per surgery recommendations only on TPN for now 3. Chronic A fib rate fairly controlled due to dehydration will start her on IVF cont Metoprolol on Heparin gtt for anti coag <Danisha Lilly - Last Filed: 11/09/17 14:48> (1) Acute appendicitis Qualifiers: Acute appendicitis type: with localized peritonitis Qualified Code(s): K35.3 - Acute appendicitis with localized peritonitis (2) Sepsis Qualifiers: Sepsis type: sepsis due to unspecified organism Qualified Code(s): A41.9 - Sepsis, unspecified organism (3) Atrial fibrillation Qualifiers: Atrial fibrillation type: paroxysmal Qualified Code(s): I48.0 - Paroxysmal atrial fibrillation <Laura Young - Last Filed: 11/09/17 17:30> (1) Atrial fibrillation Qualifiers: Atrial fibrillation type: paroxysmal Qualified Code(s): I48.0 - Paroxysmal atrial fibrillation (2) GERD (gastroesophageal reflux disease) Qualifiers: Esophagitis presence: without esophagitis Qualified Code(s): K21.9 - Gastro- esophageal reflux disease without esophagitis (4) HTN (hypertension) Qualifiers: Hypertension type: essential hypertension Qualified Code(s): I10 - Essential (primary) hypertension (5) Acute appendicitis Qualifiers: Acute appendicitis type: with localized peritonitis Qualified Code(s): K35.3 - Acute appendicitis with localized peritonitis (8) Sepsis Qualifiers: Sepsis type: sepsis due to unspecified organism Qualified Code(s): A41.9 - Sepsis, unspecified organism
--- NOTE | 2017-11-09 10:08 | General Surgery Progress Note ---
<Jessica Castillo E - Last Filed: 11/09/17 10:05> Date of Encounter: 11/09/17 Time of Encounter: 10:05 - Assessment and Plan (1) Perforated appendicitis Current Visit: Yes Status: Acute Date of procedure: 11/02/17 Pre-op diagnosis: perforated appendix with pelvic abscess Post-op diagnosis: same Procedure: diagnostic laparoscopy lysis of adhesions drainage of intraabdominal abscess Implants: 2 19fr loretta drains Complications: none Anesthesia: GETA Local Anesthetics: 0.5% Sensorcaine HCL SubQ (cc) Surgeon: Jonathan Butcher Postop day 7# diagnostic laproscopy, lysis of adhesions, drainage of intra- abdominal abscess. ASHA drain in pubic area draining black/green bilious looking drainage scant amount. Right abdominal ASHA drain draining sanguinous drainage. Serial abdominal exams NG to intermediate wall suction Patient's pain is controlled on current medications Continue TPN Nothing by mouth ice chips ok Continue IV antibiotics Supportive care CT/CT chest w con IMPRESSION: Small bilateral pleural effusions and mild volume loss in the lower lobes. Partial consolidation in the lower lobes, slightly worse on the right. Atelectasis versus developing infection. 3 fluid collections again noted in the right pelvis. These are stable to slightly decreased. Small collection within the right pericolic gutter measuring up to 5.2 x 1.4 cm, increased. Slight worsening of small bowel ileus. Wall thickening and inflammation of the cecum, slightly increased. 2 new drains within the pelvis. These both terminate in the anterior lower pelvis and not centered within the fluid collections. D/ / Yaneth Kaplan MD / Yaneth Kaplan MD (2) Ileus Current Visit: Yes Status: Acute See above (3) Atrial fibrillation Current Visit: Yes Status: Chronic Patient on metoprolol 7.5q6hr continue rate control as per hospitalist Continue heparain gtt Qualifiers: Atrial fibrillation type: paroxysmal Qualified Code(s): I48.0 - Paroxysmal atrial fibrillation (4) GERD (gastroesophageal reflux disease) Current Visit: Yes Status: Chronic No medications by mouth (Protonix 40 mg every 12 hours Qualifiers: Esophagitis presence: without esophagitis Qualified Code(s): K21.9 - Gastro -esophageal reflux disease without esophagitis (5) Elevated blood sugar Current Visit: No Status: Acute SSI low scale coverage for mgmt will continue to monitor and adjust as necessary Subjective Patient reports: pain is less, flatus, bowel movement, other (Patient states she is starting to feel al ittle better. She states she has been up walking a few times already today, has had two episodes of flatus and 2 bowel movements. ) Objective Vital Signs - Last 8 Hours Temp Pulse Resp BP Pulse Ox 11/09/17 07:14 98.3 F 89 19 149/76 96 11/09/17 06:20 112 20 136/75 96 11/09/17 04:32 98.1 F 92 18 142/76 96 Intake and Output 11/08/17 11/09/17 11/09/17 23:59 07:59 15:59 Intake Total 683.7 / 683.7 693.2 / 693.2 100 / 100 Output Total 1370 / 1370 755 / 755 850 / 850 Balance -686.3 / -686.3 -61.8 / -61.8 -750 / -750 Intake: IV Fluids 683.7 / 683.7 693.2 / 693.2 100 / 100 Heparin 25,000 UNIT/500 ML D5W 483.7 / 483.7 493.2 / 493.2 25,000 unit In 500 ml @ 14 UNIT /KG/HR 21.784 mls/hr IVC . [id number] [facility] Rx#:[id number] Ofirmev 1,000 mg/100 ml 1,000 100 / 100 100 / 100 100 / 100 mg In 100 ml @ 400 mls/hr IVPB Q6HR [facility] Rx#:[id number] Zosyn 3.375 GM In 0.9 % Sodium 100 / 100 100 / 100 Chloride (Mini-Bag +) 100 ML @ 25 mls/hr IVPB Q8HR [facility] Rx#: [id number] Output: Urine 1250 / 1250 450 / 450 Urine/Stool Mix 650 / 650 Gastric Tube Lavage Amount 60 / 60 280 / 280 200 / 200 Left Nare 60 / 60 280 / 280 200 / 200 Wound Drainage 60 / 60 25 / 25 Right Lower Abdomen 60 / 60 25 / 25 Other: Stool Size Moderate Small Stool Consistency liquid loose Stool Color Brown Brown Weight 77.7 kg Blood Glucose* 184 159 Patient Weight 11/09/17 23:59 Weight 77.7 kg - General physical appearance well developed, well nourished, moderate distress - Respiratory normal expansion, normal respiratory effort, clear to auscultation - Cardiovascular Cardiovascular exam: Present: RRR, no murmurs/rubs/gallops - Abdomen Abdomen: Present: bowel sounds present (LLQ a few soft bowel sound swere heard) , distended (less os than yesterday), tender Abdominal Tenderness: diffusely (she states less so than yesterday) Additional Comments: ASHA at pubis small amount of dark green drainage ASHA at abdomen clear serous drainage - Incision Incision: Present: clean and dry, intact - Integumentary no rash, no growths, no abnormal pigmentation - Musculoskeletal normal posture - Psychiatric oriented to time, oriented to person, oriented to place - Labs 11/09/17 03:09 11/09/17 03:09 Diabetes panel 11/09/17 Range/Units 03:09 Sodium 135 L (136-145) mEq/L Potassium 3.6 (3.5-5.1) mEq/L Chloride 103 (98-107) mEq/L Carbon Dioxide 26 (23-29) mEq/L BUN 12 (8-23) mg/dL Creatinine 0.43 L (0.60-1.20) mg/dL Glucose 158 H (70-105) mg/dL Calcium 8.5 L (8.6-10.3) mg/dL Calcium panel 11/09/17 Range/Units 03:09 Calcium 8.5 L (8.6-10.3) mg/dL Phosphorus 3.7 (2.7-4.5) mg/dL Pituitary panel 11/09/17 Range/Units 03:09 Sodium 135 L (136-145) mEq/L Potassium 3.6 (3.5-5.1) mEq/L Chloride 103 (98-107) mEq/L Carbon Dioxide 26 (23-29) mEq/L BUN 12 (8-23) mg/dL Creatinine 0.43 L (0.60-1.20) mg/dL Glucose 158 H (70-105) mg/dL Calcium 8.5 L (8.6-10.3) mg/dL Adrenal panel 11/09/17 Range/Units 03:09 Sodium 135 L (136-145) mEq/L Potassium 3.6 (3.5-5.1) mEq/L Chloride 103 (98-107) mEq/L Carbon Dioxide 26 (23-29) mEq/L BUN 12 (8-23) mg/dL Creatinine 0.43 L (0.60-1.20) mg/dL Glucose 158 H (70-105) mg/dL Calcium 8.5 L (8.6-10.3) mg/dL - VTE Documentation of Mechanical Device: Intermittent pneumatic compression device Consult Discharge Plan - Plan Referrals: Julee Booth, [employer] [facility] [Primary Care Provider] - <Jonathan Butcher - Last Filed: 11/09/17 16:12> Date of Encounter: 11/09/17 - Assessment and Plan (1) Perforated appendicitis Current Visit: Yes Status: Acute Objective Vital Signs - Last 8 Hours Temp Pulse Resp BP Pulse Ox 11/09/17 11:25 98.3 F 98 18 145/74 95 Intake and Output 11/09/17 11/09/17 11/09/17 07:59 15:59 23:59 Intake Total 693.2 / 693.2 200 / 200 Output Total 755 / 755 868 / 868 Balance -61.8 / -61.8 -668 / -668 Intake: IV Fluids 693.2 / 693.2 200 / 200 Heparin 25,000 UNIT/500 ML D5W 493.2 / 493.2 25,000 unit In 500 ml @ 14 UNIT /KG/HR 21.784 mls/hr IVC . [id number] [facility] Rx#:[id number] Ofirmev 1,000 mg/100 ml 1,000 100 / 100 100 / 100 mg In 100 ml @ 400 mls/hr IVPB Q6HR [facility] Rx#:[id number] Zosyn 3.375 GM In 0.9 % Sodium 100 / 100 100 / 100 Chloride (Mini-Bag +) 100 ML @ 25 mls/hr IVPB Q8HR [facility] Rx#: [id number] Output: Urine 450 / 450 Urine/Stool Mix 650 / 650 Gastric Tube Lavage Amount 280 / 280 200 / 200 Left Nare 280 / 280 200 / 200 Wound Drainage Left Pubis 15 / 15 Right Lower Abdomen 3 / 3 Other: Stool Size Moderate Small Stool Consistency liquid loose Stool Color Brown Brown Weight 77.7 kg Blood Glucose* 159 167 Patient Weight 11/09/17 23:59 Weight 77.7 kg - Labs 11/09/17 03:09 11/09/17 03:09 Diabetes panel 11/09/17 Range/Units 03:09 Sodium 135 L (136-145) mEq/L Potassium 3.6 (3.5-5.1) mEq/L Chloride 103 (98-107) mEq/L Carbon Dioxide 26 (23-29) mEq/L BUN 12 (8-23) mg/dL Creatinine 0.43 L (0.60-1.20) mg/dL Glucose 158 H (70-105) mg/dL Calcium 8.5 L (8.6-10.3) mg/dL Calcium panel 11/09/17 Range/Units 03:09 Calcium 8.5 L (8.6-10.3) mg/dL Phosphorus 3.7 (2.7-4.5) mg/dL Pituitary panel 11/09/17 Range/Units 03:09 Sodium 135 L (136-145) mEq/L Potassium 3.6 (3.5-5.1) mEq/L Chloride 103 (98-107) mEq/L Carbon Dioxide 26 (23-29) mEq/L BUN 12 (8-23) mg/dL Creatinine 0.43 L (0.60-1.20) mg/dL Glucose 158 H (70-105) mg/dL Calcium 8.5 L (8.6-10.3) mg/dL Adrenal panel 11/09/17 Range/Units 03:09 Sodium 135 L (136-145) mEq/L Potassium 3.6 (3.5-5.1) mEq/L Chloride 103 (98-107) mEq/L Carbon Dioxide 26 (23-29) mEq/L BUN 12 (8-23) mg/dL Creatinine 0.43 L (0.60-1.20) mg/dL Glucose 158 H (70-105) mg/dL Calcium 8.5 L (8.6-10.3) mg/dL - Attending Attestation I have personally seen and examined the patient. I have reviewed pertinent labs , imaging, progress notes, including this one. I agree with the above assessment and plan and wish to include the following... prolonged ileus, but making slow progress;
[2017-11-09] MEDS ORDERED: 0.9 % Sodium Chloride 250 ML IVC ONE (12:41)
[2017-11-09] MEDS: *HR* FentaNYL PATCH 25 MCG PATCH TD SCH (13:06)
[2017-11-09] MEDS: 0.9 % Sodium Chloride 1,000 ML IVC SCH (14:47)
[2017-11-09] MEDS ORDERED: Clinimix E 5%-15% SOLUTION 2,000 ML with MVI, adult with vitamin K 10 ML, Trace Eleme... IVC SCH (17:00)
[2017-11-10] MEDS: Piperacillin/Tazobactam 3.375 GM in 0.9 % Sodium Chloride Mini Bag 100 ML IVPB SCH ×3 (00:02→18:34)
[2017-11-10] MEDS: Insulin LISPRO 300 UNITS/3 ML VIAL SQ SCH ×4 (00:24→18:40)
[2017-11-10] MEDS: *HR* Metoprolol 5 MG/5 ML VIAL IVP SCH ×3 (05:30→18:38)
[2017-11-10] MEDS: Pantoprazole 40 MG VIAL IVP SCH (05:30)
[2017-11-10] MEDS: Acetaminophen IV 1,000 MG/100 ML INFUS..BTL IVPB SCH ×3 (05:36→18:39)
[2017-11-10 06:37] LABS: Basophils % 0.5 %; Eosinophils # 0.2 K/mcL (0.0-0.6); Eosinophils % 1.7 %; Hematocrit 33.9 % (35.3-44.9); Hemoglobin 10.9 g/dL (11.5-15.4); Immature Granulocytes % 4.1 % (0-4); Lymphocytes # 0.9 K/mcL (0.6-4.6); Lymphocytes % 10.6 %; Mean Corpuscular HGB Conc 32.2 g/dL (31.6-35.5); Mean Corpuscular Hemoglobin 28.8 pg (28.0-33.3); Mean Corpuscular Volume 89.7 fL (83.0-100.0); Mean Platelet Volume 9.3 fL (9.4-12.4); Monocytes # 0.5 K/mcL (0.0-1.3); Monocytes % 6.2 %; Neutrophils # 6.7 K/mcL (1.6-8.9); Platelet Count 356 K/mcL (140-400); Red Blood Count 3.78 M/mcL (3.82-4.97); Red Cell Distribution Width 14.5 % (11.5-14.5); Segmented Neutrophils % 76.9 %
[2017-11-10 06:48] LABS: BUN/Creatinine Ratio 34 (6-26); Blood Urea Nitrogen 14 mg/dL (8-23); Calcium 8.2 mg/dL (8.6-10.3); Carbon Dioxide 25 mEq/L (23-29); Chloride 102 mEq/L (98-107); Glucose 173 mg/dL (70-105); Osmolality,Calculated 281 (280-300); Phosphorous 3.5 mg/dL (2.7-4.5); Potassium 3.6 mEq/L (3.5-5.1); Sodium 133 mEq/L (136-145); eGFR For Non-African Americans > 60 (> 60)
--- NOTE | 2017-11-10 10:56 | Internal Med Progress Note ---
<Tesfaye Tejada - Last Filed: 11/10/17 14:36> Hospitalist Progress Note - Encounter Date of Encounter: 11/10/17 Time of Encounter: 10:20 - Subjective Interval History: 76 F with PMHx of afib on pradaxa + GERD admitted for perforated appendicitis. Patient was treated with medical management initially and is now post-op day 8 for lysis of adhesions and pelvic abscess drainage. She is NPO and receiving TPN. She is doing well this morning. Her abdominal pain is well controlled. She had a small BM yesterday. She denies fevers/chills, PARR, SOB, CP, n/v/d, numbness/tingling. - Exam Vitals: Temp Pulse Resp BP Pulse Ox 98.2 F 96 16 137/81 95 11/10/17 07:37 11/10/17 07:37 11/10/17 07:37 11/10/17 07:37 11/10/17 07:37 Exam: Gen: no acute distress, A&O x3 Heart: irregular, no murmurs Lungs: Diminished breath sounds bilaterally, no wheezes Abdomen: soft, mildly distended, diffuse tenderness improved today Extremities: no edema Vascular: pulses +2 in upper and lower extremeties Psych: normal affect, normal mood NG tube on suction - 800 mL of dark liquid Pubic drain - small amount of dark green/bilious liquid, intact R abdominal drain - serosanguinous liquid, intact - Assessment and Plan (1) Acute appendicitis Current Visit: Yes Status: Acute Assessment and Plan: With perforation Post-op day 8 for lysis of adhesions and pelvic abscess drainage On IV zosyn Pubic drain with dark green/bilious liquid R abdominal drain with serosanguinous liquid NGT to suction with dark liquid WBC 8.7 today Pain controlled with IV fentanyl PRN, fentanyl patch, IV acetaminophen NPO with TPN over weekend (2) Atrial fibrillation Current Visit: Yes Status: Chronic Assessment and Plan: HR 96, was tachy in low 100s overnight On IV metoprolol On IV heparin drip Home pradaxa on hold Continue telemetry (3) GERD (gastroesophageal reflux disease) Current Visit: Yes Status: Chronic Assessment and Plan: IV Protonix IV reglan Sublingual zofran (4) HTN (hypertension) Current Visit: Yes Status: Chronic Assessment and Plan: BP 137/81 Continue IV metoprolol (5) Hypokalemia Current Visit: Yes Status: Acute Assessment and Plan: Replace as needed K 3.6 today (6) Intra-abdominal abscess Current Visit: Yes Status: Acute Assessment and Plan: Post-op day 8 for abscess drainage On IV zosyn (7) Sepsis Current Visit: Yes Status: Acute Assessment and Plan: 2/2 perforated appendicitis and abscess Abscess drained On IV zosyn Blood cultures negative (8) Hypophosphatemia Current Visit: Yes Status: Resolved DVT Prophylaxis: IV heparin - Time Spent with Patient Total time spent is greater than 50% in coordination of care (as documented) at patient's floor/unit and/or counseling patient: Internal Medicine: Result - Labs CBC & Chem 7: 11/10/17 06:14 11/10/17 06:14 Labs: Short CBC 11/10/17 Range/Units 06:14 WBC 8.7 (4.3-11.1) K/mcL Hgb 10.9 L (11.5-15.4) g/dL Hct 33.9 L (35.3-44.9) % Plt Count 356 (140-400) K/mcL Neutrophils # 6.7 (1.6-8.9) K/mcL BMP 11/10/17 06:14 Sodium 133 L Potassium 3.6 Chloride 102 Carbon Dioxide 25 BUN 14 Creatinine 0.41 L Glucose 173 H Calcium 8.2 L - ABG Interpretation ABG results: PT/INR, D-dimer PT 14.5 Seconds (9.4-12.1) H 10/25/17 14:37 - VTE Documentation of Mechanical Device: Intermittent pneumatic compression device Consult Discharge Plan - Plan Referrals: Julee Booth, MARKER MACHINE ATTENDANT [Primary Care Provider] - <Laura Young - Last Filed: 11/10/17 14:55> Hospitalist Progress Note - Encounter Date of Encounter: 11/10/17 - Exam Vitals: Temp Pulse Resp BP Pulse Ox 98.1 F 106 16 135/81 96 11/10/17 11:22 11/10/17 11:22 11/10/17 11:22 11/10/17 11:22 11/10/17 11:22 - Assessment and Plan (1) Atrial fibrillation Current Visit: Yes Status: Chronic (2) GERD (gastroesophageal reflux disease) Current Visit: Yes Status: Chronic (3) HTN (hypertension) Current Visit: Yes Status: Chronic (4) Acute appendicitis Current Visit: Yes Status: Acute (5) Hypokalemia Current Visit: Yes Status: Acute (6) Intra-abdominal abscess Current Visit: Yes Status: Acute (7) Sepsis Current Visit: Yes Status: Acute (8) Hypophosphatemia Current Visit: Yes Status: Resolved - Time Spent with Patient Total time spent is greater than 50% in coordination of care (as documented) at patient's floor/unit and/or counseling patient: Internal Medicine: Result - Labs CBC & Chem 7: 11/10/17 06:14 11/10/17 06:14 Labs: Short CBC 11/10/17 Range/Units 06:14 WBC 8.7 (4.3-11.1) K/mcL Hgb 10.9 L (11.5-15.4) g/dL Hct 33.9 L (35.3-44.9) % Plt Count 356 (140-400) K/mcL Neutrophils # 6.7 (1.6-8.9) K/mcL BMP 11/10/17 06:14 Sodium 133 L Potassium 3.6 Chloride 102 Carbon Dioxide 25 BUN 14 Creatinine 0.41 L Glucose 173 H Calcium 8.2 L - ABG Interpretation ABG results: PT/INR, D-dimer PT 14.5 Seconds (9.4-12.1) H 10/25/17 14:37 - Attending Attestation I examined this patient and my medical decision-making was reviewed with the Resident Physician Dr. Tejada I agree with the documented findings, disposition and treatment plan as described except to the extent set forth below. Ms. Doan is a 76 year old female w/PMH of paroxysmal atrial fibrillation on Paradaxa for anti coagulation and GERD presented from the ED with chief complaint of abdominal pain that began on 10/18 and lasted for 2 days prior to coming to ED. CT of the abdomen/pelvis showed findings compatible with perforated appendicitis. Pt was admitted in the hospital under surgery service and started on empirical abx Cipro and Flagyl. Later she went for diagnostic laparoscopy lysis of adhesions and drainage of intraabdominal abscess on 11/02/[address] Butcher. Pt is currently on broad spec abx Zosyn. she still has NG and her NG tube secretions seems to be worsening today Gen: A, A, O x 3 Chest: Diminished BS b/l, No crackles Abd: Soft, Discomfort. Dressing + ASHA drainage tube++ Heart; Afib, S1S2+ a/p 1. Perforated appendicitis 2. s/p diagnostic laparoscopy with lysis of adhesions and drainage of intra abdominal abscess cont empirical abx Zosyn Since pt's NG tube secretions are worsening will check with surgery, if they can recommend small bowel series tolerating Ice chips well on TPN for now 3. Chronic A fib rate well controlled cont IVF cont Metoprolol on Heparin gtt for anti coag <Tesfaye Tejada - Last Filed: 11/10/17 14:36> (1) Acute appendicitis Qualifiers: Acute appendicitis type: with localized peritonitis Qualified Code(s): K35.3 - Acute appendicitis with localized peritonitis (2) Atrial fibrillation Qualifiers: Atrial fibrillation type: paroxysmal Qualified Code(s): I48.0 - Paroxysmal atrial fibrillation (3) GERD (gastroesophageal reflux disease) Qualifiers: Esophagitis presence: without esophagitis Qualified Code(s): K21.9 - Gastro- esophageal reflux disease without esophagitis (4) HTN (hypertension) Qualifiers: Hypertension type: essential hypertension Qualified Code(s): I10 - Essential (primary) hypertension (7) Sepsis Qualifiers: Sepsis type: sepsis due to unspecified organism Qualified Code(s): A41.9 - Sepsis, unspecified organism <Laura Young - Last Filed: 11/10/17 14:55> (1) Atrial fibrillation Qualifiers: Atrial fibrillation type: paroxysmal Qualified Code(s): I48.0 - Paroxysmal atrial fibrillation (2) GERD (gastroesophageal reflux disease) Qualifiers: Esophagitis presence: without esophagitis Qualified Code(s): K21.9 - Gastro- esophageal reflux disease without esophagitis (3) HTN (hypertension) Qualifiers: Hypertension type: essential hypertension Qualified Code(s): I10 - Essential (primary) hypertension (4) Acute appendicitis Qualifiers: Acute appendicitis type: with localized peritonitis Qualified Code(s): K35.3 - Acute appendicitis with localized peritonitis (7) Sepsis Qualifiers: Sepsis type: sepsis due to unspecified organism Qualified Code(s): A41.9 - Sepsis, unspecified organism
--- NOTE | 2017-11-10 13:00 | General Surgery Progress Note ---
Date of Encounter: 11/10/17 Time of Encounter: 12:30 - Assessment and Plan (1) Perforated appendicitis Current Visit: Yes Status: Acute POD #8 Dx laparoscopy, BOSSMAN, intra-abdominal washout and placement of drains X [address] Butcher NPO while awaiting return of bowel function May have ice chips and popsicles Serial abdominal exams Supportive care and pain control- scheduled ofirmev and fentanyl patch; prn fentanyl added due to side effects of oxycodone. Continue TPN therapy for nutritional support PICC line placement IV antibiotics- Zosyn Ambulate hallways TID with assistance IS every 1 hour while awake Date of procedure: 11/02/17 Pre-op diagnosis: perforated appendix with pelvic abscess Post-op diagnosis: same Procedure: diagnostic laparoscopy lysis of adhesions drainage of intraabdominal abscess Implants: 2 19fr loretta drains Complications: none Anesthesia: GETA Local Anesthetics: 0.5% Sensorcaine HCL SubQ (cc) Surgeon: Jonathan Butcher CT/CT chest w con IMPRESSION: Small bilateral pleural effusions and mild volume loss in the lower lobes. Partial consolidation in the lower lobes, slightly worse on the right. Atelectasis versus developing infection. 3 fluid collections again noted in the right pelvis. These are stable to slightly decreased. Small collection within the right pericolic gutter measuring up to 5.2 x 1.4 cm, increased. Slight worsening of small bowel ileus. Wall thickening and inflammation of the cecum, slightly increased. 2 new drains within the pelvis. These both terminate in the anterior lower pelvis and not centered within the fluid collections. D/ / Yaneth Kaplan MD / Yaneth Kaplan MD (2) Ileus Current Visit: Yes Status: Acute NPO while awaiting return of bowel function May have ice chips and popsicles Reglan 10mg IV Q6H for 48 hours Serial abdominal exams TPN therapy for nutritional support PICC line placement (3) Atrial fibrillation Current Visit: Yes Status: Chronic Continue heparin gtt Consult to hospitalist for management Qualifiers: Atrial fibrillation type: paroxysmal Qualified Code(s): I48.0 - Paroxysmal atrial fibrillation (4) GERD (gastroesophageal reflux disease) Current Visit: Yes Status: Chronic PPI therapy daily Qualifiers: Esophagitis presence: without esophagitis Qualified Code(s): K21.9 - Gastro -esophageal reflux disease without esophagitis (5) Elevated blood sugar Current Visit: No Status: Acute Will continue to monitor and adjust as necessary (6) Moderate protein-calorie malnutrition Current Visit: Yes Status: Acute Continue TPN for nutritional support Management per clothes ironer (7) DVT prophylaxis Current Visit: Yes Status: Acute Patient on heparin gtt for atrial fibrillation Ambulate hallways TID with assistance EPCDs to bilateral lower extremities Subjective Patient reports: no new complaints, feels better, still having pain, pain is less, voiding w/o difficulty, no flatus, no bowel movement, afebrile Objective Vital Signs - Last 8 Hours Temp Pulse Resp BP Pulse Ox 11/10/17 11:22 98.1 F 106 16 135/81 96 11/10/17 07:37 98.2 F 96 16 137/81 95 Intake and Output 11/09/17 11/10/17 11/10/17 23:59 07:59 15:59 Intake Total 800 / 800 200 / 200 Output Total 1165 / 1165 493 / 493 100 / 100 Balance -365 / -365 -293 / -293 -100 / -100 Intake: IV Fluids 800 / 800 200 / 200 Heparin 25,000 UNIT/500 ML D5W 500 / 500 25,000 unit In 500 ml @ 14 UNIT /KG/HR 21.784 mls/hr IVC . [id number] [facility] Rx#:[id number] Ofirmev 1,000 mg/100 ml 1,000 200 / 200 100 / 100 mg In 100 ml @ 400 mls/hr IVPB Q6HR E[facility] Rx#:[id number] Zosyn 3.375 GM In 0.9 % Sodium 100 / 100 100 / 100 Chloride (Mini-Bag +) 100 ML @ 25 mls/hr IVPB Q8HR E[facility] Rx#: [id number] Output: Urine 600 / 600 100 / 100 Gastric Tube Lavage Amount 550 / 550 425 / 425 Left Nare 550 / 550 425 / 425 Wound Drainage 68 / 68 Left Pubis 53 / 53 Right Lower Abdomen Other: Weight 67.3 kg Blood Glucose* 103 161 183 Patient Weight 11/10/17 23:59 Weight 67.3 kg - General physical appearance well developed, no distress - Eyes normal ocular movement - ENT dry mucosa, atraumatic, normocephalic - Neck Neck exam: trachea midline - Respiratory normal respiratory effort, clear to auscultation - Cardiovascular Cardiovascular exam: Present: tachycardia - Abdomen Abdomen: Present: bowel sounds present, soft, tender (expected tenderness improving), wound (NG tube to LIWS with 900ml of bilious drainage noted; ASHA #1 with 15ml of bilious drainage since midnight; ASHA #2 with 53ml of serous drainage noted since midnight) - Incision Incision: Present: clean and dry, intact - Neurologic CN 2-12 grossly intact - Psychiatric oriented to time, oriented to person, oriented to place, speech is normal, memory intact - Labs 11/10/17 06:14 11/10/17 06:14 Diabetes panel 11/10/17 Range/Units 06:14 Sodium 133 L (136-145) mEq/L Potassium 3.6 (3.5-5.1) mEq/L Chloride 102 (98-107) mEq/L Carbon Dioxide 25 (23-29) mEq/L BUN 14 (8-23) mg/dL Creatinine 0.41 L (0.60-1.20) mg/dL Glucose 173 H (70-105) mg/dL Calcium 8.2 L (8.6-10.3) mg/dL Calcium panel 11/10/17 Range/Units 06:14 Calcium 8.2 L (8.6-10.3) mg/dL Phosphorus 3.5 (2.7-4.5) mg/dL Pituitary panel 11/10/17 Range/Units 06:14 Sodium 133 L (136-145) mEq/L Potassium 3.6 (3.5-5.1) mEq/L Chloride 102 (98-107) mEq/L Carbon Dioxide 25 (23-29) mEq/L BUN 14 (8-23) mg/dL Creatinine 0.41 L (0.60-1.20) mg/dL Glucose 173 H (70-105) mg/dL Calcium 8.2 L (8.6-10.3) mg/dL Adrenal panel 11/10/17 Range/Units 06:14 Sodium 133 L (136-145) mEq/L Potassium 3.6 (3.5-5.1) mEq/L Chloride 102 (98-107) mEq/L Carbon Dioxide 25 (23-29) mEq/L BUN 14 (8-23) mg/dL Creatinine 0.41 L (0.60-1.20) mg/dL Glucose 173 H (70-105) mg/dL Calcium 8.2 L (8.6-10.3) mg/dL - VTE Documentation of Mechanical Device: Intermittent pneumatic compression device Consult Discharge Plan - Plan Referrals: Julee Booth, LEATHER STAKER [Primary Care Provider] - - Attending Attestation For this encounter, I have reviewed the SILVERWARE CLEANER or PA documentation, treatment plan, and medical decision making; and I have had face to face time with this patient.
[2017-11-10] MEDS: 0.9 % Sodium Chloride 1,000 ML IVC SCH ×2 (15:56→15:58)
[2017-11-10] MEDS: Metoclopramide 10 MG/2 ML VIAL IVP SCH ×2 (15:56→18:38)
[2017-11-10] MEDS: Clinimix E 5%-15% SOLUTION 2,000 ML with MVI, adult with vitamin K 10 ML, Trace Eleme... IVC SCH (18:41)
[2017-11-10] MEDS: *HR* FentaNYL (PF) 100 MCG/2 ML VIAL IVP PRN (23:02)
[2017-11-11] MEDS: *HR* Metoprolol 5 MG/5 ML VIAL IVP SCH ×4 (01:06→18:19)
[2017-11-11] MEDS: Piperacillin/Tazobactam 3.375 GM in 0.9 % Sodium Chloride Mini Bag 100 ML IVPB SCH ×3 (01:07→18:19)
[2017-11-11] MEDS: Metoclopramide 10 MG/2 ML VIAL IVP SCH ×4 (01:07→18:19)
[2017-11-11 05:05] LABS: Basophils # 0.1 K/mcL (0.0-0.2); Basophils % 0.7 %; Eosinophils # 0.1 K/mcL (0.0-0.6); Eosinophils % 1.1 %; Hematocrit 34.5 % (35.3-44.9); Hemoglobin 11.1 g/dL (11.5-15.4); Immature Granulocytes % 4.4 % (0-4); Lymphocytes # 1.1 K/mcL (0.6-4.6); Lymphocytes % 12.6 %; Mean Corpuscular HGB Conc 32.2 g/dL (31.6-35.5); Mean Corpuscular Hemoglobin 28.5 pg (28.0-33.3); Mean Platelet Volume 9.5 fL (9.4-12.4); Monocytes # 0.6 K/mcL (0.0-1.3); Monocytes % 6.7 %; Neutrophils # 6.4 K/mcL (1.6-8.9); Platelet Count 369 K/mcL (140-400); Red Blood Count 3.89 M/mcL (3.82-4.97); Red Cell Distribution Width 14.4 % (11.5-14.5); Segmented Neutrophils % 74.5 %
[2017-11-11 05:07] LABS: Mean Corpuscular Volume 88.7 fL (83.0-100.0)
[2017-11-11] MEDS: Acetaminophen IV 1,000 MG/100 ML INFUS..BTL IVPB SCH ×4 (05:22→18:17)
[2017-11-11] MEDS: Insulin LISPRO 300 UNITS/3 ML VIAL SQ SCH ×4 (05:23→18:18)
[2017-11-11 05:49] LABS: BUN/Creatinine Ratio 31 (6-26); Blood Urea Nitrogen 14 mg/dL (8-23); Calcium 8.3 mg/dL (8.6-10.3); Carbon Dioxide 23 mEq/L (23-29); Chloride 101 mEq/L (98-107); Glucose 124 mg/dL (70-105); Osmolality,Calculated 278 (280-300); Phosphorous 3.2 mg/dL (2.7-4.5); Potassium 3.7 mEq/L (3.5-5.1); Sodium 133 mEq/L (136-145); eGFR For Non-African Americans > 60 (> 60)
[2017-11-11] MEDS: Pantoprazole 40 MG VIAL IVP SCH (06:18)
[2017-11-11] MEDS: Heparin 25,000 UNIT/500 ML D5W 25,000 UNIT/500 ML BAG IVC SCH ×2 (07:00→23:00)
--- NOTE | 2017-11-11 08:33 | Internal Med Progress Note ---
<Tesfaye Tejada - Last Filed: 11/11/17 12:00> Hospitalist Progress Note - Encounter Date of Encounter: 11/11/17 Time of Encounter: 08:00 - Subjective Interval History: 76 F with PMHx of afib on pradaxa + GERD admitted for perforated appendicitis. Patient was treated with medical management initially and is now post-op day 9 for lysis of adhesions and pelvic abscess drainage. She is NPO and receiving TPN. She is doing well this morning. Her abdominal pain is well controlled. She had a small BM 2 days ago and had increased flatus yesterday. She denies fevers/chills, PARR, SOB, CP, n/v/d, numbness/tingling. - Exam Vitals: Temp Pulse Resp BP Pulse Ox 98.3 F 106 18 140/67 96 11/11/17 03:56 11/11/17 03:56 11/11/17 03:56 11/11/17 03:56 11/11/17 03:56 Exam: Gen: no acute distress, A&O x3 Heart: irregular, no murmurs Lungs: Diminished breath sounds bilaterally, no wheezes Abdomen: soft, mildly distended, diffuse tenderness improved today Extremities: no edema Vascular: pulses +2 in upper and lower extremities Psych: normal affect, normal mood NG tube on suction - small amount of dark liquid Pubic drain - small amount of dark green/bilious liquid, intact L abdominal drain - serosanguinous liquid, intact - Assessment and Plan (1) Acute appendicitis Current Visit: Yes Status: Acute Assessment and Plan: With perforation Post-op day 9 for lysis of adhesions and pelvic abscess drainage On IV zosyn Pubic drain with dark green/bilious liquid R abdominal drain with serosanguinous liquid NGT to suction with dark liquid WBC 8.5 today Pain controlled with IV fentanyl PRN, fentanyl patch, IV acetaminophen NPO with TPN over weekend May have ice chips and Popsicles (2) Atrial fibrillation Current Visit: Yes Status: Chronic Assessment and Plan: Tachycardic overnight at 112>106 On IV metoprolol On IV heparin drip Home pradaxa on hold Continue telemetry (3) GERD (gastroesophageal reflux disease) Current Visit: Yes Status: Chronic Assessment and Plan: IV Protonix IV reglan Sublingual zofran (4) HTN (hypertension) Current Visit: Yes Status: Chronic Assessment and Plan: BP 140/67 Continue IV metoprolol (5) Hypokalemia Current Visit: Yes Status: Acute Assessment and Plan: Replace as needed K 3.7 today (6) Intra-abdominal abscess Current Visit: Yes Status: Acute Assessment and Plan: Post-op day 9 for abscess drainage On IV zosyn (7) Sepsis Current Visit: Yes Status: Acute Assessment and Plan: 2/2 perforated appendicitis and abscess Abscess drained On IV zosyn Blood cultures negative (8) Hypophosphatemia Current Visit: Yes Status: Resolved Assessment and Plan: Supplement with IV potassium phosphate. Monitor closely. DVT Prophylaxis: IV heparin - Time Spent with Patient Total time spent is greater than 50% in coordination of care (as documented) at patient's floor/unit and/or counseling patient: less than 15 minutes Plan of Care Discussed with: patient Internal Medicine: Result - Labs CBC & Chem 7: 11/11/17 03:36 11/11/17 04:40 Labs: Short CBC 11/11/17 Range/Units 03:36 WBC 8.5 (4.3-11.1) K/mcL Hgb 11.1 L (11.5-15.4) g/dL Hct 34.5 L (35.3-44.9) % Plt Count 369 (140-400) K/mcL Neutrophils # 6.4 (1.6-8.9) K/mcL BMP 11/11/17 04:40 Sodium 133 L Potassium 3.7 Chloride 101 Carbon Dioxide 23 BUN 14 Creatinine 0.45 L Glucose 124 H Calcium 8.3 L - ABG Interpretation ABG results: PT/INR, D-dimer PT 14.5 Seconds (9.4-12.1) H 10/25/17 14:37 - VTE Documentation of Mechanical Device: Intermittent pneumatic compression device Consult Discharge Plan - Plan Referrals: Julee Booth CNP [Primary Care Provider] - <Laura Young - Last Filed: 11/11/17 12:32> Hospitalist Progress Note - Encounter Date of Encounter: 11/11/17 - Exam Vitals: Temp Pulse Resp BP Pulse Ox 98.1 F 95 16 146/85 95 11/11/17 10:27 11/11/17 10:27 11/11/17 10:27 11/11/17 10:27 11/11/17 10:27 - Assessment and Plan (1) Atrial fibrillation Current Visit: Yes Status: Chronic (2) GERD (gastroesophageal reflux disease) Current Visit: Yes Status: Chronic (3) HTN (hypertension) Current Visit: Yes Status: Chronic (4) Acute appendicitis Current Visit: Yes Status: Acute (5) Hypokalemia Current Visit: Yes Status: Acute (6) Intra-abdominal abscess Current Visit: Yes Status: Acute (7) Sepsis Current Visit: Yes Status: Acute (8) Hypophosphatemia Current Visit: Yes Status: Resolved - Time Spent with Patient Total time spent is greater than 50% in coordination of care (as documented) at patient's floor/unit and/or counseling patient: Internal Medicine: Result - Labs CBC & Chem 7: 11/11/17 03:36 11/11/17 04:40 Labs: Short CBC 11/11/17 Range/Units 03:36 WBC 8.5 (4.3-11.1) K/mcL Hgb 11.1 L (11.5-15.4) g/dL Hct 34.5 L (35.3-44.9) % Plt Count 369 (140-400) K/mcL Neutrophils # 6.4 (1.6-8.9) K/mcL BMP 11/11/17 04:40 Sodium 133 L Potassium 3.7 Chloride 101 Carbon Dioxide 23 BUN 14 Creatinine 0.45 L Glucose 124 H Calcium 8.3 L - ABG Interpretation ABG results: PT/INR, D-dimer PT 14.5 Seconds (9.4-12.1) H 10/25/17 14:37 - Attending Attestation I examined this patient and my medical decision-making was reviewed with the Resident Physician Dr. Tejada I agree with the documented findings, disposition and treatment plan as described except to the extent set forth below. Ms. Doan is a 76 year old female w/PMH of paroxysmal atrial fibrillation on Paradaxa for anti coagulation and GERD presented from the ED with chief complaint of abdominal pain that began on 10/18 and lasted for 2 days prior to coming to ED. CT of the abdomen/pelvis showed findings compatible with perforated appendicitis. Pt was admitted in the hospital under surgery service and started on empirical abx Cipro and Flagyl. Later she went for diagnostic laparoscopy lysis of adhesions and drainage of intra abdominal abscess on 11/02/[address] Butcher. Pt is currently on broad spec abx Zosyn. she still has NG and her NG tube secretions seems to be better today. Had a BM x 2 today.. Flatus ++ Gen: A, A, O x 3 Chest: Diminished BS b/l, No crackles Abd: Soft, Discomfort. Dressing + ASHA drainage tube++ Heart; Afib, S1S2+ a/p 1. Perforated appendicitis 2. s/p diagnostic laparoscopy with lysis of adhesions and drainage of intra abdominal abscess cont empirical abx Zosyn tolerating Ice chips well on TPN for now 3. Chronic A fib rate well controlled cont IVF cont Metoprolol on Heparin gtt for anti coag <Tesfaye Tejada - Last Filed: 11/11/17 12:00> (1) Acute appendicitis Qualifiers: Acute appendicitis type: with localized peritonitis Qualified Code(s): K35.3 - Acute appendicitis with localized peritonitis (2) Atrial fibrillation Qualifiers: Atrial fibrillation type: paroxysmal Qualified Code(s): I48.0 - Paroxysmal atrial fibrillation (3) GERD (gastroesophageal reflux disease) Qualifiers: Esophagitis presence: without esophagitis Qualified Code(s): K21.9 - Gastro- esophageal reflux disease without esophagitis (4) HTN (hypertension) Qualifiers: Hypertension type: essential hypertension Qualified Code(s): I10 - Essential (primary) hypertension (7) Sepsis Qualifiers: Sepsis type: sepsis due to unspecified organism Qualified Code(s): A41.9 - Sepsis, unspecified organism <Laura Young - Last Filed: 11/11/17 12:32> (1) Atrial fibrillation Qualifiers: Atrial fibrillation type: paroxysmal Qualified Code(s): I48.0 - Paroxysmal atrial fibrillation (2) GERD (gastroesophageal reflux disease) Qualifiers: Esophagitis presence: without esophagitis Qualified Code(s): K21.9 - Gastro- esophageal reflux disease without esophagitis (3) HTN (hypertension) Qualifiers: Hypertension type: essential hypertension Qualified Code(s): I10 - Essential (primary) hypertension (4) Acute appendicitis Qualifiers: Acute appendicitis type: with localized peritonitis Qualified Code(s): K35.3 - Acute appendicitis with localized peritonitis (7) Sepsis Qualifiers: Sepsis type: sepsis due to unspecified organism Qualified Code(s): A41.9 - Sepsis, unspecified organism
--- NOTE | 2017-11-11 13:47 | General Surgery Progress Note ---
Date of Encounter: 11/11/17 Time of Encounter: 13:45 - Assessment and Plan (1) Ileus following gastrointestinal surgery Current Visit: Yes Status: Acute GI function seems to be improving. Cont current course. Subjective Patient reports: no new complaints, feels better Objective Vital Signs - Last 8 Hours Temp Pulse Resp BP Pulse Ox 11/11/17 10:27 98.1 F 95 16 146/85 95 Intake and Output 11/10/17 11/11/17 11/11/17 23:59 07:59 15:59 Intake Total 200 / 200 700 / 700 0 / 0 Output Total 1150 / 1150 600 / 600 Balance 200 / 200 -450 / -450 -600 / -600 Intake: IV Fluids 200 / 200 700 / 700 Heparin 25,000 UNIT/500 ML D5W 500 / 500 25,000 unit In 500 ml @ 14 UNIT /KG/HR 21.784 mls/hr IVC . [id number] [facility] Rx#:[id number] Ofirmev 1,000 mg/100 ml 1,000 100 / 100 100 / 100 mg In 100 ml @ 400 mls/hr IVPB Q6HR [facility] Rx#:[id number] Zosyn 3.375 GM In 0.9 % Sodium 100 / 100 100 / 100 Chloride (Mini-Bag +) 100 ML @ 25 mls/hr IVPB Q8HR [facility] Rx#: [id number] Oral 0 / 0 Output: Urine 250 / 250 600 / 600 Gastric Drainage 900 / 900 0 / 0 Wound Drainage 0 / 0 0 / 0 Left Pubis 0 / 0 0 / 0 Right Lower Abdomen 0 / 0 0 / 0 Other: Meal NPO Percent of Meal Consumed 0% Stool Size Small Stool Consistency liquid Stool Color Brown # Bowel Movements 1 Weight 77.1 kg Blood Glucose* 140 144 174 - General physical appearance well developed - Eyes PERRL - Abdomen Abdomen: Present: bowel sounds present Abdominal Tenderness: epigastic - Incision Incision: Present: clean and dry - Neurologic CN 2-12 grossly intact, normal sensation - Labs 11/11/17 03:36 11/11/17 04:40 Diabetes panel 11/11/17 Range/Units 04:40 Sodium 133 L (136-145) mEq/L Potassium 3.7 (3.5-5.1) mEq/L Chloride 101 (98-107) mEq/L Carbon Dioxide 23 (23-29) mEq/L BUN 14 (8-23) mg/dL Creatinine 0.45 L (0.60-1.20) mg/dL Glucose 124 H (70-105) mg/dL Calcium 8.3 L (8.6-10.3) mg/dL Calcium panel 11/11/17 Range/Units 04:40 Calcium 8.3 L (8.6-10.3) mg/dL Phosphorus 3.2 (2.7-4.5) mg/dL Pituitary panel 11/11/17 Range/Units 04:40 Sodium 133 L (136-145) mEq/L Potassium 3.7 (3.5-5.1) mEq/L Chloride 101 (98-107) mEq/L Carbon Dioxide 23 (23-29) mEq/L BUN 14 (8-23) mg/dL Creatinine 0.45 L (0.60-1.20) mg/dL Glucose 124 H (70-105) mg/dL Calcium 8.3 L (8.6-10.3) mg/dL Adrenal panel 11/11/17 Range/Units 04:40 Sodium 133 L (136-145) mEq/L Potassium 3.7 (3.5-5.1) mEq/L Chloride 101 (98-107) mEq/L Carbon Dioxide 23 (23-29) mEq/L BUN 14 (8-23) mg/dL Creatinine 0.45 L (0.60-1.20) mg/dL Glucose 124 H (70-105) mg/dL Calcium 8.3 L (8.6-10.3) mg/dL - VTE Documentation of Mechanical Device: Intermittent pneumatic compression device Consult Discharge Plan - Plan Referrals: Julee Botoh, FLORICULTURE PROFESSOR [Primary Care Provider] -
[2017-11-11] MEDS: Clinimix E 5%-15% SOLUTION 2,000 ML with MVI, adult with vitamin K 10 ML, Trace Eleme... IVC SCH ×2 (18:13→18:16)
[2017-11-12] MEDS: Insulin LISPRO 300 UNITS/3 ML VIAL SQ SCH ×4 (00:22→17:37)
[2017-11-12] MEDS: Piperacillin/Tazobactam 3.375 GM in 0.9 % Sodium Chloride Mini Bag 100 ML IVPB SCH ×3 (00:30→15:51)
[2017-11-12] MEDS: *HR* Metoprolol 5 MG/5 ML VIAL IVP SCH ×4 (00:31→17:38)
[2017-11-12] MEDS: Metoclopramide 10 MG/2 ML VIAL IVP SCH ×4 (00:32→17:38)
[2017-11-12] MEDS: Pantoprazole 40 MG VIAL IVP SCH (06:31)
--- NOTE | 2017-11-12 07:19 | General Surgery Progress Note ---
Date of Encounter: 11/12/17 Time of Encounter: 07:16 - Assessment and Plan (1) Intra-abdominal abscess Current Visit: Yes Status: Acute POD #10 laparoscopy, intra-abdominal washout, drains x2 Monitor drain output Serial abdominal exam Cont IV Zosyn Pain control Isolated temp increase to 100.1Fthis AM, will follow AM CBC, BMP (2) Ileus following gastrointestinal surgery Current Visit: Yes Status: Acute Patient is NPO, tolerating ice chips, popsicles Bowel function returning Abdominal series for increased NG output Continue Reglan TPN nutritional support Ambulate TID with assistance (3) DVT prophylaxis Current Visit: Yes Status: Acute Continue heparin Ambulate TID with assistance Subjective Narrative: Patient reports passing flatus and 3 loose stools yesterday. Is beginning to feel thirsty and hungry. Minimal abdominal pain. Denies nausea, vomiting. Denies hematochezia or melena. Objective Vital Signs - Last 8 Hours Temp Pulse Resp BP Pulse Ox 11/12/17 06:54 98.4 F 103 16 130/81 95 11/12/17 03:07 100.1 F H 107 17 136/79 94 11/11/17 23:27 98.4 F 104 16 144/68 94 Intake and Output 11/11/17 11/11/17 11/12/17 15:59 23:59 07:59 Intake Total 200 / 200 600 / 600 Output Total 1025 / 1025 600 / 600 600 / 600 Balance -825 / -825 0 / 0 -600 / -600 Intake: IV Fluids 200 / 200 600 / 600 Heparin 25,000 UNIT/500 ML D5W 500 / 500 25,000 unit In 500 ml @ 14 UNIT /KG/HR 21.784 mls/hr IVC . [id number] [facility] Rx#:[id number] Ofirmev 1,000 mg/100 ml 1,000 100 / 100 mg In 100 ml @ 400 mls/hr IVPB Q6HR [facility] Rx#:[id number] Zosyn 3.375 GM In 0.9 % Sodium 100 / 100 100 / 100 Chloride (Mini-Bag +) 100 ML @ 25 mls/hr IVPB Q8HR E[facility] Rx#: [id number] Oral 0 / 0 0 / 0 Output: Urine 700 / 700 600 / 600 600 / 600 Gastric Drainage 325 / 325 0 / 0 Wound Drainage 0 / 0 0 / 0 Left Pubis 0 / 0 0 / 0 Right Lower Abdomen 0 / 0 0 / 0 Other: Meal NPO NPO Percent of Meal Consumed 0% 0% Stool Size Small Small Stool Consistency liquid liquid Stool Color Brown Brown # Bowel Movements 1 1 Weight 77 kg Blood Glucose* 174 140 137 - General physical appearance no distress - Eyes PERRL, normal ocular movement - ENT dry mucosa, atraumatic, normocephalic - Respiratory normal respiratory effort, clear to auscultation - Cardiovascular Cardiovascular exam: Present: tachycardia - Abdomen Abdomen: Present: bowel sounds present, soft, tender (Improving postsurgical tenderness) Additional Comments: ASHA drains present x2. No erythema at drain sites Suprapubic drain ~20 ml green/bilious fluid since midnight LLQ drain ~30 ml SS fluid since midnight - Incision Incision: Present: clean and dry, intact - Neurologic CN 2-12 grossly intact - Psychiatric oriented to time, oriented to person, oriented to place, speech is normal, other (conversent, appropriate affect) - Labs 11/12/17 04:00 11/12/17 04:00 - VTE Documentation of Mechanical Device: Intermittent pneumatic compression device Consult Discharge Plan - Plan Referrals: Julee Booth, BOTTOMING ROOM INSPECTOR [Primary Care Provider] -
[2017-11-12 07:20] LABS: Basophils # 0.1 K/mcL (0.0-0.2); Basophils % 0.9 %; Eosinophils # 0.1 K/mcL (0.0-0.6); Eosinophils % 1.3 %; Hematocrit 37.6 % (35.3-44.9); Hemoglobin 12.2 g/dL (11.5-15.4); Immature Granulocytes % 4.4 % (0-4); Lymphocytes # 1.3 K/mcL (0.6-4.6); Lymphocytes % 15.5 %; Mean Corpuscular HGB Conc 32.4 g/dL (31.6-35.5); Mean Corpuscular Hemoglobin 28.8 pg (28.0-33.3); Mean Corpuscular Volume 88.9 fL (83.0-100.0); Mean Platelet Volume 9.7 fL (9.4-12.4); Monocytes # 0.5 K/mcL (0.0-1.3); Monocytes % 6.3 %; Neutrophils # 5.9 K/mcL (1.6-8.9); Platelet Count 361 K/mcL (140-400); Red Blood Count 4.23 M/mcL (3.82-4.97); Red Cell Distribution Width 14.6 % (11.5-14.5); Segmented Neutrophils % 71.6 %
[2017-11-12 07:38] LABS: BUN/Creatinine Ratio 41 (6-26); Blood Urea Nitrogen 15 mg/dL (8-23); Calcium 8.7 mg/dL (8.6-10.3); Carbon Dioxide 25 mEq/L (23-29); Chloride 99 mEq/L (98-107); Glucose 119 mg/dL (70-105); Osmolality,Calculated 276 (280-300); Potassium 3.8 mEq/L (3.5-5.1); Sodium 132 mEq/L (136-145); eGFR For Non-African Americans > 60 (> 60)
--- NOTE | 2017-11-12 08:36 | Internal Med Progress Note ---
<Josey Green - Last Filed: 11/12/17 15:56> Hospitalist Progress Note - Encounter Date of Encounter: 11/12/17 Time of Encounter: 08:33 - Subjective Interval History: Denise is a 76 F with PMHx of afib previously on lopressor and pradaxa, and GERD admitted for perforated appendicitis. Patient was treated with medical management initially and is now POD#10 (11/02/17) for lysis of adhesions and pelvic abscess drainage. Overnight, did have an elevated temperature of 100.1F. She had multiple bowel movements that were liquid, positive gas. Abdominal pain diffuse. - Exam Vitals: Temp Pulse Resp BP Pulse Ox 98.4 F 103 16 130/81 95 11/12/17 06:54 11/12/17 06:54 11/12/17 06:54 11/12/17 06:54 11/12/17 06:54 Exam: Constitutional: Alert, in no acute distress, well nourished, well developed. Head: NG tube present on suction, large amount of dark liquid,Normocephalic, atraumatic, normal contour and symmetric, no masses, lesions or scars Heart: irregularly irregular, no murmurs Lungs: Clear to auscultation, no wheezes, rales, or rhonchi Abdomen: Soft, distended, diffuse tenderness, and no masses palpable, bowel sounds present and normal, no guarding or rigidity, dressings clean and dry Pubic drain - small amount of dark green/bilious liquid, intact L abdominal drain - serosanguinous liquid, intact Extremities: No clubbing, cyanosis, or edema, capillary refill <2sec. Skin: Skin warm and dry, no lesions, no rashes, no jaundice Neurologic: no focal deficits, strength within normal limits in all extremities Psych: Cooperative with exam, good eye contact, cognitive function intact, judgment good insight good, speech clear, thought process logical, and goal directed - Assessment and Plan (1) Acute appendicitis Current Visit: Yes Status: Acute Assessment and Plan: Perforated appendicitis. S/p diagnostic lap with BOSSMAN and drainage of intra- abdominal abscess on 11/02 POD#10. Overnight, tachycardic and elevated temperature of 100.1F. NG output about 2L in the last 24H, Abd XR series shows NG tube in the duodenum and some dilated loops of bowel. Started MIVF due to most likely dry due to high NG output with associated tachycardia but will also have a low threshold for repeat blood cultures. Plan: -Antibiotics: Zosyn day 10 - drainage in place with minimal output - NG output = over 2L in the last 2 days- - NG tube needs to be pulled back - NPO but TPN running - due to high volume of NG output, bolus 500ml and start MIVF NS at 75ml/hr (2) Atrial fibrillation Current Visit: Yes Status: Chronic Assessment and Plan: Afib with RVR resolved. Currently managing chronic Afib. HR max in the last 24H 107. Home medications: Pradaxa and metoprolol 100mg BID Plan: - metoprolol 7.5mg Q6H amna - IV heparin drip, holding Pradaxa - continue tele (3) Elevated blood sugar Current Visit: No Status: Acute Assessment and Plan: Currently on TPN. Glucose max: 187 last 24H Plan: -medium sliding scale Q6H (4) HTN (hypertension) Current Visit: Yes Status: Chronic Assessment and Plan: Blood pressure has been well managed on currently regiment. Plan: - Metoprolol 7.5mg Q6H amna (5) Sepsis Current Visit: Yes Status: Acute Assessment and Plan: Due to perforated appendicitis. Vitals currently stable. Plan: - blood cultures negative - Zosyn day 10 - see plan above for appendicitis (6) DVT prophylaxis Current Visit: Yes Status: Acute Assessment and Plan: Heparin drip DVT Prophylaxis: IV heparin - Time Spent with Patient Total time spent is greater than 50% in coordination of care (as documented) at patient's floor/unit and/or counseling patient: Internal Medicine: Result - Labs CBC & Chem 7: 11/12/17 04:00 11/12/17 04:00 Labs: Short CBC 11/12/17 Range/Units 04:00 WBC 8.2 (4.3-11.1) K/mcL Hgb 12.2 (11.5-15.4) g/dL Hct 37.6 (35.3-44.9) % Plt Count 361 (140-400) K/mcL Neutrophils # 5.9 (1.6-8.9) K/mcL BMP 11/12/17 04:00 Sodium 132 L Potassium 3.8 Chloride 99 Carbon Dioxide 25 BUN 15 Creatinine 0.37 L Glucose 119 H Calcium 8.7 - ABG Interpretation ABG results: PT/INR, D-dimer PT 14.5 Seconds (9.4-12.1) H 10/25/17 14:37 - VTE Documentation of Mechanical Device: Intermittent pneumatic compression device Consult Discharge Plan - Plan Referrals: Julee Booth, [employer]ER [Primary Care Provider] - <ShantellLaura quispe - Last Filed: 11/12/17 17:03> Hospitalist Progress Note - Encounter Date of Encounter: 11/12/17 - Exam Vitals: Temp Pulse Resp BP Pulse Ox 98.6 F 104 16 145/72 96 11/12/17 15:08 11/12/17 15:08 11/12/17 15:08 11/12/17 15:08 11/12/17 15:08 - Assessment and Plan (1) Atrial fibrillation Current Visit: Yes Status: Chronic (2) GERD (gastroesophageal reflux disease) Current Visit: Yes Status: Chronic (3) HTN (hypertension) Current Visit: Yes Status: Chronic (4) Acute appendicitis Current Visit: Yes Status: Acute (5) Hypokalemia Current Visit: Yes Status: Acute (6) Intra-abdominal abscess Current Visit: Yes Status: Acute (7) Sepsis Current Visit: Yes Status: Acute (8) Hypophosphatemia Current Visit: Yes Status: Resolved - Time Spent with Patient Total time spent is greater than 50% in coordination of care (as documented) at patient's floor/unit and/or counseling patient: Internal Medicine: Result - Labs CBC & Chem 7: 11/12/17 04:00 11/12/17 04:00 Labs: Short CBC 11/12/17 Range/Units 04:00 WBC 8.2 (4.3-11.1) K/mcL Hgb 12.2 (11.5-15.4) g/dL Hct 37.6 (35.3-44.9) % Plt Count 361 (140-400) K/mcL Neutrophils # 5.9 (1.6-8.9) K/mcL BMP 11/12/17 04:00 Sodium 132 L Potassium 3.8 Chloride 99 Carbon Dioxide 25 BUN 15 Creatinine 0.37 L Glucose 119 H Calcium 8.7 - ABG Interpretation ABG results: PT/INR, D-dimer PT 14.5 Seconds (9.4-12.1) H 10/25/17 14:37 - Impressions Impressions Abdomen X-Ray 11/12/17 10:29 IMPRESSION: 1. Enteric catheter with tip projecting over the distal duodenum. 2. Dilated loops of small bowel measuring up to 4.3 cm in diameter with gas in the colon. Findings are compatible postoperative ileus. 3. Surgical drains project over the pelvis. D/ / Nelda Ham MD / Nelda Ham MD Interpreting Provider: Nelda Ham MD X-Ray 11/12/17 11:50 IMPRESSION: 1. Enteric catheter tip overlies the distal portion of the duodenum, near the ligament of Treitz. D/ / Esau Vaughn MD / Esau Vaughn MD Interpreting Provider: Esau Vaughn MD - Attending Attestation I examined this patient and my medical decision-making was reviewed with the Resident Physician Dr. Green I agree with the documented findings, disposition and treatment plan as described except to the extent set forth below. Ms. Doan is a 76 year old female w/PMH of paroxysmal atrial fibrillation on Paradaxa for anti coagulation and GERD presented from the ED with chief complaint of abdominal pain that began on 10/18 and lasted for 2 days prior to coming to ED. CT of the abdomen/pelvis showed findings compatible with perforated appendicitis. Pt was admitted in the hospital under surgery service and started on empirical abx Cipro and Flagyl. Later she went for diagnostic laparoscopy lysis of adhesions and drainage of intra abdominal abscess on 11/02/[address] Butcher. Pt is currently on broad spec abx Zosyn. she still has NG and her NG tube secretions seems to be worsened today. Had a BM x 1 today.. Flatus ++ Gen: A, A, O x 3 Chest: Diminished BS b/l, No crackles Abd: Soft, Discomfort. Dressing + ASHA drainage tube++ Heart; Afib, S1S2+ a/p 1. Perforated appendicitis 2. s/p diagnostic laparoscopy with lysis of adhesions and drainage of intra abdominal abscess cont empirical abx Zosyn tolerating Ice chips well on TPN for now Abdomen series ordered by surgery Her NG tube seems to be so deep, which was readjusted by surgery today 3. Chronic A fib rate well controlled cont IVF cont Metoprolol on Heparin gtt for anti coag <Josey Green - Last Filed: 11/12/17 15:56> (1) Acute appendicitis Qualifiers: Acute appendicitis type: with localized peritonitis Qualified Code(s): K35.3 - Acute appendicitis with localized peritonitis (2) Atrial fibrillation Qualifiers: Atrial fibrillation type: paroxysmal Qualified Code(s): I48.0 - Paroxysmal atrial fibrillation (4) HTN (hypertension) Qualifiers: Hypertension type: essential hypertension Qualified Code(s): I10 - Essential (primary) hypertension (5) Sepsis Qualifiers: Sepsis type: sepsis due to unspecified organism Qualified Code(s): A41.9 - Sepsis, unspecified organism <Laura Young - Last Filed: 11/12/17 17:03> (1) Atrial fibrillation Qualifiers: Atrial fibrillation type: paroxysmal Qualified Code(s): I48.0 - Paroxysmal atrial fibrillation (2) GERD (gastroesophageal reflux disease) Qualifiers: Esophagitis presence: without esophagitis Qualified Code(s): K21.9 - Gastro- esophageal reflux disease without esophagitis (3) HTN (hypertension) Qualifiers: Hypertension type: essential hypertension Qualified Code(s): I10 - Essential (primary) hypertension (4) Acute appendicitis Qualifiers: Acute appendicitis type: with localized peritonitis Qualified Code(s): K35.3 - Acute appendicitis with localized peritonitis (7) Sepsis Qualifiers: Sepsis type: sepsis due to unspecified organism Qualified Code(s): A41.9 - Sepsis, unspecified organism
[2017-11-12] MEDS ORDERED: 0.9 % Sodium Chloride 500 ML IVC ONE (11:21)
[2017-11-12] MEDS: *HR* FentaNYL PATCH 25 MCG PATCH TD SCH (12:04)
[2017-11-12] MEDS: 0.9 % Sodium Chloride 1,000 ML IVC SCH (12:40)
[2017-11-12] MEDS ORDERED: Clinimix E 5%-15% SOLUTION 2,000 ML with MVI, adult with vitamin K 10 ML, Trace Eleme... IVC SCH (17:00)
[2017-11-12] MEDS: Clinimix E 5%-15% SOLUTION 2,000 ML with MVI, adult with vitamin K 10 ML, Trace Eleme... IVC SCH (17:06)
[2017-11-13] MEDS: *HR* Metoprolol 5 MG/5 ML VIAL IVP SCH ×6 (00:47→17:19)
[2017-11-13] MEDS: Metoclopramide 10 MG/2 ML VIAL IVP SCH ×3 (00:48→12:58)
[2017-11-13] MEDS: 0.9 % Sodium Chloride 1,000 ML IVC SCH ×2 (01:54→14:23)
[2017-11-13] MEDS: Insulin LISPRO 300 UNITS/3 ML VIAL SQ SCH ×4 (05:20→18:07)
[2017-11-13] MEDS: Pantoprazole 40 MG VIAL IVP SCH (05:26)
[2017-11-13] MEDS: *HR* FentaNYL (PF) 100 MCG/2 ML VIAL IVP PRN (05:27)
[2017-11-13] MEDS: Heparin 25,000 UNIT/500 ML D5W 25,000 UNIT/500 ML BAG IVC SCH ×2 (05:43→21:14)
[2017-11-13 06:30] LABS: Basophils # 0.1 K/mcL (0.0-0.2); Basophils % 0.8 %; Eosinophils # 0.1 K/mcL (0.0-0.6); Hematocrit 30.7 % (35.3-44.9); Immature Granulocytes % 5.1 % (0-4); Lymphocytes # 1.3 K/mcL (0.6-4.6); Lymphocytes % 19.4 %; Mean Corpuscular HGB Conc 32.2 g/dL (31.6-35.5); Mean Corpuscular Hemoglobin 27.9 pg (28.0-33.3); Mean Corpuscular Volume 86.5 fL (83.0-100.0); Mean Platelet Volume 9.3 fL (9.4-12.4); Monocytes # 0.5 K/mcL (0.0-1.3); Neutrophils # 4.2 K/mcL (1.6-8.9); Platelet Count 329 K/mcL (140-400); Red Blood Count 3.55 M/mcL (3.82-4.97); Red Cell Distribution Width 14.7 % (11.5-14.5); Segmented Neutrophils % 64.7 %
[2017-11-13 06:48] LABS: BUN/Creatinine Ratio 29 (6-26); Blood Urea Nitrogen 12 mg/dL (8-23); Calcium 7.7 mg/dL (8.6-10.3); Carbon Dioxide 25 mEq/L (23-29); Chloride 104 mEq/L (98-107); Glucose 118 mg/dL (70-105); Osmolality,Calculated 283 (280-300); Potassium 3.3 mEq/L (3.5-5.1); Sodium 136 mEq/L (136-145); eGFR For Non-African Americans > 60 (> 60)
[2017-11-13 07:01] LABS: Hemoglobin 9.9 g/dL (11.5-15.4)
[2017-11-13 07:07] LABS: Platelet Estimate Normal (Normal)
[2017-11-13 07:31] LABS: Magnesium 2.1 mg/dL (1.6-2.6); Phosphorous 2.8 mg/dL (2.7-4.5)
[2017-11-13] MEDS ORDERED: Potassium Chloride 40 MEQ, Lidocaine 1% 2 ML in D5% in Water 500 ML IVPB ONE (08:21)
[2017-11-13] MEDS: Piperacillin/Tazobactam 3.375 GM in 0.9 % Sodium Chloride Mini Bag 100 ML IVPB SCH ×2 (08:26)
[2017-11-13] MEDS ORDERED: Isovue-370 500 ML INFUS..BTL IV ONE (10:09)
[2017-11-13] MEDS ORDERED: Fluconazole 200 MG/100 ML 200 MG/100 ML BAG IVPB ONE (10:11)
--- NOTE | 2017-11-13 10:28 | General Surgery Progress Note ---
Date of Encounter: 11/13/17 Time of Encounter: 09:30 - Assessment and Plan (1) Perforated appendicitis Current Visit: Yes Status: Acute POD #11 Dx laparoscopy, BOSSMAN, intra-abdominal washout and placement of drains X [address] Butcher NPO while awaiting return of bowel function Continue NG tube to LIWS Repeat CT scan today with PO/IV contrast May have ice chips and popsicles Serial abdominal exams Supportive care and pain control- scheduled ofirmev and fentanyl patch; prn fentanyl added due to side effects of oxycodone. Continue TPN therapy for nutritional support PICC line placement IV antibiotics- Zosyn (consider stopping- Day #11) Add Diflucan with loading dose to be given today Ambulate hallways TID with assistance IS every 1 hour while awake Date of procedure: 11/02/17 Pre-op diagnosis: perforated appendix with pelvic abscess Post-op diagnosis: same Procedure: diagnostic laparoscopy lysis of adhesions drainage of intraabdominal abscess Implants: 2 19fr loretta drains Complications: none Anesthesia: GETA Local Anesthetics: 0.5% Sensorcaine HCL SubQ (cc) Surgeon: Jonathan Butcher CT/CT chest w con IMPRESSION: Small bilateral pleural effusions and mild volume loss in the lower lobes. Partial consolidation in the lower lobes, slightly worse on the right. Atelectasis versus developing infection. 3 fluid collections again noted in the right pelvis. These are stable to slightly decreased. Small collection within the right pericolic gutter measuring up to 5.2 x 1.4 cm, increased. Slight worsening of small bowel ileus. Wall thickening and inflammation of the cecum, slightly increased. 2 new drains within the pelvis. These both terminate in the anterior lower pelvis and not centered within the fluid collections. D/ / Yaneth Kaplan MD / Yaneth Kaplan MD (2) Ileus Current Visit: Yes Status: Acute NPO while awaiting return of bowel function NG tube to LIWS May have ice chips and popsicles Reglan 10mg IV Q6H for 48 hours Serial abdominal exams TPN therapy for nutritional support PICC line placement (3) Atrial fibrillation Current Visit: Yes Status: Chronic Continue heparin gtt Consult to hospitalist for management Qualifiers: Atrial fibrillation type: paroxysmal Qualified Code(s): I48.0 - Paroxysmal atrial fibrillation (4) GERD (gastroesophageal reflux disease) Current Visit: Yes Status: Chronic PPI therapy daily Qualifiers: Esophagitis presence: without esophagitis Qualified Code(s): K21.9 - Gastro -esophageal reflux disease without esophagitis (5) Elevated blood sugar Current Visit: No Status: Resolved Will continue to monitor and adjust as necessary (6) Moderate protein-calorie malnutrition Current Visit: Yes Status: Acute Continue TPN for nutritional support Management per consulting solution manager (7) DVT prophylaxis Current Visit: Yes Status: Acute Patient on heparin gtt for atrial fibrillation Ambulate hallways TID with assistance EPCDs to bilateral lower extremities Subjective Patient reports: no new complaints, feels better, still having pain, pain is less, voiding w/o difficulty, flatus, bowel movement (last BM 11/11), fever ( Tmax 100.1, Tcurrent 97.6) Objective Vital Signs - Last 8 Hours Temp Pulse Resp BP Pulse Ox 11/13/17 09:04 97.6 F 105 16 144/79 96 11/13/17 04:37 99 F 105 17 142/75 94 Intake and Output 11/12/17 11/13/17 11/13/17 23:59 07:59 15:59 Intake Total 100 / 100 1100 / 1100 Output Total 450 / 450 500 / 500 70 / 70 Balance -350 / -350 600 / 600 -70 / -70 Intake: IV Fluids 100 / 100 1100 / 1100 0.9 % Sodium Chloride 1,000 ML 1000 / 1000 @ 75 mls/hr IVC .[id number] [facility] Rx #:[id number] Zosyn 3.375 GM In 0.9 % Sodium 100 / 100 100 / 100 Chloride (Mini-Bag +) 100 ML @ 25 mls/hr IVPB Q8HR [facility] Rx#: [id number] Output: Urine 450 / 450 500 / 500 Wound Drainage 70 / 70 Left Pubis 10 / 10 Right Lower Abdomen 60 / 60 Other: Weight 75 kg Blood Glucose* 146 108 Patient Weight 11/13/17 23:59 Weight 75 kg - General physical appearance well developed, no distress - Eyes normal ocular movement - ENT dry mucosa, atraumatic, normocephalic - Neck Neck exam: trachea midline - Respiratory normal respiratory effort, clear to auscultation - Cardiovascular Cardiovascular exam: Present: irregular rhythm - Abdomen Abdomen: Present: bowel sounds present, soft, tender (mild and improving), wound (ASHA #1 with scant amount of bilious draiange (approximately 10ml noted); ASHA #2 with serous drainage noted (approximately 50ml noted); NG tube to LIWS ( no records over the past 24 hours)) - Incision Incision: Present: clean and dry, intact - Neurologic CN 2-12 grossly intact - Musculoskeletal other (physical deconditioning noted) - Psychiatric oriented to time, oriented to person, oriented to place, speech is normal, memory intact - Labs 11/13/17 05:45 11/13/17 05:45 Diabetes panel 11/13/17 Range/Units 05:45 Sodium 136 (136-145) mEq/L Potassium 3.3 L (3.5-5.1) mEq/L Chloride 104 (98-107) mEq/L Carbon Dioxide 25 (23-29) mEq/L BUN 12 (8-23) mg/dL Creatinine 0.41 L (0.60-1.20) mg/dL Glucose 118 H (70-105) mg/dL Calcium 7.7 L (8.6-10.3) mg/dL Calcium panel 11/13/17 Range/Units 05:45 Calcium 7.7 L (8.6-10.3) mg/dL Phosphorus 2.8 (2.7-4.5) mg/dL Pituitary panel 11/13/17 Range/Units 05:45 Sodium 136 (136-145) mEq/L Potassium 3.3 L (3.5-5.1) mEq/L Chloride 104 (98-107) mEq/L Carbon Dioxide 25 (23-29) mEq/L BUN 12 (8-23) mg/dL Creatinine 0.41 L (0.60-1.20) mg/dL Glucose 118 H (70-105) mg/dL Calcium 7.7 L (8.6-10.3) mg/dL Adrenal panel 11/13/17 Range/Units 05:45 Sodium 136 (136-145) mEq/L Potassium 3.3 L (3.5-5.1) mEq/L Chloride 104 (98-107) mEq/L Carbon Dioxide 25 (23-29) mEq/L BUN 12 (8-23) mg/dL Creatinine 0.41 L (0.60-1.20) mg/dL Glucose 118 H (70-105) mg/dL Calcium 7.7 L (8.6-10.3) mg/dL - VTE Documentation of Mechanical Device: Intermittent pneumatic compression device Consult Discharge Plan - Plan Referrals: Julee Booth, VETERINARY DENTIST [Primary Care Provider] - - Attending Attestation For this encounter, I have reviewed the MANAGEMENT PROFESSOR or PA documentation, treatment plan, and medical decision making; and I have had face to face time with this patient.
--- NOTE | 2017-11-13 10:28 | Internal Med Progress Note ---
<Josey Green - Last Filed: 11/13/17 15:02> Hospitalist Progress Note - Encounter Date of Encounter: 11/13/17 Time of Encounter: 10:00 - Subjective Interval History: Denise is a 76 F with PMHx of afib previously on lopressor and pradaxa, and GERD admitted for perforated appendicitis. Patient was treated with medical management initially and is now POD#10 (11/02/17) for lysis of adhesions and pelvic abscess drainage. Overnight, no acute events. She has been passing gas with less pain, she is not having specific pain but is in discomfort all over. - Exam Vitals: Temp Pulse Resp BP Pulse Ox 97.6 F 105 16 144/79 96 11/13/17 09:04 11/13/17 09:04 11/13/17 09:04 11/13/17 09:04 11/13/17 09:04 Exam: Constitutional: Alert, in no acute distress, well nourished, well developed. Head: NG tube present on suction - dark liquid,Normocephalic, atraumatic, normal contour and symmetric, no masses, lesions or scars Heart: irregularly irregular, no murmurs Lungs: Clear to auscultation, no wheezes, rales, or rhonchi Abdomen: Soft, distended, diffuse tenderness, and no masses palpable, bowel sounds present and normal, no guarding or rigidity, dressings clean and dry Pubic drain - small amount of dark green/bilious liquid, intact L abdominal drain - serosanguinous liquid, intact Extremities: No clubbing, cyanosis, or edema, capillary refill <2sec. Skin: Skin warm and dry, no lesions, no rashes, no jaundice Neurologic: no focal deficits, strength within normal limits in all extremities Psych: Cooperative with exam, good eye contact, cognitive function intact, judgment good insight good, speech clear, thought process logical, and goal directed - Assessment and Plan (1) Acute appendicitis Current Visit: Yes Status: Acute Assessment and Plan: Perforated appendicitis. S/p diagnostic lap with BOSSMAN and drainage of intra- abdominal abscess on 11/02 POD#10. Overnight, tachycardic and elevated temperature of 100.1F. NG output about 2L in the last 24H, Abd XR series shows NG tube in the duodenum and some dilated loops of bowel. Started MIVF due to most likely dry due to high NG output with associated tachycardia but will also have a low threshold for repeat blood cultures. Plan: -Antibiotics: Zosyn day 11 - drainage in place with minimal output - surgery following, NG output not recorded today, considering pulling NG either today or tomorrow - NPO with TPN running - MIVF NS at 75ml/hr (2) Atrial fibrillation Current Visit: Yes Status: Chronic Assessment and Plan: Afib with RVR resolved. Currently managing chronic Afib. HR max in the last 24H 111. Home medications: Pradaxa and metoprolol 100mg BID Plan: - metoprolol 7.5mg Q6H amna - IV heparin drip due to NPO, holding Pradaxa - continue tele (3) Elevated blood sugar Current Visit: No Status: Resolved Assessment and Plan: SSI medium (4) HTN (hypertension) Current Visit: Yes Status: Chronic Assessment and Plan: Blood pressure has been well managed on currently regiment. Plan: - Metoprolol 7.5mg Q6H amna (5) Sepsis Current Visit: Yes Status: Acute Assessment and Plan: Due to perforated appendicitis. Vitals currently stable. Plan: - blood cultures negative - Zosyn day 10 - see plan above for appendicitis (6) DVT prophylaxis Current Visit: Yes Status: Acute Assessment and Plan: Heparin drip DVT Prophylaxis: IV heparin - Time Spent with Patient Total time spent is greater than 50% in coordination of care (as documented) at patient's floor/unit and/or counseling patient: Plan of Care Discussed with: patient Internal Medicine: Result - Labs CBC & Chem 7: 11/13/17 05:45 11/13/17 05:45 Labs: Short CBC 11/13/17 Range/Units 05:45 WBC 6.5 (4.3-11.1) K/mcL Hgb 9.9 L D (11.5-15.4) g/dL Hct 30.7 L (35.3-44.9) % Plt Count 329 (140-400) K/mcL Neutrophils # 4.2 (1.6-8.9) K/mcL BMP 11/13/17 05:45 Sodium 136 Potassium 3.3 L Chloride 104 Carbon Dioxide 25 BUN 12 Creatinine 0.41 L Glucose 118 H Calcium 7.7 L - ABG Interpretation ABG results: PT/INR, D-dimer PT 14.5 Seconds (9.4-12.1) H 10/25/17 14:37 - Impressions Impressions Abdomen X-Ray 11/12/17 10:29 IMPRESSION: 1. Enteric catheter with tip projecting over the distal duodenum. 2. Dilated loops of small bowel measuring up to 4.3 cm in diameter with gas in the colon. Findings are compatible postoperative ileus. 3. Surgical drains project over the pelvis. D/ / Nelda Ham MD / Nelda Ham MD Interpreting Provider: Nelda Ham MD X-Ray 11/12/17 11:50 IMPRESSION: 1. Enteric catheter tip overlies the distal portion of the duodenum, near the ligament of Treitz. D/ / Esau Vaughn MD / Esau Vaughn MD Interpreting Provider: Esau Vaughn MD Abdomen X-Ray 11/13/17 07:00 IMPRESSION: Persistent gaseous distention of small bowel and to lesser extent large bowel, findings again suspicious for ileus. D/ / Devin Jiménez / Devin Jiménez Interpreting Provider: Devin Jiménez - VTE Documentation of Mechanical Device: Intermittent pneumatic compression device Consult Discharge Plan - Plan Referrals: Julee Booth, VRT MECHANIC [Primary Care Provider] - <Moisés Jimenez - Last Filed: 11/13/17 15:29> Hospitalist Progress Note - Encounter Date of Encounter: 11/13/17 - Exam Vitals: Temp Pulse Resp BP Pulse Ox 97.9 F 99 16 155/81 96 11/13/17 14:43 11/13/17 14:43 11/13/17 14:43 11/13/17 14:43 11/13/17 14:43 - Assessment and Plan (1) Atrial fibrillation Current Visit: Yes Status: Chronic (2) GERD (gastroesophageal reflux disease) Current Visit: Yes Status: Chronic (3) HTN (hypertension) Current Visit: Yes Status: Chronic (4) Acute appendicitis Current Visit: Yes Status: Acute (5) Hypokalemia Current Visit: Yes Status: Acute (6) Intra-abdominal abscess Current Visit: Yes Status: Acute (7) Sepsis Current Visit: Yes Status: Acute (8) Hypophosphatemia Current Visit: Yes Status: Resolved - Time Spent with Patient Total time spent is greater than 50% in coordination of care (as documented) at patient's floor/unit and/or counseling patient: Internal Medicine: Result - Labs CBC & Chem 7: 11/13/17 05:45 11/13/17 05:45 Labs: Short CBC 11/13/17 Range/Units 05:45 WBC 6.5 (4.3-11.1) K/mcL Hgb 9.9 L D (11.5-15.4) g/dL Hct 30.7 L (35.3-44.9) % Plt Count 329 (140-400) K/mcL Neutrophils # 4.2 (1.6-8.9) K/mcL BMP 11/13/17 05:45 Sodium 136 Potassium 3.3 L Chloride 104 Carbon Dioxide 25 BUN 12 Creatinine 0.41 L Glucose 118 H Calcium 7.7 L - ABG Interpretation ABG results: PT/INR, D-dimer PT 14.5 Seconds (9.4-12.1) H 10/25/17 14:37 - Impressions Impressions Abdomen X-Ray 11/13/17 07:00 IMPRESSION: Persistent gaseous distention of small bowel and to lesser extent large bowel, findings again suspicious for ileus. D/ / Devin Jiménez / Devin Jiménez Interpreting Provider: Devin Jiménez Abdomen/Pelvis CT 11/13/17 12:30 IMPRESSION: 1. Resulting bilateral pleural effusions and improving atelectasis. 2. Stable position of right khloe pelvic drainage catheters. Stable edema and inflammatory changes of the right lower quadrant with multifocal abscesses overall decreasing in size since the prior exam. 3. Mild improving distended small bowel loops which likely represent adynamic ileus. D/ / 11/13/2017 13:47:16 Evaristo Forman MD / candelario Interpreting Provider: Evaristo Forman MD - Attending Attestation I have seen and examined this pt independently. I have discussed with resident physician Dr Green regarding the management plan. Agree with the documentation. <Josey Green - Last Filed: 11/13/17 15:02> (1) Acute appendicitis Qualifiers: Acute appendicitis type: with localized peritonitis Qualified Code(s): K35.3 - Acute appendicitis with localized peritonitis (2) Atrial fibrillation Qualifiers: Atrial fibrillation type: paroxysmal Qualified Code(s): I48.0 - Paroxysmal atrial fibrillation (4) HTN (hypertension) Qualifiers: Hypertension type: essential hypertension Qualified Code(s): I10 - Essential (primary) hypertension (5) Sepsis Qualifiers: Sepsis type: sepsis due to unspecified organism Qualified Code(s): A41.9 - Sepsis, unspecified organism <JimenezDebbieandrez - Last Filed: 11/13/17 15:29> (1) Atrial fibrillation Qualifiers: Atrial fibrillation type: paroxysmal Qualified Code(s): I48.0 - Paroxysmal atrial fibrillation (2) GERD (gastroesophageal reflux disease) Qualifiers: Esophagitis presence: without esophagitis Qualified Code(s): K21.9 - Gastro- esophageal reflux disease without esophagitis (3) HTN (hypertension) Qualifiers: Hypertension type: essential hypertension Qualified Code(s): I10 - Essential (primary) hypertension (4) Acute appendicitis Qualifiers: Acute appendicitis type: with localized peritonitis Qualified Code(s): K35.3 - Acute appendicitis with localized peritonitis (7) Sepsis Qualifiers: Sepsis type: sepsis due to unspecified organism Qualified Code(s): A41.9 - Sepsis, unspecified organism
[2017-11-13] MEDS ORDERED: Clinimix E 5%-15% SOLUTION 2,000 ML with MVI, adult with vitamin K 10 ML, Trace Eleme... IVC SCH (17:00)
[2017-11-13] MEDS ORDERED: Melatonin 3 MG TABLET PO PRN (21:56)
[2017-11-14] MEDS: Insulin LISPRO 300 UNITS/3 ML VIAL SQ SCH ×5 (00:18→23:40)
[2017-11-14] MEDS: *HR* Metoprolol 5 MG/5 ML VIAL IVP SCH ×5 (00:24→23:58)
[2017-11-14] MEDS: 0.9 % Sodium Chloride 1,000 ML IVC SCH ×2 (04:07→16:47)
[2017-11-14 05:57] LABS: Hematocrit 34.6 % (35.3-44.9); Hemoglobin 11.2 g/dL (11.5-15.4); Mean Corpuscular HGB Conc 32.4 g/dL (31.6-35.5); Mean Corpuscular Hemoglobin 28.5 pg (28.0-33.3); Platelet Count 342 K/mcL (140-400); Red Blood Count 3.93 M/mcL (3.82-4.97); Red Cell Distribution Width 14.6 % (11.5-14.5)
[2017-11-14 06:13] LABS: BUN/Creatinine Ratio 26 (6-26); Blood Urea Nitrogen 11 mg/dL (8-23); Calcium 8.3 mg/dL (8.6-10.3); Carbon Dioxide 26 mEq/L (23-29); Chloride 101 mEq/L (98-107); Glucose 158 mg/dL (70-105); Osmolality,Calculated 279 (280-300); Potassium 3.6 mEq/L (3.5-5.1); Sodium 133 mEq/L (136-145); eGFR For Non-African Americans > 60 (> 60)
[2017-11-14] MEDS: Pantoprazole 40 MG VIAL IVP SCH (06:15)
[2017-11-14] MEDS: Fluconazole 100 MG/50 ML 100 MG/50 ML BAG IVPB SCH (09:57)
[2017-11-14] MEDS: Heparin 25,000 UNIT/500 ML D5W 25,000 UNIT/500 ML BAG IVC SCH (12:05)
--- NOTE | 2017-11-14 13:05 | Internal Med Progress Note ---
<Augustin Cameron - Last Filed: 11/14/17 13:39> Hospitalist Progress Note - Encounter Date of Encounter: 11/14/17 Time of Encounter: 13:03 - Subjective Interval History: No acute events overnight, patient's only complaints right now is NG tube which is due to be removed today She reports one small bowel movement and flatus She denies nausea, chest pain, shortness of breath - Exam Vitals: Temp Pulse Resp BP Pulse Ox 98.2 F 107 19 145/74 96 11/14/17 11:48 11/14/17 11:48 11/14/17 11:48 11/14/17 11:48 11/14/17 11:48 Exam: Patient in no acute distress, alert and oriented [address] Heart irregular rate and rhythm, no murmur, rub, gallop Lungs clear to auscultation, no wheeze, rales, rhonchi Abdomen soft and nontender, bowel sounds present, drains in place and bandages intact Skin warm and dry - Assessment and Plan (1) Acute appendicitis Current Visit: Yes Status: Acute Assessment and Plan: Perforated appendicitis. S/p diagnostic lap with BOSSMAN and drainage of intra- abdominal abscess on 11/02 POD#12. Tachycardic today. NG removed per surgery. Plan: -Antibiotics: Zosyn day 12 - drainage in place with minimal output - surgery following, NG out - NPO with TPN running - MIVF NS at 75ml/hr (2) Sepsis Current Visit: Yes Status: Acute Assessment and Plan: Secondary to perforated appendicitis Patient tachycardic and tachypneic today without fever, WBC in normal range Zosyn discontinued (3) Atrial fibrillation Current Visit: Yes Status: Chronic Assessment and Plan: Afib with RVR resolved. Currently managing chronic Afib. Home medications: Pradaxa and metoprolol 100mg BID Plan: - metoprolol 7.5mg Q6H amna - IV heparin drip due to NPO, holding Pradaxa - continue tele (4) Elevated blood sugar Current Visit: No Status: Resolved Assessment and Plan: SSI medium (5) HTN (hypertension) Current Visit: Yes Status: Chronic Assessment and Plan: Blood pressure stable, continue current plan of Metoprolol 7.5mg Q6H amna (6) DVT prophylaxis Current Visit: Yes Status: Acute Assessment and Plan: heparin drip - Time Spent with Patient Total time spent is greater than 50% in coordination of care (as documented) at patient's floor/unit and/or counseling patient: Internal Medicine: Result - Labs CBC & Chem 7: 11/14/17 05:41 11/14/17 05:41 Labs: Short CBC 11/14/17 Range/Units 05:41 WBC 7.4 (4.3-11.1) K/mcL Hgb 11.2 L (11.5-15.4) g/dL Hct 34.6 L (35.3-44.9) % Plt Count 342 (140-400) K/mcL BMP 11/14/17 05:41 Sodium 133 L Potassium 3.6 Chloride 101 Carbon Dioxide 26 BUN 11 Creatinine 0.42 L Glucose 158 H Calcium 8.3 L - ABG Interpretation ABG results: PT/INR, D-dimer PT 14.5 Seconds (9.4-12.1) H 10/25/17 14:37 - Impressions Impressions Abdomen/Pelvis CT 11/13/17 12:30 IMPRESSION: 1. Resulting bilateral pleural effusions and improving atelectasis. 2. Stable position of right khloe pelvic drainage catheters. Stable edema and inflammatory changes of the right lower quadrant with multifocal abscesses overall decreasing in size since the prior exam. 3. Mild improving distended small bowel loops which likely represent adynamic ileus. D/ / 11/13/2017 13:47:16 Evaristo Forman MD / candelario Interpreting Provider: Evaristo Forman MD - VTE Documentation of Mechanical Device: Intermittent pneumatic compression device Consult Discharge Plan - Plan Referrals: Julee Booth, COMMUNITY FACILITATOR [Primary Care Provider] - <Moisés Jimenez - Last Filed: 11/14/17 14:06> Hospitalist Progress Note - Encounter Date of Encounter: 11/14/17 - Exam Vitals: Temp Pulse Resp BP Pulse Ox 98.2 F 107 19 145/74 96 11/14/17 11:48 11/14/17 11:48 11/14/17 11:48 11/14/17 11:48 11/14/17 11:48 - Assessment and Plan (1) Atrial fibrillation Current Visit: Yes Status: Chronic (2) GERD (gastroesophageal reflux disease) Current Visit: Yes Status: Chronic (3) HTN (hypertension) Current Visit: Yes Status: Chronic (4) Acute appendicitis Current Visit: Yes Status: Acute (5) Hypokalemia Current Visit: Yes Status: Acute (6) Intra-abdominal abscess Current Visit: Yes Status: Acute (7) Sepsis Current Visit: Yes Status: Acute (8) Hypophosphatemia Current Visit: Yes Status: Resolved - Time Spent with Patient Total time spent is greater than 50% in coordination of care (as documented) at patient's floor/unit and/or counseling patient: Internal Medicine: Result - Labs CBC & Chem 7: 11/14/17 05:41 11/14/17 05:41 Labs: Short CBC 11/14/17 Range/Units 05:41 WBC 7.4 (4.3-11.1) K/mcL Hgb 11.2 L (11.5-15.4) g/dL Hct 34.6 L (35.3-44.9) % Plt Count 342 (140-400) K/mcL BMP 11/14/17 05:41 Sodium 133 L Potassium 3.6 Chloride 101 Carbon Dioxide 26 BUN 11 Creatinine 0.42 L Glucose 158 H Calcium 8.3 L - ABG Interpretation ABG results: PT/INR, D-dimer PT 14.5 Seconds (9.4-12.1) H 10/25/17 14:37 - Impressions Impressions Abdomen/Pelvis CT 11/13/17 12:30 IMPRESSION: 1. Resulting bilateral pleural effusions and improving atelectasis. 2. Stable position of right khloe pelvic drainage catheters. Stable edema and inflammatory changes of the right lower quadrant with multifocal abscesses overall decreasing in size since the prior exam. 3. Mild improving distended small bowel loops which likely represent adynamic ileus. D/ / 11/13/2017 13:47:16 Evaristo Forman MD / candelario Interpreting Provider: Evaristo Forman MD - Attending Attestation I have seen and examined this patient independently. I have discussed with resident physician Dr. Cameron regarding the management plan. Agree with the documentation. <Augustin Cameron - Last Filed: 11/14/17 13:39> (1) Acute appendicitis Qualifiers: Acute appendicitis type: with localized peritonitis Qualified Code(s): K35.3 - Acute appendicitis with localized peritonitis (2) Sepsis Qualifiers: Sepsis type: sepsis due to unspecified organism Qualified Code(s): A41.9 - Sepsis, unspecified organism (3) Atrial fibrillation Qualifiers: Atrial fibrillation type: paroxysmal Qualified Code(s): I48.0 - Paroxysmal atrial fibrillation (5) HTN (hypertension) Qualifiers: Hypertension type: essential hypertension Qualified Code(s): I10 - Essential (primary) hypertension <TonyMoisés - Last Filed: 11/14/17 14:06> (1) Atrial fibrillation Qualifiers: Atrial fibrillation type: paroxysmal Qualified Code(s): I48.0 - Paroxysmal atrial fibrillation (2) GERD (gastroesophageal reflux disease) Qualifiers: Esophagitis presence: without esophagitis Qualified Code(s): K21.9 - Gastro- esophageal reflux disease without esophagitis (3) HTN (hypertension) Qualifiers: Hypertension type: essential hypertension Qualified Code(s): I10 - Essential (primary) hypertension (4) Acute appendicitis Qualifiers: Acute appendicitis type: with localized peritonitis Qualified Code(s): K35.3 - Acute appendicitis with localized peritonitis (7) Sepsis Qualifiers: Sepsis type: sepsis due to unspecified organism Qualified Code(s): A41.9 - Sepsis, unspecified organism
--- NOTE | 2017-11-14 13:43 | General Surgery Progress Note ---
Date of Encounter: 11/14/17 Time of Encounter: 13:42 - Assessment and Plan (1) Ileus following gastrointestinal surgery Current Visit: Yes Status: Acute GI function seems to be improving. NG removed. Starting clear liquids. Subjective Patient reports: feels better Objective Vital Signs - Last 8 Hours Temp Pulse Resp BP Pulse Ox 11/14/17 11:48 98.2 F 107 19 145/74 96 11/14/17 07:21 98.1 F 101 18 149/74 96 Intake and Output 11/13/17 11/14/17 11/14/17 23:59 07:59 15:59 Intake Total 165 / 165 1000 / 1000 500 / 500 Output Total 1050 / 1050 Balance 165 / 165 -50 / -50 500 / 500 Intake: IV Fluids 165 / 165 1000 / 1000 500 / 500 0.9 % Sodium Chloride 1,000 ML 1000 / 1000 @ 75 mls/hr IVC .[id number] [facility] Rx #:[id number] Heparin 25,000 UNIT/500 ML D5W 165 / 165 500 / 500 25,000 unit In 500 ml @ 14 UNIT /KG/HR 21.784 mls/hr IVC . [id number] [facility] Rx#:[id number] Output: Urine 1000 / 1000 Gastric Drainage 50 / 50 Other: Stool Size Small Stool Consistency loose # Voids 1 # Bowel Movements 1 Weight 74.8 kg Blood Glucose* 146 140 158 - Eyes PERRL, normal ocular movement - Respiratory normal expansion - Abdomen Abdomen: Present: bowel sounds present - Labs 11/14/17 05:41 11/14/17 05:41 Diabetes panel 11/14/17 Range/Units 05:41 Sodium 133 L (136-145) mEq/L Potassium 3.6 (3.5-5.1) mEq/L Chloride 101 (98-107) mEq/L Carbon Dioxide 26 (23-29) mEq/L BUN 11 (8-23) mg/dL Creatinine 0.42 L (0.60-1.20) mg/dL Glucose 158 H (70-105) mg/dL Calcium 8.3 L (8.6-10.3) mg/dL Calcium panel 11/14/17 Range/Units 05:41 Calcium 8.3 L (8.6-10.3) mg/dL Pituitary panel 11/14/17 Range/Units 05:41 Sodium 133 L (136-145) mEq/L Potassium 3.6 (3.5-5.1) mEq/L Chloride 101 (98-107) mEq/L Carbon Dioxide 26 (23-29) mEq/L BUN 11 (8-23) mg/dL Creatinine 0.42 L (0.60-1.20) mg/dL Glucose 158 H (70-105) mg/dL Calcium 8.3 L (8.6-10.3) mg/dL Adrenal panel 11/14/17 Range/Units 05:41 Sodium 133 L (136-145) mEq/L Potassium 3.6 (3.5-5.1) mEq/L Chloride 101 (98-107) mEq/L Carbon Dioxide 26 (23-29) mEq/L BUN 11 (8-23) mg/dL Creatinine 0.42 L (0.60-1.20) mg/dL Glucose 158 H (70-105) mg/dL Calcium 8.3 L (8.6-10.3) mg/dL - VTE Documentation of Mechanical Device: Intermittent pneumatic compression device Consult Discharge Plan - Plan Referrals: Julee Booth, DIRECTOR OF HUMAN RESOURCES [Primary Care Provider] -
[2017-11-14] MEDS ORDERED: Clinimix E 5%-15% SOLUTION 2,000 ML with MVI, adult with vitamin K 10 ML, Trace Eleme... IVC SCH (17:00)
[2017-11-15] MEDS: Pantoprazole 40 MG VIAL IVP SCH (06:17)
[2017-11-15] MEDS: *HR* Metoprolol 5 MG/5 ML VIAL IVP SCH ×2 (06:17→11:27)
[2017-11-15] MEDS: Insulin LISPRO 300 UNITS/3 ML VIAL SQ SCH ×3 (06:56→16:57)
[2017-11-15 06:57] LABS: Basophils # 0.1 K/mcL (0.0-0.2); Basophils % 0.8 %; Eosinophils # 0.1 K/mcL (0.0-0.6); Eosinophils % 1.5 %; Hematocrit 33.9 % (35.3-44.9); Immature Granulocytes % 2.3 % (0-4); Lymphocytes # 1.5 K/mcL (0.6-4.6); Lymphocytes % 20.3 %; Mean Corpuscular HGB Conc 32.4 g/dL (31.6-35.5); Mean Corpuscular Hemoglobin 28.6 pg (28.0-33.3); Mean Corpuscular Volume 88.1 fL (83.0-100.0); Mean Platelet Volume 9.3 fL (9.4-12.4); Monocytes # 0.6 K/mcL (0.0-1.3); Monocytes % 7.8 %; Neutrophils # 4.9 K/mcL (1.6-8.9); Platelet Count 328 K/mcL (140-400); Red Blood Count 3.85 M/mcL (3.82-4.97); Red Cell Distribution Width 14.7 % (11.5-14.5); Segmented Neutrophils % 67.3 %
[2017-11-15 07:19] LABS: BUN/Creatinine Ratio 30 (6-26); Blood Urea Nitrogen 12 mg/dL (8-23); Calcium 8.2 mg/dL (8.6-10.3); Carbon Dioxide 25 mEq/L (23-29); Chloride 102 mEq/L (98-107); Glucose 120 mg/dL (70-105); Osmolality,Calculated 277 (280-300); Potassium 3.9 mEq/L (3.5-5.1); Sodium 133 mEq/L (136-145); eGFR For Non-African Americans > 60 (> 60)
[2017-11-15] MEDS: Fluconazole 100 MG/50 ML 100 MG/50 ML BAG IVPB SCH (08:45)
--- NOTE | 2017-11-15 10:55 | Internal Med Progress Note ---
<Josey Green - Last Filed: 11/15/17 10:45> Hospitalist Progress Note - Encounter Date of Encounter: 11/15/17 Time of Encounter: 09:00 - Subjective Interval History: Denise is a 76 F with PMHx of afib previously on lopressor and pradaxa, and GERD admitted for perforated appendicitis. Patient was treated with medical management initially and is now POD#13 (11/02/17) for lysis of adhesions and pelvic abscess drainage. Overnight, no acute events. She is feeling better today. She has been drinking clear liquids without nausea or vomiting. - Exam Vitals: Temp Pulse Resp BP Pulse Ox 98.5 F 96 16 138/78 96 11/15/17 07:03 11/15/17 07:03 11/15/17 07:03 11/15/17 07:03 11/15/17 07:03 Exam: Constitutional: Alert, in no acute distress, well nourished, well developed. Head: atraumatic, normal contour and symmetric, no masses, lesions or scars Heart: irregularly irregular, no murmurs Lungs: Clear to auscultation, no wheezes, rales, or rhonchi Abdomen: Soft, distended, diffuse tenderness, and no masses palpable, bowel sounds present and normal, no guarding or rigidity, dressings clean and dry Pubic drain - small amount of dark green/bilious liquid, intact L abdominal drain - serosanguinous liquid, intact Extremities: No clubbing, cyanosis, or edema, capillary refill <2sec. Skin: Skin warm and dry, no lesions, no rashes, no jaundice Neurologic: no focal deficits, strength within normal limits in all extremities Psych: Cooperative with exam, good eye contact, cognitive function intact, judgment good insight good, speech clear, thought process logical, and goal directed - Assessment and Plan (1) Acute appendicitis Current Visit: Yes Status: Acute Assessment and Plan: Perforated appendicitis. S/p diagnostic lap with BOSSMAN and drainage of intra- abdominal abscess on 11/02 POD#13. Tachycardia continued. Plan: -Antibiotics: Zosyn day 13 - drainage in place with minimal output - surgery following, NG o - diet: clear liquid, TPN running, can probably decrease rate to half - MIVF NS at 75ml/hr (2) Atrial fibrillation Current Visit: Yes Status: Chronic Assessment and Plan: Afib with RVR resolved. Currently managing chronic Afib. HR max in the last 24H 107. Home medications: Pradaxa and metoprolol 100mg BID Plan: - metoprolol 7.5mg Q6H amna - IV heparin drip stopped - Pradaxa started - continue tele (3) Elevated blood sugar Current Visit: No Status: Resolved Assessment and Plan: SSI medium (4) HTN (hypertension) Current Visit: Yes Status: Chronic Assessment and Plan: Blood pressure has been well managed on currently regiment. Plan: - Metoprolol 7.5mg Q6H amna, can consider switching to oral as patient is not NPO (5) Sepsis Current Visit: Yes Status: Acute Assessment and Plan: Due to perforated appendicitis. Vitals currently stable. Plan: - blood cultures negative - Zosyn day 11 - see plan above for appendicitis (6) DVT prophylaxis Current Visit: Yes Status: Acute Assessment and Plan: now on Pradaxa - Time Spent with Patient Total time spent is greater than 50% in coordination of care (as documented) at patient's floor/unit and/or counseling patient: Internal Medicine: Result - Labs CBC & Chem 7: 11/15/17 04:00 11/15/17 04:00 Labs: Short CBC 11/15/17 Range/Units 04:00 WBC 7.3 (4.3-11.1) K/mcL Hgb 11.0 L (11.5-15.4) g/dL Hct 33.9 L (35.3-44.9) % Plt Count 328 (140-400) K/mcL Neutrophils # 4.9 (1.6-8.9) K/mcL BMP 11/15/17 04:00 Sodium 133 L Potassium 3.9 Chloride 102 Carbon Dioxide 25 BUN 12 Creatinine 0.40 L Glucose 120 H Calcium 8.2 L - ABG Interpretation ABG results: PT/INR, D-dimer PT 14.5 Seconds (9.4-12.1) H 10/25/17 14:37 - VTE Documentation of Mechanical Device: Intermittent pneumatic compression device Consult Discharge Plan - Plan Referrals: Julee Booth, CHARGING MACHINE OPERATOR [Primary Care Provider] - <Moisés Jimenez - Last Filed: 11/15/17 12:59> Hospitalist Progress Note - Encounter Date of Encounter: 11/15/17 - Exam Vitals: Temp Pulse Resp BP Pulse Ox 98.2 F 103 18 136/84 96 11/15/17 11:24 11/15/17 11:24 11/15/17 11:24 11/15/17 11:24 11/15/17 11:24 - Assessment and Plan (1) Atrial fibrillation Current Visit: Yes Status: Chronic (2) GERD (gastroesophageal reflux disease) Current Visit: Yes Status: Chronic (3) HTN (hypertension) Current Visit: Yes Status: Chronic (4) Acute appendicitis Current Visit: Yes Status: Acute (5) Hypokalemia Current Visit: Yes Status: Acute (6) Intra-abdominal abscess Current Visit: Yes Status: Acute (7) Sepsis Current Visit: Yes Status: Acute (8) Hypophosphatemia Current Visit: Yes Status: Resolved - Time Spent with Patient Total time spent is greater than 50% in coordination of care (as documented) at patient's floor/unit and/or counseling patient: Internal Medicine: Result - Labs CBC & Chem 7: 11/15/17 04:00 11/15/17 04:00 Labs: Short CBC 11/15/17 Range/Units 04:00 WBC 7.3 (4.3-11.1) K/mcL Hgb 11.0 L (11.5-15.4) g/dL Hct 33.9 L (35.3-44.9) % Plt Count 328 (140-400) K/mcL Neutrophils # 4.9 (1.6-8.9) K/mcL BMP 11/15/17 04:00 Sodium 133 L Potassium 3.9 Chloride 102 Carbon Dioxide 25 BUN 12 Creatinine 0.40 L Glucose 120 H Calcium 8.2 L - ABG Interpretation ABG results: PT/INR, D-dimer PT 14.5 Seconds (9.4-12.1) H 10/25/17 14:37 - Attending Attestation I have seen and examined this pt independently. I have discussed with resident physician Dr. Green regarding the management plan. Agree with the documentation. <Josey Green - Last Filed: 11/15/17 10:45> (1) Acute appendicitis Qualifiers: Acute appendicitis type: with localized peritonitis Qualified Code(s): K35.3 - Acute appendicitis with localized peritonitis (2) Atrial fibrillation Qualifiers: Atrial fibrillation type: paroxysmal Qualified Code(s): I48.0 - Paroxysmal atrial fibrillation (4) HTN (hypertension) Qualifiers: Hypertension type: essential hypertension Qualified Code(s): I10 - Essential (primary) hypertension (5) Sepsis Qualifiers: Sepsis type: sepsis due to unspecified organism Qualified Code(s): A41.9 - Sepsis, unspecified organism <TonyMoisés - Last Filed: 11/15/17 12:59> (1) Atrial fibrillation Qualifiers: Atrial fibrillation type: paroxysmal Qualified Code(s): I48.0 - Paroxysmal atrial fibrillation (2) GERD (gastroesophageal reflux disease) Qualifiers: Esophagitis presence: without esophagitis Qualified Code(s): K21.9 - Gastro- esophageal reflux disease without esophagitis (3) HTN (hypertension) Qualifiers: Hypertension type: essential hypertension Qualified Code(s): I10 - Essential (primary) hypertension (4) Acute appendicitis Qualifiers: Acute appendicitis type: with localized peritonitis Qualified Code(s): K35.3 - Acute appendicitis with localized peritonitis (7) Sepsis Qualifiers: Sepsis type: sepsis due to unspecified organism Qualified Code(s): A41.9 - Sepsis, unspecified organism
[2017-11-15] MEDS: *HR* Dabigatran 150 MG CAPSULE PO SCH ×2 (11:03→21:30)
[2017-11-15] MEDS ORDERED: *HR* HYDROcodone/Acet 5/325 mg TABLET PO PRN (13:22)
--- NOTE | 2017-11-15 13:30 | General Surgery Progress Note ---
Date of Encounter: 11/15/17 Time of Encounter: 13:00 - Assessment and Plan (1) Perforated appendicitis Current Visit: Yes Status: Acute POD #13 Dx laparoscopy, BOSSMAN, intra-abdominal washout and placement of drains X [address] Butcher NG removed 11/14/17 Advance to soft diet today with protein supplements Repeat CT 11/13/17- improving Serial abdominal exams Supportive care and pain control- [place] prn Wean and stop TPN PICC line placement IV antibiotics stopped 11/13/17 Continue diflucan Decrease MIV to 50ml/hour Ambulate hallways TID with assistance IS every 1 hour while awake Date of procedure: 11/02/17 Pre-op diagnosis: perforated appendix with pelvic abscess Post-op diagnosis: same Procedure: diagnostic laparoscopy lysis of adhesions drainage of intraabdominal abscess Implants: 2 19fr loretta drains Complications: none Anesthesia: GETA Local Anesthetics: 0.5% Sensorcaine HCL SubQ (cc) Surgeon: Jonathan Butcher CT/CT chest w con IMPRESSION: Small bilateral pleural effusions and mild volume loss in the lower lobes. Partial consolidation in the lower lobes, slightly worse on the right. Atelectasis versus developing infection. 3 fluid collections again noted in the right pelvis. These are stable to slightly decreased. Small collection within the right pericolic gutter measuring up to 5.2 x 1.4 cm, increased. Slight worsening of small bowel ileus. Wall thickening and inflammation of the cecum, slightly increased. 2 new drains within the pelvis. These both terminate in the anterior lower pelvis and not centered within the fluid collections. D/ / Yaneth Kaplan MD / Yaneth Kaplan MD (2) Ileus Current Visit: Yes Status: Acute Resolving NG removed 11/14/17 Wean TPN and stop today Advance to soft diet with protein supplements (3) Atrial fibrillation Current Visit: Yes Status: Chronic Resume PO metoprolol Patient started on Pradaxa per hospitalist Consult to hospitalist for management Qualifiers: Atrial fibrillation type: paroxysmal Qualified Code(s): I48.0 - Paroxysmal atrial fibrillation (4) GERD (gastroesophageal reflux disease) Current Visit: Yes Status: Chronic PPI therapy daily Qualifiers: Esophagitis presence: without esophagitis Qualified Code(s): K21.9 - Gastro -esophageal reflux disease without esophagitis (5) Elevated blood sugar Current Visit: No Status: Resolved Will continue to monitor and adjust as necessary (6) Moderate protein-calorie malnutrition Current Visit: Yes Status: Acute Wean TPN and stop today Advance to soft diet with protein supplements (7) DVT prophylaxis Current Visit: Yes Status: Acute Pradaxa started per hospitalist Ambulate hallways TID with assistance EPCDs to bilateral lower extremities Subjective Patient reports: no new complaints, feels better, pain is less, tolerating liquids well (full liquids), voiding w/o difficulty, flatus, bowel movement (), afebrile Objective Vital Signs - Last 8 Hours Temp Pulse Resp BP Pulse Ox 11/15/17 11:24 98.2 F 103 18 136/84 96 11/15/17 07:03 98.5 F 96 16 138/78 96 Intake and Output 11/14/17 11/15/17 11/15/17 23:59 07:59 15:59 Intake Total 1000 / 1000 120 / 120 Output Total 700 / 700 1038 / 1038 500 / 500 Balance 300 / 300 -1038 / -1038 -380 / -380 Intake: IV Fluids 1000 / 1000 0.9 % Sodium Chloride 1,000 ML 1000 / 1000 @ 75 mls/hr IVC .[id number] [facility] Rx #:[id number] Oral 120 / 120 Output: Urine 600 / 600 1000 / 1000 500 / 500 Wound Drainage 100 / 100 38 / 38 Left Pubis 38 / 38 Right Lower Abdomen 100 / 100 Other: Meal Breakfast Percent of Meal Consumed 25% # Voids 1 Weight 74.5 kg Blood Glucose* 133 116 145 - General physical appearance well developed, no distress - Eyes normal ocular movement - ENT normal mucosa, atraumatic, normocephalic - Neck Neck exam: trachea midline - Respiratory normal respiratory effort, clear to auscultation - Cardiovascular Cardiovascular exam: Present: irregular rhythm - Abdomen Abdomen: Present: bowel sounds present, soft, tender (mild tenderness), wound ( ASHA drain #1 with scant amount of bilious drainage noted; ASHA drain #2 with serous drainage noted.) Abdominal Tenderness: RLQ - Incision Incision: Present: clean and dry, intact - Neurologic CN 2-12 grossly intact - Psychiatric oriented to time, oriented to person, oriented to place, speech is normal, memory intact - Labs 11/15/17 04:00 11/15/17 04:00 Diabetes panel 11/15/17 Range/Units 04:00 Sodium 133 L (136-145) mEq/L Potassium 3.9 (3.5-5.1) mEq/L Chloride 102 (98-107) mEq/L Carbon Dioxide 25 (23-29) mEq/L BUN 12 (8-23) mg/dL Creatinine 0.40 L (0.60-1.20) mg/dL Glucose 120 H (70-105) mg/dL Calcium 8.2 L (8.6-10.3) mg/dL Calcium panel 11/15/17 Range/Units 04:00 Calcium 8.2 L (8.6-10.3) mg/dL Pituitary panel 11/15/17 Range/Units 04:00 Sodium 133 L (136-145) mEq/L Potassium 3.9 (3.5-5.1) mEq/L Chloride 102 (98-107) mEq/L Carbon Dioxide 25 (23-29) mEq/L BUN 12 (8-23) mg/dL Creatinine 0.40 L (0.60-1.20) mg/dL Glucose 120 H (70-105) mg/dL Calcium 8.2 L (8.6-10.3) mg/dL Adrenal panel 11/15/17 Range/Units 04:00 Sodium 133 L (136-145) mEq/L Potassium 3.9 (3.5-5.1) mEq/L Chloride 102 (98-107) mEq/L Carbon Dioxide 25 (23-29) mEq/L BUN 12 (8-23) mg/dL Creatinine 0.40 L (0.60-1.20) mg/dL Glucose 120 H (70-105) mg/dL Calcium 8.2 L (8.6-10.3) mg/dL - VTE Documentation of Mechanical Device: Intermittent pneumatic compression device Consult Discharge Plan - Plan Referrals: Julee Booth, DIRECTOR AGRICULTURAL SERVICES [Primary Care Provider] - - Attending Attestation For this encounter, I have reviewed the [facility] [employer] or PA documentation, treatment plan, and medical decision making; and I have had face to face time with this patient.
[2017-11-15] MEDS: *HR* FentaNYL PATCH 25 MCG PATCH TD SCH (16:19)
[2017-11-15] MEDS: 0.9 % Sodium Chloride 1,000 ML IVC SCH (16:30)
[2017-11-15] MEDS ORDERED: Insulin LISPRO 300 UNITS/3 ML VIAL SQ SCH (21:00)
[2017-11-15] MEDS: Metoprolol 100 MG TABLET PO SCH (21:30)
[2017-11-16 07:14] LABS: BUN/Creatinine Ratio 26 (6-26); Blood Urea Nitrogen 11 mg/dL (8-23); Calcium 8.4 mg/dL (8.6-10.3); Carbon Dioxide 25 mEq/L (23-29); Chloride 102 mEq/L (98-107); Glucose 110 mg/dL (70-105); Osmolality,Calculated 274 (280-300); Potassium 3.9 mEq/L (3.5-5.1); Sodium 132 mEq/L (136-145); eGFR For Non-African Americans > 60 (> 60)
[2017-11-16] MEDS: 0.9 % Sodium Chloride 1,000 ML IVC SCH ×2 (07:31→09:40)
--- NOTE | 2017-11-16 08:37 | General Surgery Progress Note ---
Date of Encounter: 11/16/17 Time of Encounter: 08:00 - Assessment and Plan (1) Perforated appendicitis Current Visit: Yes Status: Acute POD #14 Dx laparoscopy, BOSSMAN, intra-abdominal washout and placement of drains X [address] Butcher NG removed 11/14/17 Continue soft diet today with protein supplements- ensure clear per patient request Repeat CT 11/13/17- improving Serial abdominal exams Supportive care and pain control- [place] prn TPN stopped 11/15/17 PICC line placement IV antibiotics stopped 11/13/17 Continue diflucan Decrease MIV to 50ml/hour Ambulate hallways TID with assistance IS every 1 hour while awake Date of procedure: 11/02/17 Pre-op diagnosis: perforated appendix with pelvic abscess Post-op diagnosis: same Procedure: diagnostic laparoscopy lysis of adhesions drainage of intraabdominal abscess Implants: 2 19fr loretta drains Complications: none Anesthesia: GETA Local Anesthetics: 0.5% Sensorcaine HCL SubQ (cc) Surgeon: Jonathan Butcher CT/CT chest w con IMPRESSION: Small bilateral pleural effusions and mild volume loss in the lower lobes. Partial consolidation in the lower lobes, slightly worse on the right. Atelectasis versus developing infection. 3 fluid collections again noted in the right pelvis. These are stable to slightly decreased. Small collection within the right pericolic gutter measuring up to 5.2 x 1.4 cm, increased. Slight worsening of small bowel ileus. Wall thickening and inflammation of the cecum, slightly increased. 2 new drains within the pelvis. These both terminate in the anterior lower pelvis and not centered within the fluid collections. D/ / Yaneth Kaplan MD / Ynaeth Kaplan MD (2) Ileus Current Visit: Yes Status: Acute Resolving NG removed 11/14/17 TPN stopped 11/15/17 Continue soft diet with protein supplements (3) Atrial fibrillation Current Visit: Yes Status: Chronic Resume PO metoprolol Patient started on Pradaxa per hospitalist Consult to hospitalist for management Qualifiers: Atrial fibrillation type: paroxysmal Qualified Code(s): I48.0 - Paroxysmal atrial fibrillation (4) GERD (gastroesophageal reflux disease) Current Visit: Yes Status: Chronic PPI therapy daily Qualifiers: Esophagitis presence: without esophagitis Qualified Code(s): K21.9 - Gastro -esophageal reflux disease without esophagitis (5) Elevated blood sugar Current Visit: No Status: Resolved Will continue to monitor and adjust as necessary (6) Moderate protein-calorie malnutrition Current Visit: Yes Status: Acute TPN stopped 11/15/17 Continue soft diet with protein supplements (7) DVT prophylaxis Current Visit: Yes Status: Acute Pradaxa started per hospitalist Ambulate hallways TID with assistance EPCDs to bilateral lower extremities Subjective Patient reports: no new complaints, feels better, still having pain, pain is less, tolerating a regular diet (soft diet), voiding w/o difficulty, flatus, bowel movement, diarrhea, fever (Tmax 99.8, Tcurrent 98.6) Objective Vital Signs - Last 8 Hours Temp Pulse Resp BP Pulse Ox 11/16/17 08:01 98.6 F 93 16 127/77 94 11/16/17 05:00 98.1 F 97 18 139/81 97 Intake and Output 11/15/17 11/16/17 11/16/17 23:59 07:59 15:59 Intake Total 120 / 120 120 / 120 Output Total 300 / 300 400 / 400 Balance -180 / -180 -400 / -400 120 / 120 Intake: Oral 120 / 120 120 / 120 Output: Urine 300 / 300 400 / 400 Other: Meal Dinner Breakfast Percent of Meal Consumed 25% 5% Weight 73.4 kg Blood Glucose* 87 113 Patient Weight 11/16/17 23:59 Weight 73.4 kg - General physical appearance well developed, no distress - Eyes PERRL, normal ocular movement - ENT normal mucosa, atraumatic, normocephalic - Neck Neck exam: trachea midline - Respiratory normal respiratory effort, clear to auscultation - Cardiovascular Cardiovascular exam: Present: irregular rhythm - Abdomen Abdomen: Present: bowel sounds present, soft, tender (minimal), wound (ASHA drain #1 with 10ml of bilious drainage over the past 24 hours; ASHA drain #2 with 50ml of serous drainage over the past 24 hours) - Incision Incision: Present: clean and dry, intact - Neurologic CN 2-12 grossly intact - Musculoskeletal other (physical deconditioning noted) - Psychiatric oriented to time, oriented to person, oriented to place, speech is normal, memory intact - Labs 11/15/17 04:00 08/31/18 06:47 Diabetes panel 11/16/17 Range/Units 06:47 Sodium 132 L (136-145) mEq/L Potassium 3.9 (3.5-5.1) mEq/L Chloride 102 (98-107) mEq/L Carbon Dioxide 25 (23-29) mEq/L BUN 11 (8-23) mg/dL Creatinine 0.43 L (0.60-1.20) mg/dL Glucose 110 H (70-105) mg/dL Calcium 8.4 L (8.6-10.3) mg/dL Calcium panel 11/16/17 Range/Units 06:47 Calcium 8.4 L (8.6-10.3) mg/dL Pituitary panel 11/16/17 Range/Units 06:47 Sodium 132 L (136-145) mEq/L Potassium 3.9 (3.5-5.1) mEq/L Chloride 102 (98-107) mEq/L Carbon Dioxide 25 (23-29) mEq/L BUN 11 (8-23) mg/dL Creatinine 0.43 L (0.60-1.20) mg/dL Glucose 110 H (70-105) mg/dL Calcium 8.4 L (8.6-10.3) mg/dL Adrenal panel 11/16/17 Range/Units 06:47 Sodium 132 L (136-145) mEq/L Potassium 3.9 (3.5-5.1) mEq/L Chloride 102 (98-107) mEq/L Carbon Dioxide 25 (23-29) mEq/L BUN 11 (8-23) mg/dL Creatinine 0.43 L (0.60-1.20) mg/dL Glucose 110 H (70-105) mg/dL Calcium 8.4 L (8.6-10.3) mg/dL - VTE Documentation of Mechanical Device: Intermittent pneumatic compression device Consult Discharge Plan - Plan Referrals: Julee Booth, DIVERSITY SPECIALIST [Primary Care Provider] - - Attending Attestation For this encounter, I have reviewed the ASSET RECOVERY SPECIALIST or PA documentation, treatment plan, and medical decision making; and I have had face to face time with this patient.
[2017-11-16] MEDS: Fluconazole 100 MG/50 ML 100 MG/50 ML BAG IVPB SCH (09:38)
[2017-11-16] MEDS: Insulin LISPRO 300 UNITS/3 ML VIAL SQ SCH ×2 (09:39→12:45)
[2017-11-16] MEDS: Metoprolol 100 MG TABLET PO SCH (09:39)
[2017-11-16] MEDS: *HR* Dabigatran 150 MG CAPSULE PO SCH (09:39)
--- NOTE | 2017-11-16 10:23 | Internal Med Progress Note ---
<Josey Green - Last Filed: 11/16/17 10:20> Hospitalist Progress Note - Encounter Date of Encounter: 11/16/17 Time of Encounter: 10:20 - Subjective Interval History: Denise is a 76 F with PMHx of afib previously on lopressor and pradaxa, and GERD admitted for perforated appendicitis. Patient was treated with medical management initially and is now POD#13 (11/02/17) for lysis of adhesions and pelvic abscess drainage. Overnight, no acute events. She is feeling better today. She has had multiple loose stools. She easily becomes full with food or liquid but has been trying to drink small sips. - Exam Vitals: Temp Pulse Resp BP Pulse Ox 98.6 F 93 16 127/77 94 11/16/17 08:01 11/16/17 08:01 11/16/17 08:01 11/16/17 08:01 11/16/17 08:01 Exam: Constitutional: Alert, in no acute distress, well nourished, well developed. Head: atraumatic, normal contour and symmetric, no masses, lesions or scars Heart: irregularly irregular, no murmurs Lungs: Clear to auscultation, no wheezes, rales, or rhonchi Abdomen: Soft, distended, diffuse tenderness, and no masses palpable, bowel sounds present and normal, no guarding or rigidity, dressings clean and dry Pubic drain - small amount of dark green/bilious liquid, intact L abdominal drain - serosanguinous liquid, intact Extremities: No clubbing, cyanosis, or edema, capillary refill <2sec. Skin: Skin warm and dry, no lesions, no rashes, no jaundice Neurologic: no focal deficits, strength within normal limits in all extremities Psych: Cooperative with exam, good eye contact, cognitive function intact, judgment good insight good, speech clear, thought process logical, and goal directed - Assessment and Plan (1) Atrial fibrillation Current Visit: Yes Status: Chronic Assessment and Plan: Afib with RVR resolved. Currently managing chronic Afib. HR max in the last 24H 112, currently on telemetry without afib RVR. Home medications: Pradaxa and metoprolol 100mg BID Plan: - continue home med: metoprolol 100mg BID and Pradaxa - IV heparin drip stopped - continue tele (2) HTN (hypertension) Current Visit: Yes Status: Chronic Assessment and Plan: Blood pressure has been well managed on currently regiment. Plan: metoprolol 100mg BID (3) Acute appendicitis Current Visit: Yes Status: Acute Assessment and Plan: Perforated appendicitis. S/p diagnostic lap with BOSSMAN and drainage of intra- abdominal abscess on 11/02 POD#14. Surgery managing. Plan: -Antibiotics: Fluconazole day 3, d/c Zosyn (s/p day 12) - drainage in place with minimal output - surgery following, NG out - diet: advance soft, TPN stopped as patient is eating - can decrease MIVF NS to 50ml/hr, will continue as patient has decreased PO intake (4) Sepsis Current Visit: Yes Status: Acute Assessment and Plan: Due to perforated appendicitis. Vitals currently stable. Plan: - blood cultures negative - Fluconazole day 3, s/p Zosyn day 14 - see plan above for appendicitis (5) Elevated blood sugar Current Visit: No Status: Resolved Assessment and Plan: Resolved. Patient's diet has advanced. TPN d/hang. (6) DVT prophylaxis Current Visit: Yes Status: Acute Assessment and Plan: Pradaxa DVT Prophylaxis: Pradaxa - Time Spent with Patient Total time spent is greater than 50% in coordination of care (as documented) at patient's floor/unit and/or counseling patient: Internal Medicine: Result - Labs CBC & Chem 7: 11/15/17 04:00 11/16/17 06:47 Labs: BMP 11/16/17 06:47 Sodium 132 L Potassium 3.9 Chloride 102 Carbon Dioxide 25 BUN 11 Creatinine 0.43 L Glucose 110 H Calcium 8.4 L - ABG Interpretation ABG results: PT/INR, D-dimer PT 14.5 Seconds (9.4-12.1) H 10/25/17 14:37 - VTE Documentation of Mechanical Device: Intermittent pneumatic compression device Consult Discharge Plan - Plan Referrals: Julee Booth, [employer] [employer]BER [Primary Care Provider] - <Moisés Jimenez - Last Filed: 11/16/17 15:25> Hospitalist Progress Note - Encounter Date of Encounter: 11/16/17 - Exam Vitals: Temp Pulse Resp BP Pulse Ox 98.5 F 87 17 115/70 95 11/16/17 11:35 11/16/17 11:35 11/16/17 11:35 11/16/17 11:35 11/16/17 11:35 - Assessment and Plan (1) Atrial fibrillation Current Visit: Yes Status: Chronic (2) GERD (gastroesophageal reflux disease) Current Visit: Yes Status: Chronic (3) HTN (hypertension) Current Visit: Yes Status: Chronic (4) Acute appendicitis Current Visit: Yes Status: Acute (5) Hypokalemia Current Visit: Yes Status: Acute (6) Intra-abdominal abscess Current Visit: Yes Status: Acute (7) Sepsis Current Visit: Yes Status: Acute (8) Hypophosphatemia Current Visit: Yes Status: Resolved - Time Spent with Patient Total time spent is greater than 50% in coordination of care (as documented) at patient's floor/unit and/or counseling patient: Internal Medicine: Result - Labs CBC & Chem 7: 11/15/17 04:00 11/16/17 06:47 Labs: BMP 11/16/17 06:47 Sodium 132 L Potassium 3.9 Chloride 102 Carbon Dioxide 25 BUN 11 Creatinine 0.43 L Glucose 110 H Calcium 8.4 L - ABG Interpretation ABG results: PT/INR, D-dimer PT 14.5 Seconds (9.4-12.1) H 10/25/17 14:37 - Attending Attestation I have seen and examined this pt independently. I have discussed with resident physician Dr Green regarding the management plan. Agree with the documentation. <Josey Green - Last Filed: 11/16/17 10:20> (1) Atrial fibrillation Qualifiers: Atrial fibrillation type: paroxysmal Qualified Code(s): I48.0 - Paroxysmal atrial fibrillation (2) HTN (hypertension) Qualifiers: Hypertension type: essential hypertension Qualified Code(s): I10 - Essential (primary) hypertension (3) Acute appendicitis Qualifiers: Acute appendicitis type: with localized peritonitis Qualified Code(s): K35.3 - Acute appendicitis with localized peritonitis (4) Sepsis Qualifiers: Sepsis type: sepsis due to unspecified organism Qualified Code(s): A41.9 - Sepsis, unspecified organism <Moisés Jimenez - Last Filed: 11/16/17 15:25> (1) Atrial fibrillation Qualifiers: Atrial fibrillation type: paroxysmal Qualified Code(s): I48.0 - Paroxysmal atrial fibrillation (2) GERD (gastroesophageal reflux disease) Qualifiers: Esophagitis presence: without esophagitis Qualified Code(s): K21.9 - Gastro- esophageal reflux disease without esophagitis (3) HTN (hypertension) Qualifiers: Hypertension type: essential hypertension Qualified Code(s): I10 - Essential (primary) hypertension (4) Acute appendicitis Qualifiers: Acute appendicitis type: with localized peritonitis Qualified Code(s): K35.3 - Acute appendicitis with localized peritonitis (7) Sepsis Qualifiers: Sepsis type: sepsis due to unspecified organism Qualified Code(s): A41.9 - Sepsis, unspecified organism
[2017-11-17] MEDS: Metoprolol 100 MG TABLET PO SCH ×4 (00:41→20:23)
[2017-11-17] MEDS ORDERED: 0.9 % Sodium Chloride 1,000 ML ONE (05:50)
[2017-11-17] MEDS: Fluconazole 100 MG TABLET PO SCH (08:33)
[2017-11-17 08:35] LABS: BUN/Creatinine Ratio 21 (6-26); Blood Urea Nitrogen 10 mg/dL (8-23); Calcium 8.7 mg/dL (8.6-10.3); Carbon Dioxide 25 mEq/L (23-29); Chloride 102 mEq/L (98-107); Glucose 127 mg/dL (70-105); Osmolality,Calculated 279 (280-300); Potassium 3.5 mEq/L (3.5-5.1); Sodium 134 mEq/L (136-145); eGFR For Non-African Americans > 60 (> 60)
--- NOTE | 2017-11-17 09:56 | Internal Med Progress Note ---
Hospitalist Progress Note - Encounter Date of Encounter: 11/17/17 Time of Encounter: 09:00 - Subjective Interval History: Patient denies abdominal pain. Has some loose stool. No nausea or vomiting. Tolerated diet well. No fever. Denies palpitation. - Exam Vitals: Temp Pulse Resp BP Pulse Ox 99.3 F 99 18 129/73 93 11/17/17 07:28 11/17/17 07:28 11/17/17 07:28 11/17/17 07:28 11/17/17 07:28 Exam: Constitutional: Alert, in no acute distress, well nourished, well developed. Head: atraumatic, normal contour and symmetric, no masses, lesions or scars Heart: irregularly irregular, no murmurs Lungs: Clear to auscultation, no wheezes, rales, or rhonchi Abdomen: Soft, distended, diffuse tenderness, and no masses palpable, bowel sounds present and normal, no guarding or rigidity, dressings clean and dry Extremities: No clubbing, cyanosis, or edema, capillary refill <2sec. Skin: Skin warm and dry, no lesions, no rashes, no jaundice Neurologic: no focal deficits, strength within normal limits in all extremities Psych: Cooperative with exam, good eye contact, cognitive function intact, judgment good insight good, speech clear, thought process logical, and goal directed - Assessment and Plan (1) Atrial fibrillation Current Visit: Yes Status: Chronic Assessment and Plan: Heart rate is well controlled. Continue by mouth metoprolol for rate control. Continue Pradaxa for anticoagulation. Continue telemetry (2) GERD (gastroesophageal reflux disease) Current Visit: Yes Status: Chronic Assessment and Plan: Continue home medication Prilosec Sublingual zofran as needed (3) HTN (hypertension) Current Visit: Yes Status: Chronic Assessment and Plan: Continue metoprolol. Dose has been increased to 100 mg twice a day for better heart rate and blood pressure control (4) Acute appendicitis Current Visit: Yes Status: Acute Assessment and Plan: With perforation Post-op day 10 for lysis of adhesions and pelvic abscess drainage Diet has resumed. Further management will follow surgical recommendation. (5) Hypokalemia Current Visit: Yes Status: Acute Assessment and Plan: Resolved. Continue closely monitoring. (6) Intra-abdominal abscess Current Visit: Yes Status: Acute Assessment and Plan: Off abx. Surgical consult is on case (7) Sepsis Current Visit: Yes Status: Acute Assessment and Plan: 2/2 perforated appendicitis and abscess Resolved. Continue closely monitoring (8) Hypophosphatemia Current Visit: Yes Status: Resolved Assessment and Plan: Supplement with IV potassium phosphate. Monitor closely. DVT Prophylaxis: On Pradaxa - Time Spent with Patient Total time spent is greater than 50% in coordination of care (as documented) at patient's floor/unit and/or counseling patient: 25 - 35 minutes Plan of Care Discussed with: patient Internal Medicine: Result - Labs CBC & Chem 7: 11/15/17 04:00 11/17/17 08:09 Labs: BMP 11/17/17 08:09 Sodium 134 L Potassium 3.5 Chloride 102 Carbon Dioxide 25 BUN 10 Creatinine 0.47 L Glucose 127 H Calcium 8.7 - ABG Interpretation ABG results: PT/INR, D-dimer PT 14.5 Seconds (9.4-12.1) H 10/25/17 14:37 - VTE Documentation of Mechanical Device: Intermittent pneumatic compression device Consult Discharge Plan - Plan Referrals: Julee Booth, [employer] [Primary Care Provider] - (1) Atrial fibrillation Qualifiers: Atrial fibrillation type: paroxysmal Qualified Code(s): I48.0 - Paroxysmal atrial fibrillation (2) GERD (gastroesophageal reflux disease) Qualifiers: Esophagitis presence: without esophagitis Qualified Code(s): K21.9 - Gastro- esophageal reflux disease without esophagitis (3) HTN (hypertension) Qualifiers: Hypertension type: essential hypertension Qualified Code(s): I10 - Essential (primary) hypertension (4) Acute appendicitis Qualifiers: Acute appendicitis type: with localized peritonitis Qualified Code(s): K35.3 - Acute appendicitis with localized peritonitis (7) Sepsis Qualifiers: Sepsis type: sepsis due to unspecified organism Qualified Code(s): A41.9 - Sepsis, unspecified organism
[2017-11-17] MEDS: *HR* Dabigatran 150 MG CAPSULE PO SCH ×2 (09:58→20:23)
--- NOTE | 2017-11-17 12:21 | General Surgery Progress Note ---
<Skyler Álvarez R - Last Filed: 11/17/17 12:19> Date of Encounter: 11/17/17 Time of Encounter: 12:19 - Assessment and Plan (1) Perforated appendicitis Current Visit: Yes Status: Acute POD #15 diagnostic laparoscopy, BOSSMAN, intra-abdominal washout and placement of drains [address] Butcher Plan Continue soft diet with protein supplementation, patient requesting ensure Serial abdominal exams Supportive care and pain control NG removed 11/14/17, TPN stopped 11/15/17 PICC line placed, Wean IV fluids and heparin lock PICC for d/c IV antibiotics were then discontinued since 11/14/17 Continue Diflucan Ambulate halls at least 3 times a day with assistance Incentive spirometry every 1 hour while awake Will pull drain #2, leaving drain #1 We will reevaluate with possible sign off in the a.m. (2) Ileus following gastrointestinal surgery Current Visit: Yes Status: Acute Resolving NG removed 11/14/2017 TPN stopped 11/15/17 Continue soft diet with protein supplementation Ambulate 3 times a day (3) DVT prophylaxis Current Visit: Yes Status: Acute Pradaxa started per hospitalist Ambulate always 3 times a day with assistance EPCDs to bilateral lower extremity Subjective Patient reports: no new complaints, feels better, tolerating liquids well, voiding w/o difficulty Narrative: Patient reports continuing to feel much better. States she is tolerating soft diet as well as oral hydration. She is tolerating oral medications. Denies nausea, vomiting, diarrhea, fever. States she is able to ambulate well without assistance. She is voiding without difficulty. Objective Vital Signs - Last 8 Hours Temp Pulse Resp BP Pulse Ox 11/17/17 11:28 98.3 F 94 18 134/87 96 11/17/17 07:28 99.3 F 99 18 129/73 93 Intake and Output 11/16/17 11/17/17 11/17/17 23:59 07:59 15:59 Intake Total 100 / 100 Balance 100 / 100 Intake: Oral 100 / 100 Other: Meal Breakfast Percent of Meal Consumed 5% Weight 73.5 kg - General physical appearance no distress, no pain - Eyes PERRL, normal ocular movement - ENT atraumatic, normocephalic - Neck Neck exam: trachea midline - Respiratory normal expansion, clear to auscultation - Cardiovascular Cardiovascular exam: Present: RRR - Abdomen Abdomen: Present: bowel sounds present, soft, non tender, wound (2 ASHA drains are present with 5 mL drainage in my 6 hours.). Absent: guarding, rebound - Incision Incision: Present: clean and dry, intact - Integumentary no rash - Neurologic CN 2-12 grossly intact - Psychiatric oriented to time, oriented to person, oriented to place, speech is normal - Labs 11/15/17 04:00 11/17/17 08:09 Diabetes panel 11/17/17 Range/Units 08:09 Sodium 134 L (136-145) mEq/L Potassium 3.5 (3.5-5.1) mEq/L Chloride 102 (98-107) mEq/L Carbon Dioxide 25 (23-29) mEq/L BUN 10 (8-23) mg/dL Creatinine 0.47 L (0.60-1.20) mg/dL Glucose 127 H (70-105) mg/dL Calcium 8.7 (8.6-10.3) mg/dL Calcium panel 11/17/17 Range/Units 08:09 Calcium 8.7 (8.6-10.3) mg/dL Pituitary panel 11/17/17 Range/Units 08:09 Sodium 134 L (136-145) mEq/L Potassium 3.5 (3.5-5.1) mEq/L Chloride 102 (98-107) mEq/L Carbon Dioxide 25 (23-29) mEq/L BUN 10 (8-23) mg/dL Creatinine 0.47 L (0.60-1.20) mg/dL Glucose 127 H (70-105) mg/dL Calcium 8.7 (8.6-10.3) mg/dL Adrenal panel 11/17/17 Range/Units 08:09 Sodium 134 L (136-145) mEq/L Potassium 3.5 (3.5-5.1) mEq/L Chloride 102 (98-107) mEq/L Carbon Dioxide 25 (23-29) mEq/L BUN 10 (8-23) mg/dL Creatinine 0.47 L (0.60-1.20) mg/dL Glucose 127 H (70-105) mg/dL Calcium 8.7 (8.6-10.3) mg/dL - VTE Documentation of Mechanical Device: Intermittent pneumatic compression device Consult Discharge Plan - Plan Referrals: Julee Booth, FLOORHAND [Primary Care Provider] - <Charlie Bryson - Last Filed: 11/17/17 16:00> Date of Encounter: 11/17/17 Objective Vital Signs - Last 8 Hours Temp Pulse Resp BP Pulse Ox 11/17/17 11:28 98.3 F 94 18 134/87 96 Intake and Output 11/16/17 11/17/17 11/17/17 23:59 07:59 15:59 Intake Total 100 / 100 Balance 100 / 100 Intake: Oral 100 / 100 Other: Meal Breakfast Percent of Meal Consumed 5% Weight 73.5 kg - Labs 11/15/17 04:00 11/17/17 08:09 Diabetes panel 11/17/17 Range/Units 08:09 Sodium 134 L (136-145) mEq/L Potassium 3.5 (3.5-5.1) mEq/L Chloride 102 (98-107) mEq/L Carbon Dioxide 25 (23-29) mEq/L BUN 10 (8-23) mg/dL Creatinine 0.47 L (0.60-1.20) mg/dL Glucose 127 H (70-105) mg/dL Calcium 8.7 (8.6-10.3) mg/dL Calcium panel 11/17/17 Range/Units 08:09 Calcium 8.7 (8.6-10.3) mg/dL Pituitary panel 11/17/17 Range/Units 08:09 Sodium 134 L (136-145) mEq/L Potassium 3.5 (3.5-5.1) mEq/L Chloride 102 (98-107) mEq/L Carbon Dioxide 25 (23-29) mEq/L BUN 10 (8-23) mg/dL Creatinine 0.47 L (0.60-1.20) mg/dL Glucose 127 H (70-105) mg/dL Calcium 8.7 (8.6-10.3) mg/dL Adrenal panel 11/17/17 Range/Units 08:09 Sodium 134 L (136-145) mEq/L Potassium 3.5 (3.5-5.1) mEq/L Chloride 102 (98-107) mEq/L Carbon Dioxide 25 (23-29) mEq/L BUN 10 (8-23) mg/dL Creatinine 0.47 L (0.60-1.20) mg/dL Glucose 127 H (70-105) mg/dL Calcium 8.7 (8.6-10.3) mg/dL - Attending Attestation I examined this patient and my medical decision-making was reviewed with the Resident Physician. I agree with the documented findings, disposition and treatment plan as described except to the extent set forth below. The patient is seen and evaluated on morning rounds with the resident. She is made tremendous strides this week. The greenish drainage in the drains has stopped her white blood cell count is normal she feels well. She is tolerating regular diet. I will encourage ambulation today if she does well she can be discharged tomorrow Charlie Bryson MD FACS
[2017-11-17] MEDS ORDERED: 0.9 % Sodium Chloride 1,000 ML IVC SCH (12:45)
[2017-11-18 04:08] LABS: Eosinophils # 0.1 K/mcL (0.0-0.6); Eosinophils % 1.2 %; Hematocrit 31.5 % (35.3-44.9); Immature Granulocytes % 0.5 % (0-4); Lymphocytes # 1.5 K/mcL (0.6-4.6); Lymphocytes % 38.2 %; Mean Corpuscular HGB Conc 31.7 g/dL (31.6-35.5); Mean Corpuscular Hemoglobin 27.5 pg (28.0-33.3); Mean Corpuscular Volume 86.8 fL (83.0-100.0); Mean Platelet Volume 9.6 fL (9.4-12.4); Monocytes # 0.3 K/mcL (0.0-1.3); Monocytes % 8.4 %; Platelet Count 263 K/mcL (140-400); Red Blood Count 3.63 M/mcL (3.82-4.97); Red Cell Distribution Width 14.8 % (11.5-14.5); Segmented Neutrophils % 50.7 %
[2017-11-18 04:31] LABS: BUN/Creatinine Ratio 21 (6-26); Blood Urea Nitrogen 8 mg/dL (8-23); Carbon Dioxide 26 mEq/L (23-29); Chloride 106 mEq/L (98-107); Glucose 100 mg/dL (70-105); Osmolality,Calculated 282 (280-300); Potassium 3.2 mEq/L (3.5-5.1); Sodium 137 mEq/L (136-145); eGFR For Non-African Americans > 60 (> 60)
[2017-11-18 07:59] VITALS: BP 143/81
[2017-11-18] MEDS: Fluconazole 100 MG TABLET PO SCH (08:36)
[2017-11-18] MEDS: Metoprolol 100 MG TABLET PO SCH (08:36)
[2017-11-18] MEDS: *HR* Dabigatran 150 MG CAPSULE PO SCH (08:36)
--- NOTE | 2017-11-18 09:25 | General Surgery Progress Note ---
Date of Encounter: 11/18/17 Time of Encounter: 09:22 - Assessment and Plan (1) Perforated appendicitis Current Visit: Yes Status: Acute pod 17# ASHA drains serous tolerating regular diet prn pain control antibiotics stopped several days ago patient doing excellent DC planning, ok to DC from surgical standpoint Subjective Patient reports: no new complaints, feels better, tolerating a regular diet, voiding w/o difficulty, flatus, bowel movement, afebrile Objective Vital Signs - Last 8 Hours Temp Pulse Resp BP Pulse Ox 11/18/17 07:56 99.1 F 96 16 143/81 95 11/18/17 03:50 98.1 F 91 15 122/75 95 Intake and Output 11/17/17 11/18/17 11/18/17 23:59 07:59 15:59 Intake Total 120 / 120 480 / 480 Output Total 300 / 300 30 / 30 Balance -180 / -180 -30 / -30 480 / 480 Intake: Oral 120 / 120 480 / 480 Output: Urine 300 / 300 Wound Drainage 30 / 30 Left Pubis 25 / 25 Right Lower Abdomen 5 / 5 Other: Meal Breakfast Percent of Meal Consumed 100% - General physical appearance well nourished, no distress - Eyes PERRL, normal ocular movement - ENT normal mucosa, normocephalic - Neck Neck exam: trachea midline - Respiratory normal expansion, normal respiratory effort - Cardiovascular Cardiovascular exam: Present: RRR - Abdomen Abdomen: Present: bowel sounds present, soft, tender (minimal). Absent: distended, guarding, rebound - Integumentary no rash, no growths, no abnormal pigmentation - Musculoskeletal normal posture - Psychiatric oriented to time, oriented to person, oriented to place, speech is normal, memory intact - Additional Exam ASHA''s - serous only - Labs 11/18/17 03:46 11/18/17 04:00 Vital Signs Temp Pulse Resp BP Pulse Ox 11/18/17 07:56 99.1 F 96 16 143/81 95 11/18/17 03:50 98.1 F 91 15 122/75 95 11/17/17 23:54 98.1 F 88 15 134/76 96 11/17/17 19:18 98.6 F 95 14 111/40 95 11/17/17 16:15 98.7 F 101 18 127/81 97 11/17/17 11:28 98.3 F 94 18 134/87 96 Intake and Output 11/17/17 11/18/17 11/18/17 23:59 07:59 15:59 Intake Total 120 / 120 480 / 480 Output Total 300 / 300 30 / 30 Balance -180 / -180 -30 / -30 480 / 480 Intake: Oral 120 / 120 480 / 480 Output: Urine 300 / 300 Wound Drainage Left Pubis 25 / Right Lower Abdomen Other: Meal Breakfast Percent of Meal Consumed 100% Short CBC 11/18/17 Range/Units 03:46 WBC 4.0 L (4.3-11.1) K/mcL Hgb 10.0 L (11.5-15.4) g/dL Hct 31.5 L (35.3-44.9) % Plt Count 263 (140-400) K/mcL Neutrophils # 2.0 (1.6-8.9) K/mcL BMP 11/18/17 Range/Units 04:00 Sodium 137 (136-145) mEq/L Potassium 3.2 L (3.5-5.1) mEq/L Chloride 106 (98-107) mEq/L Carbon Dioxide 26 (23-29) mEq/L BUN 8 (8-23) mg/dL Creatinine 0.39 L (0.60-1.20) mg/dL Glucose 100 (70-105) mg/dL Calcium 8.0 L (8.6-10.3) mg/dL - VTE Documentation of Mechanical Device: Intermittent pneumatic compression device Consult Discharge Plan - Plan Referrals: Julee Booth NEWSPAPER EDITOR [Primary Care Provider] -
--- NOTE | 2017-11-18 10:37 | Discharge Summary ---
- NOTES TO OUTPATIENT PROVIDER Notes to Outpatient Provider: 1. F/U with surgery for ASHA drain and post- operative follow up. 2. Patient has generally poor intake at this point with hypokalemia, added potassium chloride 10 mEq po daily for short term potassium supplement, please follow-up potassium level. Date of Encounter: 11/18/17 Time of Encounter: 10:00 - Discharge Diagnosis (1) Atrial fibrillation Priority: Secondary Status: Chronic Qualifiers: Atrial fibrillation type: paroxysmal Qualified Code(s): I48.0 - Paroxysmal atrial fibrillation (2) GERD (gastroesophageal reflux disease) Priority: Secondary Status: Chronic Qualifiers: Esophagitis presence: without esophagitis Qualified Code(s): K21.9 - Gastro -esophageal reflux disease without esophagitis (3) HTN (hypertension) Priority: Secondary Status: Chronic Qualifiers: Hypertension type: essential hypertension Qualified Code(s): I10 - Essential (primary) hypertension (4) Acute appendicitis Priority: Primary Status: Acute Qualifiers: Acute appendicitis type: with localized peritonitis Qualified Code(s): K35.3 - Acute appendicitis with localized peritonitis (5) Hypokalemia Priority: Secondary Status: Acute (6) Intra-abdominal abscess Priority: Primary Status: Acute (7) Sepsis Priority: Primary Status: Acute Qualifiers: Sepsis type: sepsis due to unspecified organism Qualified Code(s): A41.9 - Sepsis, unspecified organism (8) Hypophosphatemia Priority: Secondary Status: Resolved Hospital course: Ms. Doan is a 76 year old female admitted for acute appendicitis with perforation. Past medical history is significant for paroxysmal A. fib on Pradaxa. Patient had emergent surgery for acute appendicitis. Her hospitalization is complicated for intra-abdominal abscess. Surgical team is on case for abscess and ileus. Patient was placed on TPN, NG tube with low pressure suction. After treatment, patient gradually resumed regular diet. Her home po medication is resumed after she started to take diet. Patient is a generally improving. Surgical team cleared patient to discharge home. We will discharge patient today. I saw and examined the patient today. She is awake alert, oriented 3. Still weak. Vitals are stable. No fever, no leukocytosis. Mild hypokalemia, patient was given potassium supplement by mouth. Will continue low-dose daily potassium supplement and follow-up potassium level as outpatient. Will discharge patient home and closely follow-up with surgical team as outpatient. Discharge discussed with: patient - Time Spent with Patient Total time spent providing and/or coordinating discharge services: 40 minutes Greater than 30 minutes - Discharge Medications Prescriptions: Fluconazole [Diflucan] 100 mg PO DAILY 10 Days #10 tablet Potassium Chloride 10 meq PO DAILY 14 Days #14 tab.er.prt Home Medications: Esomeprazole Magnesium [Nexium] 40 mg PO DAILY #0 06/17/15 [Rx] Dabigatran [Pradaxa] 150 mg PO BID 02/07/17 [History] Metoprolol [Lopressor] 100 mg PO BID 02/07/17 [History] Cyclosporine [Restasis Multidose] 1 drop BOTH EYES BID 10/21/17 [History] Artificial Tears SOLN [Akwa Tears] 1 drop BOTH EYES QID PRN bottle 11/18/17 [Rx ] Fluconazole [Diflucan] 100 mg PO DAILY 10 Days #10 tablet 11/18/17 [Rx] Potassium Chloride 10 meq PO DAILY 14 Days #14 tab.er.prt 11/18/17 [Rx] Allergies/Adverse Reactions: 3 Allergy/AdvReac Type Severity Reaction Status Date / Time No Known Allergies Allergy Verified 10/20/17 15:08 Date of admission: 10/20/17 19:53 Primary care physician: Julee Booth CNP Consults: 10/25/17 14:26 Consult to Invasive Line Access Team [CONS] Routine Reason for Consult: Picc Line Insertion Line Type: PICC PICC line indications: Parental nutrition 10/25/17 15:22 Consult to Hospitalist [CONS] Routine Consulting Provider: Hospitalist Wily Reason for Consult: chronic condition management; assume primary team; spoke with Nkadi Time Notified: 15:24 Call Completed: Yes 10/25/17 16:56 Consult to Seat Nailer [CONS] Routine Reason for SW Consult: Please assess patient for possible home needs for post -discharge planning. 10/26/17 08:15 consult to benzene still utility operator [Consult to Nutrition] [CONS] Routine Comment: Total fluid rate 100ml/hour (MIV + TPN) Consulting Provider: NUTRITION Reason for Dietary Consult: TPN Start and Manage 10/26/17 12:51 Consult to Interventional Radiology [CONS] Routine Consulting Provider: Radiology Interventional Cols Reason for Consult: Drainage of intra-abdominal abscess Time Notified: 12:52 Call Completed: Yes 10/26/17 17:25 Consult to Cardiology [CONS] Routine Comment: Oral medication for afib Consulting Provider: Armando Wisdom Reason for Consult: Afib RVR earlier this week, on cardizem drip, can now tolerate PO medications. Spoke with Cardiology earlier this week and was told to consult once she could take PO medications. Time Notified: 17:31 Call Completed: Yes 11/03/17 13:07 consult to benzene still utility operator [Consult to Nutrition] [CONS] Stat Comment: Patient was taken off on Sun, needs restarted Consulting Provider: NUTRITION Reason for Dietary Consult: TPN Start and Manage 11/06/17 08:16 Consult to Interventional Radiology [CONS] Stat Consulting Provider: Radiology Interventional Cols Reason for Consult: NG placement, patient had resistance in the nasal passages, Please use 18fr or 16fr if possible, absolute lowest 14fr Time Notified: 08:19 Call Completed: Yes 11/09/17 17:05 Consult to Physical Therapy [CONS] Routine Comment: Evaluate, develop and implement POC Reason for Consult: evaluate for home needs Does patient have active BEDREST order?: No Is patient medically & hemodynamically stable?: Yes Patient assessed for mobility or mobilized this visit?: Yes 11/09/17 17:06 Consult to Occupational Therapy [CONS] Routine Comment: Evaluate, develop and implement POC Reason for Consult: evaluate for home needs. Does patient have active BEDREST order?: No Is patient medically & hemodynamically stable?: Yes Patient assessed for mobility or mobilized this visit?: No Discharging clinician: Moisés Jimenez Anticipated date of discharge: 11/18/17 - Constitutional Vitals: Temp Pulse Resp BP Pulse Ox 99.1 F 96 16 143/81 95 11/18/17 07:56 11/18/17 07:56 11/18/17 07:56 11/18/17 07:56 11/18/17 07:56 General appearance: Present: cooperative, mild distress, A&O X 3, pleasant, obese, answers questions appropriately Exam: Constitutional: Alert, in no acute distress, well nourished, well developed. - Head Head exam: Present: atraumatic, normocephalic - Eye Eye exam: Present: PERRL, conjuntiva pink, sclera anicteric Pupils: Present: PERRL - Neck Neck exam general surgery: Present: supple, trachea midline. Absent: lymphadenopathy - Respiratory Respiratory exam: Present: CTAB. Absent: accessory muscle use, rales, rhonchi, wheezes - Cardiovascular Cardiovascular exam: Present: RRR, +S1, +S2. Absent: diastolic murmur, gallop, rubs, systolic murmur - GI/Abdominal GI/Abdominal exam: Present: normal bowel sounds, soft, no peritoneal signs. Absent: distended, tenderness Additional comments: ASHA drain in place - Extremities Exam Extremities exam: Present: warm, radial pulses palpable and symmetrical. Absent : calf tenderness, cyanotic, pedal edema - Neurological Exam Neurological exam: Present: CN II-XII intact, oriented X3, no focal deficits. Absent: pronater drift, facial droop, speech deficit - Skin Skin exam: Present: dry, intact - Patient Status Disposition: Home, Self-Care Condition: Fair Functional capacity at discharge: independent ambulation Overall status at discharge: patient is progressing back to baseline - Discharge Instructions Follow Up With: Jonathan Butcher MD [Non-Partnered Physician] - 11/21/17 10:40 am (November 21 at 10:40 AM) Julee Booth CNP [Primary Care Provider] - - Diet and Activity Activity: as per physical therapy Diet: advance to your usual diet - VTE Documentation of Mechanical Device: Intermittent pneumatic compression device
--- NOTE | 2017-11-21 09:21 | Physician Discharge Referral ---
Home Health/Hosp Referral Info Provider in Charge Post Discharge: PCP - Diagnosis (1) Acute appendicitis Priority: Primary Status: Acute (2) Atrial fibrillation with rapid ventricular response Priority: Secondary Status: Acute (3) Ileus following gastrointestinal surgery Priority: Secondary Status: Acute (4) Intra-abdominal abscess Priority: Secondary Status: Acute (5) Moderate protein-calorie malnutrition Priority: Secondary Status: Acute (6) PAF (paroxysmal atrial fibrillation) Priority: Secondary Status: Acute - Respiratory Orders Smoking Cessation: Smoking cessation has been advised. For more information, call the [place] Tobacco Quit Line at 9-340-NLTP-NOW. - Services Needed Following services are medically necessary services: Nursing, Physical Therapy, Occupational Therapy - Transfer Medications Prescriptions: Fluconazole [Diflucan] 100 mg PO DAILY 10 Days #10 tablet Potassium Chloride 10 meq PO DAILY 14 Days #14 tab.er.prt Home Medications: Esomeprazole Magnesium [Nexium] 40 mg PO DAILY #0 06/17/15 [Rx] Dabigatran [Pradaxa] 150 mg PO BID 02/07/17 [History] Metoprolol [Lopressor] 100 mg PO BID 02/07/17 [History] Cyclosporine [Restasis Multidose] 1 drop BOTH EYES BID 10/21/17 [History] Artificial Tears SOLN [Akwa Tears] 1 drop BOTH EYES QID PRN bottle 11/18/17 [Rx ] Fluconazole [Diflucan] 100 mg PO DAILY 10 Days #10 tablet 11/18/17 [Rx] Potassium Chloride 10 meq PO DAILY 14 Days #14 tab.er.prt 11/18/17 [Rx] Allergies/Adverse Reactions: 3 Allergy/AdvReac Type Severity Reaction Status Date / Time No Known Allergies Allergy Verified 10/20/17 15:08 Certification: Further, I certify that my clinical findings support that this patient is homebound (i.e. absences from home require considerable and taxing effort and are for medical reasons or mandaen services or infrequently or short duration when for other reasons) because: Homebound Reason: Post-surgery restriction and or conditions limit ability to leave home Attestation: My signature below is to certify that this patient is under my care and that I, or nurse practitioner, or a physician's veterinary technician assistant working with me, has a face-to -face encounter with this patient.
== END 2017-11-18 13:59 | disposition home or self-care (01) | DRG 853 ==
LOC: 3ANU 15:05 → EMEROO 15:05 → 3ANU 19:50 → SUATTDRO 19:53 → 2NNU 10-21 15:14 → ICNU 10-21 20:29 → 2ANU 10-22 14:58
PROVIDERS: ADMIT Surgery; ATTEND Internal Medicine

== ENCOUNTER 2021-09-23 09:13 | Inpatient (IN) ==
[2021-09-23 10:06] LABS: Basophils % 0.3 %; Eosinophils % 0.1 %; Hematocrit 45.8 % (35.3-44.9); Hemoglobin 15.1 g/dL (11.5-15.4); Immature Granulocytes % 0.4 % (0-4); Lymphocytes # 1.4 K/mcL (0.6-4.6); Lymphocytes % 9.9 %; Mean Corpuscular Hemoglobin 29.3 pg (28.0-33.3); Mean Corpuscular Volume 88.8 fL (83.0-100.0); Mean Platelet Volume 9.8 fL (9.4-12.4); Monocytes # 0.9 K/mcL (0.0-1.3); Monocytes % 5.9 %; Neutrophils # 12.1 K/mcL (1.6-8.9); Platelet Count 231 K/mcL (140-400); Red Blood Count 5.16 M/mcL (3.82-4.97); Red Cell Distribution Width 12.9 % (11.5-14.5); Segmented Neutrophils % 83.4 %; White Blood Count 14.5 K/mcL (4.3-11.1)
[2021-09-23] MEDS ORDERED: Iopamidol - 370 500 ML MLS IVP ONE (10:17)
[2021-09-23 10:19] LABS: Bacteria,Urine Few per hpf (None-Few); Bilirubin,Urine Small (Negative); Blood,Urine Negative (Negative); Clarity,Urine Turbid (Clear); Color,Urine Orange (Yellow); Glucose,Urine (UA) 30 mg/dL (Normal); Hyaline Casts,Urine Many per lpf (None Seen); Ketones,Urine 20 mg/dL (Negative); Leukocyte Esterase,Urine Small (Negative); Mucus,Urine Many per lpf (None-Few); Nitrite,Urine Negative (Negative); Protein,Urine 100 mg/dL (Neg-Trace); Squamous Epithelial Cell,Urine Moderate per hpf (None-Few); WBC,Urine 15-30 per hpf (0-3)
[2021-09-23 10:21] LABS: BUN/Creatinine Ratio 18 (6-26); Blood Urea Nitrogen 16 mg/dL (8-23); Calcium 9.7 mg/dL (8.6-10.3); Carbon Dioxide 27 mEq/L (23-29); Chloride 98 mEq/L (98-107); Glucose 138 mg/dL (70-105); Osmolality,Calculated 275 (280-300); Sodium 131 mEq/L (136-145); eGFR For African Americans > 60 (> 60); eGFR For Non-African Americans > 60 (> 60)
[2021-09-23 11:30] LABS: Alanine Aminotransferase 20 Units/L (7-52); Albumin 4.4 g/dL (3.5-5.7); Albumin/Globulin Ratio 1.5 (1.1-2.2); Alkaline Phosphatase 74 Units/L (34-104); Aspartate Amino Transferase 14 Units/L (13-39); Bilirubin,Direct 0.2 mg/dL (0.0-0.2); Bilirubin,Indirect 1.1 mg/dL (0.0-1.0); Bilirubin,Total 1.3 mg/dL (0.3-1.0); Lipase 15 Units/L (11-82); Total Protein 7.4 g/dL (6.4-8.9)
[2021-09-23] MEDS ORDERED: Piperacillin/Tazobactam 3.375 GM in 0.9 % Sodium Chloride Mini Bag 100 ML IVPB ONE (12:18)
[2021-09-23] MEDS ORDERED: Naloxone 0.4 MG/ML INJ IVP PRN (12:38)
[2021-09-23] MEDS ORDERED: 0.9 % Sodium Chloride 500 ML IVC ONE (12:39)
[2021-09-23] MEDS: 0.9 % Sodium Chloride 1,000 ML IVC SCH (16:27)
[2021-09-23] MEDS: Metoprolol 100 MG TABLET PO SCH ×2 (16:28→21:07)
[2021-09-23] MEDS ORDERED: CYCLOSPORINE 0.05% OP PRN (21:00)
[2021-09-23] MEDS: Piperacillin/Tazobactam 3.375 GM in 0.9 % Sodium Chloride Mini Bag 100 ML IVPB SCH (21:07)
[2021-09-23] MEDS ORDERED: Acetaminophen 325 MG TABLET PO PRN (21:12)
[2021-09-24] MEDS: Piperacillin/Tazobactam 3.375 GM in 0.9 % Sodium Chloride Mini Bag 100 ML IVPB SCH ×3 (05:54→21:37)
[2021-09-24] MEDS: 0.9 % Sodium Chloride 1,000 ML IVC SCH ×3 (06:00→19:23)
[2021-09-24 06:48] LABS: Basophils % 0.4 %; Eosinophils % 0.4 %; Hematocrit 39.4 % (35.3-44.9); Immature Granulocytes % 0.2 % (0-4); Lymphocytes # 1.2 K/mcL (0.6-4.6); Lymphocytes % 13.2 %; Mean Corpuscular Hemoglobin 29.1 pg (28.0-33.3); Mean Corpuscular Volume 88.3 fL (83.0-100.0); Monocytes # 0.8 K/mcL (0.0-1.3); Monocytes % 8.6 %; Neutrophils # 7.1 K/mcL (1.6-8.9); Platelet Count 178 K/mcL (140-400); Red Blood Count 4.46 M/mcL (3.82-4.97); Segmented Neutrophils % 77.2 %; White Blood Count 9.2 K/mcL (4.3-11.1)
[2021-09-24 07:01] LABS: Alanine Aminotransferase 14 Units/L (7-52); Albumin 3.4 g/dL (3.5-5.7); Albumin/Globulin Ratio 1.4 (1.1-2.2); Alkaline Phosphatase 57 Units/L (34-104); Aspartate Amino Transferase 10 Units/L (13-39); BUN/Creatinine Ratio 18 (6-26); Bilirubin,Total 1.2 mg/dL (0.3-1.0); Blood Urea Nitrogen 11 mg/dL (8-23); Calcium 8.4 mg/dL (8.6-10.3); Carbon Dioxide 23 mEq/L (23-29); Chloride 105 mEq/L (98-107); Globulin 2.5 g/dL (2.4-3.5); Glucose 104 mg/dL (70-105); Osmolality,Calculated 280 (280-300); Phosphorous 2.8 mg/dL (2.7-4.5); Potassium 3.8 mEq/L (3.5-5.1); Sodium 135 mEq/L (136-145); Total Protein 5.9 g/dL (6.4-8.9); eGFR For African Americans > 60 (> 60); eGFR For Non-African Americans > 60 (> 60)
[2021-09-24] MEDS: Metoprolol 100 MG TABLET PO SCH ×2 (08:45→20:03)
[2021-09-25] MEDS: Piperacillin/Tazobactam 3.375 GM in 0.9 % Sodium Chloride Mini Bag 100 ML IVPB SCH ×3 (04:57→20:22)
[2021-09-25] MEDS: 0.9 % Sodium Chloride 1,000 ML IVC SCH ×3 (04:59→20:24)
[2021-09-25] MEDS ORDERED: *HR* Propofol 200 MG/20 ML VIAL IVP ONE (07:25)
[2021-09-25] MEDS ORDERED: *HR* FentaNYL (PF) 100 MCG/2 ML VIAL ONE (07:28)
[2021-09-25] MEDS ORDERED: Lidocaine -MPF 2% 5 ML VIAL ONE (07:30)
[2021-09-25] MEDS ORDERED: *HR* Succinylcholine 200 MG/10 ML VIAL IVP ONE (07:30)
[2021-09-25] MEDS ORDERED: Ondansetron 4 MG/2 ML VIAL ONE (07:30)
[2021-09-25] MEDS ORDERED: *HR* Rocuronium Bromide 50 MG/5 ML VIAL ONE ×2 (07:30→09:30)
[2021-09-25] MEDS: Metoprolol 100 MG TABLET PO SCH (07:33)
[2021-09-25] MEDS ORDERED: *HR* HYDROmorphone (PF) 1 MG/ML SYRINGE IVP PRN (08:03)
[2021-09-25] MEDS ORDERED: Acetaminophen IV 1,000 MG/100 ML BAG IVPB ONE (08:33)
[2021-09-25] MEDS ORDERED: *HR* HYDROMORPHONE 2 MG/ML VIAL ONE (09:32)
[2021-09-25] MEDS ORDERED: *HR* HYDROmorphone PF 0.5 MG/0.5 ML SYRINGE IVP PRN (10:17)
[2021-09-25] MEDS ORDERED: Ondansetron 4 MG/2 ML VIAL IVP PRN ×2 (10:17→12:05)
[2021-09-25] MEDS ORDERED: Sugammadex Sodium 200 MG/2 ML VIAL IV ONE (10:44)
[2021-09-25] MEDS ORDERED: CYCLOSPORINE 0.05% OP PRN (12:05)
[2021-09-25] MEDS ORDERED: Morphine PCA 30 MG/ 30 ML 30 ML PCA.VIAL IVC PRN (12:05)
[2021-09-25] MEDS ORDERED: Naloxone 0.4 MG/ML INJ IVP PRN (12:05)
[2021-09-25] MEDS: *HR* Metoprolol 5 MG/5 ML VIAL IVP SCH ×2 (12:21→17:31)
[2021-09-25] MEDS: *HR* Heparin 5,000 UNIT/ML VIAL SQ SCH ×2 (12:21→17:57)
[2021-09-25] MEDS: Acetaminophen IV 1,000 MG/100 ML BAG IVPB SCH ×2 (12:29→17:24)
[2021-09-26] MEDS: Acetaminophen IV 1,000 MG/100 ML BAG IVPB SCH ×4 (01:10→17:33)
[2021-09-26] MEDS: *HR* Metoprolol 5 MG/5 ML VIAL IVP SCH ×4 (01:11→17:26)
[2021-09-26] MEDS: Piperacillin/Tazobactam 3.375 GM in 0.9 % Sodium Chloride Mini Bag 100 ML IVPB SCH ×3 (04:39→22:25)
[2021-09-26 04:58] LABS: BUN/Creatinine Ratio 14 (6-26); Blood Urea Nitrogen 6 mg/dL (8-23); Calcium 8.4 mg/dL (8.6-10.3); Carbon Dioxide 24 mEq/L (23-29); Chloride 105 mEq/L (98-107); Glucose 98 mg/dL (70-105); Osmolality,Calculated 278 (280-300); Potassium 3.8 mEq/L (3.5-5.1); Sodium 135 mEq/L (136-145); eGFR For African Americans > 60 (> 60); eGFR For Non-African Americans > 60 (> 60)
[2021-09-26 05:09] LABS: Basophils % 0.1 %; Hematocrit 36.1 % (35.3-44.9); Hemoglobin 11.8 g/dL (11.5-15.4); Immature Granulocytes % 0.2 % (0-4); Lymphocytes # 1.1 K/mcL (0.6-4.6); Lymphocytes % 14.1 %; Mean Corpuscular HGB Conc 32.7 g/dL (31.6-35.5); Mean Corpuscular Hemoglobin 28.8 pg (28.0-33.3); Mean Platelet Volume 10.2 fL (9.4-12.4); Monocytes # 0.7 K/mcL (0.0-1.3); Neutrophils # 6.2 K/mcL (1.6-8.9); Platelet Count 228 K/mcL (140-400); Red Cell Distribution Width 12.8 % (11.5-14.5); Segmented Neutrophils % 76.6 %; White Blood Count 8.1 K/mcL (4.3-11.1)
[2021-09-26] MEDS: *HR* Heparin 5,000 UNIT/ML VIAL SQ SCH ×2 (06:45→17:34)
[2021-09-26] MEDS: Pantoprazole 40 MG VIAL IVP SCH (08:45)
[2021-09-26] MEDS: 0.9 % Sodium Chloride 1,000 ML IVC SCH ×2 (08:45→19:08)
[2021-09-26] MEDS ORDERED: Saliva Stimulant 44.3ml BOTTLE PO PRN (09:23)
[2021-09-26] MEDS ORDERED: Chloraseptic Spray 177 ML BOTTLE MM PRN (09:23)
[2021-09-26] MEDS: Orphenadrine 60 MG/2 ML VIAL IVP SCH ×2 (11:40→22:24)
[2021-09-27] MEDS ORDERED: Dextrose Gel 15 GM/37.5 ML TUBE PO PRN ×2 (01:51)
[2021-09-27] MEDS ORDERED: D5% in Water 1,000 ML IVC PRN (01:51)
[2021-09-27] MEDS ORDERED: *HR* Dextrose 50 % in Water (Syg) 50 ML SYRINGE IVP PRN (01:51)
[2021-09-27] MEDS: Acetaminophen IV 1,000 MG/100 ML BAG IVPB SCH ×4 (02:13→20:17)
[2021-09-27] MEDS: *HR* Metoprolol 5 MG/5 ML VIAL IVP SCH ×4 (02:14→20:18)
[2021-09-27 05:42] LABS: Basophils % 0.4 %; Eosinophils % 0.3 %; Hematocrit 34.8 % (35.3-44.9); Hemoglobin 11.3 g/dL (11.5-15.4); Immature Granulocytes % 0.4 % (0-4); Lymphocytes # 0.8 K/mcL (0.6-4.6); Lymphocytes % 10.7 %; Mean Corpuscular HGB Conc 32.5 g/dL (31.6-35.5); Mean Corpuscular Volume 89.2 fL (83.0-100.0); Monocytes # 0.6 K/mcL (0.0-1.3); Neutrophils # 6.4 K/mcL (1.6-8.9); Platelet Count 232 K/mcL (140-400); Red Cell Distribution Width 12.9 % (11.5-14.5); Segmented Neutrophils % 81.2 %; White Blood Count 7.9 K/mcL (4.3-11.1)
[2021-09-27 06:01] LABS: BUN/Creatinine Ratio 19 (6-26); Blood Urea Nitrogen 9 mg/dL (8-23); Calcium 8.1 mg/dL (8.6-10.3); Carbon Dioxide 22 mEq/L (23-29); Chloride 105 mEq/L (98-107); Glucose 99 mg/dL (70-105); Magnesium 1.8 mg/dL (1.6-2.6); Osmolality,Calculated 277 (280-300); Phosphorous 2.6 mg/dL (2.7-4.5); Potassium 3.5 mEq/L (3.5-5.1); Sodium 134 mEq/L (136-145); eGFR For African Americans > 60 (> 60); eGFR For Non-African Americans > 60 (> 60)
[2021-09-27] MEDS: 0.9 % Sodium Chloride 1,000 ML IVC SCH ×2 (06:43→16:52)
[2021-09-27] MEDS: Orphenadrine 60 MG/2 ML VIAL IVP SCH ×2 (06:44→17:44)
[2021-09-27] MEDS: *HR* Heparin 5,000 UNIT/ML VIAL SQ SCH ×2 (06:44→17:45)
[2021-09-27] MEDS: Piperacillin/Tazobactam 3.375 GM in 0.9 % Sodium Chloride Mini Bag 100 ML IVPB SCH ×3 (06:44→20:31)
[2021-09-27] MEDS: Pantoprazole 40 MG VIAL IVP SCH (07:50)
[2021-09-27] MEDS: Ketorolac 30 MG/ML VIAL IVP SCH ×3 (12:49→23:30)
[2021-09-28] MEDS: *HR* Metoprolol 5 MG/5 ML VIAL IVP SCH ×4 (00:03→20:24)
[2021-09-28] MEDS: Acetaminophen IV 1,000 MG/100 ML BAG IVPB SCH ×4 (01:53→20:24)
[2021-09-28] MEDS ORDERED: *HR* Metoprolol 5 MG/5 ML VIAL IVP ONE (02:43)
[2021-09-28 02:54] LABS: Basophils % 0.3 %; Eosinophils % 0.2 %; Hematocrit 36.6 % (35.3-44.9); Immature Granulocytes % 0.5 % (0-4); Lymphocytes # 0.8 K/mcL (0.6-4.6); Lymphocytes % 8.6 %; Mean Corpuscular HGB Conc 32.8 g/dL (31.6-35.5); Mean Corpuscular Volume 88.4 fL (83.0-100.0); Mean Platelet Volume 9.4 fL (9.4-12.4); Monocytes # 0.6 K/mcL (0.0-1.3); Monocytes % 6.9 %; Neutrophils # 7.7 K/mcL (1.6-8.9); Platelet Count 261 K/mcL (140-400); Red Blood Count 4.14 M/mcL (3.82-4.97); Red Cell Distribution Width 13.1 % (11.5-14.5); Segmented Neutrophils % 83.5 %; White Blood Count 9.2 K/mcL (4.3-11.1)
[2021-09-28] MEDS: 0.9 % Sodium Chloride 1,000 ML IVC SCH ×3 (03:13→20:25)
[2021-09-28 03:24] LABS: BUN/Creatinine Ratio 15 (6-26); Blood Urea Nitrogen 8 mg/dL (8-23); Calcium 8.6 mg/dL (8.6-10.3); Carbon Dioxide 17 mEq/L (23-29); Chloride 105 mEq/L (98-107); Glucose 82 mg/dL (70-105); Osmolality,Calculated 281 (280-300); Phosphorous 2.9 mg/dL (2.7-4.5); Sodium 137 mEq/L (136-145); eGFR For African Americans > 60 (> 60); eGFR For Non-African Americans > 60 (> 60)
[2021-09-28] MEDS: Piperacillin/Tazobactam 3.375 GM in 0.9 % Sodium Chloride Mini Bag 100 ML IVPB SCH ×3 (04:24→20:25)
[2021-09-28] MEDS: *HR* Heparin 5,000 UNIT/ML VIAL SQ SCH ×2 (05:55→17:40)
[2021-09-28] MEDS: Ketorolac 30 MG/ML VIAL IVP SCH ×3 (05:56→17:41)
[2021-09-28] MEDS: Orphenadrine 60 MG/2 ML VIAL IVP SCH ×2 (05:58→17:41)
[2021-09-28] MEDS: Pantoprazole 40 MG VIAL IVP SCH (08:12)
[2021-09-29] MEDS: Ketorolac 30 MG/ML VIAL IVP SCH ×3 (00:07→13:22)
[2021-09-29] MEDS: 0.9 % Sodium Chloride 1,000 ML IVC SCH ×4 (01:55→22:53)
[2021-09-29 02:17] LABS: Basophils # 0.1 K/mcL (0.0-0.2); Basophils % 0.7 %; Eosinophils # 0.1 K/mcL (0.0-0.6); Eosinophils % 0.7 %; Hematocrit 38.5 % (35.3-44.9); Hemoglobin 12.6 g/dL (11.5-15.4); Immature Granulocytes % 0.8 % (0-4); Lymphocytes # 1.1 K/mcL (0.6-4.6); Lymphocytes % 15.6 %; Mean Corpuscular HGB Conc 32.7 g/dL (31.6-35.5); Mean Corpuscular Hemoglobin 28.8 pg (28.0-33.3); Mean Corpuscular Volume 88.1 fL (83.0-100.0); Mean Platelet Volume 9.2 fL (9.4-12.4); Monocytes # 0.4 K/mcL (0.0-1.3); Monocytes % 5.5 %; Neutrophils # 5.5 K/mcL (1.6-8.9); Platelet Count 332 K/mcL (140-400); Red Blood Count 4.37 M/mcL (3.82-4.97); Red Cell Distribution Width 13.1 % (11.5-14.5); Segmented Neutrophils % 76.7 %; White Blood Count 7.2 K/mcL (4.3-11.1)
[2021-09-29 02:47] LABS: BUN/Creatinine Ratio 20 (6-26); Blood Urea Nitrogen 9 mg/dL (8-23); Calcium 8.7 mg/dL (8.6-10.3); Carbon Dioxide 17 mEq/L (23-29); Chloride 107 mEq/L (98-107); Glucose 86 mg/dL (70-105); Magnesium 1.9 mg/dL (1.6-2.6); Osmolality,Calculated 280 (280-300); Phosphorous 2.3 mg/dL (2.7-4.5); Potassium 3.8 mEq/L (3.5-5.1); Sodium 136 mEq/L (136-145); eGFR For African Americans > 60 (> 60); eGFR For Non-African Americans > 60 (> 60)
[2021-09-29] MEDS: *HR* Metoprolol 5 MG/5 ML VIAL IVP SCH ×2 (03:01→08:06)
[2021-09-29] MEDS: Acetaminophen IV 1,000 MG/100 ML BAG IVPB SCH ×3 (03:02→16:59)
[2021-09-29] MEDS: Piperacillin/Tazobactam 3.375 GM in 0.9 % Sodium Chloride Mini Bag 100 ML IVPB SCH ×3 (06:12→22:34)
[2021-09-29] MEDS: *HR* Heparin 5,000 UNIT/ML VIAL SQ SCH ×2 (06:13→17:34)
[2021-09-29] MEDS: Orphenadrine 60 MG/2 ML VIAL IVP SCH (06:14)
[2021-09-29] MEDS: Pantoprazole 40 MG VIAL IVP SCH (08:06)
[2021-09-29] MEDS: Metoprolol 100 MG TABLET PO SCH ×2 (13:21→22:34)
[2021-09-29] MEDS ORDERED: Acetaminophen 325 MG TABLET PO PRN (14:08)
[2021-09-30 02:17] LABS: Basophils # 0.1 K/mcL (0.0-0.2); Basophils % 0.7 %; Eosinophils # 0.1 K/mcL (0.0-0.6); Eosinophils % 1.5 %; Hematocrit 36.3 % (35.3-44.9); Immature Granulocytes % 1.3 % (0-4); Lymphocytes # 0.9 K/mcL (0.6-4.6); Lymphocytes % 13.2 %; Mean Corpuscular HGB Conc 33.1 g/dL (31.6-35.5); Mean Corpuscular Hemoglobin 29.1 pg (28.0-33.3); Mean Corpuscular Volume 87.9 fL (83.0-100.0); Mean Platelet Volume 9.3 fL (9.4-12.4); Monocytes # 0.5 K/mcL (0.0-1.3); Monocytes % 7.9 %; Neutrophils # 5.1 K/mcL (1.6-8.9); Platelet Count 317 K/mcL (140-400); Red Blood Count 4.13 M/mcL (3.82-4.97); Segmented Neutrophils % 75.4 %; White Blood Count 6.8 K/mcL (4.3-11.1)
[2021-09-30 02:40] LABS: BUN/Creatinine Ratio 12 (6-26); Blood Urea Nitrogen 5 mg/dL (8-23); Calcium 8.2 mg/dL (8.6-10.3); Carbon Dioxide 26 mEq/L (23-29); Chloride 104 mEq/L (98-107); Glucose 124 mg/dL (70-105); Osmolality,Calculated 279 (280-300); Potassium 3.7 mEq/L (3.5-5.1); Sodium 135 mEq/L (136-145); eGFR For African Americans > 60 (> 60); eGFR For Non-African Americans > 60 (> 60)
[2021-09-30] MEDS: Piperacillin/Tazobactam 3.375 GM in 0.9 % Sodium Chloride Mini Bag 100 ML IVPB SCH ×3 (05:19→20:31)
[2021-09-30] MEDS: *HR* Heparin 5,000 UNIT/ML VIAL SQ SCH ×2 (05:21→17:57)
[2021-09-30] MEDS: Metoprolol 100 MG TABLET PO SCH ×2 (08:01→20:32)
[2021-09-30] MEDS: amLODIPine 5 MG TABLET PO SCH (10:10)
[2021-09-30] MEDS: 0.9 % Sodium Chloride 1,000 ML IVC SCH ×2 (10:16→20:31)
[2021-10-01 01:42] LABS: Basophils % 0.8 %; Eosinophils % 0.5 %; Hemoglobin 12.1 g/dL (11.5-15.4); Immature Granulocytes % 1.9 % (0-4); Lymphocytes % 14.5 %; Mean Corpuscular HGB Conc 32.7 g/dL (31.6-35.5); Mean Corpuscular Hemoglobin 28.5 pg (28.0-33.3); Mean Corpuscular Volume 87.3 fL (83.0-100.0); Mean Platelet Volume 8.7 fL (9.4-12.4); Monocytes % 8.4 %; Platelet Count 328 K/mcL (140-400); Red Blood Count 4.24 M/mcL (3.82-4.97); Red Cell Distribution Width 13.1 % (11.5-14.5); Segmented Neutrophils % 73.9 %; White Blood Count 6.4 K/mcL (4.3-11.1)
[2021-10-01 01:43] LABS: Basophils # 0.1 K/mcL (0.0-0.2); Lymphocytes # 0.9 K/mcL (0.6-4.6); Monocytes # 0.5 K/mcL (0.0-1.3); Neutrophils # 4.7 K/mcL (1.6-8.9)
[2021-10-01 02:08] LABS: BUN/Creatinine Ratio 13 (6-26); Blood Urea Nitrogen 4 mg/dL (8-23); Calcium 8.4 mg/dL (8.6-10.3); Carbon Dioxide 20 mEq/L (23-29); Chloride 102 mEq/L (98-107); Glucose 121 mg/dL (70-105); Osmolality,Calculated 274 (280-300); Potassium 2.8 mEq/L (3.5-5.1); Sodium 133 mEq/L (136-145); eGFR For African Americans > 60 (> 60); eGFR For Non-African Americans > 60 (> 60)
[2021-10-01] MEDS: Piperacillin/Tazobactam 3.375 GM in 0.9 % Sodium Chloride Mini Bag 100 ML IVPB SCH (05:01)
[2021-10-01] MEDS: *HR* Heparin 5,000 UNIT/ML VIAL SQ SCH (05:01)
[2021-10-01] MEDS: Metoprolol 100 MG TABLET PO SCH (08:11)
[2021-10-01] MEDS: amLODIPine 5 MG TABLET PO SCH (08:11)
[2021-10-01 10:48] VITALS: O2SAT 96
[2021-10-01] MEDS ORDERED: Magnesium Sulfate 1 GM/102 ML PIGGYBACK IVPB ONE (11:27)
[2021-10-01] MEDS ORDERED: 0.9 % Sodium Chloride 1,000 ML ONE (11:39)
[2021-10-01] MEDS: 0.9 % Sodium Chloride 1,000 ML IVC SCH (11:50)
[2021-10-01 15:37] VITALS: BP 146/81; PULSE 94; TEMP 98.2
== END 2021-10-01 18:05 | disposition home or self-care (01) | DRG 853 ==
LOC: 3ANU 09:13 → EMEROOARM 09:13 → SUATTDRO 18:54 → 3ANU 19:35 → SUATTDRO 09-25 19:07
PROVIDERS: ADMIT Internal Medicine; ATTEND Internal Medicine